=== PATIENT | male | born 1965 | race Two or more races ===

== ENCOUNTER 2020-02-06 01:58 | Inpatient (IN) | payer OTHER, MEDICARE, SELFPAY ==
[2020-02-06] VITALS (11 sets, daily range): BP systolic 146–245; BP diastolic 72–133; PULSE 58–122; RESP 16–40; TEMP 36.1–36.8; O2SAT 73–100; BMI 33.3
--- NOTE | 2020-02-06 02:19 | XR_ITS ---
EXAMINATION: XR CHEST CLINICAL INFORMATION: Shortness of breath, possible new CHF COMPARISON: None TECHNIQUE: Frontal view of the chest was obtained. FINDINGS: Lung volumes are symmetric. There are diffusely increased interstitial markings, more prominent at the lung bases. There is also heterogeneous airspace opacification at the right lung base. No pneumothorax is seen. No significant pleural effusion. The cardiomediastinal contour is unremarkable. No acute osseous findings are seen. IMPRESSION: Diffusely increased interstitial markings suggesting interstitial edema in the proper clinical setting. Superimposed heterogeneous right basilar airspace opacity may represent alveolar edema or possibly developing infectious consolidation in the proper clinical setting.
--- NOTE | 2020-02-06 02:20 | ECG_ITS ---
Test Reason : SOB Blood Pressure : / mmHG Vent. Rate : 101 BPM Atrial Rate : 101 BPM P-R Int : 180 ms QRS Dur : 098 ms QT Int : 374 ms P-R-T Axes : 071 -12 121 degrees QTc Int : 484 ms Sinus tachycardia Possible Left atrial enlargement Left ventricular hypertrophy with repolarization abnormality Anterolateral infarct (cited on or before 05-SEP-2019) Abnormal ECG When compared with ECG of 05-SEP-2019 12:23, No significant change was found Referred By: Erica Augustine Electronically Signed By:JOHN ESCALANTE MD
[2020-02-06] MEDS: Furosemide 100 MG/10 ML VIAL 60 MG IVPUSH (02:35)
[2020-02-06] MEDS: Nitroglycerin 2 % Oint 1 GM Packet 1 INCH TRANSDERMA (02:36)
[2020-02-06 02:40] LABS: Basophils Absolute Auto 0.2 X10*3/uL (0.0-0.2); Basophils Percent Auto 0.8 % (0-2); Eosinophils Absolute Auto 0.6 X10*3/uL (0.0-0.4); Eosinophils Percent Auto 3.3 % (0-4); Hematocrit 38.7 % (42-52); Hemoglobin 12.2 g/dl (14.0-18.0); Imm Gran Abs Auto 0.07 X10*3/uL (0.00-0.03); Imm Gran Pct Auto 0.4 % (0.0-0.4); Lymphocytes Absolute Auto 7.4 X10*3/uL (1.2-4.9); Lymphocytes Percent Auto 38.6 % (20-40); MANUAL DIFF FLAG SCAN; Mean Corpuscular HGB Conc 31.5 g/dl (31.0-36.0); Mean Corpuscular Hemoglobin 26.9 pg (27.0-33.0); Mean Corpuscular Volume 85.2 fL (80-98); Mean Platelet Volume 11.9 fL (9.4-12.4); Monocytes Absolute Auto 1.3 X10*3/uL (0.1-1.2); Monocytes Percent Auto 6.7 % (2-11); Neutrophils Absolute Auto 9.6 X10*3/uL (2.0-8.3); Neutrophils Percent Auto 50.2 % (45-73); Platelet Count 464 X10*3/uL (160-400); Red Blood Count 4.54 X10*6/uL (4.60-5.80); Red Cell Distribution Width 14.5 % (11.0-16.0); SCAN SMEAR FLAG 1; White Blood Count 19.1 X10*3/uL (4.8-10.8)
[2020-02-06 03:00] LABS: SLIDE REVIEW VERIFIED
[2020-02-06 03:09] LABS: Anion Gap 17 (12-20); Blood Urea Nitrogen 39 mg/dL (9-16); Calcium 8.8 mg/dL (8.4-10.2); Carbon Dioxide 17 mmol/L (22-29); Chloride 107 mmol/L (96-108); Creatinine Clr Calc Pharmacy 54.5; Estimated Glomerular Filt Rate 36; Glucose Random 409 mg/dL (60-115); Potassium 4.4 mmol/l (3.3-5.1); Sodium 137 mmol/L (135-145)
[2020-02-06 03:19] LABS: B Type Natriuretic Peptide 245 pg/mL (<100); Troponin-I High Sensitivity 129.7 ng/L (<3.5-35.0)
--- NOTE | 2020-02-06 04:01 | CT_ITS ---
EXAMINATION: CT CHEST WITHOUT CONTRAST CLINICAL INFORMATION: Worsening shortness of breath COMPARISON: Chest x-ray from earlier today TECHNIQUE: Multidetector volumetric CT imaging of the chest was done. Axial MIP volume rendering provided. Sagittal and coronal reformatted images were obtained. This CT examination was performed using dose optimization techniques as appropriate, variously including the following: *Automated exposure control *Adjustment of mA and/or kV according to patient size (this includes techniques or standardized protocols for targeted exams where dose is matched to indication/reason for exam; i.e. extremities or head) *Use of iterative reconstruction technique DLP: 361 mGy-cm FINDINGS: LUNGS: There is interlobular septal thickening in the mid to lower lungs along with regions of bilateral lower lobe groundglass opacity, right greater than left. Overall constellation of findings favors pulmonary edema. Scattered calcified granulomas are noted. MEDIASTINUM: The visualized thyroid gland is unremarkable. Multiple scattered subcentimeter lymph nodes noted throughout the mediastinum. Cardiac size is within normal limits; no pericardial effusion. Scattered atherosclerotic calcifications are present. PLEURA: Trace right pleural effusion. No pneumothorax. AXILLA: No lymphadenopathy. UPPER ABDOMEN: Discontinuous calcification noted along the gallbladder wall. OSSEOUS STRUCTURES: Scattered degenerative endplate changes noted in the spine. IMPRESSION: 1. Interlobular septal thickening and groundglass opacities with basilar predominance, favored to reflect interstitial and developing alveolar edema. 2. Trace right pleural effusion. 3. Calcifications along the gallbladder wall, favoring porcelain gallbladder.
[2020-02-06] MEDS: Insulin Regular, Human 100 UNIT/ML 3 ML VIAL 10 UNIT IVPUSH (04:33)
[2020-02-06] MEDS: Piperacillin Sodium/Tazobactam 3.375 GM in 0.9 % Sodium Chloride 50 ML IV (05:44)
[2020-02-06] MEDS: 0.9 % Sodium Chloride 1,000 ML 999 ML IVCONT (05:45)
--- NOTE | 2020-02-06 05:55 | ED.SOB ---
HPI - SOB/Dyspnea General Chief Complaint: Dyspnea Stated Complaint: SOB Time Seen by Provider: 02/06/20 02:09 Source: patient and family Mode of arrival: ambulatory Limitations: other ( shortness of breath) History of Present Illness HPI Narrative: patient comes to emergency room complaining of severe shortness of breath. Patient states he was sleeping comfortably when suddenly he had sudden onset of shortness of breath. Patient had no chest pain. On arrival to the emergency room, his oxygen saturation was noted to be 70 %. Patient was unable to give further history due to the shortness of breath. MD elicited complaint: shortness of breath Pertinent past history: asthma Onset (ago): minute(s) Timing: constant Severity: severe Exacerbating factors: lying flat and movement Relieving factors: nothing Known history of: asthma Associated symptoms: orthopnea Treatment prior to arrival: none Related Data Home oxygen amount: none Home Medications Medication Instructions Recorded Confirmed blood sugar diagnostic [FreeStyle 02/06/20 02/06/20 Lite Strips] dulaglutide [Trulicity] 1 syringe SUBCUT QWEEK 02/06/20 02/06/20 flu vacc [id number] 6mos up(PF) ml IM 02/06/20 [Fluzone Quad 1140-0213 (PF)] gemfibrozil 1 tab PO BID 02/06/20 02/06/20 insulin glargine [Lantus Solostar 32 unit SUBCUT BEDTIME 02/06/20 02/06/20 U-100 Insulin] insulin lispro [Humalog KwikPen 14 unit SUBCUT TID 02/06/20 02/06/20 Insulin] metoprolol tartrate 1 tab PO DAILY 02/06/20 02/06/20 nicotine 1 patch TOPICAL DAILY 02/06/20 02/06/20 pen needle, diabetic [BD 02/06/20 02/06/20 Ultra-Fine Mini Pen Needle] pravastatin 1 tab PO DAILY 02/06/20 02/06/20 Allergies Allergy/AdvReac Type Severity Reaction Status Date / Time No Known Allergies Allergy Verified 02/06/20 02:03 [No Known Allergies*] Review of Systems Review of Systems: Constitutional: No Weight loss, No Fever, No Chills, No Night Sweats, No Fatigue, No Malaise ENT/Mouth: No Hearing loss, No Ear Pain, No Nasal Congestion, No Sinus Pain, No Hoarseness, No sore throat, No Rhinorrhea, No Swallowing Difficulty Eyes: No Eye Pain, No Swelling, No Redness, No Foreign Body, No Discharge, No Vision Changes Cardiovascular: No Chest Pain, No SOB, No Dyspnea on Exertion, No Orthopnea, No Edema, No Palpitations Respiratory: No Cough, No Sputum, No Wheezing, No Smoke Exposure, Complaining of severe dyspnea Gastrointestinal: No Nausea, No Vomiting, No Diarrhea, No Constipation, No abdominal Pain, No Hematochezia, No Melena Genitourinary: no irregular bleeding, No Dysuria, No Urinary Frequency, No Hematuria, No Urinary Incontinence, No Urgency, No Flank Pain, No Urinary Flow Changes, No Hesitancy Musculoskeletal: No joint pain, No Myalgias, No Joint Swelling Skin: No Skin Lesions, No rash Neuro: No Weakness, No Numbness, No Paresthesias, No Loss of Consciousness, No Dizziness, No Headache Psych: No Anxiety/Panic, No Depression, No SI/HI/AH/VH, No Social Issues, Heme/Lymph: No Bruising, No Bleeding,No Lymphadenopathy Endocrine: No Polyuria, No Polydipsia, No Temperature Intolerance PMFSH Past Medical History Attestation statement: The following information was validated with the patient. Medical History Diabetes Hypertension Social History Social History Alcohol intake: never Smoking Status: Never smoker Use of substances other than those prescribed or required for medical reasons: No Advance Directives: No Physical Exam Vital Signs: Vital Signs: Vital Signs Temp Pulse Resp BP Pulse Ox 02/06/20 05:53 97.9 F 92 18 161/74 H 97 02/06/20 04:37 90 16 172/72 H 100 02/06/20 03:17 97.8 F 100 22 H 176/86 H 98 02/06/20 02:08 97.5 F 122 H 40 H 245/133 H 73 L Body Mass Index 33.3 Appearance: Alert. severe distress due to shortness of breath Eyes: Pupils equal, round and reactive to light. ENT: Pharynx normal. Neck: Normal inspection. Neck supple. No lymph nodes noted. No crepitus CVS: Normal heart rate and rhythm. Pulses normal. Normal S1 and S2 Respiratory: severe respiratory distress. bilateral crackles, No Wheezing. Abdomen: Soft and nontender. No rigidity. No distention. good BS x4 Skin: Skin warm and dry. Normal skin color. Normal skin turgor. Extremities: bilateral +1 pitting extremity edema. No Lacerations. No Rash Neuro: Oriented X 3. No motor deficit. No sensory deficit. Moving all extermities. No slurred speech. Course Reevaluation(s) Reevaluation #1: patient was initially placed on 15 L, oxygen saturation was 91%. Patient was switched to BiPAP. Reevaluation #2: Patient tolerated well BiPAP, now he is on 2 L nasal cannula, patient's oxygen saturation 98%, patient breathing comfortably, speaking in full sentences. MDM - SOB/Dyspnea MDM Narrative Medical decision making narrative: Patient has an elevated white blood cell count, at the moment, it is unclear if patient has shortness of breath was secondary due to a viral process versus cardiac. So far, it is more likely that the patient's shortness of breath is due to new onset congestive heart failure rather than infectious. However, patient will be treated empirically with antibiotics, but he will not be given 30 mL per kg of IV fluid,. most likely, patient has hypertension, to 20 on arrival, triggered /pulmonary edema. patient responded well to BiPAP, IV Lasix and nitropaste. I discussed the above-mentioned with our hospitalist. Differential Diagnosis Differential diagnosis: Likely congestive heart failure, asthma with exacerbation and pleural effusion Medical Records Attestation: I reviewed the patient's medical records. Lab Data Attestation: I reviewed the patient's lab results. Result diagrams: 02/06/20 02:32 02/06/20 02:32 Labs: Lab Results 02/06/20 02/06/20 02/06/20 Range/Units 02:32 02:32 02:32 WBC 19.1 H (4.8-10.8) X10*3/uL RBC 4.54 L (4.60-5.80) X10*6/uL Hgb 12.2 L (14.0-18.0) g/dl Hct 38.7 L (42-52) % MCV 85.2 (80-98) fL MCH 26.9 L (27.0-33.0) pg MCHC 31.5 (31.0-36.0) g/dl RDW 14.5 (11.0-16.0) % Plt Count 464 H (160-400) X10*3/uL MPV 11.9 (9.4-12.4) fL Immature Gran % (Auto) 0.4 (0.0-0.4) % Neut % (Auto) 50.2 (45-73) % Lymph % (Auto) 38.6 (20-40) % [place] % (Auto) 6.7 (2-11) % Eos % (Auto) 3.3 (0-4) % Baso % (Auto) 0.8 (0-2) % Lymph # (Auto) 7.4 H (1.2-4.9) X10*3/uL [place] # (Auto) 1.3 H (0.1-1.2) X10*3/uL Eos # (Auto) 0.6 H (0.0-0.4) X10*3/uL Baso # (Auto) 0.2 (0.0-0.2) X10*3/uL Abs Immat Gran (auto) 0.07 H (0.00-0.03) X10*3/uL Absolute Neuts (auto) 9.6 H (2.0-8.3) X10*3/uL Absolute Nucleated RBC 0.000 (0.0-0.012) X10*3/uL Nucleated RBC % (auto) 0.0 (0.0-0.2) /100WBC Smear Tech's Comments VERIFIED Sodium 137 (135-145) mmol/L Potassium 4.4 (3.3-5.1) mmol/l Chloride 107 (96-108) mmol/L Carbon Dioxide 17 L (22-29) mmol/L Anion Gap 17 (12-20) BUN 39 H (9-16) mg/dL Creatinine 1.94 H (0.5-1.4) mg/dL Estim Creat Clear Calc 54.5 Estimated GFR 36 Random Glucose 409 H* (60-115) mg/dL Calcium 8.8 (8.4-10.2) mg/dL Troponin I High Sens 129.7 H (<3.5-35.0) ng/L B-Natriuretic Peptide 245 H (<100) pg/mL 02/06/20 Range/Units 02:32 WBC (4.8-10.8) X10*3/uL RBC (4.60-5.80) X10*6/uL Hgb (14.0-18.0) g/dl Hct (42-52) % MCV (80-98) fL MCH (27.0-33.0) pg MCHC (31.0-36.0) g/dl RDW (11.0-16.0) % Plt Count (160-400) X10*3/uL MPV (9.4-12.4) fL Immature Gran % (Auto) (0.0-0.4) % Neut % (Auto) (45-73) % Lymph % (Auto) (20-40) % [place] % (Auto) (2-11) % Eos % (Auto) (0-4) % Baso % (Auto) (0-2) % Lymph # (Auto) (1.2-4.9) X10*3/uL [place] # (Auto) (0.1-1.2) X10*3/uL Eos # (Auto) (0.0-0.4) X10*3/uL Baso # (Auto) (0.0-0.2) X10*3/uL Abs Immat Gran (auto) (0.00-0.03) X10*3/uL Absolute Neuts (auto) (2.0-8.3) X10*3/uL Absolute Nucleated RBC (0.0-0.012) X10*3/uL Nucleated RBC % (auto) (0.0-0.2) /100WBC Smear Tech's Comments Sodium (135-145) mmol/L Potassium (3.3-5.1) mmol/l Chloride (96-108) mmol/L Carbon Dioxide (22-29) mmol/L Anion Gap (12-20) BUN (9-16) mg/dL Creatinine (0.5-1.4) mg/dL Estim Creat Clear Calc Estimated GFR Random Glucose (60-115) mg/dL Calcium (8.4-10.2) mg/dL Troponin I High Sens (<3.5-35.0) ng/L B-Natriuretic Peptide Cancelled (<100) pg/mL Imaging Data chest x ray and chest ct: Radiologist's impression: CXR: infectious vs edema CT: 1. Interlobular septal thickening and groundglass opacities with basilar predominance, favored to reflect interstitial and developing alveolar edema. 2. Trace right pleural effusion. 3. Calcifications along the gallbladder wall, favoring porcelain gallbladder. ECG Data Attestation: I personally reviewed and interpreted this ECG as follows: ( sinus rhythm, tachycardia, heart rate 101, QTC 484, nonspecific T-wave inversions in lead V6) ECG interpretation date: 02/06/20 ECG interpretation time: 06:05 Discharge Plan Discharge Clinical Impression: Congestive heart failure, Dyspnea, Acute hyperglycemia Patient Disposition: Admitted As Inpatient Prescriptions: No Action (DME) FreeStyle Lite Strips Strip MISCELLANEOUS TID RF: 0 gemfibrozil 600 mg tablet 1 tab PO BID RF: 0 metoprolol tartrate 50 mg tablet 1 tab PO DAILY RF: 0 nicotine 21 mg/24 hr patch 24 hour 1 patch topical DAILY RF: 0 pravastatin 20 mg tablet 1 tab PO DAILY RF: 0 insulin lispro [Humalog KwikPen Insulin] 100 unit/mL insulin pen 14 unit subcut TID RF: 0 (DME) pen needle, diabetic [BD Ultra-Fine Mini Pen Needle] 31 gauge x 3/16 needle subcut BEDTIME RF: 0 Lantus Solostar U-100 Insulin 100 unit/mL (3 mL) insulin pen 32 unit subcut BEDTIME RF: 0 Trulicity 0.75 mg/0.5 mL pen injector 1 syringe subcut QWEEK RF: 0 Fluzone Quad (PF) 60 mcg (15 mcg x 4)/0.5 mL syringe IM RF: 0
--- NOTE | 2020-02-06 06:06 | ECG_ITS ---
Test Reason : REPEAT Blood Pressure : / mmHG Vent. Rate : 087 BPM Atrial Rate : 087 BPM P-R Int : 190 ms QRS Dur : 104 ms QT Int : 380 ms P-R-T Axes : 034 -14 110 degrees QTc Int : 457 ms Normal sinus rhythm Minimal voltage criteria for LVH, may be normal variant Anterolateral infarct (cited on or before 05-SEP-2019) Abnormal ECG When compared with ECG of 06-FEB-2020 03:05, No significant change was found Referred By: Lei Sadler Electronically Signed By:JOHN ESCALANTE MD
[2020-02-06 06:13] LABS: Lactic Acid 1.8 mmol/L (0.5-2.0)
[2020-02-06] MEDS: Heparin Sodium,Porcine 5,000 UNIT/ML VIAL 5000 UNIT IVPUSH (06:41)
[2020-02-06] MEDS: Heparin Sodium,Porcine/1/2NS 25,000 UNIT/250 ML IV.SOLN 15.2 UNIT IVCONT (06:42)
--- NOTE | 2020-02-06 06:47 | P.HPIM_ITS ---
History of Present Illness Date of Service: 02/06/20 Chief Complaint: sudden onset shortness breath this is a 54-year-old male with past medical history of diabetes, hypertension, hyperlipidemia, neuropathy, who presents to the hospital complaining of sudden onset shortness of breath. Patient reports that he was sitting on the couch watching TV when all of sudden he started having shortness of breath, started coughing, panicking, and had a slightly pleuritic chest pain with coughing. He reports that prior to this he was doing well although he did report shortness of breath on exertion but he felt that was going on for while. He has been renovating his house lately and has been feeling a little more tired than usual. He denies having orthopnea or PND. He has not noticed any Leg swelling . He has not had any recent travel or sick contacts and he has not had any fever or chills. No sputum production. He has no headache, change in vision, abdominal pain nausea or vomiting. No constipation or diarrhea. No urinary symptoms. On arrival to the ED patient's temp is 97.5?, tachycardic with a rate of 122, tachypneic in the 40s, blood pressure of 245/133, and pulse ox of 73 on room air. Patient was placed on BiPAP, 60 mg of Lasix was given with significant improvement of his symptoms labs are significant for WBC count of 19.1, hemoglobin of 12.2, BUN of 30 and a creatinine of 1.94, random glucose of wound 9, initial troponin of 120s but repeat troponin increased to 982, BNP of 245 EKG shows sinus tachycardia, with no other significant changes from previous EKG. No changes suggestive of ACS. CT chest demonstrated interlobular septal thickening and ground-glass opaciti es with basilar predominance, favored to reflect interstitial in developing alveolar edema, trace right pleural effusion, and porcelain gallbladder past medical history: Diabetes, hypertension, hyperlipidemia, neuropathy Past surgical history: Denies Family history: Father had dementia, and mother of pancreatic cancer Social history: Comes from home, uses a cane sometimes due to neuropathy, denies any tobacco alcohol or illicit drugs Review of Systems Review of Systems: Yes all other systems are reviewed and are negative [facility] Medical History Diabetes Hypertension Social History Alcohol intake: never Smoking Status: Never smoker Use of substances other than those prescribed or required for medical reasons: No Advance Directives: No Meds Allergies Allergy/AdvReac Type Severity Reaction Status Date / Time No Known Allergies Allergy Verified 02/06/20 02:03 [No Known Allergies*] Home Medications Medication Instructions Recorded Confirmed Type blood sugar diagnostic [FreeStyle 02/06/20 02/06/20 History Lite Strips] dulaglutide [Trulicity] 1 syringe SUBCUT QWEEK 02/06/20 02/06/20 History flu vacc [id number] 6mos up(PF) ml IM 02/06/20 History [Fluzone Quad 8798-2506 (PF)] gemfibrozil 1 tab PO BID 02/06/20 02/06/20 History insulin glargine [Lantus Solostar 32 unit SUBCUT BEDTIME 02/06/20 02/06/20 History U-100 Insulin] insulin lispro [Humalog KwikPen 14 unit SUBCUT TID 02/06/20 02/06/20 History Insulin] metoprolol tartrate 1 tab PO DAILY 02/06/20 02/06/20 History nicotine 1 patch TOPICAL DAILY 02/06/20 02/06/20 History pen needle, diabetic [BD 02/06/20 02/06/20 History Ultra-Fine Mini Pen Needle] pravastatin 1 tab PO DAILY 02/06/20 02/06/20 History Physical Exam Vital Signs and Narrative: Vital Signs: Last Vital Signs Temp 97.9 F 02/06/20 05:53 Pulse 92 02/06/20 05:53 Resp 18 02/06/20 05:53 BP 161/74 H 02/06/20 05:53 Pulse Ox 97 02/06/20 05:53 Body Mass Index 33.3 Const: General: cooperative and no acute distress Orientation/consciousness: patient oriented x3 Eyes: General: appearance normal, both eyes and all related structures Pupils: Equal, round and reactive pupils present Resp: Effort & Inspection: normal respiratory effort and able to speak in complete sentences Auscultation: clear to auscultation bilaterally Cardio: Other: 1+ pedal edema Rate: regular rate Rhythm: regular rhythm GI: Palpation (GI): Soft to palpation Auscultation: normal bowel sounds Skin: General skin exam: no rashes or lesions noted Neuro: General: patient oriented x3 Cranial nerves: Yes Equal, round and reactive pupils present Cognition (Neuro): normal cognition Extrem: General: Yes normal to inspection and Yes no pedal edema Results Labs Labs: Laboratory Tests 02/06/20 02/06/20 02/06/20 02:32 02:32 02:32 WBC 19.1 H RBC 4.54 L Hgb 12.2 L Hct 38.7 L MCV 85.2 MCH 26.9 L MCHC 31.5 RDW 14.5 Plt Count 464 H MPV 11.9 Immature Gran % (Auto) 0.4 Neut % (Auto) 50.2 Lymph % (Auto) 38.6 [place] % (Auto) 6.7 Eos % (Auto) 3.3 Baso % (Auto) 0.8 Lymph # (Auto) 7.4 H [place] # (Auto) 1.3 H Eos # (Auto) 0.6 H Baso # (Auto) 0.2 Abs Immat Gran (auto) 0.07 H Absolute Neuts (auto) 9.6 H Absolute Nucleated RBC 0.000 Nucleated RBC % (auto) 0.0 Smear Tech's Comments VERIFIED Sodium 137 Potassium 4.4 Chloride 107 Carbon Dioxide 17 L Anion Gap 17 BUN 39 H Creatinine 1.94 H Estim Creat Clear Calc 54.5 Estimated GFR 36 Random Glucose 409 H* Lactic Acid Calcium 8.8 Troponin I High Sens 129.7 H B-Natriuretic Peptide 245 H 02/06/20 02/06/20 02/06/20 02:32 05:30 05:43 WBC RBC Hgb Hct MCV MCH MCHC RDW Plt Count MPV Immature Gran % (Auto) Neut % (Auto) Lymph % (Auto) [place] % (Auto) Eos % (Auto) Baso % (Auto) Lymph # (Auto) [place] # (Auto) Eos # (Auto) Baso # (Auto) Abs Immat Gran (auto) Absolute Neuts (auto) Absolute Nucleated RBC Nucleated RBC % (auto) Smear Tech's Comments Sodium Potassium Chloride Carbon Dioxide Anion Gap BUN Creatinine Estim Creat Clear Calc Estimated GFR Random Glucose Lactic Acid 1.8 Calcium Troponin I High Sens 982.0 H D B-Natriuretic Peptide Cancelled ECG Attestation: I personally reviewed and interpreted this ECG as follows: ( I personally reviewed the EKG and agree with the interpretation) Interpretation: Sinus tachycardia Possible Left atrial enlargement Left ventricular hypertrophy with repolarization abnormality Anterolateral infarct (cited on or before 05-SEP-2019) Abnormal ECG When compared with ECG of 05-SEP-2019 12:23, No significant change was found Imaging CT scan - chest: Radiologist's impression: IMPRESSION: 1. Interlobular septal thickening and groundglass opacities with basilar predominance, favored to reflect interstitial and developing alveolar edema. 2. Trace right pleural effusion. 3. Calcifications along the gallbladder wall, favoring porcelain gallbladder. Assessment and Plan (1) NSTEMI (non-ST elevated myocardial infarction): Status: Acute (2) Elevated troponin: Status: Acute (3) Congestive heart failure: Qualifiers: Heart failure chronicity: acute Heart failure type: unspecified Qualified Code(s): I50.9 - Heart failure, unspecified Status: Acute (4) Dyspnea: Qualifiers: Dyspnea type: acute respiratory distress Qualified Code(s): R06.03 - Acute respiratory distress Status: Acute (5) Acute hyperglycemia: Status: Acute (6) Hypoxic: Status: Acute this is a gentleman with past medical history as above who presents to the hospital with sudden onset shortness of breath found to have CHF and NSTEMI # acute hypoxic respiratory failure - secondary to CHF exacerbation, less likely to be due to [place] or any other pneumonia - CT abdomen showing pulmonary congestion Plan: - Received 60 IV of Lasix in the ED with good response - will start him on 40 IV b.i.d. of Lasix - strict I&O, daily weight, low-sodium diet - echocardiogram - cardiology consult # NSTEMI - most likely type 2 in the hypertensive in emergency as well as CHF - elevated troponin in the 900s - no EKG changes - has noncardiac chest pain plan: - spoke to her cardiology will start him on heparin GGT - aspirin - echo # acute onset CHF - dyspnea, elevated BNP, lower extremity edema, as well as fatigue all suggest CHF - patient also has evidence on imaging plan: - Lasix as above - echocardiogram - cardiology to follow # hypertensive urgency - % with systolic blood pressure in the low 220s, with diastolic in the 100 and 10s - patient was placed on BiPAP and given nitroglycerin transdermal patch which improved his blood pressure and now blood pressure is 160s over 80s - # diabetes mellitus - low-dose sliding scale insulin, continue glargine, continue home lispro with meals - diabetic diet # hypertension - stable now - continue metoprolol DVT prophylaxis: heparin GGT date of service 02/06/2020
[2020-02-06 06:50] LABS: SARS COV2 PCR INHOUSE NEGATIVE (Negative)
[2020-02-06] MEDS: Aspirin 81 MG TAB.CHEW 324 MG PO (07:17)
--- NOTE | 2020-02-06 08:11 | CA_ITS ---
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 The visually estimated ejection fraction is between 45-50%. - There is severely increased left ventricular wall thickness. - The apical inferior and basal inferior segments are hypokinetic. The apex, apical septum, and mid anteroseptal segments are akinetic. Findings Procedure Information Contrast agent, definity, is being given per protocol without apparent complications. Left Ventricle Normal left ventricular cavity size. There is severely increased left ventricular wall thickness. The left ventricular systolic function is mildly decreased. The visually estimated ejection fraction is between 45-50%. There is evidence of regional wall motion abnormalities. E/E prime ratio is between 8 and 15 consistent with indeterminate filling pressures. Evidence suggests grade I (mild) diastolic dysfunction. Wall Motion Rest Echo Findings The apical inferior and basal inferior segments are hypokinetic. The apex, apical septum, and mid anteroseptal segments are akinetic. Right Ventricle Normal right ventricular cavity size and systolic function. Aortic Valve The aortic valve was not well visualized. There is no aortic valve stenosis. There is no aortic valve regurgitation. Mitral Valve The mitral valve appears normal. There is mild mitral valve regurgitation. There is no mitral valve stenosis. Pulmonic Valve The pulmonic valve was not well visualized. There is trace pulmonic valve regurgitation. Tricuspid Valve Normal tricuspid valve structure. There is trace tricuspid valve regurgitation. The pulmonary artery systolic pressure is normal. Great Vessels The aortic annulus, sinuses of valsalva, and asc aorta are normal in size. Venous The inferior vena cava is normal in size and collapses greater than 50% with inspiration. Pericardium/Pleural There is no evidence of pericardial effusion. Prior Study Comparison No prior study available for comparison. Measurements 2D Linear Measurements IVSd: 1.52 0.6-0.9/0.6-1.0 cm LVIDd: 5.04 3.9-5.3/4.2-5.9 cm LVIDd Index: 2.26 2.4-3.2/2.2-3.1 cm/m2 LVIDs: 3.52 2.0-3.6 cm LVPWd: 1.58 0.7-1.1 cm Ao Root: 2.60 2.1-3.5 cm LA Diam: 4.70 2.7-3.8/3.0-4.0 cm LAIDs Index: 2.11 1.5-2.3 cm/m2 LV Mass: 427.78 67-162/88-224 g LV Mass Index: 191.83 43-95/49-115 g/m2 LVOT Diam: 2.20 3.0+(-)1.3 cm 2D Systolic Function EF 4C: 46.80 >55% EF 2C: 42.80 >55% EF BiP: 46.80 >55% Mitral Valve MV Pk E: 0.68 MV PK A: 0.94 MV Decel Time: 130.00 E/A: 0.70 E'Lateral: 6.19 E'Medial: 4.84 E/E' Med: 14.10 E/E' Lat: 11.10 PHT: 38.00 MVA PHT: 5.79 Decel Summers: 5.25 Aortic Valve AoV Pk Aquiles: 1.61 AoV Mn Aquiles: 1.12 AoV VTI: 0.33 AoV Pk Grad: 10.00 Aov Mn Grad: 6.00 TRINY Cont.VTI: 2.57 LVOT LVOT Pk Aquiles: 1.03 LVOT Mn Aquiles: 0.70 LVOT VTI: 0.22 LVOT Pk Grad: 4.00 LVOT Mn Grad: 2.00 LVOT Diam: 2.20 LVOT Area: 3.80 Diastolic Function MV Pk E: 0.68 MV Pk A: 0.94 E/A: 0.70 E'Medial: 4.84 E/E' Med: 14.10 E' Laterial: 6.19 E/E' Lat: 11.10 Tricuspid Valve TR Pk Aquiles: 1.78 TR Pk Grad: 13.00 RA Press: 3.00 RVSP: 16.00 Great Vessels Aorta Ao Root-2D: 2.60 2.0-3.7 cm Pulmonary Valve PV Pk Aquiles: 1.45 Peak PV Grad: 8.00 Updated in Other Vendor System with Status of Final Robert De Leon MD electronically signed on 02/06/2020 5:28:14 PM with status of Final
--- NOTE | 2020-02-06 08:32 | PM.CNCAR ---
History of Present Illness History of Present Illness Date of Consult: February 06, 2020 Chief complaint: SOB/CHF, NSTEMI Narrative: This is a cardiology consultation regarding CHF/NSTEMI. Patient denies any prior cardiac history at all. He has a history of hypertension, diabetes and dyslipidemia. He is presenting with acute onset of shortness of breath. He was sitting in a couch and watching TV when all of a sudden having shortness of breath and started coughing and panicking and pleuritic-type chest pains with coughing. Then he was seen and then the blood pressure was very high 245/133 mm Hg. Then patient was put on BiPAP and IV Lasix was given and then blood pressure improved. Today he states that he feels back to his normal self. Prior to this, no history of any known cardiomyopathy or coronary disease myocardial infarction or in fact any other cardiac issues. He states that he was otherwise Feeling normal prior to this admission. Review of Systems Review of Systems: Cardiac-positive for shortness of breath. negative for angina. Negative for palpitations or syncopal episodes. Remainder of the 10 system review negative. [facility] Past Medical History Medical History Diabetes Hypertension Family History Pertinent family history: No significant family history relevant to this admission. Father had dementia. Mother had of pancreatic cancer. Social History Social History Household Members: Spouse Housing: House Do you presently have visiting nurse or other home services: No Alcohol intake: never Smoking Status: Current every day smoker Tobacco Type: Cigarette Years Smoked: 30 Smoked in Last 30 Days: Yes Patient Interested in Nicotine Replacement: No Patient Given Instructions on How to Stop Smoking: No Second Hand Smoke Exposure: No Use of substances other than those prescribed or required for medical reasons: No Have you been hit, kicked, punched, or otherwise hurt by someone within the past year? If so, by whom?: No Do you feel safe in your current relationship?: Yes Is there a partner from a previous relationship who is making you feel unsafe now?: No Are you made to feel afraid or neglected: No Spiritual Healthcare Practices: none Advance Directives: No Do you have thoughts of harming others: None Do you have a plan to hurt others: No Plan Recently lost weight without trying: Unsure service: No Meds Allergies Allergy/AdvReac Type Severity Reaction Status Date / Time No Known Allergies Allergy Verified 02/06/20 02:03 [No Known Allergies*] Home Medications Medication Instructions Recorded Confirmed Type blood sugar diagnostic [FreeStyle 02/06/20 02/06/20 History Lite Strips] dulaglutide [Trulicity] 0.75 mg SUBCUT QWEEK 02/06/20 02/06/20 History gemfibrozil 600 mg PO BID 02/06/20 02/06/20 History insulin glargine [Lantus Solostar 32 unit SUBCUT BEDTIME 02/06/20 02/06/20 History U-100 Insulin] insulin lispro [Humalog KwikPen 14 unit SUBCUT TIDAC 02/06/20 02/06/20 History Insulin] lisinopril 5 mg PO DAILY 02/06/20 02/06/20 History metformin 500 mg PO BID 02/06/20 02/06/20 History metoprolol tartrate 50 mg PO DAILY 02/06/20 02/06/20 History nicotine 1 patch TOPICAL DAILY 02/06/20 02/06/20 History pen needle, diabetic [BD 02/06/20 02/06/20 History Ultra-Fine Mini Pen Needle] pravastatin 20 mg PO DAILY 02/06/20 02/06/20 History Physical Exam Vital Signs: Vital Signs: Vital Signs Temp Pulse Resp BP Pulse Ox 02/06/20 08:17 97.9 F 85 18 150/90 H 97 02/06/20 07:25 86 18 98 02/06/20 05:53 97.9 F 92 18 161/74 H 97 02/06/20 04:37 90 16 172/72 H 100 02/06/20 03:17 97.8 F 100 22 H 176/86 H 98 02/06/20 02:08 97.5 F 122 H 40 H 245/133 H 73 L Body Mass Index 33.3 Comfortable, no distress No pallor, icterus or cyanosis HEENT -unremarkable JVD- normal Cardiac- normal heart sounds, no murmurs, gallops or rubs, normal PMI Respiratory-normal breath sounds bilaterally, no crackles, no wheeze Abdomen- soft, nontender Neuro- alert and oriented Lower extremities- no significant edema, warm well perfused Results Labs and Meds Result diagrams: 02/06/20 08:47 02/06/20 02:32 Lab results: Laboratory Results - last 24 hr 02/06/20 02/06/20 02/06/20 02:32 02:32 02:32 WBC 19.1 H RBC 4.54 L Hgb 12.2 L Hct 38.7 L MCV 85.2 MCH 26.9 L MCHC 31.5 RDW 14.5 Plt Count 464 H MPV 11.9 Immature Gran % (Auto) 0.4 Neut % (Auto) 50.2 Lymph % (Auto) 38.6 [place] % (Auto) 6.7 Eos % (Auto) 3.3 Baso % (Auto) 0.8 Lymph # (Auto) 7.4 H [place] # (Auto) 1.3 H Eos # (Auto) 0.6 H Baso # (Auto) 0.2 Abs Immat Gran (auto) 0.07 H Absolute Neuts (auto) 9.6 H Absolute Nucleated RBC 0.000 Nucleated RBC % (auto) 0.0 Smear Tech's Comments VERIFIED Sodium 137 Potassium 4.4 Chloride 107 Carbon Dioxide 17 L Anion Gap 17 BUN 39 H Creatinine 1.94 H Estim Creat Clear Calc 54.5 Estimated GFR 36 Random Glucose 409 H* Lactic Acid Calcium 8.8 Troponin I High Sens 129.7 H B-Natriuretic Peptide 245 H Coronavirus (PCR) 02/06/20 02/06/20 02/06/20 02:32 05:30 05:43 WBC RBC Hgb Hct MCV MCH MCHC RDW Plt Count MPV Immature Gran % (Auto) Neut % (Auto) Lymph % (Auto) [place] % (Auto) Eos % (Auto) Baso % (Auto) Lymph # (Auto) [place] # (Auto) Eos # (Auto) Baso # (Auto) Abs Immat Gran (auto) Absolute Neuts (auto) Absolute Nucleated RBC Nucleated RBC % (auto) Smear Tech's Comments Sodium Potassium Chloride Carbon Dioxide Anion Gap BUN Creatinine Estim Creat Clear Calc Estimated GFR Random Glucose Lactic Acid 1.8 Calcium Troponin I High Sens 982.0 H D B-Natriuretic Peptide Cancelled Coronavirus (PCR) 02/06/20 05:43 WBC RBC Hgb Hct MCV MCH MCHC RDW Plt Count MPV Immature Gran % (Auto) Neut % (Auto) Lymph % (Auto) [place] % (Auto) Eos % (Auto) Baso % (Auto) Lymph # (Auto) [place] # (Auto) Eos # (Auto) Baso # (Auto) Abs Immat Gran (auto) Absolute Neuts (auto) Absolute Nucleated RBC Nucleated RBC % (auto) Smear Tech's Comments Sodium Potassium Chloride Carbon Dioxide Anion Gap BUN Creatinine Estim Creat Clear Calc Estimated GFR Random Glucose Lactic Acid Calcium Troponin I High Sens B-Natriuretic Peptide Coronavirus (PCR) NEGATIVE EKG Interpretation EKG Comments: EKG shows sinus rhythm with left ventricular hypertrophy; 87/Min; no clear evidence of any ischemia or infarction; Unchanged from prior. Assessment and Plan (1) Hypertensive emergency: Status: Acute (2) Acute diastolic (congestive) heart failure: Status: Acute (3) NSTEMI (non-ST elevated myocardial infarction): Status: Acute Overall, picture was suggestive hypertensive emergency and acute diastolic congestive heart failure/ pulmonary edema. Blood pressure seems improved from admission. We will get an echocardiogram for LV function assessment and wall motion. Otherwise can do IV heparin or Lovenox for 48 hours. Blood pressure management in conjunction with hospitalist Service and Nephrology. We will follow up with you. Eventually, stress test can be considered as an outpatient. Otherwise, his cardiac status seems stable at this time and he is clearly asymptomatic.
[2020-02-06 09:19] LABS: Glucose, Whole Blood 145 mg/dL (60-115)
[2020-02-06 09:33] LABS: MANUAL DIFF FLAG NO
[2020-02-06] MEDS: Insulin Lispro 100 UNIT/ML 3 ML VIAL 7 UNIT SUBCUT (09:38)
[2020-02-06] MEDS: Pravastatin Sodium 20 MG TABLET PO (09:38)
[2020-02-06] MEDS: Furosemide 40 MG/4 ML VIAL IVPUSH ×2 (09:38→18:01)
[2020-02-06] MEDS: Insulin Glargine,Hum.rec.anlog 100 UNIT/ML 10 ML VIAL 16 UNIT SUBCUT (09:39)
[2020-02-06 09:45] LABS: Basophils Absolute Auto 0.1 X10*3/uL (0.0-0.2); Basophils Percent Auto 0.7 % (0-2); Eosinophils Absolute Auto 0.1 X10*3/uL (0.0-0.4); Eosinophils Percent Auto 1.1 % (0-4); Hematocrit 33.4 % (42-52); Hemoglobin 10.8 g/dl (14.0-18.0); Imm Gran Abs Auto 0.06 X10*3/uL (0.00-0.03); Imm Gran Pct Auto 0.5 % (0.0-0.4); Lymphocytes Absolute Auto 2.5 X10*3/uL (1.2-4.9); Lymphocytes Percent Auto 21.9 % (20-40); Mean Corpuscular HGB Conc 32.3 g/dl (31.0-36.0); Mean Corpuscular Hemoglobin 27.4 pg (27.0-33.0); Mean Corpuscular Volume 84.8 fL (80-98); Monocytes Absolute Auto 0.7 X10*3/uL (0.1-1.2); Monocytes Percent Auto 6.3 % (2-11); Neutrophils Percent Auto 69.5 % (45-73); Platelet Count 341 X10*3/uL (160-400); Red Blood Count 3.94 X10*6/uL (4.60-5.80); Red Cell Distribution Width 14.2 % (11.0-16.0); White Blood Count 11.5 X10*3/uL (4.8-10.8)
[2020-02-06 09:51] LABS: PTT Heparin Drip 89.9 SEC (53-77.9)
[2020-02-06 09:55] LABS: Prothrombin Time 11.3 SEC (10.8-13.0)
[2020-02-06 10:19] LABS: Estimated Average Glucose 206 mg/dL; Hemoglobin A1c % 8.8 %
[2020-02-06 10:20] LABS: Glucose, Whole Blood 164 mg/dL (60-115)
--- NOTE | 2020-02-06 10:23 | MHC.CM.PN ---
dc plan home no servceis pt has own transportion home
[2020-02-06 11:28] LABS: Glucose, Whole Blood 150 mg/dL (60-115)
--- NOTE | 2020-02-06 11:33 | CONS_ITS ---
DATE OF SERVICE: REASON FOR CONSULTATION: I was called to see this patient to assist in the management of renal failure and hypertension. HISTORY OF PRESENT ILLNESS: To summarize, Hector is a 54-year-old man with history of longstanding hypertension and diabetes mellitus. He has chronic kidney disease with a baseline creatinine of around 1.6 mg/dL. He has an episode of acute kidney injury in the past as well. He comes back to the hospital because of sudden-onset shortness of breath. At the time of admission, systolic blood pressure was more than 230 mmHg. He was given IV diuretics since the chest x-ray showed evidence of congestion. The blood pressure has been lower and he is currently appearing comfortable, however, the serum creatinine has bumped up to 1.94 and hence this consultation. PAST MEDICAL HISTORY: Ongoing medical problems include history of longstanding hypertension, diabetes mellitus, chronic kidney disease stage 3, obesity, hyperlipidemia. FAMILY HISTORY: Significant for pancreatic cancer, mom from it. Father had dementia. SOCIAL HISTORY: No history of any smoking or alcohol abuse at present. No history of drug abuse. REVIEW OF SYSTEMS: Positive for shortness of breath. No nausea or vomiting. No urinary symptoms. No polyuria or polydipsia. No diarrhea or constipation. No edema. All other systems were reviewed and negative. PHYSICAL EXAMINATION: GENERAL: Hector is a 54-year-old man, who is comfortable, lying flat, not in any distress. NECK: Supple. No JVD. HEENT: Mucosa is moist. LUNGS: Air entry equal. Few basilar crackles. HEART: S1 and S2 heard. No gallop or rub. ABDOMEN: Obese, soft, nontender. EXTREMITIES: No significant edema. No rash. No clubbing. MEDICATIONS: All the current medications were reviewed. Home medications include metoprolol for blood pressure and no other antihypertensives. However, at present, he is on aspirin, pravastatin, furosemide 40 mg IV b.i.d., insulin. LABORATORY DATA: Sodium 137, potassium 4.4, CO2 of 17, BUN 13, creatinine 1.94, blood sugar 409. Hemoglobin 10.8, WBC 11.5, platelets 341. Urinalysis showed 3+ protein 3+ blood. IMPRESSION: A 54-year-old man with longstanding hypertension, diabetes mellitus, and chronic kidney disease stage 3, who comes in with accelerated hypertension and evidence of pulmonary edema. Hector sustained acute kidney injury due to autoregulation in the setting of uncontrolled hypertension. We will optimize his blood pressure, avoid rapid loading of blood pressure, and avoid . In view of the accelerated hypertension, I would check the renal arteries for any renal artery stenosis. We will avoid nephrotoxic agents. We will continue to follow him closely with the team. Roney Stout MD BPA/MODL / [phone]
--- NOTE | 2020-02-06 12:23 | PC.NURSE ---
pt poc at lunch 150, 7 units of Humalog sscheduled to be given, [employer] sent to Dr Gant, hold insulin.
[2020-02-06 12:26] LABS: Glucose, Whole Blood 159 mg/dL (60-115)
[2020-02-06 13:20] LABS: Glucose, Whole Blood 177 mg/dL (60-115)
[2020-02-06 13:35] LABS: PTT Heparin Drip 96.3 SEC (53-77.9)
[2020-02-06 14:24] LABS: Glucose, Whole Blood 143 mg/dL (60-115)
[2020-02-06 15:47] LABS: PTT Heparin Drip 58.9 SEC (53-77.9)
[2020-02-06 16:15] LABS: Glucose, Whole Blood 144 mg/dL (60-115)
--- NOTE | 2020-02-06 17:49 | PM.EVENT ---
Event Note Event Note: Patient already seen by hospital team this morning: patient denies any chest pain he also says that his shortness of breath seems improving denies any abdominal pain or fever or chills or chills physical exam: Cvs: rrr, [id number] , no murmur res: Grossly fair air entry, slightly diminished at bases. abd: no rebound or guarding ,nt, bs present. ext pulses present , no cyanosis neuro: axo3 , nonfocal. assessment and plan coordinated in H&P: probably hypertensive emergency initially NSTEMI pritchett: Continue aspirin and atorvastatin, IV heparin drip, metoprolol Cardio evaluation noted. CHF pritchett: Continue IV Lasix LUIS MANUEL: Monitor renal function closely, nephrology evaluation
[2020-02-06 21:25] LABS: Glucose, Whole Blood 153 mg/dL (60-115)
[2020-02-06 22:39] LABS: PTT Heparin Drip 64.3 SEC (53-77.9)
[2020-02-06] MEDS: 0.9 % Sodium Chloride Flush 3 ML SYRINGE IVFLUSH (23:32)
[2020-02-07] VITALS (7 sets, daily range): BP systolic 143–170; BP diastolic 70–101; PULSE 81–101; RESP 16–20; TEMP 36–36.8; O2SAT 93–98; BMI 33.3
[2020-02-07] MEDS: Heparin Sodium,Porcine/1/2NS 25,000 UNIT/250 ML IV.SOLN 11.95 UNIT IVCONT ×2 (03:36→23:59)
[2020-02-07 06:23] LABS: MANUAL DIFF FLAG NO
[2020-02-07 06:49] LABS: Basophils Absolute Auto 0.1 X10*3/uL (0.0-0.2); Basophils Percent Auto 0.9 % (0-2); Eosinophils Absolute Auto 0.4 X10*3/uL (0.0-0.4); Eosinophils Percent Auto 4.1 % (0-4); Hematocrit 33.2 % (42-52); Hemoglobin 10.8 g/dl (14.0-18.0); Imm Gran Abs Auto 0.02 X10*3/uL (0.00-0.03); Imm Gran Pct Auto 0.2 % (0.0-0.4); Lymphocytes Absolute Auto 2.9 X10*3/uL (1.2-4.9); Lymphocytes Percent Auto 33.4 % (20-40); Mean Corpuscular HGB Conc 32.5 g/dl (31.0-36.0); Mean Corpuscular Hemoglobin 27.3 pg (27.0-33.0); Mean Corpuscular Volume 83.8 fL (80-98); Monocytes Absolute Auto 0.5 X10*3/uL (0.1-1.2); Monocytes Percent Auto 6.3 % (2-11); Neutrophils Absolute Auto 4.7 X10*3/uL (2.0-8.3); Neutrophils Percent Auto 55.1 % (45-73); Platelet Count 324 X10*3/uL (160-400); Red Blood Count 3.96 X10*6/uL (4.60-5.80); White Blood Count 8.6 X10*3/uL (4.8-10.8)
[2020-02-07 07:06] LABS: Anion Gap 13 (12-20); Blood Urea Nitrogen 44 mg/dL (9-16); Calcium 8.7 mg/dL (8.4-10.2); Carbon Dioxide 24 mmol/L (22-29); Chloride 106 mmol/L (96-108); Estimated Glomerular Filt Rate 37; Glucose Random 135 mg/dL (60-115); Potassium 4.1 mmol/l (3.3-5.1); Sodium 139 mmol/L (135-145)
[2020-02-07 07:39] LABS: Glucose, Whole Blood 149 mg/dL (60-115)
[2020-02-07] MEDS: Insulin Lispro 100 UNIT/ML 3 ML VIAL 7 UNIT SUBCUT ×2 (08:53→12:21)
[2020-02-07] MEDS: Furosemide 40 MG/4 ML VIAL IVPUSH (08:55)
[2020-02-07] MEDS: Pravastatin Sodium 20 MG TABLET PO (08:55)
[2020-02-07] MEDS: 0.9 % Sodium Chloride Flush 3 ML SYRINGE IVFLUSH ×2 (08:55→23:59)
[2020-02-07] MEDS: Aspirin 81 MG TAB.CHEW PO (08:56)
--- NOTE | 2020-02-07 10:23 | PM.PNNEP ---
Subjective Subjective Principal diagnosis: HTN and LUIS MANUEL Interval history: BP is better controlled but sub optimal No new complaints Physical Exam Vital Signs: Vital Signs: Vital Signs Temp Pulse Resp BP Pulse Ox 02/07/20 07:36 97.2 F 98 20 170/90 H 96 02/07/20 03:44 98.2 F 86 18 163/70 H 93 02/06/20 23:39 98.2 F 87 20 168/84 H 97 02/06/20 19:02 97 F 88 18 170/79 H 98 02/06/20 15:25 97.3 F 89 20 146/91 H 99 02/06/20 11:55 97.7 F 58 18 160/92 H 98 Body Mass Index 33.3 Const: General: cooperative Orientation/consciousness: oriented to person Eyes: General: appearance normal, both eyes and all related structures Neck: Neck: Yes supple Resp: Effort & Inspection: normal respiratory effort Cardio: Palpation: no palpable S4 Heart sounds: no rubs GI: Palpation (GI): Soft to palpation Auscultation: normal bowel sounds Skin: General skin exam: no rashes or lesions noted Neuro: General: oriented to person Motor exam (neuro): No Asterixis during motor activity present Assessment & Plan Assessment and plan (1) CKD (chronic kidney disease) stage 3, GFR 30-59 ml/min: Problem details: Renal function close to baseline No s/s of uremia Status: Acute Assessment and Plan: Optimize BP Goal SBP 130-150 for the next 24 hrs Avoid rapid lowering of BP or hypotension No indication for dialysis Keep O > I
--- NOTE | 2020-02-07 10:32 | PM.PNCARD ---
Subjective Subjective Principal diagnosis: HTN and LUIS MANUEL Interval history: BP is better controlled but sub optimal No angina. No shortness of breath. Review of Systems Review of Systems Cardiac- negative for angina or shortness of breath or palpitations or dizzy spells or syncopal episodes. Remainder of the 10 system review is negative. Physical Exam Vital Signs: Vital Signs Temp Pulse Resp BP Pulse Ox 02/07/20 07:36 97.2 F 98 20 170/90 H 96 02/07/20 03:44 98.2 F 86 18 163/70 H 93 02/06/20 23:39 98.2 F 87 20 168/84 H 97 02/06/20 19:02 97 F 88 18 170/79 H 98 02/06/20 15:25 97.3 F 89 20 146/91 H 99 02/06/20 11:55 97.7 F 58 18 160/92 H 98 Body Mass Index 33.3 Comfortable, no distress No pallor, icterus or cyanosis HEENT -unremarkable JVD- normal Cardiac- normal heart sounds, no murmurs, gallops or rubs, normal PMI Respiratory-normal breath sounds bilaterally, no crackles, no wheeze Abdomen- soft, nontender Neuro- alert and oriented Lower extremities- no significant edema, warm well perfused Progress Note: A&P Assessment and plan (1) Hypertensive emergency: Status: Acute (2) Acute diastolic (congestive) heart failure: Status: Acute (3) NSTEMI (non-ST elevated myocardial infarction): Status: Acute Assessment and Plan: Echocardiogram results- Conclusions: - The left ventricular systolic function is mildly decreased. The visually estimated ejection fraction is between 45-50%. - There is severely increased left ventricular wall thickness. - The apical inferior and basal inferior segments are hypokinetic. The apex, apical septum, and mid anteroseptal segments are akinetic. Overall, picture was suggestive hypertensive emergency and acute diastolic congestive heart failure/ pulmonary edema. Based on echocardiogram, he could have underlying coronary disease as well. He needs a diagnostic cardiac catheterization as next step. However his creatinine is elevated as well as BUN. We can stop the Lasix today and recheck the BUN / creatinine tomorrow. Then potentially transferred to [facility] for cardiac catheterization. Continue with IV heparin. Aspirin and high-dose statins. Add Norvasc for HTN. Fall Risk Details Current Medications: Current Medications Generic Name Dose Route Start Last Admin Trade Name Adriánq PRN Reason Stop Dose Admin Acetaminophen 650 mg 02/06/20 08:11 Acetaminophen 325 Mg Tablet PO Q6H PRN Pain, Mild (Pain Scale 1-3) Aspirin 81 mg 02/07/20 09:00 02/07/20 08:56 Aspirin 81 Mg Tab.Chew PO 81 mg DAILY KE Administration Heparin Sodium (Porcine) 5,000 unit 02/06/20 06:19 02/06/20 06:41 Heparin Sodium,Porcine 5,000 Unit/Ml Vial IVPUSH 5,000 unit BOLUS PRN Administration Based on PTT results Heparin Sodium/Sodium Chloride 25,000 unit in 250 mls @ 0 mls/hr 02/06/20 06:30 02/07/20 03:36 IVCONT 11 units/kg/hr .Q0M [facility] 11.95 mls/hr Administration Protocol Per Protocol Insulin Glargine 16 unit 02/06/20 09:00 02/06/20 22:26 Insulin Glargine,Hum.Rec.Anlog 100 Unit/Ml 10 Ml Vial SUBCUT Not Given BEDTIME [facility] Insulin Human Lispro 0 unit 02/06/20 08:11 02/07/20 08:56 Insulin Lispro 100 Unit/Ml 3 Ml Vial SUBCUT Not Given QIDACHS [facility] Protocol Insulin Human Lispro 7 unit 02/06/20 11:30 02/07/20 08:53 Insulin Lispro 100 Unit/Ml 3 Ml Vial SUBCUT 7 unit TIDAC [facility] Administration Protocol Ondansetron HCl 4 mg 02/06/20 08:11 Ondansetron Hcl 4 Mg/2 Ml Vial IVPUSH Q8H PRN Nausea and Vomiting Pravastatin Sodium 20 mg 02/06/20 09:00 02/07/20 08:55 Pravastatin Sodium 20 Mg Tablet PO 20 mg DAILY [facility] Administration Sodium Chloride 3 ml 02/06/20 08:11 02/07/20 08:55 0.9 % Sodium Chloride Flush 3 Ml Syringe IVFLUSH 3 ml QSHIFT [facility] Administration Time Spent With Patient Time: Total time spent is greater than 50% in coordination of care (as documented) at patient's floor/unit and/or counseling patient: Time with patient: 15 - 24 minutes
[2020-02-07 11:36] LABS: Glucose, Whole Blood 176 mg/dL (60-115)
[2020-02-07] MEDS: amLODIPine Besylate 10 MG TABLET PO (11:36)
[2020-02-07] MEDS: Metoprolol Tartrate 50 MG TABLET PO ×2 (11:36→22:06)
[2020-02-07] MEDS: Insulin Lispro 100 UNIT/ML 3 ML VIAL SUBCUT ×3 (12:20→22:07)
--- NOTE | 2020-02-07 12:50 | HO.PM.IMPN ---
Subjective Subjective Date of Service: 02/07/20 Interval History: htn uncontrolled, NSTEMI, CHF, LUIS MANUEL. Review of Systems Patient says shortness of breath improving, no chest pain or abdominal discomfort. Physical Exam Vital Signs: Vital Signs: Vital Signs Temp Pulse Resp BP Pulse Ox 02/07/20 11:34 97.1 F 101 H 20 143/101 H 97 02/07/20 07:36 97.2 F 98 20 170/90 H 96 02/07/20 03:44 98.2 F 86 18 163/70 H 93 02/06/20 23:39 98.2 F 87 20 168/84 H 97 02/06/20 19:02 97 F 88 18 170/79 H 98 02/06/20 15:25 97.3 F 89 20 146/91 H 99 Body Mass Index 33.3 Physical exam: Cvs: [id number], [id number] , no murmur res: Fair air entry, no rales abd: no rebound or guarding ,nt, bs present. ext pulses present , no cyanosis neuro: axo3 , nonfocal. Objective Data Current Medications Generic Name Dose Route Start Last Admin Trade Name Freq PRN Reason Stop Dose Admin Acetaminophen 650 mg 02/06/20 08:11 Acetaminophen 325 Mg Tablet PO Q6H PRN Pain, Mild (Pain Scale 1-3) Amlodipine Besylate 10 mg 02/07/20 10:40 02/07/20 11:36 Amlodipine Besylate 10 Mg Tablet PO 10 mg DAILY [facility] Administration Protocol Aspirin 81 mg 02/07/20 09:00 02/07/20 08:56 Aspirin 81 Mg Tab.Chew PO 81 mg DAILY [facility] Administration Atorvastatin Calcium 80 mg 02/07/20 17:00 Atorvastatin Calcium 80 Mg Tablet PO DAILY [facility] Heparin Sodium (Porcine) 5,000 unit 02/06/20 06:19 02/06/20 06:41 Heparin Sodium,Porcine 5,000 Unit/Ml Vial IVPUSH 5,000 unit BOLUS PRN Administration Based on PTT results Heparin Sodium/Sodium Chloride 25,000 unit in 250 mls @ 0 mls/hr 02/06/20 06:30 02/07/20 03:36 IVCONT 11 units/kg/hr .Q0M KE 11.95 mls/hr Administration Protocol Per Protocol Insulin Glargine 16 unit 02/06/20 09:00 02/06/20 22:26 Insulin Glargine,Hum.Rec.Anlog 100 Unit/Ml 10 Ml Vial SUBCUT Not Given BEDTIME [facility] Insulin Human Lispro 0 unit 02/06/20 08:11 02/07/20 12:20 Insulin Lispro 100 Unit/Ml 3 Ml Vial SUBCUT 2 unit QIDACHS [facility] Administration Protocol Insulin Human Lispro 7 unit 02/06/20 11:30 02/07/20 12:21 Insulin Lispro 100 Unit/Ml 3 Ml Vial SUBCUT 7 unit TIDAC [facility] Administration Protocol Metoprolol Tartrate 50 mg 02/07/20 10:40 02/07/20 11:36 Metoprolol Tartrate 50 Mg Tablet PO 50 mg BID [facility] Administration Protocol Ondansetron HCl 4 mg 02/06/20 08:11 Ondansetron Hcl 4 Mg/2 Ml Vial IVPUSH Q8H PRN Nausea and Vomiting Sodium Chloride 3 ml 02/06/20 08:11 02/07/20 08:55 0.9 % Sodium Chloride Flush 3 Ml Syringe IVFLUSH 3 ml QSHIFT [facility] Administration Labs CBC & Chem 7: 02/07/20 05:53 02/08/20 10:48 Microbiology Microbiology Results: Microbiology 02/06/20 05:30 Blood - Venous Blood Culture - Preliminary No growth after 24 hours. 02/06/20 05:30 Blood - Venous Blood Culture - Preliminary No growth after 24 hours. Assessment and Plan (1) NSTEMI (non-ST elevated myocardial infarction): Status: Acute (2) Hypertension: Status: Acute Assessment and Plan: this is a gentleman with past medical history as above who presents to the hospital with sudden onset shortness of breath found to have CHF and NSTEMI 1. acute hypoxic respiratory failure- secondary to CHF exacerbation CT abdomen showing pulmonary congestion started on IV Lasix initially, seems symptoms improving, as IV Lasix stopped in anticipation of probable catheterization in # NSTEMI - most likely type 2 in the hypertensive in emergency as well as CHF - elevated troponin in the 900s - no EKG changes - has noncardiac chest pain plan: - spoke to her cardiology will start him on heparin GGT - aspirin - echo # acute onset CHF - dyspnea, elevated BNP, lower extremity edema, as well as fatigue all suggest CHF - patient also has evidence on imaging plan: - Lasix as above - echocardiogram - cardiology to follow # hypertensive urgency - % with systolic blood pressure in the low 220s, with diastolic in the 100 and 10s - patient was placed on BiPAP and given nitroglycerin transdermal patch which improved his blood pressure and now blood pressure is 160s over 80s - # diabetes mellitus - low-dose sliding scale insulin, continue glargine, continue home lispro with meals - diabetic diet # hypertension - stable now - continue metoprolol DVT prophylaxis: heparin GGT date of service 02/06/2020
--- NOTE | 2020-02-07 12:56 | MHC.CM.PN ---
per rounds dc plan [facility] home no services no dc date at this time
[2020-02-07 14:06] LABS: Glucose, Whole Blood 46 mg/dL (60-115)
[2020-02-07 14:28] LABS: Glucose, Whole Blood 55 mg/dL (60-115)
--- NOTE | 2020-02-07 14:43 | PC.NURSE ---
blood sugar 46 at 2 pm, pt shaky, orange juice and crackers given. Dr travis notified, blood sugar 55 after 15 min . Pt reported being dizzy and diaphoretic. DR Tinoco aware. Dextrose d50 1 vial given . per MD do not give the 2 vials at this tyime . blood sugar 22 after the D%) . pt alert and oriented.
[2020-02-07 14:44] LABS: Glucose, Whole Blood 224 mg/dL (60-115)
--- NOTE | 2020-02-07 14:49 | PC.NURSE ---
per dr Gant check blood sugar q1 hr x hrs
[2020-02-07 15:17] LABS: Glucose, Whole Blood 227 mg/dL (60-115)
[2020-02-07 16:07] LABS: Glucose, Whole Blood 296 mg/dL (60-115)
[2020-02-07 17:04] LABS: Glucose, Whole Blood 346 mg/dL (60-115)
[2020-02-07] MEDS: Atorvastatin Calcium 80 MG TABLET PO (17:15)
[2020-02-07 18:01] LABS: Glucose, Whole Blood 387 mg/dL (60-115)
--- NOTE | 2020-02-07 18:47 | PC.NURSE ---
poc 387 at 18:00, results reported to dr travis,Next poc at 19:00
--- NOTE | 2020-02-07 18:53 | PC.NURSE ---
per Dr Gant instructions for tonight: hold lantus tonight unless blood sugar is 300
[2020-02-07 20:06] LABS: Glucose, Whole Blood 285 mg/dL (60-115)
[2020-02-07 21:31] LABS: Glucose, Whole Blood 302 mg/dL (60-115)
[2020-02-07] MEDS: Insulin Glargine,Hum.rec.anlog 100 UNIT/ML 10 ML VIAL 16 UNIT SUBCUT (22:08)
[2020-02-08] VITALS (8 sets, daily range): BP systolic 128–164; BP diastolic 61–90; PULSE 74–104; RESP 18–20; TEMP 36.2–37; O2SAT 96–100; BMI 31.4; BMI 33.3
[2020-02-08 06:47] LABS: PTT Heparin Drip 53.8 SEC (53-77.9)
[2020-02-08 07:19] LABS: Glucose, Whole Blood 245 mg/dL (60-115)
[2020-02-08] MEDS: Aspirin 81 MG TAB.CHEW PO (08:12)
[2020-02-08] MEDS: Atorvastatin Calcium 80 MG TABLET PO (08:12)
[2020-02-08] MEDS: Insulin Lispro 100 UNIT/ML 3 ML VIAL SUBCUT ×2 (08:12→12:31)
[2020-02-08] MEDS: Metoprolol Tartrate 50 MG TABLET PO (08:13)
[2020-02-08] MEDS: amLODIPine Besylate 10 MG TABLET PO (08:14)
--- NOTE | 2020-02-08 10:41 | PM.PNNEP ---
Subjective Subjective Principal diagnosis: HTN and LUIS MANUEL Interval history: Events noted Cardiology note appreciated BP better controlled Physical Exam Vital Signs: Vital Signs: Vital Signs Temp Pulse Resp BP Pulse Ox 02/08/20 08:14 104 H 164/70 H 02/08/20 08:13 104 H 164/70 H 02/08/20 07:13 97.3 F 80 20 164/70 H 100 02/08/20 03:57 98.6 F 84 18 139/61 100 02/07/20 23:44 98.2 F 88 20 168/75 H 98 02/07/20 22:06 88 165/74 H 02/07/20 20:00 96.8 F 88 18 165/74 H 98 02/07/20 15:59 98 F 81 16 145/70 H 98 02/07/20 11:34 97.1 F 101 H 20 143/101 H 97 Body Mass Index 33.3 Const: General: cooperative Orientation/consciousness: oriented to person Eyes: General: appearance normal, both eyes and all related structures Neck: Neck: Yes supple Resp: Effort & Inspection: normal respiratory effort Cardio: Palpation: no palpable S4 Heart sounds: no rubs GI: Palpation (GI): Soft to palpation Auscultation: normal bowel sounds Skin: General skin exam: no rashes or lesions noted Neuro: General: oriented to person Motor exam (neuro): No Asterixis during motor activity present Assessment & Plan Assessment and plan (1) CKD (chronic kidney disease) stage 3, GFR 30-59 ml/min: Problem details: Renal function close to baseline No s/s of uremia Status: Acute Assessment and Plan: Possible coronary angiogram Risk of LUIS MANUEL 26% and Risk of needing dialysis 1%
--- NOTE | 2020-02-08 11:04 | P.PNCA_ITS ---
Subjective Subjective Principal diagnosis: HTN and LUIS MANUEL, NSTEMI, CHF Interval history: Doing well. no CP Upset that his labs has not been done. Review of Systems Review of Systems Yes all other systems are reviewed and are negative Cardiovascular: Reports chest pain Comments: No CP, SOB. Physical Exam Vital Signs: Vital Signs Temp Pulse Resp BP Pulse Ox 02/08/20 08:14 104 H 164/70 H 02/08/20 08:13 104 H 164/70 H 02/08/20 07:13 97.3 F 80 20 164/70 H 100 02/08/20 03:57 98.6 F 84 18 139/61 100 02/07/20 23:44 98.2 F 88 20 168/75 H 98 02/07/20 22:06 88 165/74 H 02/07/20 20:00 96.8 F 88 18 165/74 H 98 02/07/20 15:59 98 F 81 16 145/70 H 98 02/07/20 11:34 97.1 F 101 H 20 143/101 H 97 Body Mass Index 33.3 Const Other: GENERAL APPEARANCE: in no acute distress, well developed, well nourished. HEENT: unremarkable. HEAD: normocephalic, atraumatic. NECK/THYROID: no carotid bruit, no jugular venous distention. SKIN: no suspicious lesions, warm and dry. HEART: no murmurs, regular rate and rhythm, S1, S2 normal. LUNGS: clear to auscultation bilaterally. ABDOMEN: normal, bowel sounds present, soft, nontender, nondistended. EXTREMITIES: no clubbing, cyanosis, or edema. PERIPHERAL PULSES: equal. NEUROLOGIC: nonfocal, alert and oriented. PSYCH: mood/affect full range. Progress Note: A&P Assessment and plan (1) Hypertensive emergency: Status: Acute (2) NSTEMI (non-ST elevated myocardial infarction): Status: Acute (3) Congestive heart failure: Status: Acute Assessment and Plan: 54-year-old gentleman who presented with hypertension and NSTEMI. Clinically was in heart failure and was diuresed. He developed acute kidney injury and has been off diuretics right now. His echocardiogram is showing Ejection fraction 45-50%. Severely increased left ventricular wall thickness. Apically inferior and basal inferior segments are hypokinetic. The apex, apical septum and mid anteroseptal segments are akinetic. His diuretics have been held. I will repeat for blood workup today. If creatinine is improving will transfer to [facility] for potential cardiac catheterization tomorrow. He is on heparin drip right now. Add Imdur 30 mg once a day as blood pressure is still elevated. Due to kidney injury we cannot at LUBA-inhibitor. If blood pressure still elevated I will add hydralazine 25 mg 2 times a day. Depending on his creatinine will plan cardiac catheterization. Patient was very upset and was about to leave against medical advice. I had a detailed discussion with him that it appears he has coronary disease and he should let us did finish the workup. Thank you for allowing me to participate in the care of your patient. Please feel free to contact me if you have any questions. Fall Risk Details Current Medications: Current Medications Generic Name Dose Route Start Last Admin Trade Name Freq PRN Reason Stop Dose Admin Acetaminophen 650 mg 02/06/20 08:11 Acetaminophen 325 Mg Tablet PO Q6H PRN Pain, Mild (Pain Scale 1-3) Amlodipine Besylate 10 mg 02/07/20 10:40 02/08/20 08:14 Amlodipine Besylate 10 Mg Tablet PO 10 mg DAILY [facility] Administration Protocol Aspirin 81 mg 02/07/20 09:00 02/08/20 08:12 Aspirin 81 Mg Tab.Chew PO 81 mg DAILY [facility] Administration Atorvastatin Calcium 80 mg 02/07/20 17:00 02/08/20 08:12 Atorvastatin Calcium 80 Mg Tablet PO 80 mg DAILY [facility] Administration Dextrose 50 gm 02/07/20 14:30 02/07/20 14:34 Dextrose 50 % 25 Gm/50 Ml Vial IVPUSH 25 gm Q20M PRN Administration hypoglycemia Heparin Sodium (Porcine) 5,000 unit 02/06/20 06:19 02/06/20 06:41 Heparin Sodium,Porcine 5,000 Unit/Ml Vial IVPUSH 5,000 unit BOLUS PRN Administration Based on PTT results Heparin Sodium/Sodium Chloride 25,000 unit in 250 mls @ 0 mls/hr 02/06/20 06:30 02/08/20 07:20 IVCONT 11 units/kg/hr .Q0M KE 11.95 mls/hr Titration Protocol Per Protocol Insulin Glargine 16 unit 02/06/20 09:00 02/07/20 22:08 Insulin Glargine,Hum.Rec.Anlog 100 Unit/Ml 10 Ml Vial SUBCUT 16 unit BEDTIME [facility] Administration Insulin Human Lispro 0 unit 02/06/20 08:11 02/08/20 08:12 Insulin Lispro 100 Unit/Ml 3 Ml Vial SUBCUT 4 unit QIDACHS [facility] Administration Protocol Isosorbide Mononitrate 30 mg 02/08/20 09:00 Isosorbide Mononitrate 30 Mg Tab.Er.24h PO DAILY [facility] Protocol Metoprolol Tartrate 50 mg 02/07/20 10:40 02/08/20 08:13 Metoprolol Tartrate 50 Mg Tablet PO 50 mg BID [facility] Administration Protocol Ondansetron HCl 4 mg 02/06/20 08:11 Ondansetron Hcl 4 Mg/2 Ml Vial IVPUSH Q8H PRN Nausea and Vomiting Sodium Chloride 3 ml 02/06/20 08:11 02/08/20 08:14 0.9 % Sodium Chloride Flush 3 Ml Syringe IVFLUSH Not Given QSHIFT [facility] Time Spent With Patient Time: Time spent- 15-20 mins. Time with patient: 15 - 24 minutes
[2020-02-08 11:32] LABS: Glucose, Whole Blood 263 mg/dL (60-115)
[2020-02-08 12:27] LABS: Anion Gap 16 (12-20); Blood Urea Nitrogen 57 mg/dL (9-16); Calcium 8.7 mg/dL (8.4-10.2); Carbon Dioxide 22 mmol/L (22-29); Chloride 103 mmol/L (96-108); Creatinine Clr Calc Pharmacy 52.9; Estimated Glomerular Filt Rate 35; Glucose Random 285 mg/dL (60-115); Potassium 4.8 mmol/l (3.3-5.1); Sodium 136 mmol/L (135-145)
[2020-02-08] MEDS: Isosorbide Mononitrate 30 MG TAB.ER.24H PO (12:31)
--- NOTE | 2020-02-08 13:45 | HO.PM.IMPN ---
Subjective Subjective Date of Service: 02/08/20 Interval History: admitted for sob and htn patient offers no acute complaints wishes to be discharged home threatening to leave AMA. Review of Systems [employer] no [place] no dizziness CVS no cp ,no palpitations SKIn no rash Physical Exam Vital Signs: Vital Signs: Vital Signs Temp Pulse Resp BP Pulse Ox 02/08/20 12:31 98 152/78 H 02/08/20 11:28 97.2 F 99 20 162/90 H 97 02/08/20 08:14 104 H 164/70 H 02/08/20 08:13 104 H 164/70 H 02/08/20 07:13 97.3 F 80 20 164/70 H 100 02/08/20 03:57 98.6 F 84 18 139/61 100 02/07/20 23:44 98.2 F 88 20 168/75 H 98 02/07/20 22:06 88 165/74 H 02/07/20 20:00 96.8 F 88 18 165/74 H 98 02/07/20 15:59 98 F 81 16 145/70 H 98 Body Mass Index 33.3 CVS : regular, rate, rythm , no murmur Neck no jvd resp: clear,no distress, no rales abd: no rebound or guarding ,nontender, bs present. ext pulses present , no cyanosis,no edema neuro: axo3 , nonfocal. Objective Data Current Medications Generic Name Dose Route Start Last Admin Trade Name Freq PRN Reason Stop Dose Admin Acetaminophen 650 mg 02/06/20 08:11 Acetaminophen 325 Mg Tablet PO Q6H PRN Pain, Mild (Pain Scale 1-3) Amlodipine Besylate 10 mg 02/07/20 10:40 02/08/20 08:14 Amlodipine Besylate 10 Mg Tablet PO 10 mg DAILY [facility] Administration Protocol Aspirin 81 mg 02/07/20 09:00 02/08/20 08:12 Aspirin 81 Mg Tab.Chew PO 81 mg DAILY [facility] Administration Atorvastatin Calcium 80 mg 02/07/20 17:00 02/08/20 08:12 Atorvastatin Calcium 80 Mg Tablet PO 80 mg DAILY [facility] Administration Dextrose 50 gm 02/07/20 14:30 02/07/20 14:34 Dextrose 50 % 25 Gm/50 Ml Vial IVPUSH 25 gm Q20M PRN Administration hypoglycemia Heparin Sodium (Porcine) 5,000 unit 02/06/20 06:19 02/06/20 06:41 Heparin Sodium,Porcine 5,000 Unit/Ml Vial IVPUSH 5,000 unit BOLUS PRN Administration Based on PTT results Hydralazine HCl 25 mg 02/08/20 15:00 Hydralazine Hcl 25 Mg Tablet PO TID [facility] Protocol Heparin Sodium/Sodium Chloride 25,000 unit in 250 mls @ 0 mls/hr 02/06/20 06:30 02/08/20 07:20 IVCONT 11 units/kg/hr .Q0M [facility] 11.95 mls/hr Titration Protocol Per Protocol Insulin Glargine 16 unit 02/06/20 09:00 02/07/20 22:08 Insulin Glargine,Hum.Rec.Anlog 100 Unit/Ml 10 Ml Vial SUBCUT 16 unit BEDTIME [facility] Administration Insulin Human Lispro 0 unit 02/06/20 08:11 02/08/20 12:31 Insulin Lispro 100 Unit/Ml 3 Ml Vial SUBCUT 6 unit QIDACHS [facility] Administration Protocol Isosorbide Mononitrate 30 mg 02/08/20 09:00 02/08/20 12:31 Isosorbide Mononitrate 30 Mg Tab.Er.24h PO 30 mg DAILY [facility] Administration Protocol Metoprolol Tartrate 50 mg 02/07/20 10:40 02/08/20 08:13 Metoprolol Tartrate 50 Mg Tablet PO 50 mg BID [facility] Administration Protocol Ondansetron HCl 4 mg 02/06/20 08:11 Ondansetron Hcl 4 Mg/2 Ml Vial IVPUSH Q8H PRN Nausea and Vomiting Sodium Chloride 3 ml 02/06/20 08:11 02/08/20 08:14 0.9 % Sodium Chloride Flush 3 Ml Syringe IVFLUSH Not Given QSHIFT [facility] Labs CBC & Chem 7: 02/07/20 05:53 02/08/20 10:48 Microbiology Microbiology Results: Microbiology 02/06/20 05:30 Blood - Venous Blood Culture - Preliminary No growth after 48 hours. 02/06/20 05:30 Blood - Venous Blood Culture - Preliminary No growth after 48 hours. Assessment and Plan (1) Acute diastolic (congestive) heart failure: Status: Acute (2) Hypertensive emergency: Status: Acute (3) Diabetes: Status: Acute (4) Elevated troponin: Status: Acute (5) CKD (chronic kidney disease) stage 3, GFR 30-59 ml/min: Problem details: Renal function close to baseline No s/s of uremia Status: Acute (6) NSTEMI (non-ST elevated myocardial infarction): Status: Acute (7) [id number] kidney injury: Status: Acute Assessment and Plan: this is a gentleman with past medical history as above who presents to the hospital with sudden onset shortness of breath found to have CHF and NSTEMI 1. acute hypoxic respiratory failure- secondary to acute systolic CHF exacerbation resolved CT abdomen showed pulmonary congestion initially treated with iv lasix, sxs improved creat bumped therefore lasix held likley did not sig. volume overload # NSTEMI - most likely type 2 due to hypertensive emergency need to r/o ischemia due to significant Apically inferior and basal inferior segments hypokinesis,. The apex, apical septum and mid anteroseptal segments are akinetic.hypokinesis - no EKG changes,plan is for cardiac cath once renal function improves. # acute on ckd stage 3 creat bumped further from 1.35 normal to 1.89 and today 2 will give 500ml ivf and follow labs at am. # hypertensive urgency - bp remains elevated cont metoprolol and norvasc and will add imdur and hydralazine as per cardio,and follow bp # diabetes mellitus - low-dose sliding scale insulin, continue glargine, continue home lispro with meals and diabetic diet DVT prophylaxis: heparin GGT
[2020-02-08] MEDS: 0.9 % Sodium Chloride 500 ML 75 ML IV (14:19)
[2020-02-08] MEDS: hydrALAZINE HCl 25 MG TABLET PO (14:20)
--- NOTE | 2020-02-08 14:36 | P.DS_ITS ---
DS: Providers Provider Date of admission: 02/06/20 06:25 Primary care physician: Unknown Physician Consults: 02/06/20 08:11 Consult to Physician Routine Consulting Provider: Robert De Leon Reason for consultation: CHF, NSTEMI Has provider been notified: Yes 02/06/20 08:51 Consult to Nephrology Routine Consulting Provider: Roney Stout Reason for consultation: chf , kelly on ckd Has provider been notified: No DS: Diagnosis Discharge Diagnosis (1) Acute diastolic (congestive) heart failure: Status: Acute (2) Hypertensive emergency: Status: Acute (3) Diabetes: Status: Acute (4) Elevated troponin: Status: Acute (5) CKD (chronic kidney disease) stage 3, GFR 30-59 ml/min: Status: Acute Problem details: Renal function close to baseline No s/s of uremia (6) NSTEMI (non-ST elevated myocardial infarction): Status: Acute (7) [id number] kidney injury: Status: Acute DS: Summary Hospital Course Hospital Course: 54-year-old gentleman with past medical history of diabetes mellitus, hypertension, hyperlipidemia presented to [facility] with sudden onset of shortness of breath while sitting and watching TV patient also complained of chest discomfort worse with coughing and deep breathing patient denied any orthopnea PND denied any leg swelling he denied any sick contacts recent travel denies any fever chills or sputum production in the emergency room patient was afebrile heart rate was 120 to the respiratory rate to 40 blood pressure 240 08/24/2032 pulse ox 73% on room air patient was placed on BiPAP treated with IV Lasix with significant improvement in his symptoms [place] [address] a creatinine of 1.94 and a high sensitivity troponin of 120 a repeat troponin increased to 982 with a BNP of [address]-elevation NM patient was treated with IV heparin, beta-blockers, statins and aspirin and echocardiogram showed inferior and basal inferior segment hypokinesis as well as apical septum and mild anterior septal segment akinetic therefore patient is being transferred to [facility] for cardiac catheterization if his kidney function stabilizes. Acute on chronic kidney disease patient was treated with IV Lasix and noted to have bump in his creatinine therefore Lasix was discontinued Likely patient did not have significant volume overload and most of the symptoms were related to high blood pressure in ischemia, since patient creatinine remains elevated on 500 mL of IV fluid has been ordered will repeat BMP at a.m. patient has baseline chronic kidney disease stage 3 as per Nephrology patient renal function is close to baseline he has no sinus symptoms of uremia he is at risk for acute kidney injury 26% and risk for needing dialysis 1% for coronary angiogram. Hypertensive emergency. Patient was noted to have significantly elevated blood pressure he has been maintained on metoprolol 50 mg b.i.d., Norvasc Imdur and hydralazine has been added today patient will need close blood pressure monitoring and further medication adjustment as needed. Diabetes mellitus patient has been maintained on insulin sliding scale, Lantus and diabetic diet Blood sugars in 200 range. patient uses Trulicity, Lantus, metformin and insulin sliding scale at home Acute hypoxic respiratory failure secondary to acute systolic heart failure resolved. Time Spent with Patient Time attestation: Total time spent providing and/or coordinating discharge s ervices: Physical Exam Vital Signs: Vital Signs: Vital Signs Temp Pulse Resp BP Pulse Ox 02/08/20 14:20 86 128/68 02/08/20 12:31 98 152/78 H 02/08/20 11:28 97.2 F 99 20 162/90 H 97 02/08/20 08:14 104 H 164/70 H 02/08/20 08:13 104 H 164/70 H 02/08/20 07:13 97.3 F 80 20 164/70 H 100 02/08/20 03:57 98.6 F 84 18 139/61 100 02/07/20 23:44 98.2 F 88 20 168/75 H 98 02/07/20 22:06 88 165/74 H 02/07/20 20:00 96.8 F 88 18 165/74 H 98 02/07/20 15:59 98 F 81 16 145/70 H 98 Body Mass Index 33.3 HEENT: unremarkable. NECK/THYROID: no carotid bruit, no jugular venous distention. SKIN: no suspicious lesions, warm and dry. HEART: no murmurs, regular rate and rhythm, S1, S2 normal. LUNGS: clear to auscultation bilaterally. ABDOMEN: normal, bowel sounds present, soft, nontender, nondistended. EXTREMITIES: no clubbing, cyanosis, or edema. PERIPHERAL PULSES: equal. NEUROLOGIC: nonfocal, alert and oriented. PSYCH: mood/affect full range. DS: Data Data Completed and Pending Labs on day of discharge: Labs from last 24 hours 02/08/20 02/08/20 02/08/20 11:22 10:48 07:12 Smear Path Review PTT (Heparin Protocol) Sodium 136 Potassium 4.8 Chloride 103 Carbon Dioxide 22 Anion Gap 16 BUN 57 H Creatinine 2.00 H Estim Creat Clear Calc 52.9 Estimated GFR 35 POC Glucose 263 H 245 H Random Glucose 285 H D Calcium 8.7 02/08/20 02/07/20 02/07/20 05:46 21:23 20:01 Smear Path Review PTT (Heparin Protocol) 53.8 Sodium Potassium Chloride Carbon Dioxide Anion Gap BUN Creatinine Estim Creat Clear Calc Estimated GFR POC Glucose 302 H 285 H Random Glucose Calcium 02/07/20 02/07/20 02/07/20 17:58 16:58 16:02 Smear Path Review PTT (Heparin Protocol) Sodium Potassium Chloride Carbon Dioxide Anion Gap BUN Creatinine Estim Creat Clear Calc Estimated GFR POC Glucose 387 H* 346 H 296 H Random Glucose Calcium 02/07/20 02/07/20 02/06/20 15:12 14:41 02:32 Smear Path Review SEE NOTE PTT (Heparin Protocol) Sodium Potassium Chloride Carbon Dioxide Anion Gap BUN Creatinine Estim Creat Clear Calc Estimated GFR POC Glucose 227 H 224 H Random Glucose Calcium Preliminary micro results at discharge 02/06/20 05:30 Blood Culture - Preliminary Blood - Venous No growth after 48 hours. 02/06/20 05:30 Blood Culture - Preliminary Blood - Venous No growth after 48 hours. Discharge Plan Discharge Patient Disposition: [facility] Referrals: [facility] [place] [Other] Physician,Unknown [Primary Care Provider] - Discharge Medications: New heparin (porcine) 5,000 unit/mL Solution 5,000 unit IVPUSH BOLUS PRN (Reason: Based on PTT results) Qty: 1 RF: 0 acetaminophen 325 mg Tablet 650 mg PO Q6H PRN (Reason: Pain, Mild (Pain Scale 1-3)) Qty: 30 RF: 0 ondansetron HCl (PF) 4 mg/2 mL Solution 4 mg IVPUSH Q8H PRN (Reason: Nausea And Vomiting) Qty: 1 RF: 0 aspirin 81 mg Tablet,Chewable 81 mg PO DAILY Qty: 30 RF: 0 amlodipine 10 mg Tablet 10 mg PO DAILY Qty: 30 RF: 0 atorvastatin 80 mg Tablet 80 mg PO DAILY Qty: 30 RF: 0 heparin(porcine) in 0.45% NaCl 25,000 unit/250 mL Parenteral Solution 25,000 unit continuous IV infusion .Q0M Qty: 1 RF: 0 insulin lispro [Humalog U-100 Insulin] 100 unit/mL Solution See Protocol unit subcut QIDACHS Qty: 1 RF: 0 Lantus U-100 Insulin 100 unit/mL Solution 20 unit subcut BEDTIME Qty: 10 RF: 0 metoprolol tartrate 50 mg Tablet 50 mg PO BID Qty: 30 RF: 0 isosorbide mononitrate 30 mg Tablet Extended Release 24 Hr 30 mg PO DAILY Qty: 30 RF: 0 hydralazine 25 mg Tablet 25 mg PO TID Qty: 30 RF: 0 Discontinued gemfibrozil 600 mg tablet 600 mg PO BID RF: 0 metoprolol tartrate 50 mg tablet 50 mg PO DAILY RF: 0 nicotine 21 mg/24 hr patch 24 hour 1 patch topical DAILY RF: 0 pravastatin 20 mg tablet 20 mg PO DAILY RF: 0 insulin lispro [Humalog KwikPen Insulin] 100 unit/mL insulin pen 14 unit subcut TIDAC RF: 0 Lantus Solostar U-100 Insulin 100 unit/mL (3 mL) insulin pen 32 unit subcut BEDTIME RF: 0 Trulicity 0.75 mg/0.5 mL pen injector 0.75 mg subcut QWEEK RF: 0 lisinopril 5 mg Tablet 5 mg PO DAILY RF: 0 metformin 500 mg Tablet Extended Release 24 Hr 500 mg PO BID RF: 0 No Action (DME) FreeStyle Lite Strips Strip MISCELLANEOUS TID RF: 0 (DME) pen needle, diabetic [BD Ultra-Fine Mini Pen Needle] 31 gauge x 3/16 needle subcut BEDTIME RF: 0 Discharge Orders: Discharge Order (Routine); Ordered 02/08/20 Ordered By: Alondra Craven Activity on Discharge: No heavy lifting Visit Report Forms: Patient Portal Discharge page Care Plan Goals: As per discharge plan Health Concerns: as per discharge plan Plan of Treatment: follow BMP at a.m. if creatinine improves patient will undergo cardiac catheterization to be followed by cardiology.
== END 2020-02-08 16:54 | disposition short-term general hospital (02) | DRG 190 ==
LOC: HO.ED 06:18 → HO.IMC 06:44
PROVIDERS: Internal Medicine; Admitting Provider Internal Medicine; Emergency Provider Emergency Medicine; Visit Provider Hospitalist
DX: I21.4 Non-ST elevation (NSTEMI) myocardial infarction (principal); J96.01 Acute respiratory failure with hypoxia; I50.31 Acute diastolic (congestive) heart failure; N17.9 Acute kidney failure, unspecified; N18.30 Chronic kidney disease, stage 3 unspecified; I13.0 Hypertensive heart and chronic kidney disease with heart failure and stage 1 through stage 4 chronic kidney disease, or unspecified chronic kidney disease; E11.22 Type 2 diabetes mellitus with diabetic chronic kidney disease; I16.0 Hypertensive urgency; F17.210 Nicotine dependence, cigarettes, uncomplicated; Z71.6 Tobacco abuse counseling; Z20.828 Contact with and (suspected) exposure to other viral communicable diseases; Z79.4 Long term (current) use of insulin; Z79.82 Long term (current) use of aspirin; Z79.899 Other long term (current) drug therapy
CPT/HCPCS: 36415; 71045; 71250; 80048; 82947; 83036; 83605; 83880; 84484; 85025; 85060; 85610; 85730; 87040; 87635; 93005; 93306; 94660; 96361; 96365; 96375; 99225; 99232; 99285; J1940; Q9957

== ENCOUNTER → 2020-03-07 13:58 | Outpatient (BNVA) | payer OTHER, MEDICARE, SELFPAY | PROVIDERS: PCP Internal Medicine; Visit Provider Internal Medicine | DX: Z76.89 Persons encountering health services in other specified circumstances (principal) ==

== ENCOUNTER → 2020-03-25 13:10 | Outpatient (REF) | payer OTHER, MEDICARE, SELFPAY ==
--- NOTE | 2020-03-25 13:15 | CA_ITS ---
Transthoracic Echocardiogram Patient (Last, First, Middle): Hector Collazo, Gender: Male Date of : 1965 Age: 55 Procedure Date: 03/25/2020 Procedure Type: Transthoracic Echocardiogram Location: OP Height: 180.34 cm Weight: 104.33 kg BSA: 2.24 m2 Heart Rate: bpm BP: 130 / 78 mmHg Recycle Worker: LANG Referring MD: Robert De Leon MD Symptoms: Z95.1 - Presence of aortocoronary bypass graft Conclusions: - 1. Mildly reduced LV systolic function with mild LVH with multiple regional wall motion abnormality suggestive ischemic cardiomyopathy with pseudonormal filling pattern 2. Normal cardiac valvular Doppler 3. Trivial pericardial effusion near the right ventricle Findings Left Ventricle Normal left ventricular cavity size. There is mildly increased left ventricular wall thickness. The left ventricular systolic function is mildly decreased. The visually estimated ejection fraction is between 45-50%. Spectral Doppler is indicative of a pseudonormal filling pattern. E/E prime ratio is between 8 and 15 consistent with indeterminate filling pressures. Wall Motion Rest Echo Findings The basal inferoseptal and basal anteroseptal segments are hypokinetic. The apex, apical anterior, apical inferior, mid anterior, apical septum, mid inferoseptal, and mid anteroseptal segments are akinetic. All other scored wall segments showed normal motion. Right Ventricle Normal right ventricular cavity size and systolic function. Atria The left atrium is likely dilated. Interatrial shunt cannot be excluded. The right atrium is normal in size. Aortic Valve The aortic valve was not well visualized. There is no aortic valve stenosis. There is no aortic valve regurgitation. Mitral Valve Likely normal mitral valve structure and function. There is no mitral valve regurgitation. There is no mitral valve stenosis. Pulmonic Valve The pulmonic valve was not well visualized. Tricuspid Valve Likely normal tricuspid valve structure and function. Tricuspid regurgitation envelope is inadequate for calculation of right ventricular systolic pressure. Normal right atrial pressure. Great Vessels All visible segments of the aorta are normal in size. The pulmonary artery was not well visualized. Venous The inferior vena cava is normal in size and collapses greater than 50% with inspiration. Pericardium/Pleural There is a trivial loculated pericardial effusion overlying the right ventricle. Prior Study Comparison No significant change compared to prior study dated: 02/06/2020. Measurements 2D Linear Measurements IVSd: 1.35 0.6-0.9/0.6-1.0 cm LVIDd: 4.54 3.9-5.3/4.2-5.9 cm LVIDd Index: 2.03 2.4-3.2/2.2-3.1 cm/m2 LVIDs: 3.28 2.0-3.6 cm LVPWd: 1.22 0.7-1.1 cm LA Diam: 3.80 2.7-3.8/3.0-4.0 cm LAIDs Index: 1.70 1.5-2.3 cm/m2 LV Mass: 276.48 67-162/88-224 g LV Mass Index: 123.43 43-95/49-115 g/m2 LVOT Diam: 2.00 3.0+(-)1.3 cm 2D Systolic Function EF 4C: 44.80 >55% EF 2C: 61.30 >55% Mitral Valve MV Pk E: 0.95 MV PK A: 0.97 MV Decel Time: 137.00 E/A: 1.00 E'Lateral: 11.10 E'Medial: 6.96 E/E' Med: 13.60 E/E' Lat: 8.50 PHT: 40.00 MVA PHT: 5.50 Decel Spink: 6.89 Aortic Valve AoV Pk Aquiles: 1.22 AoV Pk Grad: 6.00 LVOT LVOT Pk Aquiles: 0.78 LVOT Mn Aquiles: 0.52 LVOT VTI: 0.18 LVOT Pk Grad: 2.00 LVOT Mn Grad: 1.00 LVOT Diam: 2.00 LVOT Area: 3.14 Diastolic Function MV Pk E: 0.95 MV Pk A: 0.97 E/A: 1.00 E'Medial: 6.96 E/E' Med: 13.60 E' Laterial: 11.10 E/E' Lat: 8.50 Tricuspid Valve RA Press: 3.00 Great Vessels Aorta Ao Asc: 2.70 2.1-3.4 cm Updated in Other Vendor System with Status of Final David Bourgeois MD electronically signed on 03/26/2020 5:41:13 PM with status of Final
== END ==
LOC: HO.CARD 13:10
PROVIDERS: Visit Provider Internal Medicine
DX: Z95.1 Presence of aortocoronary bypass graft (principal)
CPT/HCPCS: 93306

== ENCOUNTER 2020-04-22 09:38 | Outpatient (REF) | payer OTHER, SELFPAY ==
[2020-04-22 12:11] LABS: Basophils Absolute Auto 0.1 X10*3/uL (0.0-0.2); Basophils Percent Auto 1.1 % (0-2); Eosinophils Absolute Auto 0.7 X10*3/uL (0.0-0.4); Eosinophils Percent Auto 7.1 % (0-4); Hematocrit 37.7 % (42-52); Hemoglobin 11.1 g/dl (14.0-18.0); Imm Gran Abs Auto 0.02 X10*3/uL (0.00-0.03); Imm Gran Pct Auto 0.2 % (0.0-0.4); Lymphocytes Absolute Auto 2.4 X10*3/uL (1.2-4.9); Lymphocytes Percent Auto 25.7 % (20-40); MANUAL DIFF FLAG NO; Mean Corpuscular HGB Conc 29.4 g/dl (31.0-36.0); Mean Corpuscular Hemoglobin 22.4 pg (27.0-33.0); Mean Corpuscular Volume 76.2 fL (80-98); Mean Platelet Volume 10.6 fL (9.4-12.4); Monocytes Absolute Auto 0.6 X10*3/uL (0.1-1.2); Monocytes Percent Auto 6.9 % (2-11); Neutrophils Absolute Auto 5.5 X10*3/uL (2.0-8.3); Platelet Count 466 X10*3/uL (160-400); Red Blood Count 4.95 X10*6/uL (4.60-5.80); Red Cell Distribution Width 14.9 % (11.0-16.0); White Blood Count 9.3 X10*3/uL (4.8-10.8)
[2020-04-22 12:33] LABS: Anion Gap 15 (12-20); Blood Urea Nitrogen 21 mg/dL (9-16); Carbon Dioxide 26 mmol/L (22-29); Chloride 103 mmol/L (96-108); Cholesterol 124 mg/dL; Estimated Glomerular Filt Rate 39; Glucose Random 200 mg/dL (60-115); HDL Cholesterol 36 mg/dL; LDL Cholesterol Calculated 62 mg/dl; Potassium 4.9 mmol/l (3.3-5.1); Sodium 139 mmol/L (135-145); Triglycerides 133 mg/dL
== END 2020-04-22 09:39 | disposition home or self-care (01) ==
LOC: HO.LAB 09:38
PROVIDERS: PCP Internal Medicine; Visit Provider Nurse Practitioner Family
DX: I25.10 Atherosclerotic heart disease of native coronary artery without angina pectoris (principal)
CPT/HCPCS: 36415; 80048; 80061; 85025; 99212

== ENCOUNTER → 2020-05-20 12:44 | Outpatient (BNVA) | payer OTHER, SELFPAY | PROVIDERS: PCP Physician Assistant; Visit Provider Nurse Practitioner Family | DX: E11.22 Type 2 diabetes mellitus with diabetic chronic kidney disease (principal); I13.0 Hypertensive heart and chronic kidney disease with heart failure and stage 1 through stage 4 chronic kidney disease, or unspecified chronic kidney disease; N18.9 Chronic kidney disease, unspecified; I50.31 Acute diastolic (congestive) heart failure; N17.9 Acute kidney failure, unspecified; E78.5 Hyperlipidemia, unspecified; I25.10 Atherosclerotic heart disease of native coronary artery without angina pectoris; Z95.1 Presence of aortocoronary bypass graft | CPT/HCPCS: 93005 ==

== ENCOUNTER 2020-05-23 07:38 | Outpatient (REF) | payer OTHER, SELFPAY ==
[2020-05-23 08:50] LABS: Alanine Aminotransferase 39 U/L (0-40); Albumin Level 3.7 g/dL (3.5-5.0); Alkaline Phosphatase 232 U/L (39-117); Anion Gap 15 (12-20); Aspartate Amino Transferase 31 U/L (5-37); Bilirubin Total 0.4 mg/dL (0.0-1.0); Blood Urea Nitrogen 34 mg/dL (9-16); Carbon Dioxide 25 mmol/L (22-29); Chloride 104 mmol/L (96-108); Estimated Glomerular Filt Rate 32; Glucose Random 281 mg/dL (60-115); Potassium 4.7 mmol/l (3.3-5.1); Sodium 139 mmol/L (135-145); Total Protein 7.5 g/dL (6.5-8.0)
[2020-05-23 08:51] LABS: B Type Natriuretic Peptide 162 pg/mL (<100)
== END 2020-05-23 07:39 | disposition home or self-care (01) ==
LOC: HO.LAB 07:38
PROVIDERS: Visit Provider Nurse Practitioner Family
DX: I50.31 Acute diastolic (congestive) heart failure (principal)
CPT/HCPCS: 36415; 80053; 83880

== ENCOUNTER → 2020-06-06 07:30 | Outpatient (BNVA) | payer OTHER, SELFPAY | PROVIDERS: Visit Provider Internal Medicine ==

== ENCOUNTER → 2020-07-03 11:09 | Outpatient (BNVA) | payer OTHER, SELFPAY | PROVIDERS: PCP Internal Medicine; Visit Provider Internal Medicine ==

== ENCOUNTER 2020-08-02 09:29 | Outpatient (REF) | payer OTHER, SELFPAY ==
[2020-08-02 09:58] LABS: COVID-19 Test Positive (Negative)
== END 2020-08-02 09:30 | disposition home or self-care (01) ==
LOC: HO.LAB 09:29
PROVIDERS: Visit Provider Internal Medicine
DX: Z20.822 Contact with and (suspected) exposure to COVID-19 (principal)
CPT/HCPCS: 36415; 87635; C9803

== ENCOUNTER → 2020-08-14 08:43 | Outpatient (REF) | payer OTHER, SELFPAY | LOC: HO.CARD 08:43 | PROVIDERS: PCP Internal Medicine; Visit Provider Internal Medicine | DX: Z13.89 Encounter for screening for other disorder (principal) ==

== ENCOUNTER 2020-08-25 21:36 | Emergency (ER) | payer OTHER, MEDICARE, SELFPAY ==
--- NOTE | 2020-08-25 | ECG_ITS ---
Test Reason : htn Blood Pressure : / mmHG Vent. Rate : 085 BPM Atrial Rate : 085 BPM P-R Int : 194 ms QRS Dur : 112 ms QT Int : 380 ms P-R-T Axes : 066 -12 141 degrees QTc Int : 452 ms Sinus rhythm with occasional Premature ventricular complexes Possible Left atrial enlargement Left ventricular hypertrophy T wave abnormality, consider lateral ischemia Abnormal ECG When compared with ECG of 06-FEB-2020 06:06, Premature ventricular complexes are now Present Referred By: Generic ED Physician Electronically Signed By:FLOR MITCHELL
[2020-08-25 21:45] VITALS: BP 200/91; PULSE 94; RESP 16; TEMP 36.7; O2SAT 100
[2020-08-25 22:02] LABS: Basophils Percent Auto 0.5 % (0-2); Eosinophils Absolute Auto 0.3 X10*3/uL (0.0-0.4); Eosinophils Percent Auto 3.4 % (0-4); Hematocrit 34.1 % (42-52); Hemoglobin 10.6 g/dl (14.0-18.0); Imm Gran Abs Auto 0.02 X10*3/uL (0.00-0.03); Imm Gran Pct Auto 0.2 % (0.0-0.4); Lymphocytes Absolute Auto 2.1 X10*3/uL (1.2-4.9); Lymphocytes Percent Auto 24.4 % (20-40); MANUAL DIFF FLAG NO; Mean Corpuscular HGB Conc 31.1 g/dl (31.0-36.0); Mean Corpuscular Hemoglobin 23.7 pg (27.0-33.0); Mean Corpuscular Volume 76.3 fL (80-98); Mean Platelet Volume 10.5 fL (9.4-12.4); Monocytes Absolute Auto 0.5 X10*3/uL (0.1-1.2); Monocytes Percent Auto 5.8 % (2-11); Neutrophils Absolute Auto 5.6 X10*3/uL (2.0-8.3); Neutrophils Percent Auto 65.7 % (45-73); Platelet Count 285 X10*3/uL (160-400); Red Blood Count 4.47 X10*6/uL (4.60-5.80); Red Cell Distribution Width 18.1 % (11.0-16.0); White Blood Count 8.6 X10*3/uL (4.8-10.8)
[2020-08-25 22:18] LABS: Alanine Aminotransferase 28 U/L (0-40); Albumin Level 3.9 g/dL (3.5-5.0); Alkaline Phosphatase 171 U/L (39-117); Anion Gap 14 (12-20); Aspartate Amino Transferase 20 U/L (5-37); Bilirubin Total 0.4 mg/dL (0.0-1.0); Blood Urea Nitrogen 34 mg/dL (9-16); Carbon Dioxide 24 mmol/L (22-29); Chloride 105 mmol/L (96-108); Estimated Glomerular Filt Rate 34; Glucose Random 177 mg/dL (60-115); Potassium 3.9 mmol/L (3.3-5.1); Sodium 139 mmol/L (135-145); Total Protein 7.3 g/dL (6.5-8.0)
--- NOTE | 2020-08-25 22:44 | ED.GENADULT ---
HPI - General Adult General Chief complaint: General Medical Stated complaint: high bp Time Seen by Provider: 08/25/20 22:44 Source: patient Mode of arrival: ambulatory Limitations: no limitations History of Present Illness HPI narrative: 55 yo male with CAD< HTN, CHF, CKD here with insomnia x 1 week, elevated BP for 1 days, BPs 200s at home states he is worried he's going to have another heart attack and his neighbor from COVID this past week and he's freaking out. complaint: elevated BPs, insomnia Onset (ago): week(s) (3) Severity: moderate Pain Consistency: intermittent Relieving factors: none Exacerbating factors: other (personal stress) Associated symptoms: other (has not slept in a week, very anxious worried) Treatments prior to arrival: none Related Data Home Medications Medication Instructions Recorded Confirmed metformin 500 mg tablet 500 mg PO BID 04/22/20 07/03/20 Previous Rx's Medication Instructions Recorded acetaminophen 650 mg PO Q6H PRN #30 tab 02/08/20 amlodipine 10 mg tablet 10 mg PO DAILY #90 tab 03/07/20 aspirin 81 mg chewable tablet 81 mg PO DAILY 90 Days #90 tab 04/22/20 clopidogrel 75 mg tablet 75 mg PO DAILY 90 Days #90 tab 05/20/20 blood pressure monitor #1 ea 06/06/20 carvedilol 12.5 mg tablet 12.5 mg PO BID #60 tab 06/06/20 furosemide 40 mg tablet 80 mg PO DAILY #180 tab 06/06/20 pen needle, diabetic 31 gauge x See Rx Instructions SUBCUT 06/07/2007/09 DIRECTED #100 ea atorvastatin 80 mg tablet 80 mg PO DAILY 90 Days #90 tab 07/09/20 nicotine 21 mg/24 hr daily 1 patch TOPICAL DAILY #84 patch 07/09/20 transdermal patch pravastatin 20 mg tablet 20 mg PO DAILY #90 tab 07/09/20 blood sugar diagnostic 1 strip MISCELLANEOUS TID #100 07/19/20 strip insulin glargine 100 unit/mL (3 32 unit SUBCUT ONCE #30 ml 07/19/20 mL) subcutaneous pen insulin lispro 100 unit/mL 15 unit SUBCUT TID #15 cap 07/19/20 subcutaneous cartridge lorazepam [Ativan] 1 mg PO BEDTIME PRN #10 tab 08/26/20 Allergies Allergy/AdvReac Type Severity Reaction Status Date / Time No Known Allergies Allergy Verified 08/25/20 21:49 [No Known Allergies*] Review of Systems Review of Systems: Constitutional : No Weight loss, No Fever, No Chills, No Fatigue, No Malaise ENT/Mouth : No sore throat, No Rhinorrhea Eyes: No Eye Pain, No Swelling, No Redness Cardiovascular : No Chest Pain, No SOB, No Dyspnea on Exertion, No Orthopnea, No Edema, No Palpitations Respiratory : No Cough, No Sputum, No Wheezing Gastrointestinal : No Nausea, No Vomiting, No Diarrhea, No Constipation, No abdominal Pain, No Hematochezia, No Melena Genitourinary : No Dysuria, No Urinary Frequency, No Hematuria, Musculoskeletal : No joint pain, No Myalgias, No Joint Swelling Skin : No Skin Lesions, No rash Neuro : No Weakness, No Numbness, No Dizziness, No Headache Psych : pos Anxiety/Panic, No Depression Heme/Lymph: No Bruising, No Bleeding,No Lymphadenopathy Endocrine : No Polyuria, No Polydipsia All other systems reviewed and are negative [facility] Past Medical History Attestation statement: The following information was validated with the patient. Medical History Atherosclerotic cardiovascular disease Carotid stenosis CKD (chronic kidney disease) stage 3, GFR 30-59 ml/min Diabetes Essential hypertension HLD (hyperlipidemia) Hypertension Surgical History History of cardiac catheterization (~02/09/20) S/P triple vessel bypass Status post coronary artery bypass graft (~01/2020) Family History Family History Father No problems noted. Mother Cancer Sister Agoraphobia Hypothyroid Social History Social History Household Members: Spouse Housing: House Alcohol intake: never Smoking Status: Former smoker Tobacco Type: Cigarette Cigarettes Per Day: 10 Years Smoked: 30 Second Hand Smoke Exposure: No Advance Directives: No service: No Physical Exam Vital Signs: Vital Signs: Last Vital Signs Temp 97.9 F 08/25/20 23:54 Pulse 85 08/26/20 01:01 Resp 18 08/26/20 01:01 BP 166/74 H 08/26/20 01:01 Pulse Ox 98 08/26/20 01:01 Body Mass Index 0.0 Appearance: Alert. Oriented X3. No acute distress. Anxious Eyes: Pupils equal, round and reactive to light. ENT: Pharynx normal. Neck: Normal inspection. Neck supple. CVS: Normal heart rate and rhythm. Pulses normal. Respiratory: No respiratory distress. Breath sounds normal. Abdomen: Soft and nontender. Skin: Skin warm and dry. Normal skin color. Normal skin turgor. Extremities: No lower extremity edema. No calf ttp Neuro: Oriented X 3. No motor deficit. No sensory deficit. Course Course Course Narrative: trop likely related to HTN hx of elevation in past has no CP/SOB feels much better, wants to go home, labs at baseline, BP down Medical Decision Making MDM Narrative Medical decision making narrative: 55 yo male with HTN, s/p CABG, CHF, HPL - comes in with insomnia, anxiety, elevated BPs compliant with medications, patient very anxious worried he will have another heart attack all events precipitated by neighbor dying from COVID, patient very anxious and not sleeping. Suspect anxiety cause of symptoms will need labs and start on PO valium in ED Lab Data Result diagrams: 08/25/20 21:57 08/25/20 21:57 Labs: Lab Results 08/25/20 08/25/20 08/25/20 Range/Units 21:57 21:57 21:57 WBC 8.6 (4.8-10.8) X10*3/uL RBC 4.47 L (4.60-5.80) X10*6/uL Hgb 10.6 L (14.0-18.0) g/dl Hct 34.1 L (42-52) % MCV 76.3 L (80-98) fL MCH 23.7 L (27.0-33.0) pg MCHC 31.1 (31.0-36.0) g/dl RDW 18.1 H (11.0-16.0) % Plt Count 285 D (160-400) X10*3/uL MPV 10.5 (9.4-12.4) fL Immature Gran % (Auto) 0.2 (0.0-0.4) % Neut % (Auto) 65.7 (45-73) % Lymph % (Auto) 24.4 (20-40) % Creek % (Auto) 5.8 (2-11) % Eos % (Auto) 3.4 (0-4) % Baso % (Auto) 0.5 (0-2) % Lymph # (Auto) 2.1 (1.2-4.9) X10*3/uL Creek # (Auto) 0.5 (0.1-1.2) X10*3/uL Eos # (Auto) 0.3 (0.0-0.4) X10*3/uL Baso # (Auto) 0.0 (0.0-0.2) X10*3/uL Abs Immat Gran (auto) 0.02 (0.00-0.03) X10*3/uL Absolute Neuts (auto) 5.6 (2.0-8.3) X10*3/uL Absolute Nucleated RBC 0.000 (0.0-0.012) X10*3/uL Nucleated RBC % (auto) 0.0 (0.0-0.2) /100WBC Hold Purple Top SEE NOTE Sodium 139 (135-145) mmol/L Potassium 3.9 (3.3-5.1) mmol/L Chloride 105 (96-108) mmol/L Carbon Dioxide 24 (22-29) mmol/L Anion Gap 14 (12-20) BUN 34 H (9-16) mg/dL Creatinine 2.04 H (0.5-1.4) mg/dL Estim Creat Clear Calc TNP Estimated GFR 34 Random Glucose 177 H D (60-115) mg/dL Calcium 9.0 (8.4-10.2) mg/dL Total Bilirubin 0.4 (0.0-1.0) mg/dL AST 20 (5-37) U/L ALT 28 (0-40) U/L Alkaline Phosphatase 171 H D (39-117) U/L Troponin I High Sens (<3.5-35.0) ng/L Total Protein 7.3 (6.5-8.0) g/dL Albumin 3.9 (3.5-5.0) g/dL 08/25/20 08/26/20 Range/Units 21:57 00:02 WBC (4.8-10.8) X10*3/uL RBC (4.60-5.80) X10*6/uL Hgb (14.0-18.0) g/dl Hct (42-52) % MCV (80-98) fL MCH (27.0-33.0) pg MCHC (31.0-36.0) g/dl RDW (11.0-16.0) % Plt Count (160-400) X10*3/uL MPV (9.4-12.4) fL Immature Gran % (Auto) (0.0-0.4) % Neut % (Auto) (45-73) % Lymph % (Auto) (20-40) % Creek % (Auto) (2-11) % Eos % (Auto) (0-4) % Baso % (Auto) (0-2) % Lymph # (Auto) (1.2-4.9) X10*3/uL Creek # (Auto) (0.1-1.2) X10*3/uL Eos # (Auto) (0.0-0.4) X10*3/uL Baso # (Auto) (0.0-0.2) X10*3/uL Abs Immat Gran (auto) (0.00-0.03) X10*3/uL Absolute Neuts (auto) (2.0-8.3) X10*3/uL Absolute Nucleated RBC (0.0-0.012) X10*3/uL Nucleated RBC % (auto) (0.0-0.2) /100WBC Hold Purple Top Sodium (135-145) mmol/L Potassium (3.3-5.1) mmol/L Chloride (96-108) mmol/L Carbon Dioxide (22-29) mmol/L Anion Gap (12-20) BUN (9-16) mg/dL Creatinine (0.5-1.4) mg/dL Estim Creat Clear Calc Estimated GFR Random Glucose (60-115) mg/dL Calcium (8.4-10.2) mg/dL Total Bilirubin (0.0-1.0) mg/dL AST (5-37) U/L ALT (0-40) U/L Alkaline Phosphatase (39-117) U/L Troponin I High Sens 80.9 H D 87.5 H (<3.5-35.0) ng/L Total Protein (6.5-8.0) g/dL Albumin (3.5-5.0) g/dL ECG Data Attestation: I personally reviewed and interpreted this ECG as follows: Interpretation: Rate: 85 Rhythm: NSR with PVC [place]: left, LVH Normal P waves. Normal LATRICIA. Normal QRS complex. ST T wave : inverted I and aVL, V5-V6 no EVELIN, consistent with LVH and strain qTC: normal prior studies: no acute ischemia The study has been interpreted contemporaneously by me. . Discharge Plan Discharge Clinical Impression: Hypertension Qualifiers: Hypertension type: unspecified Qualified Code(s): I10 - Essential (primary) hypertension Insomnia Qualifiers: Insomnia type: unspecified Qualified Code(s): G47.00 - Insomnia, unspecified Patient Disposition: Home, Self-Care Instructions: Chronic Hypertension (ED), Insomnia (ED) Additional Instructions: return to ED for any worsening symptoms or concerns Prescriptions: New lorazepam [Ativan] 1 mg tablet 1 mg PO BEDTIME PRN (Reason: sleep) Qty: 10 RF: 0 No Action pen needle, diabetic [BD Ultra-Fine Mini Pen Needle] 31 gauge x 3/16 needle See Rx Instructions subcut DIRECTED Qty: 100 RF: 1 pravastatin 20 mg tablet 20 mg PO DAILY Qty: 90 RF: 2 nicotine 21 mg/24 hr patch 24 hour 1 patch topical DAILY Qty: 84 RF: 0 atorvastatin 80 mg tablet 80 mg PO DAILY 90 Days Qty: 90 RF: 4 insulin lispro [Humalog U-100 Insulin] 100 unit/mL cartridge 15 unit subcut TID Qty: 15 RF: 1 insulin glargine [Lantus Solostar U-100 Insulin] 100 unit/mL (3 mL) insulin pen 32 unit subcut ONCE Qty: 30 RF: 1 blood sugar diagnostic [FreeStyle Lite Strips] Strip 1 strip miscellaneous TID Qty: 100 RF: 3 acetaminophen 325 mg Tablet 650 mg PO Q6H PRN (Reason: Pain, Mild (Pain Scale 1-3)) Qty: 30 RF: 0 amlodipine 10 mg tablet 10 mg PO DAILY Qty: 90 RF: 4 metformin 500 mg tablet 500 mg PO BID RF: 0 aspirin 81 mg tablet,chewable 81 mg PO DAILY 90 Days Qty: 90 RF: 3 clopidogrel 75 mg tablet 75 mg PO DAILY 90 Days Qty: 90 RF: 1 carvedilol [Coreg] 12.5 mg tablet 12.5 mg PO BID Qty: 60 RF: 5 furosemide [Lasix] 40 mg tablet 80 mg PO DAILY Qty: 180 RF: 4 (DME) blood pressure monitor Kit See Rx Instructions .ROUTE .MEDSUPPLY Qty: 1 RF: 0 Referrals: [place] [Primary Care Provider] - 2 days (if not better)
[2020-08-25] MEDS: diazePAM 5 MG TABLET PO (22:58)
[2020-08-25 23:28] LABS: Troponin-I High Sensitivity 80.9 ng/L (<3.5-35.0)
[2020-08-25 23:42] VITALS: BP 174/73; PULSE 79; RESP 18; O2SAT 98
[2020-08-25 23:54] VITALS: BP 176/84; PULSE 78; RESP 18; TEMP 36.6; O2SAT 98
[2020-08-26 00:36] LABS: Troponin-I High Sensitivity 87.5 ng/L (<3.5-35.0)
[2020-08-26 01:01] VITALS: BP 166/74; PULSE 85; RESP 18; O2SAT 98
== END 2020-08-26 01:20 | disposition home or self-care (01) ==
PROVIDERS: Emergency Provider Emergency Medicine
DX: G47.00 Insomnia, unspecified (principal); E11.22 Type 2 diabetes mellitus with diabetic chronic kidney disease; I13.0 Hypertensive heart and chronic kidney disease with heart failure and stage 1 through stage 4 chronic kidney disease, or unspecified chronic kidney disease; N18.30 Chronic kidney disease, stage 3 unspecified; I50.9 Heart failure, unspecified; Z79.84 Long term (current) use of oral hypoglycemic drugs
CPT/HCPCS: 36415; 80053; 84484; 85025; 93005; 99283; 99284

== ENCOUNTER → 2020-09-05 07:58 | Outpatient (BNVA) | payer OTHER, SELFPAY | PROVIDERS: Visit Provider Internal Medicine ==

== ENCOUNTER → 2020-09-18 07:16 | Outpatient (REF) | payer OTHER, SELFPAY ==
--- NOTE | 2020-09-18 07:20 | CA_ITS ---
Transthoracic Echocardiogram Patient (Last, First, Middle): Hector Collazo, Gender: Male Date of : 1965 Age: 55 Procedure Date: 09/18/2020 Procedure Type: Transthoracic Echocardiogram Location: OP Height: 180.34 cm Weight: 107.96 kg BSA: 2.27 m2 Heart Rate: bpm BP: 142 / 78 mmHg Technical Training Coordinator: LANG Referring MD: Robert De Leon MD Symptoms: I50.33 - Acute on chronic diastolic (congestive) heart failure Study Quality: Fair ECG Rhythm: Sinus Conclusions: - The left ventricular systolic function is normal. The visually estimated ejection fraction is between 60-65%. - The apex and apical inferior segments are hypokinetic. The apical septum is akinetic. - No obvious valvular pathology seen on this study. Findings Left Ventricle Normal left ventricular cavity size. There is moderately increased left ventricular wall thickness. The left ventricular systolic function is normal. The visually estimated ejection fraction is between 60-65%. There is evidence of regional wall motion abnormalities. E/E prime ratio is >15, consistent with elevated filling pressures. Evidence suggests grade I (mild) diastolic dysfunction. Wall Motion Rest Echo Findings The apex and apical inferior segments are hypokinetic. The apical septum is akinetic. Right Ventricle Normal right ventricular cavity size and systolic function. Atria The left atrium is mildly dilated. The right atrium is normal in size. Aortic Valve The aortic valve was not well visualized. There is no aortic valve stenosis. The peak aortic velocity is 1.70 m/s with a calculated peak gradient of 12 mmHg. There is no aortic valve regurgitation. Mitral Valve The mitral valve appears normal. There is trace mitral valve regurgitation. There is no mitral valve stenosis. Pulmonic Valve The pulmonic valve was not well visualized. Tricuspid Valve There is trace tricuspid valve regurgitation. The pulmonary artery systolic pressure is normal. Great Vessels The aortic annulus, sinuses of valsalva, and asc aorta are normal in size. Venous The inferior vena cava is normal in size and collapses greater than 50% with inspiration. Pericardium/Pleural There is a trivial pericardial effusion. Prior Study Comparison Changes noted compared to prior study dated: 03/25/2020. Improved LVEF, wall motion. Recommendations, Care & Conclusions No obvious valvular pathology seen on this study. Measurements 2D Linear Measurements IVSd: 1.34 0.6-0.9/0.6-1.0 cm LVIDd: 4.67 3.9-5.3/4.2-5.9 cm LVIDd Index: 2.06 2.4-3.2/2.2-3.1 cm/m2 LVIDs: 3.10 2.0-3.6 cm LVPWd: 1.35 0.7-1.1 cm LA Diam: 3.80 2.7-3.8/3.0-4.0 cm LAIDs Index: 1.67 1.5-2.3 cm/m2 LV Mass: 308.71 67-162/88-224 g LV Mass Index: 136.00 43-95/49-115 g/m2 LVOT Diam: 2.00 3.0+(-)1.3 cm 2D Systolic Function EF 4C: 49.70 >55% Mitral Valve MV Pk E: 1.42 MV PK A: 1.62 MV Decel Time: 61.00 E/A: 0.90 E'Lateral: 11.20 E'Medial: 6.85 E/E' Med: 20.70 E/E' Lat: 12.70 PHT: 18.00 MVA PHT: 12.22 Decel Dukes: 23.39 Aortic Valve AoV Pk Aquiles: 1.70 AoV Pk Grad: 12.00 LVOT LVOT Pk Aquiles: 0.98 LVOT Mn Aquiles: 0.68 LVOT VTI: 0.21 LVOT Pk Grad: 4.00 LVOT Mn Grad: 2.00 LVOT Diam: 2.00 LVOT Area: 3.14 Diastolic Function MV Pk E: 1.42 MV Pk A: 1.62 E/A: 0.90 E'Medial: 6.85 E/E' Med: 20.70 E' Laterial: 11.20 E/E' Lat: 12.70 Tricuspid Valve RA Press: 3.00 Great Vessels Aorta Ao Asc: 2.30 2.1-3.4 cm Updated in Other Vendor System with Status of Final Robert De Leon MD electronically signed on 09/20/2020 12:24:21 PM with status of Final
== END ==
LOC: HO.CARD 07:16
PROVIDERS: Visit Provider Internal Medicine
DX: I50.33 Acute on chronic diastolic (congestive) heart failure (principal)
CPT/HCPCS: 93306

== ENCOUNTER → 2020-11-25 10:07 | Outpatient (BNVA) | payer OTHER, SELFPAY | PROVIDERS: PCP Physician Assistant; Referring Provider Physician Assistant; Visit Provider Internal Medicine ==

== ENCOUNTER 2020-12-05 07:05 | Outpatient (REF) | payer OTHER, SELFPAY ==
[2020-12-05 07:51] LABS: Estimated Average Glucose 214 mg/dL; Hemoglobin A1c % 9.1 %
[2020-12-05 08:03] LABS: Alanine Aminotransferase 23 U/L (0-40); Albumin Level 3.9 g/dL (3.5-5.0); Alkaline Phosphatase 146 U/L (39-117); Anion Gap 15 (12-20); Aspartate Amino Transferase 16 U/L (5-37); Bilirubin Total 0.4 mg/dL (0.0-1.0); Blood Urea Nitrogen 52 mg/dL (9-16); Calcium 9.1 mg/dL (8.4-10.2); Carbon Dioxide 24 mmol/L (22-29); Chloride 104 mmol/L (96-108); Cholesterol 112 mg/dL; Estimated Glomerular Filt Rate 24; Glucose Fasting 179 mg/dL (60-99); HDL Cholesterol 32 mg/dL; LDL Cholesterol Calculated 47 mg/dl; Potassium 4.2 mmol/L (3.3-5.1); Sodium 139 mmol/L (135-145); Total Protein 7.1 g/dL (6.5-8.0); Triglycerides 168 mg/dL
[2020-12-05 08:05] LABS: B Type Natriuretic Peptide 96 pg/mL (<100)
[2020-12-05 08:23] LABS: TSH reflex Free T4 2.81 uIU/mL (0.32-4.0)
[2020-12-05 09:05] LABS: Glucose Urine UA NEG (NEG); Leukocyte Esterase Urine NEG (NEG); Nitrite Urine NEG (NEG); UACC Culture Trigger NO; Urine Blood TRACE (NEG); Urine Ketones NEG (NEG); Urine Protein 2+ MG/DL (NEG-TRACE)
[2020-12-05 09:08] LABS: Appearance Urine CLEAR; Color Urine STRAW
[2020-12-05 09:18] LABS: Squamous Epithelial Cell Urine TRACE /LPF; WBC Urine 0-2 /HPF (0-4)
[2020-12-05 09:30] LABS: Creatinine Urine 59.53 mg/dL
[2020-12-05 09:46] LABS: Microalbum/Creatinine Ratio Ur 1066.6 ug/mg cr
== END 2020-12-05 07:06 | disposition home or self-care (01) ==
LOC: HO.LAB 07:05
PROVIDERS: Internal Medicine; PCP Physician Assistant; Visit Provider Internal Medicine
DX: I50.31 Acute diastolic (congestive) heart failure (principal); E78.00 Pure hypercholesterolemia, unspecified; E11.9 Type 2 diabetes mellitus without complications
CPT/HCPCS: 36415; 80048; 80053; 80061; 81001; 81003; 82043; 83036; 83880; 84443

== ENCOUNTER 2020-12-27 07:08 | Outpatient (REF) | payer OTHER, SELFPAY ==
[2020-12-27 08:08] LABS: Anion Gap 14 (12-20); Blood Urea Nitrogen 52 mg/dL (9-16); Calcium 9.5 mg/dL (8.4-10.2); Carbon Dioxide 23 mmol/L (22-29); Chloride 105 mmol/L (96-108); Estimated Glomerular Filt Rate 27; Glucose Random 289 mg/dL (60-115); Potassium 5.1 mmol/L (3.3-5.1); Sodium 137 mmol/L (135-145)
== END 2020-12-27 07:09 | disposition home or self-care (01) ==
LOC: HO.LAB 07:08
PROVIDERS: PCP Physician Assistant; Visit Provider Physician Assistant
DX: N17.9 Acute kidney failure, unspecified (principal); N18.9 Chronic kidney disease, unspecified
CPT/HCPCS: 36415; 80048

== ENCOUNTER 2021-03-10 07:09 | Outpatient (REF) | payer OTHER, SELFPAY ==
[2021-03-10 08:05] LABS: Hematocrit 30.9 % (42.0-52.0); Hemoglobin 9.9 g/dl (14.0-18.0); Mean Corpuscular Hemoglobin 26.8 pg (27.0-33.0); Mean Corpuscular Volume 83.7 fL (80.0-98.0); Mean Platelet Volume 11.1 fL (9.4-12.4); Platelet Count 286 X10*3/uL (160-400); Red Blood Count 3.69 X10*6/uL (4.60-5.80); Red Cell Distribution Width 13.2 % (11.0-16.0); White Blood Count 9.3 X10*3/uL (4.8-10.8)
[2021-03-10 08:27] LABS: Alanine Aminotransferase 25 U/L (0-40); Albumin Level 3.7 g/dL (3.5-5.0); Alkaline Phosphatase 145 U/L (39-117); Anion Gap 12 (12-20); Aspartate Amino Transferase 17 U/L (5-37); Bilirubin Total 0.4 mg/dL (0.0-1.0); Blood Urea Nitrogen 42 mg/dL (9-16); Calcium 8.5 mg/dL (8.4-10.2); Carbon Dioxide 23 mmol/L (22-29); Chloride 107 mmol/L (96-108); Estimated Glomerular Filt Rate 28; Glucose Fasting 231 mg/dL (60-99); Potassium 4.4 mmol/L (3.3-5.1); Sodium 138 mmol/L (135-145); Total Protein 6.7 g/dL (6.5-8.0)
[2021-03-10 08:45] LABS: Appearance Urine CLEAR; Color Urine YELLOW; Glucose Urine UA 100 MG/DL (NEG); Leukocyte Esterase Urine NEG (NEG); Nitrite Urine NEG (NEG); Specific Gravity - Urine 1.025 (1.005-1.025); UACC Culture Trigger NO; Urine Blood 2+ (NEG); Urine Ketones NEG (NEG); Urine Protein 3+ MG/DL (NEG-TRACE)
[2021-03-10 08:47] LABS: TSH reflex Free T4 1.85 uIU/mL (0.32-4.0)
[2021-03-10 08:55] LABS: WBC Urine 0-2 /HPF (0-4)
[2021-03-10 08:56] LABS: Granular Casts Urine 0-2 /LPF; Squamous Epithelial Cell Urine TRACE /LPF
== END 2021-03-10 07:10 | disposition home or self-care (01) ==
LOC: HO.LAB 07:09
PROVIDERS: Internal Medicine; PCP Physician Assistant; Visit Provider Physician Assistant
DX: I10 Essential (primary) hypertension (principal)
CPT/HCPCS: 36415; 80053; 81001; 84443; 85027

== ENCOUNTER → 2021-03-12 08:08 | Outpatient (BNVA) | payer OTHER, SELFPAY | PROVIDERS: PCP Physician Assistant; Referring Provider Physician Assistant; Visit Provider Internal Medicine ==

== ENCOUNTER 2021-07-29 07:57 | Outpatient (REF) | payer OTHER, SELFPAY ==
[2021-07-29 08:46] LABS: Hematocrit 30.3 % (42.0-52.0); Hemoglobin 9.6 g/dl (14.0-18.0); Mean Corpuscular HGB Conc 31.7 g/dl (31.0-36.0); Mean Corpuscular Hemoglobin 26.8 pg (27.0-33.0); Mean Corpuscular Volume 84.6 fL (80.0-98.0); Mean Platelet Volume 11.6 fL (9.4-12.4); Platelet Count 259 X10*3/uL (160-400); Red Blood Count 3.58 X10*6/uL (4.60-5.80); Red Cell Distribution Width 13.7 % (11.0-16.0); White Blood Count 9.1 X10*3/uL (4.8-10.8)
[2021-07-29 09:04] LABS: Estimated Average Glucose 226 mg/dL; Hemoglobin A1c % 9.5 %
[2021-07-29 09:31] LABS: Prostate Specific Antigen Scr 0.47 ng/mL (<0.05-4.0); TSH reflex Free T4 1.84 uIU/mL (0.32-4.0)
[2021-07-29 09:59] LABS: Alanine Aminotransferase 25 U/L (0-40); Albumin Level 3.6 g/dL (3.5-5.0); Alkaline Phosphatase 183 U/L (39-117); Anion Gap 12 (12-20); Aspartate Amino Transferase 14 U/L (5-37); Bilirubin Total 0.3 mg/dL (0.0-1.0); Blood Urea Nitrogen 52 mg/dL (9-16); Calcium 8.6 mg/dL (8.4-10.2); Carbon Dioxide 25 mmol/L (22-29); Chloride 104 mmol/L (96-108); Cholesterol 120 mg/dL; Estimated Glomerular Filt Rate 24; Glucose Fasting 351 mg/dL (60-99); HDL Cholesterol 29 mg/dL; LDL Cholesterol Calculated 65 mg/dl; Potassium 4.3 mmol/L (3.3-5.1); Sodium 137 mmol/L (135-145); Total Protein 6.5 g/dL (6.5-8.0); Triglycerides 134 mg/dL
[2021-07-29 12:37] LABS: Creatinine Urine 100.57 mg/dL
== END 2021-07-29 07:58 | disposition home or self-care (01) ==
LOC: HO.LAB 07:57
PROVIDERS: PCP Physician Assistant; Visit Provider Physician Assistant
DX: Z12.5 Encounter for screening for malignant neoplasm of prostate (principal); N18.30 Chronic kidney disease, stage 3 unspecified; E78.00 Pure hypercholesterolemia, unspecified; E66.01 Morbid (severe) obesity due to excess calories; Z68.37 Body mass index [BMI] 37.0-37.9, adult; E11.29 Type 2 diabetes mellitus with other diabetic kidney complication; R80.9 Proteinuria, unspecified; Z79.4 Long term (current) use of insulin
CPT/HCPCS: 36415; 80053; 80061; 82043; 83036; 84153; 84443; 85027

== ENCOUNTER 2021-09-13 08:25 | Outpatient (REF) | payer OTHER, SELFPAY ==
[2021-09-13 09:12] LABS: Hematocrit 33.6 % (42.0-52.0); Hemoglobin 10.6 g/dl (14.0-18.0); Mean Corpuscular HGB Conc 31.5 g/dl (31.0-36.0); Mean Corpuscular Hemoglobin 26.4 pg (27.0-33.0); Mean Corpuscular Volume 83.6 fL (80.0-98.0); Mean Platelet Volume 11.3 fL (9.4-12.4); Platelet Count 249 X10*3/uL (160-400); Red Blood Count 4.02 X10*6/uL (4.60-5.80); Red Cell Distribution Width 13.8 % (11.0-16.0); White Blood Count 8.2 X10*3/uL (4.8-10.8)
[2021-09-13 09:31] LABS: Alanine Aminotransferase 23 U/L (0-40); Albumin Level 3.8 g/dL (3.5-5.0); Alkaline Phosphatase 154 U/L (39-117); Anion Gap 13 (12-20); Aspartate Amino Transferase 14 U/L (5-37); Bilirubin Total 0.4 mg/dL (0.0-1.0); Blood Urea Nitrogen 48 mg/dL (9-16); Calcium 9.1 mg/dL (8.4-10.2); Carbon Dioxide 25 mmol/L (22-29); Chloride 103 mmol/L (96-108); Cholesterol 124 mg/dL; Estimated Glomerular Filt Rate 24; Glucose Fasting 265 mg/dL (60-99); HDL Cholesterol 27 mg/dL; LDL Cholesterol Calculated 54 mg/dl; Potassium 4.2 mmol/L (3.3-5.1); Sodium 137 mmol/L (135-145); Triglycerides 216 mg/dL
== END 2021-09-13 08:26 | disposition home or self-care (01) ==
LOC: HO.LAB 08:25
PROVIDERS: PCP Physician Assistant; Visit Provider Physician Assistant
DX: I10 Essential (primary) hypertension (principal)
CPT/HCPCS: 36415; 80053; 80061; 84443; 85027

== ENCOUNTER → 2021-09-23 07:56 | Outpatient (BNVA) | payer OTHER, SELFPAY | PROVIDERS: PCP Physician Assistant; Referring Provider Physician Assistant; Visit Provider Internal Medicine | DX: I13.0 Hypertensive heart and chronic kidney disease with heart failure and stage 1 through stage 4 chronic kidney disease, or unspecified chronic kidney disease (principal); N18.32 Chronic kidney disease, stage 3b; I50.32 Chronic diastolic (congestive) heart failure; I25.10 Atherosclerotic heart disease of native coronary artery without angina pectoris; Z95.1 Presence of aortocoronary bypass graft | CPT/HCPCS: 93005 ==

== ENCOUNTER 2021-12-24 06:52 | Outpatient (REF) | payer OTHER, SELFPAY ==
[2021-12-24 07:15] LABS: Hematocrit 31.1 % (42.0-52.0); Hemoglobin 10.2 g/dl (14.0-18.0); Mean Corpuscular HGB Conc 32.8 g/dl (31.0-36.0); Mean Corpuscular Hemoglobin 27.4 pg (27.0-33.0); Mean Corpuscular Volume 83.6 fL (80.0-98.0); Mean Platelet Volume 11.6 fL (9.4-12.4); Platelet Count 249 X10*3/uL (160-400); Red Blood Count 3.72 X10*6/uL (4.60-5.80); Red Cell Distribution Width 14.2 % (11.0-16.0); White Blood Count 9.1 X10*3/uL (4.8-10.8)
[2021-12-24 07:37] LABS: Estimated Average Glucose 217 mg/dL; Hemoglobin A1c % 9.2 %
[2021-12-24 07:42] LABS: Alanine Aminotransferase 22 U/L (0-40); Albumin Level 3.8 g/dL (3.5-5.0); Alkaline Phosphatase 155 U/L (39-117); Anion Gap 17 (12-20); Aspartate Amino Transferase 15 U/L (5-37); Bilirubin Total 0.3 mg/dL (0.0-1.0); Blood Urea Nitrogen 54 mg/dL (9-16); Calcium 8.4 mg/dL (8.4-10.2); Carbon Dioxide 18 mmol/L (22-29); Chloride 106 mmol/L (96-108); Estimated Glomerular Filt Rate 24; Glucose Fasting 267 mg/dL (60-99); Iron 67 mcg/dL (45-160); Percent Iron Saturation 19 % (15-50); Potassium 4.3 mmol/L (3.3-5.1); Sodium 137 mmol/L (135-145); Total Iron Binding Capacity 355 mcg/dL (228-428); Total Protein 6.8 g/dL (6.5-8.0); Unsaturated Iron Binding 288 ug/dL
[2021-12-24 08:57] LABS: Folate 9.6 ng/mL (> or = 4.0); Vitamin B12 483 pg/mL (200-900)
[2021-12-24 09:41] LABS: Appearance Urine Clear; Color Urine Yellow; Glucose Urine UA Negative (Negative); Leukocyte Esterase Urine Negative (Negative); Nitrite Urine Negative (Negative); Specific Gravity - Urine 1.015 (1.005-1.025); Urine Blood Negative (Negative); Urine Ketones Negative (Negative); Urine Protein 100 (2+) mg/dL (Neg-Trace)
[2021-12-24 09:46] LABS: Bacteria Urine None Seen (None Seen); RBC Urine 0-2 /HPF (0-2); Squamous Epithelial Cell Urine 0-2 /HPF (0-2); WBC Urine 0-5 /HPF (0-5)
== END 2021-12-24 06:53 | disposition home or self-care (01) ==
LOC: HO.LAB 06:52
PROVIDERS: Internal Medicine; PCP Physician Assistant; Visit Provider Physician Assistant
DX: E11.29 Type 2 diabetes mellitus with other diabetic kidney complication (principal); R80.9 Proteinuria, unspecified; D50.9 Iron deficiency anemia, unspecified; E53.8 Deficiency of other specified B group vitamins; Z79.4 Long term (current) use of insulin
CPT/HCPCS: 36415; 80053; 81001; 82607; 82746; 83036; 83540; 85027

== ENCOUNTER → 2022-09-16 14:06 | Outpatient (BNVA) | payer OTHER, SELFPAY | PROVIDERS: PCP Physician Assistant; Referring Provider Physician Assistant; Visit Provider Internal Medicine | DX: I50.32 Chronic diastolic (congestive) heart failure (principal) | CPT/HCPCS: 93005 ==

== ENCOUNTER 2022-10-21 07:03 | Outpatient (REF) | payer OTHER, SELFPAY ==
[2022-10-21 07:25] LABS: Hematocrit 34.2 % (42.0-52.0); Hemoglobin 11.1 g/dl (14.0-18.0); Mean Corpuscular HGB Conc 32.5 g/dl (31.0-36.0); Mean Corpuscular Hemoglobin 27.6 pg (27.0-33.0); Mean Corpuscular Volume 85.1 fL (80.0-98.0); Mean Platelet Volume 12.5 fL (9.4-12.4); Platelet Count 144 X10*3/uL (160-400); Red Blood Count 4.02 X10*6/uL (4.60-5.80); Red Cell Distribution Width 13.8 % (11.0-16.0); White Blood Count 9.2 X10*3/uL (4.8-10.8)
[2022-10-21 08:05] LABS: Alanine Aminotransferase 21 U/L (0-40); Albumin Level 3.7 g/dL (3.5-5.0); Alkaline Phosphatase 140 U/L (39-117); Anion Gap 15 (12-20); Aspartate Amino Transferase 15 U/L (5-37); Bilirubin Total 0.6 mg/dL (0.0-1.0); Blood Urea Nitrogen 38 mg/dL (9-16); Calcium 9.4 mg/dL (8.4-10.2); Carbon Dioxide 23 mmol/L (22-29); Chloride 106 mmol/L (96-108); Cholesterol 108 mg/dL; Estimated Glomerular Filt Rate 31; Glucose Fasting 191 mg/dL (60-99); HDL Cholesterol 29 mg/dL; LDL Cholesterol Calculated 48 mg/dl; Potassium 3.8 mmol/L (3.3-5.1); Sodium 140 mmol/L (135-145); Total Protein 7.1 g/dL (6.5-8.0); Triglycerides 158 mg/dL
[2022-10-21 08:20] LABS: Prostate Specific Antigen Scr 0.89 ng/mL (<0.05-4.0)
[2022-10-21 08:24] LABS: TSH reflex Free T4 1.74 uIU/mL (0.32-4.0)
== END 2022-10-21 07:04 | disposition home or self-care (01) ==
LOC: HO.LAB 07:03
PROVIDERS: PCP Physician Assistant; Visit Provider Physician Assistant
DX: Z12.5 Encounter for screening for malignant neoplasm of prostate (principal); E11.29 Type 2 diabetes mellitus with other diabetic kidney complication; R80.9 Proteinuria, unspecified; E78.00 Pure hypercholesterolemia, unspecified; Z79.4 Long term (current) use of insulin
CPT/HCPCS: 36415; 80053; 80061; 84153; 84443; 85027

== ENCOUNTER 2022-10-29 14:07 | Outpatient (REF) | payer OTHER, SELFPAY ==
--- NOTE | ~2022-10-29 | US_ITS ---
EXAMINATION: US RETROPERITONEAL LIMITED (RENAL ONLY) CLINICAL INFORMATION: CKD. COMPARISON: CT chest without contrast 02/06/2020. TECHNIQUE: Real-time imaging of the kidneys. FINDINGS: RIGHT KIDNEY: 10.2 x 4.9 x 5.3 cm (SAG x AP x TRV). The kidney is normal in size, contour, and echogenicity. Renal cortical thickness is normal. No calculi or focal parenchymal lesions. No hydronephrosis. LEFT KIDNEY: 10.8 x 6.0 x 4.8 cm (SAG x AP x TRV). The kidney is normal in size, contour, and echogenicity. Renal cortical thickness is normal. No renal calculi or hydronephrosis. 1.0 x 0.9 x 1.1 cm exophytic simple lower pole cyst is seen. No imaging follow-up of this finding is recommended. US/US renal BI IMPRESSION: 1. Normal appearance of the right kidney. 2. No significant abnormality of the left kidney.
== END 2022-10-29 14:08 | disposition home or self-care (01) ==
LOC: HO.US 14:07
PROVIDERS: PCP Physician Assistant; Visit Provider Internal Medicine Hypertension Specialist
DX: N18.32 Chronic kidney disease, stage 3b (principal)
CPT/HCPCS: 76775

== ENCOUNTER 2022-12-15 07:01 | Outpatient (REF) | payer OTHER, SELFPAY ==
[2022-12-15 07:49] LABS: Anion Gap 13 (12-20); Blood Urea Nitrogen 36 mg/dL (9-16); Calcium 9.1 mg/dL (8.4-10.2); Carbon Dioxide 22 mmol/L (22-29); Chloride 109 mmol/L (96-108); Estimated Glomerular Filt Rate 30; Glucose Random 278 mg/dL (60-115); Potassium 4.6 mmol/L (3.3-5.1); Sodium 139 mmol/L (135-145)
[2022-12-15 10:44] LABS: Protein/Creatinine Ratio, Ur 0.58 (<0.2); Total Protein Urine Random 74 mg/dL (<12)
[2022-12-16 10:38] LABS: Prot Elec - Albumin 3.7 g/dL (3.8-4.8); Prot Elec - Alpha1 0.3 g/dL (0.2-0.3); Prot Elec - Alpha2 0.9 g/dL (0.5-0.9); Prot Elec - Beta 1 0.5 g/dL (0.4-0.6); Prot Elec - Beta 2 0.5 g/dL (0.2-0.5); Prot Elec - Gamma 1.1 g/dL (0.8-1.7)
== END 2022-12-15 07:02 | disposition home or self-care (01) ==
LOC: HO.LAB 07:01
PROVIDERS: PCP Physician Assistant; Visit Provider Internal Medicine Hypertension Specialist
DX: N18.32 Chronic kidney disease, stage 3b (principal)
CPT/HCPCS: 36415; 80048; 84156; 84165

== ENCOUNTER 2023-01-14 14:44 | Outpatient (AMB) | payer OTHER, SELFPAY ==
[2023-01-14 14:54] VITALS: BP 124/60; PULSE 88; RESP 13; O2SAT 97; BMI 39.5
--- NOTE | 2023-01-14 14:54 | A.OFFPC_ITS ---
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 Accompanied by: Self / Same As Patient Allergies No Known Allergies [No Known Allergies*] Allergy (Verified 01/14/23 15:06) Medication List - Last Reconciled 01/14/23 by Ronnie Reynolds PA-C acetaminophen 650 mg (2 x 325 mg) PO Q6H PRN amlodipine 10 mg PO DAILY aspirin 81 mg PO DAILY 90 days atorvastatin 80 mg PO DAILY blood sugar diagnostic (FreeStyle Lite Strips) 1 strip miscellaneous TID blood-glucose meter (FreeStyle Lite Meter kit) As directed carvedilol (Coreg) 25 mg PO BID compr.stocking,knee,long,x-lrg As directed doxazosin 4 mg PO DAILY 90 days dulaglutide (Trulicity) 4.5 mg (0.5 mL) subcut QWEEK 4 weeks flash glucose scanning reader (Wable SystemsStyle Charisse 2 [place]) As directed flash glucose sensor (FreeStyle Charisse 2 Sensor kit) As directed furosemide (Lasix) 80 mg (2 x 40 mg) PO DAILY hydroxyzine HCl 50 mg (2 x 25 mg) PO BEDTIME 30 days insulin glargine 45 units (0.45 mL) subcut QPM 30 days insulin lispro (Humalog KwikPen (U-100) Insulin) 16 units (0.16 mL) subcut TID 30 days lorazepam (Ativan) 1 mg PO BEDTIME PRN 30 days miscellaneous medical supply (Blood Pressure Cuff) As directed pen needle, diabetic (BD Ultra-Fine Mini Pen Needle) 1 ea subcut QID sennosides (senna) 17.2 mg (2 x 8.6 mg) PO BEDTIME sertraline 50 mg PO DAILY 90 days Tobacco use date assessed: 08/25/22 Dental Screening Dental Screen Date: 01/14/23 Did you have a dental visit in the last 12 months?: No Did you have a dental problem in the last 6 months where you did not have access to dental care?: No Was dental information given to patient?: Yes HPI 3 month f/u ( DMI /HTN ) HPI Details Patient is a 57 year male here today for a follow-up visit.? Patient has a past medical history significant for CKD stage 4, to do diabetes, obesity, congestive heart failure coronary artery disease, hyperlipidemia. Concern-->? reports still having trouble sleeping.? Does use lorazepam on a p.r.n. basis at night for sleep with decent affect.? Has had trazodone in the past though is concerned about using it.? Offered him melatonin, hydroxyzine or Benadryl though patient is considering. . 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 .? He continues on Humalog? and Basaglar.? He re his sugars are still 180- 200, most recent A1c 9.2 He does report dietary indiscretion. Needs diabetic eye exam PLAN: Will try to set him up with the freestyle to better evaluated is blood sugars throughout the day. .. Major depressive disorder : Does report having more depression anxiety as of late. Does report his brother was diagnosed with stage III esophageal cancer which is causing him more depression. He is willing to try depression medication and speak with mental therapist .. Hypertension:? Reports blood pressures at home have been 130-145 systolic.? He denies any chest discomfort for, palpitations or dizziness.? Does report shortness of breath on exertion ever since his hospital admission for open her surgery. .. Coronary artery disease:? Is status post open heart surgery with coronary artery bypass, is followed by Cardiology.? Had never done cardiac rehab after his open- heart surgery due to COVID.. He does report having some shortness of breath and chest discomfort on exertion and like to start cardiac rehab. .. Obesity: Has unfortunately gained weight since last office visit. Again reporting dietary indiscretion. .. CKD-4-? most recent creatinine at 2.7.? 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 Will continue to avoid nephrotoxins [facility] Medical History Obesity (BMI 30-39.9) Pure hypercholesterolemia Sinusitis Anxiety Diabetes mellitus Chronic heart failure with preserved ejection fraction (HFpEF) HLD (hyperlipidemia) Carotid stenosis Essential hypertension Atherosclerotic cardiovascular disease CKD (chronic kidney disease) stage 3, GFR 30-59 ml/min Hypertension Surgical History S/P triple vessel bypass Status post coronary artery bypass graft (~01/2020) History of cardiac catheterization (~02/09/20) Family History Father No problems noted. Mother Cancer Sister Agoraphobia Hypothyroid Mental health disorder Social History Household Members: Spouse Housing: House Do you presently have visiting nurse or other home services: No Alcohol intake: never Patient Tobacco Use Status: Former Tobacco user Quit Date: 1+ yr ago Cigarettes Per Day: 10 Years Smoked: 30 e-Cigarette/Vaping Use: Never Used Second Hand Smoke Exposure: No service: No Current occupational status: retired Cognitive needs: Yes (needs a cane ) Hearing needs: No Vision needs: Yes (has not seen an eye doctor for about ten years) Questionnaire Thrive Questionnaire Date Thrive assessed: 08/25/22 PÉREZ-7 AMB Questionnaire PÉREZ-7 Date PÉREZ - 7 assessed: 08/25/22 Source: Developed by Drs. Kevin Sanders, Nathalie Rowe, Tyrone Rivera and colleagues, with an educational hillary from [employer]. Review of Systems Const Denies headache(s) Eyes Denies loss of vision ENT Denies vertigo, Denies dizziness, Denies headache(s) and Denies sore throat Card Denies chest pain, Denies leg edema and Denies lightheadedness Resp Denies cough, Denies hemoptysis and Denies wheezing GI Denies abdominal pain, Denies melena, Denies constipation, Denies diarrhea and Denies vomiting Denies dysuria, Denies urinary frequency and Denies urinary urgency Musc Denies arthralgias, Denies joint swelling, Denies numbness and Denies tingling Neuro Denies Abnormal speech present, Denies behavioral changes, Denies vertigo, Denies dizziness, Denies headache(s), Denies loss of vision, Denies memory loss, Denies numbness and Denies tingling Psych Denies anxiety, Denies behavioral changes, Denies depression, Denies memory loss and Denies panic attacks Benito/Lymph Denies easy bleeding and Denies easy bruising Aller/Immun Denies wheezing Physical exam (Primary Care) Vital Signs: Last Vital Signs Pulse 88 01/14/23 14:54 Resp 13 01/14/23 14:54 BP 124/60 01/14/23 14:54 Pulse Ox 97 01/14/23 14:54 Oxygen Delivery Method Room Air 01/14/23 14:54 BMI result Body Mass Index 39.5 BMI Assessment/Plan discussion: High Tobacco/Smoking Status: Tobacco use Status Tobacco use date assessed 08/25/22 01/14/23 15:02 Patient Tobacco Use Status Former Tobacco user 01/14/23 15:02 Tobacco use type 09/16/22 14:25 e-Cigarette/Vaping Use Never Used 01/14/23 15:02 Thrive Assessment: Date of Thrive Assessment Date Thrive assessed 08/25/22 01/14/23 15:02 Const Other: OBESE General: healthy appearing, no acute distress, alert and awake Nutritional Appearance: well nourished Orientation/consciousness: oriented to person, oriented to place and oriented to time HENMT Ears: TM's normal bilaterally General nose exam: Normal nasal mucous membranes and turbinates present Eyes Conjunctivae: conjunctivae normal Sclerae: sclerae normal Pupils: Equal, round and reactive pupils present Neck Neck: Yes no lymphadenopathy and Yes no JVD Thyroid: Thyroid normal Carotids: no bruits Resp Effort & Inspection: normal respiratory effort and not tachypneic Auscultation: no crackles, no rales, no rhonchi and no wheezes Cardio Rate: regular rate Rhythm: regular rhythm Heart sounds: no murmurs and normal S1 and S2 GI Palpation (GI): Soft to palpation, nontender, no hepatomegaly and no splenomegal y Auscultation: normal bowel sounds Skin General skin exam: no rashes or lesions noted and dry skin Neuro General: oriented to person, oriented to place and oriented to time Cranial nerves: Yes Equal, round and reactive pupils present Speech: No Abnormal speech present Gait exam (Neuro): Normal gait present Motor exam (neuro): no tremor noted Extrem Right upper extremity: full ROM Left upper extremity: full ROM Right lower extremity: full ROM; no edema Left lower extremity: full ROM; no edema Psych Mental Status: mental status grossly normal Speech and movement: Normal speech and movement present Affect: normal affect Attitude: cooperative Thought process: Normal thought process present Results AMB Hemoglobin A1c AMB Hemoglobin A1c 9.2 % Last Edit by Josefina Thornton MA on 01/14/23 15:23 Assessment and Plan Assessment & Plan (1) Diabetes mellitus: Code(s): E11.9 - Type 2 diabetes mellitus without complications Qualifiers: Diabetes mellitus type: type 2 Diabetes mellitus intermission coordinator insulin use: with intermission coordinator use Diabetes mellitus complication status: with kidney complications Diabetes mellitus complication detail: with microalbuminuria Qualified Code(s): E11.29 - Type 2 diabetes mellitus with other diabetic kidney complication; R80.9 - Proteinuria, unspecified; Z79.4 - [facility] (current) use of insulin Plan: Patient's type 2 diabetes suboptimally controlled with A1c today and 9.2. Will increase his Humalog to 18 units TID. Will try to set patient up with [facility] continues glucose monitor to better monitor his blood sugars in hopes to better control his diabetes. He does report some dietary indiscretion. He is interested in speaking with a relay engineer about better eating habits and diabetic diet. 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 Most recent creatinine 2.1 (3) Essential hypertension: Code(s): I10 - Essential (primary) hypertension Plan: Patient's blood pressure acceptable today in office. Will continue current dose of antihypertensive medication with goal blood pressure be below 140/90 (4) HLD (hyperlipidemia): Code(s): E78.5 - Hyperlipidemia, unspecified Qualifiers: Hyperlipidemia type: mixed hyperlipidemia Qualified Code(s): E78.2 - Mixed hyperlipidemia Plan: Patient continues on high potency statin. Most recent fasting lipid panel showing appropriate total cholesterol and LDL. Goal LDL to be optimally below 70. (5) Diabetic neuropathy associated with diabetes mellitus due to underlying condition: Code(s): E08.40 - Diabetes mellitus due to underlying condition with diabetic neuropathy, unspecified Qualifiers: Diabetes mellitus complication detail: diabetic polyneuropathy Qualified Code(s): E08.42 - Diabetes mellitus due to underlying condition with diabetic polyneuropathy Plan: Patient reports he continues to have bilateral feet numbness and tingling. Does check his feet for any skin breakdown. Likely related to his uncontrolled blood sugars. Will try to control blood sugars and consider EMG testing and future. (6) Obese: Code(s): E66.9 - Obesity, unspecified Qualifiers: Obesity type: due to excess calories Obesity classification: adult class 2 (BMI 35 - 39.9) Serious obesity comorbidity presence: with serious comorbidity Body mass index: BMI 37.0-37.9 Qualified Code(s): E66.01 - Morbid (severe) obesity due to excess calories; Z68.37 - Body mass index [BMI] 37.0- 37.9, adult Plan: He does understand his BMI is above 30 will continue working on being more physically active and adapting to better eating habits to reduce his weight. He does report having dietary indiscretion as of late due to his mental health. (7) MDD (major depressive disorder), recurrent episode, moderate: Code(s): F33.1 - Major depressive disorder, recurrent, moderate (8) Anxiety: Code(s): F41.9 - Anxiety disorder, unspecified (9) CAD (coronary artery disease): Code(s): I25.10 - Atherosclerotic heart disease of [place] coronary artery without angina pectoris Qualifiers: Coronary Disease-Associated Artery/Lesion type: bypass graft [place] vs. transplanted heart: [place] heart Associated angina: with stable angina Qualified Code(s): I25.708 - Atherosclerosis of coronary artery bypass graft(s), unspecified, with other forms of angina pectoris Plan: Again patient continues to follow cardiology. Has upcoming appointment, does report having some shortness of breath and chest discomfort on exertion. Fatigue easily. He reports he has never done cardiac rehab after his open-heart surgery due to COVID. He would like to start cardiac rehab as he still continues to have some fatigue and shortness of breath on exertion Continues on high potency statin with goal LDL to be below 70. Orders: Orders Comprehensive [place]. Panel Fast Today E11.29 - Type 2 diabetes mellitus with other diabetic kidney complication, R80.9 - Proteinuria, unspecified, Z79.4 - [facility] (current) use of insulin Cardiac Rehab Today I25.708 - Atherosclerosis of coronary artery bypass graft(s), unspecified, with other forms of angina pectoris Lipid Panel Today I25.708 - Atherosclerosis of coronary artery bypass graft(s), unspecified, with other forms of angina pectoris Prostate Specific Antigen Scr Today I25.708 - Atherosclerosis of coronary artery bypass graft(s), unspecified, with other forms of angina pectoris, Z12.5 - Encounter for screening for malignant neoplasm of prostate Medications: Refilled flash glucose sensor (FreeStyle Charisse 2 Sensor kit) As directed 1 ea 6RF E11.29 - Type 2 diabetes mellitus with other diabetic kidney complication, R80.9 - Proteinuria, unspecified, Z79.4 - ocean transportation intermediary (current) use of insulin flash glucose scanning reader (FreeStyle Charisse 2 [place]) As directed 1 ea 1RF E11.29 - Type 2 diabetes mellitus with other diabetic kidney complication, R80.9 - Proteinuria, unspecified, Z79.4 - [facility] (current) use of insulin Coding Level of Care Code Est Pt Level 4 (75597) Diagnoses Type 2 diabetes mellitus with microalbuminuria, with long-term current use of insulin E11.29; R80.9; Z79.4 Diabetes mellitus type: type 2 Diabetes mellitus group home insulin use: with group home use Diabetes mellitus complication status: with kidney complications Diabetes mellitus complication detail: with microalbuminuria CKD (chronic kidney disease) stage 4, GFR 15-29 ml/min N18.4 Essential hypertension I10 Mixed hyperlipidemia E78.2 Hyperlipidemia type: mixed hyperlipidemia Diabetic polyneuropathy associated with diabetes mellitus due to underlying condition E08.42 Diabetes mellitus complication detail: diabetic polyneuropathy Class 2 severe obesity due to excess calories with serious comorbidity and body mass index (BMI) of 37.0 to 37.9 in adult E66.01; Z68.37 Obesity type: due to excess calories Obesity classification: adult class 2 (BMI 35 - 39.9) Serious obesity comorbidity presence: with serious comorbidity Body mass index: BMI 37.0-37.9 MDD (major depressive disorder), recurrent episode, moderate F33.1 Anxiety F41.9 Coronary artery disease of bypass graft of [place] heart with stable angina pectoris I25.708 Coronary Disease-Associated Artery/Lesion type: bypass graft [place] vs. transplanted heart: [place] heart Associated angina: with stable angina
== END 2023-01-14 15:36 | disposition home or self-care (01) ==
PROVIDERS: PCP Physician Assistant; Visit Provider Physician Assistant
DX: E11.29 Type 2 diabetes mellitus with other diabetic kidney complication (principal); Z79.4 Long term (current) use of insulin; N18.4 Chronic kidney disease, stage 4 (severe); F33.1 Major depressive disorder, recurrent, moderate; E66.01 Morbid (severe) obesity due to excess calories; R80.9 Proteinuria, unspecified; I12.9 Hypertensive chronic kidney disease with stage 1 through stage 4 chronic kidney disease, or unspecified chronic kidney disease; F41.9 Anxiety disorder, unspecified; I25.708 Atherosclerosis of coronary artery bypass graft(s), unspecified, with other forms of angina pectoris; Z68.37 Body mass index [BMI] 37.0-37.9, adult; E78.2 Mixed hyperlipidemia
CPT/HCPCS: 99214

== ENCOUNTER 2023-04-15 09:38 | Outpatient (AMB) | payer OTHER, SELFPAY ==
[2023-04-15 10:02] VITALS: BP 118/60; PULSE 90; RESP 17; BMI 39.9
--- NOTE | 2023-04-15 10:02 | MHC.PC.OV ---
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: No Accompanied by: Self / Same As Patient Allergies No Known Allergies [No Known Allergies*] Allergy (Verified 04/15/23 10:31) Medication List - Last Reconciled 04/15/23 by Ronnie Reynolds PA-C acetaminophen 650 mg (2 x 325 mg) PO Q6H PRN amlodipine 10 mg PO DAILY aspirin 81 mg PO DAILY 90 days atorvastatin 80 mg PO DAILY blood sugar diagnostic (FreeStyle Lite Strips) 1 strip miscellaneous TID blood-glucose meter (FreeStyle Lite Meter kit) As directed carvedilol (Coreg) 25 mg PO BID compr.stocking,knee,long,x-lrg As directed doxazosin 4 mg PO DAILY 90 days doxycycline monohydrate 100 mg PO BID 5 days dulaglutide (Trulicity) 4.5 mg (0.5 mL) subcut QWEEK 4 weeks flash glucose scanning reader (ZinioStyle Charisse 2 Swink) As directed flash glucose sensor (FreeStyle Charisse 2 Sensor kit) As directed furosemide (Lasix) 80 mg (2 x 40 mg) PO DAILY hydroxyzine HCl 50 mg (2 x 25 mg) PO BEDTIME 30 days insulin glargine 45 units (0.45 mL) subcut QPM 30 days insulin lispro (Humalog KwikPen (U-100) Insulin) 16 units (0.16 mL) subcut TID 30 days lorazepam (Ativan) 1 mg PO BEDTIME PRN 30 days miscellaneous medical supply (Blood Pressure Cuff) As directed pen needle, diabetic (BD Ultra-Fine Mini Pen Needle) 1 ea subcut QID sennosides (senna) 17.2 mg (2 x 8.6 mg) PO BEDTIME sertraline 50 mg PO DAILY 90 days Tobacco use date assessed: 08/25/22 Dental Screening Dental Screen Date: 04/15/23 Did you have a dental visit in the last 12 months?: No Did you have a dental problem in the last 6 months where you did not have access to dental care?: No Was dental information given to patient?: Patient has dentist HPI f/u DMII HPI Details Patient is a 57 year male here today for a follow-up visit.? Patient has a past medical history significant for CKD stage 4, to do diabetes, obesity, congestive heart failure coronary artery disease, hyperlipidemia. Concern-->?patient reports feeling bit dizzy today especially when going from sitting to standing. Blood pressure on lower side likely dehydrated due to polyuria-> uncontrolled blood sugars. He does admit his diet has been fairly poor, does eat a lot of rice. PLAN: Increase his Lantus to 50 units, also increases heme along to 22 units before each meal. . 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 .? He continues on Humalog? and Basaglar.? Sugars have been elevated as late. Today's A1c at 11. Considered starting for farxiga or Jardiance has a contraindication with his CKD stage 4. .. CHRONIC MEDICAL CONDITIONS---> Major depressive disorder : Does report having more depression anxiety as of late. Does report his brother was diagnosed with stage III esophageal cancer which is causing him more depression. He is willing to try depression medication and speak with mental therapist .. Hypertension:? Reports blood pressures at home have been 130-145 systolic.? He denies any chest discomfort for, palpitations or dizziness.? Does report shortness of breath on exertion ever since his hospital admission for open her surgery. .. Coronary artery disease:? Is status post open heart surgery with coronary artery bypass, is followed by Cardiology.? Had never done cardiac rehab after his open-heart surgery due to COVID.. He does report having some shortness of breath and chest discomfort on exertion and like to start cardiac rehab. .. Obesity: Has unfortunately gained weight since last office visit. Again reporting dietary indiscretion. .. CKD-4-? most recent creatinine at 2.7.? Has not been able to get into his building services engineer due to COVID pandemic. Will continue to avoid nephrotoxins [facility] Medical History Obesity (BMI 30-39.9) Pure hypercholesterolemia Sinusitis Anxiety Diabetes mellitus Chronic heart failure with preserved ejection fraction (HFpEF) HLD (hyperlipidemia) Carotid stenosis Essential hypertension Atherosclerotic cardiovascular disease CKD (chronic kidney disease) stage 3, GFR 30-59 ml/min Hypertension Surgical History S/P triple vessel bypass Status post coronary artery bypass graft (~01/2020) History of cardiac catheterization (~02/09/20) Family History Father No problems noted. Mother Cancer Sister Agoraphobia Hypothyroid Mental health disorder Social History Household Members: Spouse Housing: House Do you presently have visiting nurse or other home services: No Alcohol intake: never Patient Tobacco Use Status: Former Tobacco user Quit Date: 1+ yr ago Cigarettes Per Day: 10 Years Smoked: 30 e-Cigarette/Vaping Use: Never Used Second Hand Smoke Exposure: No service: No Current occupational status: retired Cognitive needs: Yes (needs a cane ) Hearing needs: No Vision needs: Yes (has not seen an eye doctor for about ten years) Questionnaire Thrive Questionnaire Date Thrive assessed: 08/25/22 PÉREZ-7 AMB Questionnaire PÉREZ-7 Date PÉREZ - 7 assessed: 08/25/22 Source: Developed by Drs. Kevin Sanders, Nathalie Rowe, Tyrone Rivera and colleagues, with an educational hillary from [employer] Review of Systems Const Denies headache(s) Eyes Denies loss of vision ENT Denies vertigo, Denies dizziness, Denies headache(s) and Denies sore throat Card Denies chest pain, Denies leg edema and Denies lightheadedness Resp Denies cough, Denies hemoptysis and Denies wheezing GI Denies abdominal pain, Denies melena, Denies constipation, Denies diarrhea and Denies vomiting Denies dysuria, Denies urinary frequency and Denies urinary urgency Musc Denies arthralgias, Denies joint swelling, Denies numbness and Denies tingling Neuro Denies Abnormal speech present, Denies behavioral changes, Denies vertigo, Denies dizziness, Denies headache(s), Denies loss of vision, Denies memory loss, Denies numbness and Denies tingling Psych Denies anxiety, Denies behavioral changes, Denies depression, Denies memory loss and Denies panic attacks Benito/Lymph Denies easy bleeding and Denies easy bruising Aller/Immun Denies wheezing Physical exam (Primary Care) Vital Signs: Last Vital Signs Pulse 90 04/15/23 10:02 Resp 17 04/15/23 10:02 BP 118/60 04/15/23 10:02 BMI result Body Mass Index 39.9 Tobacco/Smoking Status: Tobacco use Status Tobacco use date assessed 08/25/22 04/15/23 10:05 Patient Tobacco Use Status Former Tobacco user 04/15/23 10:05 Tobacco use type 09/16/22 14:25 e-Cigarette/Vaping Use Never Used 04/15/23 10:05 Thrive Assessment: Date of Thrive Assessment Date Thrive assessed 08/25/22 04/15/23 10:05 Const General: healthy appearing, no acute distress, alert and awake Nutritional Appearance: well nourished Orientation/consciousness: oriented to person, oriented to place and oriented to time HENMT Ears: TM's normal bilaterally General nose exam: Normal nasal mucous membranes and turbinates present Eyes Conjunctivae: conjunctivae normal Sclerae: sclerae normal Pupils: Equal, round and reactive pupils present Neck Neck: Yes no lymphadenopathy and Yes no JVD Thyroid: Thyroid normal Carotids: no bruits Resp Effort & Inspection: normal respiratory effort and not tachypneic Auscultation: no crackles, no rales, no rhonchi and no wheezes Cardio Rate: regular rate Rhythm: regular rhythm Heart sounds: no murmurs and normal S1 and S2 GI Palpation (GI): Soft to palpation, nontender, no hepatomegaly and no splenomegaly Auscultation: normal bowel sounds Skin General skin exam: no rashes or lesions noted and dry skin Neuro General: oriented to person, oriented to place and oriented to time Cranial nerves: Yes Equal, round and reactive pupils present Speech: No Abnormal speech present Gait exam (Neuro): Normal gait present Motor exam (neuro): no tremor noted Extrem Right upper extremity: full ROM Left upper extremity: full ROM Right lower extremity: full ROM; no edema Left lower extremity: full ROM; no edema Psych Mental Status: mental status grossly normal Speech and movement: Normal speech and movement present Affect: normal affect Attitude: cooperative Thought process: Normal thought process present Office Procedures Flu Questionnaire Does the patient have a severe egg allergy?: No Does the patient have severe life threatening allergies?: No Does the patient have a fever or illness today?: No Has the patient ever had Guillain-Tyonek Syndrome?: No Has the patient ever had any past reaction to a flu shot?: No Results AMB Hemoglobin A1c AMB Hemoglobin A1c 11 % Last Edit by RICKIE Ma on 04/15/23 10:19 Immunizations flu vacc [id number] 6mos up(PF) 60 mcg(15 mcgx4)/0.5 mL IM syringe Performing Provider: Ronnie Reynolds PA-C Performing Location: [facility] Administered by: RICKIE Ma on 04/15/23 10:18 Dose Route Admin Location Dispensed Lot Number Expiration Date NDC Oral And Maxillofacial Surgery Resident 0.5 mL IM Right Deltoid 0.5 mL [id number] 10/24/23 [id number] [employer] VIS Given Date VIS Provided VIS Publication Date 04/15/23 Single Vaccine 20 Eligibility Eligibility Date Funding Source Not VFC Eligible 04/15/23 Private Results Reviewed Results Reviewed: Laboratory Last Values Hgb A1c (Clinic) 11 % (4.0-6.0) H 04/15/23 10:19 Assessment and Plan Assessment & Plan (1) Diabetes mellitus: Code(s): E11.9 - Type 2 diabetes mellitus without complications Qualifiers: Diabetes mellitus complication detail: with microalbuminuria Diabetes mellitus complication status: with kidney complications Diabetes mellitus correction insulin use: with electronic publishing specialist use Diabetes mellitus type: type 2 Qualified Code(s): E11.29 - Type 2 diabetes mellitus with other diabetic kidney complication; R80.9 - Proteinuria, unspecified; Z79.4 - USP (current) use of insulin Plan: Patient's type 2 diabetes suboptimally controlled with A1c today at 11 from 9.2. Will increase his Humalog to 22 units TID and his Lantus to 50 units for better glycemic control. CONSIDERATIONS MADE TO START FARXIGA THOUGH DUE TO PATIENT'S CKD STAGE 4 WILL AVOID USE. Advised to implement a strict diabetic diet and patient agrees and understands. Goal A1c to be below 7.0 (2) CAD (coronary artery disease): Code(s): I25.10 - Atherosclerotic heart disease of jackson coronary artery without angina pectoris Qualifiers: Associated angina: with stable angina Coronary Disease-Associated Artery/Lesion type: bypass graft Telida vs. transplanted heart: jackson heart Qualified Code(s): I25.708 - Atherosclerosis of coronary artery bypass graft(s), unspecified, with other forms of angina pectoris Plan: Again patient continues to follow cardiology. Has upcoming appointment, does report having some shortness of breath and chest discomfort on exertion. Fatigue easily. He reports he has never done cardiac rehab after his open-heart surgery due to COVID. He would like to start cardiac rehab as he still continues to have some fatigue and shortness of breath on exertion Continues on high potency statin with goal LDL to be below 70. (3) CKD (chronic kidney disease) stage 4, GFR 15-29 ml/min: Code(s): N18.4 - Chronic kidney disease, stage 4 (severe) Plan: Patient continues to follow building services engineer, has been trying to avoid nephrotoxins. Most recent creatinine 2.1 (4) Essential hypertension: Code(s): I10 - Essential (primary) hypertension Plan: Patient's blood pressure acceptable today in office. Will continue current dose of antihypertensive medication with goal blood pressure be below 140/90 (5) HLD (hyperlipidemia): Code(s): E78.5 - Hyperlipidemia, unspecified Qualifiers: Hyperlipidemia type: mixed hyperlipidemia Qualified Code(s): E78.2 - Mixed hyperlipidemia Plan: Patient continues on high potency statin. Most recent fasting lipid panel showing appropriate total cholesterol and LDL. Goal LDL to be optimally below 70. (6) Obese: Code(s): E66.9 - Obesity, unspecified Qualifiers: Body mass index: BMI 37.0-37.9 Obesity classification: adult class 2 (BMI 35 - 39.9) Obesity type: due to excess calories Serious obesity comorbidity presence: with serious comorbidity Qualified Code(s): E66.01 - Morbid (severe) obesity due to excess calories; Z68.37 - Body mass index [BMI] 37.0-37.9, adult Plan: He does understand his BMI is above 30 will continue working on being more physically active and adapting to better eating habits to reduce his weight. He does report having dietary indiscretion as of late due to his mental health. (7) MDD (major depressive disorder), recurrent episode, moderate: Code(s): F33.1 - Major depressive disorder, recurrent, moderate (8) Anxiety: Code(s): F41.9 - Anxiety disorder, unspecified Plan: Continues to suffer with some baseline anxiety. Does use lorazepam on a p.r.n. basis for panic and sometimes sleep. Orders: Orders AMB Hemoglobin A1c Today E11.9 - Type 2 diabetes mellitus without complications Influenza [id number] Immunization Today E11.9 - Type 2 diabetes mellitus without complications Coding Level of Care Code Est Pt Level 4 (76708) Diagnoses Type 2 diabetes mellitus with microalbuminuria, with long-term current use of insulin E11.29; R80.9; Z79.4 Diabetes mellitus complication detail: with microalbuminuria Diabetes mellitus complication status: with kidney complications Diabetes mellitus electronic publishing specialist insulin use: with electronic publishing specialist use Diabetes mellitus type: type 2 Coronary artery disease of bypass graft of jackson heart with stable angina pectoris I25.708 Associated angina: with stable angina Coronary Disease-Associated Artery/Lesion type: bypass graft Telida vs. transplanted heart: jackson heart CKD (chronic kidney disease) stage 4, GFR 15-29 ml/min N18.4 Essential hypertension I10 Mixed hyperlipidemia E78.2 Hyperlipidemia type: mixed hyperlipidemia Class 2 severe obesity due to excess calories with serious comorbidity and body mass index (BMI) of 37.0 to 37.9 in adult E66.01; Z68.37 Body mass index: BMI 37.0-37.9 Obesity classification: adult class 2 (BMI 35 - 39.9) Obesity type: due to excess calories Serious obesity comorbidity presence: with serious comorbidity MDD (major depressive disorder), recurrent episode, moderate F33.1 Anxiety F41.9
== END 2023-04-15 10:44 | disposition home or self-care (01) ==
PROVIDERS: PCP Physician Assistant; Visit Provider Physician Assistant
DX: I12.9 Hypertensive chronic kidney disease with stage 1 through stage 4 chronic kidney disease, or unspecified chronic kidney disease (principal); E11.29 Type 2 diabetes mellitus with other diabetic kidney complication; N18.4 Chronic kidney disease, stage 4 (severe); Z23 Encounter for immunization; Z79.4 Long term (current) use of insulin; I25.708 Atherosclerosis of coronary artery bypass graft(s), unspecified, with other forms of angina pectoris; E66.01 Morbid (severe) obesity due to excess calories; F33.1 Major depressive disorder, recurrent, moderate; R80.9 Proteinuria, unspecified; E78.2 Mixed hyperlipidemia; Z68.37 Body mass index [BMI] 37.0-37.9, adult; F41.9 Anxiety disorder, unspecified
CPT/HCPCS: 83036; 90471; 90686; 99214

== ENCOUNTER 2023-04-23 07:04 | Outpatient (REF) | payer OTHER, SELFPAY ==
[2023-04-23 08:45] LABS: Alanine Aminotransferase 30 U/L (0-40); Albumin Level 3.7 g/dL (3.5-5.0); Alkaline Phosphatase 143 U/L (39-117); Anion Gap 14 (12-20); Aspartate Amino Transferase 20 U/L (5-37); Bilirubin Total 0.4 mg/dL (0.0-1.0); Blood Urea Nitrogen 44 mg/dL (9-16); Calcium 8.9 mg/dL (8.4-10.2); Carbon Dioxide 23 mmol/L (22-29); Chloride 106 mmol/L (96-108); Cholesterol 113 mg/dL (<200); Estimated Glomerular Filt Rate 30; Glucose Fasting 231 mg/dL (60-99); HDL Cholesterol 33 mg/dL (>40); LDL Cholesterol Calculated 44 mg/dL (<100); Potassium 4.5 mmol/L (3.3-5.1); Sodium 138 mmol/L (135-145); Total Protein 7.1 g/dL (6.5-8.0); Triglycerides 182 mg/dL (<150)
[2023-04-23 09:02] LABS: Prostate Specific Antigen Scr 0.62 ng/mL (<0.05-4.0)
[2023-04-23 09:08] LABS: Appearance Urine Clear; Color Urine Yellow; Glucose Urine UA Negative (Negative); Leukocyte Esterase Urine Negative (Negative); Nitrite Urine Negative (Negative); Specific Gravity - Urine 1.015 (1.005-1.025); UMIC TRIGGER UA YES; Urine Blood Negative (Negative); Urine Ketones Negative (Negative); Urine Protein 100 (2+) mg/dL (Neg-Trace)
[2023-04-23 09:23] LABS: Bacteria Urine None Seen (None Seen); RBC Urine 0-2 /HPF (0-2); Squamous Epithelial Cell Urine 0-2 /HPF (0-2); WBC Urine 0-5 /HPF (0-5)
[2023-04-23 10:55] LABS: Creatinine Urine 231.22 mg/dL; Microalbum/Creatinine Ratio Ur 136.2 ug/mg cr (<30); Total Protein Urine Random 53 mg/dL (<12)
[2023-04-23 12:23] LABS: Anion Gap 14 (12-20); Blood Urea Nitrogen 43 mg/dL (9-16); Calcium 9.2 mg/dL (8.4-10.2); Carbon Dioxide 22 mmol/L (22-29); Chloride 106 mmol/L (96-108); Estimated Glomerular Filt Rate 30; Potassium 4.5 mmol/L (3.3-5.1); Sodium 137 mmol/L (135-145)
== END 2023-04-23 07:05 | disposition home or self-care (01) ==
LOC: HO.LAB 07:04
PROVIDERS: Absent Provider Internal Medicine Nephrology; PCP Physician Assistant; Visit Provider Physician Assistant
DX: Z12.5 Encounter for screening for malignant neoplasm of prostate (principal); I25.708 Atherosclerosis of coronary artery bypass graft(s), unspecified, with other forms of angina pectoris; R80.9 Proteinuria, unspecified; E11.22 Type 2 diabetes mellitus with diabetic chronic kidney disease; N18.32 Chronic kidney disease, stage 3b; N25.0 Renal osteodystrophy; Z79.4 Long term (current) use of insulin
CPT/HCPCS: 36415; 80051; 80053; 80061; 81001; 81003; 82043; 82310; 82565; 82570; 84153; 84156; 84520

== ENCOUNTER 2023-04-27 13:45 | Outpatient (AMB) | payer OTHER, SELFPAY ==
--- NOTE | 2023-04-27 13:46 | HO.NEPHOV ---
HPI CKD/ Confirmed HPI Details Pt taking losartan but t is not sure what dose. HPI Comments History of Present Illness Details 58-year-old man with a history of longstanding diabetes mellitus hypertension with CKD 0 for follow-up. Baseline creatinine is around 2.2-2.4 mg/dL. Denies any specific complaints today [facility]LY [facility], [facility] Medical History Obesity (BMI 30-39.9) Pure hypercholesterolemia Sinusitis Anxiety Diabetes mellitus Chronic heart failure with preserved ejection fraction (HFpEF) HLD (hyperlipidemia) Carotid stenosis Essential hypertension Atherosclerotic cardiovascular disease CKD (chronic kidney disease) stage 3, GFR 30-59 ml/min Hypertension Surgical History S/P triple vessel bypass Status post coronary artery bypass graft (~01/2020) History of cardiac catheterization (~02/09/20) Family History Father No problems noted. Mother Cancer Sister Agoraphobia Hypothyroid Mental health disorder Social History Household Members: Spouse Housing: House Do you presently have visiting nurse or other home services: No Alcohol intake: never Patient Tobacco Use Status: Former Tobacco user Quit Date: 1+ yr ago Cigarettes Per Day: 10 Years Smoked: 30 e-Cigarette/Vaping Use: Never Used Second Hand Smoke Exposure: No service: No Current occupational status: retired Cognitive needs: Yes (needs a cane ) Hearing needs: No Vision needs: Yes (has not seen an eye doctor for about ten years) Vital Signs 04/27/23 13:47 Height 5 ft 11 in Weight 289 lb 2 oz BMI 40.3 BP 118/64 Blood Pressure Location Lt brachial Position Sitting Pulse 84 Pulse Source Pulse Oximeter Pulse Oximetry (%) 97 Oxygen Delivery Method Room Air Physical Exam Vital Signs: Last Vital Signs Pulse 84 04/27/23 13:47 BP 118/64 04/27/23 13:47 Pulse Ox 97 04/27/23 13:47 Oxygen Delivery Method Room Air 04/27/23 13:47 BMI result Body Mass Index 40.3 Const General: comfortable Nutritional Appearance: well nourished Orientation/consciousness: patient oriented x3 HEENT Head: No normal to inspection Mouth: moist mucous membranes Neck Neck: Yes supple and Yes no JVD Resp Auscultation: clear to auscultation bilaterally, no rales and rub present Cardio Jugular venous distension: no JVD Palpation: no palpable S3 and no palpable S4 Heart sounds: no rubs GI Palpation (GI): Soft to palpation and nontender Percussion: No Fluid wave present General: Yes no CVA tenderness Back/Spine/Pelvis Back: no CVA tenderness Skin General skin exam: no rashes or lesions noted Neuro General: patient oriented x3 Extrem General: Yes no pedal edema and No clubbing Assessment & Plan Assessment & Plan (1) CKD (chronic kidney disease) stage 3, GFR 30-59 ml/min: Code(s): N18.30 - Chronic kidney disease, stage 3 unspecified Qualifiers: Chronic kidney disease stage 3 subtype: stage 3b (GFR 30-44) Qualified Code(s): N18.32 - Chronic kidney disease, stage 3b Plan: Chronic disease most likely due to underlying hypertensive diabetic kidney disease. Goal is to slow the progression of disease. Continue with current regimen and maintain blood pressure less than 130/80. Discussed weight loss. Maintain A1c less than 7%. He will benefit from he SGLT 2 inhibitor. Mild anemia due to CKD but no indication for Epogen yet. We will continue to screen him for secondary hyperparathyroidism. All questions were answered. Orders: Orders Creatinine 5 Months N18.30 - Chronic kidney disease, stage 3 unspecified Calcium 5 Months N18.30 - Chronic kidney disease, stage 3 unspecified Electrolytes 5 Months N18.30 - Chronic kidney disease, stage 3 unspecified Blood Urea Nitrogen 5 Months N18.30 - Chronic kidney disease, stage 3 unspecified Complete Blood Count no Diff 5 Months N18.30 - Chronic kidney disease, stage 3 unspecified Coding Level of Care Code Est Pt Level 3 (08495) Diagnoses Stage 3b chronic kidney disease N18.32 Chronic kidney disease stage 3 subtype: stage 3b (GFR 30-44) Results Reviewed Nephrology Results: Hgb 11.1 g/dl (14.0-18.0) L 10/21/22 WBC 9.2 X10*3/uL (4.8-10.8) 10/21/22 Plt Count 144 X10*3/uL (160-400) L 10/21/22 Sodium 137 mmol/L (135-145) 04/23/23 Potassium 4.5 mmol/L (3.3-5.1) 04/23/23 Chloride 106 mmol/L (96-108) 04/23/23 Carbon Dioxide 22 mmol/L (22-29) 04/23/23 BUN 43 mg/dL (9-16) H 04/23/23 Creatinine 2.25 mg/dL (0.5-1.4) H 04/23/23 Calcium 9.2 mg/dL (8.4-10.2) 04/23/23 Urine Protein 100 (2+) mg/dL (Neg-Trace) H 04/23/23 Urine Creatinine 231.22 mg/dL 04/23/23 Protein/Creatinin Ratio 0.58 (<0.2) H 12/15/22 Renal US 10/29/22
[2023-04-27 13:47] VITALS: BP 118/64; PULSE 84; O2SAT 97; BMI 40.3
== END 2023-04-27 14:05 | disposition home or self-care (01) ==
PROVIDERS: PCP Physician Assistant; Visit Provider Internal Medicine Hypertension Specialist
DX: N18.32 Chronic kidney disease, stage 3b (principal)
CPT/HCPCS: 99213

== ENCOUNTER → 2023-04-27 13:45 | Outpatient (BNVA) | payer OTHER, SELFPAY | PROVIDERS: PCP Physician Assistant; Visit Provider Internal Medicine Hypertension Specialist ==

== ENCOUNTER 2023-07-20 09:35 | Outpatient (AMB) | payer OTHER, SELFPAY ==
--- NOTE | 2023-07-20 09:38 | A.OFFPC_ITS ---
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 Accompanied by: Self / Same As Patient Allergies No Known Allergies [No Known Allergies*] Allergy (Verified 07/20/23 10:00) Medication List - Last Reconciled 07/20/23 by Ronnie Reynolds PA-C acetaminophen 650 mg (2 x 325 mg) PO Q6H PRN amlodipine 10 mg PO DAILY aspirin 81 mg PO DAILY 90 days atorvastatin 80 mg PO DAILY blood sugar diagnostic (FreeStyle Lite Strips) 1 strip miscellaneous TID blood-glucose meter (FreeStyle Lite Meter kit) As directed carvedilol (Coreg) 25 mg PO BID compr.stocking,knee,long,x-lrg As directed doxazosin 4 mg PO DAILY 90 days dulaglutide (Trulicity) 4.5 mg (0.5 mL) subcut QWEEK 4 weeks flash glucose scanning reader (PlusFourSixStyle Charisse 2 [place]) As directed flash glucose sensor (FreeStyle Charisse 2 Sensor kit) As directed furosemide (Lasix) 80 mg (2 x 40 mg) PO DAILY hydroxyzine HCl 50 mg (2 x 25 mg) PO BEDTIME 30 days insulin glargine 45 units (0.45 mL) subcut QPM 30 days insulin lispro (Humalog KwikPen (U-100) Insulin) 16 units (0.16 mL) subcut TID 30 days lorazepam (Ativan) 1 mg PO BEDTIME PRN 30 days losartan 25 mg PO BID miscellaneous medical supply (Blood Pressure Cuff) As directed pen needle, diabetic (BD Ultra-Fine Mini Pen Needle) 1 ea subcut QID sennosides (senna) 17.2 mg (2 x 8.6 mg) PO BEDTIME sertraline 50 mg PO DAILY 90 days Tobacco use date assessed: 07/20/23 Dental Screening Dental Screen Date: 07/20/23 Did you have a dental visit in the last 12 months?: No Did you have a dental problem in the last 6 months where you did not have access to dental care?: No Was dental information given to patient?: Patient declined HPI f/u DMII HPI Details Patient is a 58 year male here today for a follow-up visit.? Patient has a past medical history significant for CKD stage 4, to do diabetes, obesity, congestive heart failure coronary artery disease, hyperlipidemia. Concern-->?continues to have some shortness of breath on exertion. This has been a chronic complaint. Also does report having bilateral thigh pain to which he attributes to his cholesterol medication. We did discuss possibly starting Co Q10 . 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 .? He continues on Humalog? and Basaglar.? He reports he has recently started to be more physically active and working out.. Today's A1c at 8.9 from 11. Considered starting for farxiga or Jardiance has a contraindication with his CKD stage 4. .. CHRONIC MEDICAL CONDITIONS---> Major depressive disorder : He reports his depression has been stable.. Does report his brother was diagnosed with stage III esophageal cancer which is causing him more depression. He is willing to try depression medication and speak with mental therapist .. Hypertension:? Reports blood pressures at home have been 130-145 systolic.? Today in office blood pressure is stable. He denies any chest discomfort for, palpitations or dizziness.? Does report shortness of breath on exertion ever since his hospital admission for open her surgery. .. Coronary artery disease:? Is status post open heart surgery with coronary artery bypass, is followed by Cardiology.? Had never done cardiac rehab after his open- heart surgery due to COVID.. He does report having some shortness of breath and chest discomfort on exertion. .. Obesity: Has unfortunately gained weight since last office visit. Again reporting dietary indiscretion. .. CKD-4-? most recent creatinine at 2.7.? 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 Will continue to avoid nephrotoxins [facility] Medical History (Updated 07/20/23 @ 11:06 by Ronnie Reynolds PA-C) NSTEMI (non-ST elevated myocardial infarction) Obesity (BMI 30-39.9) Pure hypercholesterolemia Sinusitis Anxiety Diabetes mellitus Chronic heart failure with preserved ejection fraction (HFpEF) HLD (hyperlipidemia) Carotid stenosis Essential hypertension Atherosclerotic cardiovascular disease CKD (chronic kidney disease) stage 3, GFR 30-59 ml/min Hypertension Surgical History S/P triple vessel bypass Status post coronary artery bypass graft (~01/2020) History of cardiac catheterization (~02/09/20) Family History Father No problems noted. Mother Cancer Sister Agoraphobia Hypothyroid Mental health disorder Social History Household Members: Spouse Housing: House Do you presently have visiting nurse or other home services: No Alcohol intake: never Patient Tobacco Use Status: Former Tobacco user Quit Date: 1+ yr ago Cigarettes Per Day: 10 Years Smoked: 30 e-Cigarette/Vaping Use: Never Used Second Hand Smoke Exposure: No service: No Current occupational status: retired Cognitive needs: Yes (needs a cane ) Hearing needs: No Vision needs: Yes (has not seen an eye doctor for about ten years) Questionnaire PHQ-9 Over the last 2 weeks, how often have you been bothered by any of the following problems? 1. Little interest or pleasure in doing things: not at all 2. Feeling down, depressed, or hopeless: not at all 3. Trouble falling or staying asleep, or sleeping too much: not at all 4. Feeling tired or having little energy: not at all 5. Poor appetite or overeating: not at all 6. Feeling bad about yourself - or that you are a failure or have let yourself or your family down: not at all 7. Trouble concentrating on things, such as reading the newspaper or watching television: not at all 8. Moving or speaking so slowly that other people could have noticed. Or the opposite - being so fidgety or restless that you have been moving around a lot more than usual: not at all 9. Thoughts that you would be better off or of hurting yourself in some way: not at all Total score: 0 Depression Screening Interpretation: Negative Depression Screening Done: Yes 71921 - PHQ-9 Billing: Yes Source: Developed by Drs. Kevin Sanders, Nathalie Rowe, Tyrone Rivera and colleagues, with an educational hillary from [employer]. Thrive Questionnaire Date Thrive assessed: 07/20/23 I am a: Patient What is your living situation today?: I have a steady place to live Within the past 12 months, did the food you bought not last and you didn't have the money to get more?: Never true Within the past 12 months, did you worry whether your food would run out before you got money to buy more?: Never true Do you have trouble paying for medicines?: No Do you have trouble getting transportation to medical appointments?: No Do you have trouble paying your heating and electricity bill?: No Do you have trouble taking care of your child, family member or friend?: No Do you have trouble with day-to-day activities such as bathing, preparing meals, shopping, managing finances, etc.?: No Are you currently unemployed and looking for a job?: No Are you interested in more education?: No Please select the resources that you would like help with: None Currently or been in a relationship where the following occur: no concerns reported THRIVE Score: 0 AUDIT C Alcohol Use Questionnaire (AUDIT-C) 1. How often do you have a drink containing alcohol?: Never 3. How often do you have six or more drinks on one occasion?: Never Total Score: 0 PÉREZ-7 AMB Questionnaire PÉREZ-7 Date PÉREZ - 7 assessed: 07/20/23 Feeling nervous, anxious, or on edge: 0 = Not at all Not being able to stop or control worryin = Not at all Worrying too much about different things: 0 = Not at all Trouble relaxin = Not at all Being so restless that it is hard to sit still: 0 = Not at all Becoming easily annoyed or irritable: 0 = Not at all Feeling afraid as if something awful might happen: 0 = Not at all Total PÉREZ-7 score (0-4 normal; 5-9 mild; 10-14 moderate; 15-21 severe): 0 Source: Developed by Drs. Kevin Sanders, Nathalie Rowe, Tyrone Rivera and colleagues, with an educational hillary from [employer]. PÉREZ-7 Assessment Billing PÉREZ-7 Assessment Tool: PÉREZ-7 Assessment 81627 Review of Systems Const Denies headache(s) Eyes Denies loss of vision ENT Denies vertigo, Denies dizziness, Denies headache(s) and Denies sore throat Card Denies chest pain, Denies leg edema and Denies lightheadedness Resp Denies cough, Denies hemoptysis and Denies wheezing GI Denies abdominal pain, Denies melena, Denies constipation, Denies diarrhea and Denies vomiting Denies dysuria, Denies urinary frequency and Denies urinary urgency Musc Denies arthralgias, Denies joint swelling, Denies numbness and Denies tingling Neuro Denies Abnormal speech present, Denies behavioral changes, Denies vertigo, Denies dizziness, Denies headache(s), Denies loss of vision, Denies memory loss, Denies numbness and Denies tingling Psych Denies anxiety, Denies behavioral changes, Denies depression, Denies memory loss and Denies panic attacks Benito/Lymph Denies easy bleeding and Denies easy bruising Aller/Immun Denies wheezing Physical exam (Primary Care) Vital Signs: Last Vital Signs Pulse 94 07/20/23 09:51 BP 118/60 07/20/23 10:07 Pulse Ox 98 07/20/23 09:51 Oxygen Delivery Method Room Air 07/20/23 09:51 BMI result Body Mass Index 40.5 Tobacco/Smoking Status: Tobacco use Status Tobacco use date assessed 07/20/23 07/20/23 10:01 Patient Tobacco Use Status Former Tobacco user 07/20/23 09:38 Tobacco use type 09/16/22 14:25 e-Cigarette/Vaping Use Never Used 07/20/23 09:38 PHQ-9: PHQ-9 Score PHQ-9: Total score 0 07/20/23 10:03 Depression Screening Interpretation: Negative Thrive Assessment: Date of Thrive Assessment Date Thrive assessed 07/20/23 07/20/23 09:55 Currently or been in a relationship where the following occur: no concerns reported Const General: healthy appearing, no acute distress, alert and awake Nutritional Appearance: well nourished Orientation/consciousness: oriented to person, oriented to place and oriented to time HENMT Ears: TM's normal bilaterally General nose exam: Normal nasal mucous membranes and turbinates present Eyes Conjunctivae: conjunctivae normal Sclerae: sclerae normal Pupils: Equal, round and reactive pupils present Neck Neck: Yes no lymphadenopathy and Yes no JVD Thyroid: Thyroid normal Carotids: no bruits Resp Effort & Inspection: normal respiratory effort and not tachypneic Auscultation: no crackles, no rales, no rhonchi and no wheezes Cardio Rate: regular rate Rhythm: regular rhythm Heart sounds: no murmurs and normal S1 and S2 GI Palpation (GI): Soft to palpation, nontender, no hepatomegaly and no splenomegaly Auscultation: normal bowel sounds Skin General skin exam: no rashes or lesions noted and dry skin Neuro General: oriented to person, oriented to place and oriented to time Cranial nerves: Yes Equal, round and reactive pupils present Speech: No Abnormal speech present Gait exam (Neuro): Normal gait present Motor exam (neuro): no tremor noted Extrem Right upper extremity: full ROM Left upper extremity: full ROM Right lower extremity: full ROM; no edema Left lower extremity: full ROM; no edema Psych Mental Status: mental status grossly normal Speech and movement: Normal speech and movement present Affect: normal affect Attitude: cooperative Thought process: Normal thought process present Results AMB Hemoglobin A1c AMB Hemoglobin A1c 8.9 % Last Edit by RICKIE Ma on 07/20/23 10:04 Results Reviewed Results Reviewed: Laboratory Last Values Hgb A1c (Clinic) 8.9 % (4.0-6.0) H 07/20/23 10:03 Assessment and Plan Assessment & Plan (1) Diabetes mellitus: Code(s): E11.9 - Type 2 diabetes mellitus without complications Qualifiers: Diabetes mellitus complication detail: with microalbuminuria Diabetes mellitus complication status: with kidney complications Diabetes mellitus halfway insulin use: with halfway use Diabetes mellitus type: type 2 Qualified Code(s): E11.29 - Type 2 diabetes mellitus with other diabetic kidney complication; R80.9 - Proteinuria, unspecified; 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 We Have increased his Humalog to 22 units TID and his Lantus to 50 units for better glycemic control. Advised to implement a strict diabetic diet and patient agrees and understands. Goal A1c to be below 7.0 (2) CAD (coronary artery disease): Code(s): I25.10 - Atherosclerotic heart disease of eek coronary artery without angina pectoris Qualifiers: Associated angina: with stable angina Coronary Disease-Associated Artery/Lesion type: bypass graft [place] vs. transplanted heart: eek heart Qualified Code(s): I25.708 - Atherosclerosis of coronary artery bypass graft(s), unspecified, with other forms of angina pectoris Plan: Again patient continues to follow cardiology. Has upcoming appointment, does report having some shortness of breath and chest discomfort on exertion. Fatigue easily. He reports he has never done cardiac rehab after his open-heart surgery due to COVID. He would like to start cardiac rehab as he still c ontinues to have some fatigue and shortness of breath on exertion Continues on high potency statin with goal LDL to be below 70. 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 Most recent creatinine 2.1 (4) Essential hypertension: Code(s): I10 - Essential (primary) hypertension Plan: Patient's blood pressure acceptable today in office. Will continue current dose of antihypertensive medication with goal blood pressure be below 140/90 (5) HLD (hyperlipidemia): Code(s): E78.5 - Hyperlipidemia, unspecified Qualifiers: Hyperlipidemia type: mixed hyperlipidemia Qualified Code(s): E78.2 - Mixed hyperlipidemia Plan: Patient continues on high potency statin. Most recent fasting lipid panel showing appropriate total cholesterol and LDL. Goal LDL to be optimally below 70. (6) Obese: Code(s): E66.9 - Obesity, unspecified Qualifiers: Body mass index: BMI 37.0-37.9 Obesity classification: adult class 2 (BMI 35 - 39.9) Obesity type: due to excess calories Serious obesity comorbidity presence: with serious comorbidity Qualified Code(s): E66.01 - Morbid (severe) obesity due to excess calories; Z68.37 - Body mass index [BMI] 37.0-37.9, adult Plan: He does understand his BMI is above 30 will continue working on being more physically active and adapting to better eating habits to reduce his weight. He does report having dietary indiscretion as of late due to his mental health. (7) MDD (major depressive disorder), recurrent episode, moderate: Code(s): F33.1 - Major depressive disorder, recurrent, moderate Plan: Patient's PHQ-9 score 0. Does have a history of major depressive disorder. Continues on SSRI therapy. Otherwise denies any SI or HI. (8) Anxiety: Code(s): F41.9 - Anxiety disorder, unspecified Plan: Patient's PÉREZ-7 score 0. Does have a chronic history of anxiety.. Continues to suffer with some baseline anxiety. Does use lorazepam on a p.r.n. basis for panic and sometimes sleep. (9) SOB (shortness of breath) on exertion: Code(s): R06.02 - Shortness of breath Plan: Does report some exertional shortness of breath. Was a former smoker in do have concerns for element of COPD. Will supply patient with an albuterol inhaler to do before exertional activities. (10) Diabetic neuropathy associated with diabetes mellitus due to underlying condition: Code(s): E08.40 - Diabetes mellitus due to underlying condition with diabetic neuropathy, unspecified Qualifiers: Diabetes mellitus complication detail: diabetic polyneuropathy Qualified Code(s): E08.42 - Diabetes mellitus due to underlying condition with diabetic polyneuropathy Plan: Continues to manage his neuropathy with Tylenol and trying to gain control over his A1c.. (11) Chronic heart failure with preserved ejection fraction (HFpEF): Code(s): I50.32 - Chronic diastolic (congestive) heart failure Plan: Patient appears to be well managed/euvolemic on physical exam today. Continues on losartan 25 b.i.d. and furosemide 80 mg daily. Orders: Orders Prostate Specific Antigen Scr Today E11.29 - Type 2 diabetes mellitus with other diabetic kidney complication, R80.9 - Proteinuria, unspecified, Z12.5 - Encounter for screening for malignant neoplasm of prostate, Z79.4 - nursing home (current) use of insulin Microalbumin, Random (w Creat) Today I10 - Essential (primary) hypertension AMB Hemoglobin A1c Today E11.9 - Type 2 diabetes mellitus without complications Lipid Panel Today I25.708 - Atherosclerosis of coronary artery bypass graft(s), unspecified, with other forms of angina pectoris Comprehensive [place]. 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 transplanted heart: eek heart CKD (chronic kidney disease) stage 4, GFR 15-29 ml/min N18.4 Essential hypertension I10 Mixed hyperlipidemia E78.2 Hyperlipidemia type: mixed hyperlipidemia Class 2 severe obesity due to excess calories with serious comorbidity and body mass index (BMI) of 37.0 to 37.9 in adult E66.01; Z68.37 Body mass index: BMI 37.0-37.9 Obesity classification: adult class 2 (BMI 35 - 39.9) Obesity type: due to excess calories Serious obesity comorbidity presence: with serious comorbidity MDD (major depressive disorder), recurrent episode, moderate F33.1 Anxiety F41.9 SOB (shortness of breath) on exertion R06.02 Diabetic polyneuropathy associated with diabetes mellitus due to underlying condition E08.42 Diabetes mellitus complication detail: diabetic polyneuropathy Chronic heart failure with preserved ejection fraction (HFpEF) I50.32 Additional Codes PÉREZ-7 Assessment Billing - PÉREZ-7 Assessment Tool: PÉREZ-7 Assessment [id number] ([id number])
[2023-07-20 09:51] VITALS: BP 110/58; PULSE 94; O2SAT 98; BMI 40.5
[2023-07-20 10:07] VITALS: BP 118/60
== END 2023-07-20 10:15 | disposition home or self-care (01) ==
PROVIDERS: PCP Physician Assistant; Visit Provider Physician Assistant
DX: E11.9 Type 2 diabetes mellitus without complications (principal)
CPT/HCPCS: 83036; 99214

== ENCOUNTER 2023-09-21 14:14 | Outpatient (AMB) | payer OTHER, SELFPAY ==
[2023-09-21 14:18] VITALS: BP 130/62; PULSE 73; BMI 40.5
--- NOTE | 2023-09-21 14:18 | A.OFFVIS_ITS ---
Vital Signs 09/21/23 14:18 Height 5 ft 11 in Weight 290 lb 9.108 oz BMI 40.5 BP 130/62 Blood Pressure Location Lt brachial Position Sitting Pulse 73 Pulse Source Monitor Intake Visit Reasons: 1 yr fu Glove Maker Required: No Allergies No Known Allergies [No Known Allergies*] Allergy (Verified 09/21/23 14:21) Medication List - Last Reconciled 09/21/23 by OMARI Amezcua acetaminophen 650 mg (2 x 325 mg) PO Q6H PRN albuterol sulfate 90 mcg/actuation 1 inh inhalation QID PRN 30 days amlodipine 10 mg PO DAILY aspirin 81 mg PO DAILY 90 days atorvastatin 80 mg PO DAILY blood sugar diagnostic (FreeStyle Lite Strips) 1 strip miscellaneous TID blood-glucose meter (FreeStyle Lite Meter kit) As directed carvedilol (Coreg) 25 mg PO BID compr.stocking,knee,long,x-lrg As directed doxazosin 4 mg PO DAILY 90 days dulaglutide (Trulicity) 4.5 mg (0.5 mL) subcut QWEEK 4 weeks flash glucose scanning reader (independenceITStyle Charisse 2 [place]) As directed flash glucose sensor (FreeStyle Charisse 2 Sensor kit) As directed furosemide 80 mg (2 x 40 mg) PO DAILY hydroxyzine HCl 50 mg (2 x 25 mg) PO BEDTIME 30 days insulin glargine 45 units (0.45 mL) subcut QPM 30 days insulin lispro (Humalog KwikPen (U-100) Insulin) 16 units (0.16 mL) subcut TID 30 days lorazepam (Ativan) 1 mg PO BEDTIME PRN 30 days losartan 25 mg PO BID miscellaneous medical supply (Blood Pressure Cuff) As directed pen needle, diabetic (BD Ultra-Fine Mini Pen Needle) 1 ea subcut QID sennosides (senna) 17.2 mg (2 x 8.6 mg) PO BEDTIME sertraline 50 mg PO DAILY 90 days HPI HPI 1 yr fu: Details: Hector is a 58 yo male with MH of HLD, DM, CKD, CAD, CABG 01/2020, HFpEF who presents for follow up. His last prior visit was 09/16/22. Today he states he has been doing well since his visit last year. He denies having any chest discomfort at rest or with activity. No sob, PND, orthopnea or edema. No presyncope, syncope, falls. He will notice some lightheadedness if he gets up quickly. Exercises routinely with stationary bike. Taking meds as directed. [facility] Medical History NSTEMI (non-ST elevated myocardial infarction) Obesity (BMI 30-39.9) Pure hypercholesterolemia Sinusitis Anxiety Diabetes mellitus Chronic heart failure with preserved ejection fraction (HFpEF) HLD (hyperlipidemia) Carotid stenosis Essential hypertension Atherosclerotic cardiovascular disease CKD (chronic kidney disease) stage 3, GFR 30-59 ml/min Hypertension Surgical History S/P triple vessel bypass Status post coronary artery bypass graft (~01/2020) History of cardiac catheterization (~02/09/20) Family History Father No problems noted. Mother Cancer Sister Agoraphobia Hypothyroid Mental health disorder Social History Household Members: Spouse Housing: House Do you presently have visiting nurse or other home services: No Alcohol intake: never Patient Tobacco Use Status: Former Tobacco user Cigarettes Per Day: 10 Years Smoked: 30 e-Cigarette/Vaping Use: Never Used Second Hand Smoke Exposure: No service: No Current occupational status: retired Cognitive needs: Yes (needs a cane ) Hearing needs: No Vision needs: Yes (has not seen an eye doctor for about ten years) Review of Systems Const All systems reviewed & are unremarkable except as noted in HPI and below ENT Denies dizziness Card Denies chest pain, Denies chest pain at rest, Denies chest pain with activity, Denies rapid heart rate, Denies pedal edema, Denies edema, Denies leg edema, Denies lightheadedness, Denies palpitations, Reports dyspnea, Reports dyspnea on exertion and Denies orthopnea Resp Denies cough, Reports dyspnea and Reports dyspnea on exertion GI Denies hematochezia and Denies change in stool character Musc Denies abnormal gait, Denies limited range of motion, Denies muscle cramps, Kelby es muscle weakness, Denies numbness, Denies radiating pain into limb, Denies stiffness and Denies tingling Neuro Denies abnormal gait, Denies dizziness, Denies numbness and Denies tingling Endo Denies palpitations Physical Exam Vital Signs: Last Vital Signs Pulse 73 09/21/23 14:18 BP 130/62 09/21/23 14:18 BMI result Body Mass Index 40.5 Const General: cooperative, healthy appearing, comfortable and no acute distress Orientation/consciousness: patient oriented x3 Neck Neck: Yes normal visual inspection and Yes no JVD Resp Effort & Inspection: normal respiratory effort Auscultation: clear to auscultation bilaterally, no crackles, no rales, no rhonchi and no wheezes Cardio Jugular venous distension: no JVD Rate: regular rate Rhythm: regular rhythm Heart sounds: S1 normal heart sound present, S2 normal heart sound present, no gallops, no murmurs and no rubs Peripheral pulses: Peripheral pulses 2+ throughout Neuro General: patient oriented x3 Extrem General: Yes normal to inspection, No no pedal edema and No calf tenderness Psych Appearance: grossly normal Mental Status: mental status grossly normal Speech and movement: Normal speech and movement present Office Procedures EKG Details: Today, read by me, sinus rhythm with PAC, 1 PVC, ST and T-wave abnormality, lateral leads, unchanged from prior, rate 72, QTC 457 milliseconds [id number], Complete Assessment & Plan Assessment & Plan (1) CAD (coronary artery disease): Code(s): I25.10 - Atherosclerotic heart disease of [place] coronary artery without angina pectoris Category: Medical Qualifiers: Associated angina: with stable angina Coronary Disease-Associated Artery/Lesion type: bypass graft [place] vs. transplanted heart: [place] heart Qualified Code(s): I25.708 - Atherosclerosis of coronary artery bypass graft(s), unspecified, with other forms of angina pectoris Plan: Hx of CAD with CABG 01/2020. Last echo 09/18/20 showed EF 60-65%, apical WMA. EKG today shows SR, with a PAC and PVC, rate 72. He denies having any anginal symptoms. He uses stationary bike routinely and tolerates well. s/s angina reviewed. Continue aspirin indefinitely. Continue high dose atorvastatin with ideal LDL goal < 70. Labs done 07/20/23 showed LDL 44. Continue carvedilol, amlodpine and losartan. BP 130/82 today. Reviewed importance of good BP and Blood sugar control. Hgb A1c goal < 7. Recent labs showed HgbA1c 8.9. Follows with PCP. Will update echo prior to his next visit. Cardiology follow up in 1 yr, sooner if needed (2) Status post coronary artery bypass graft: Onset Date: ~01/2020 Code(s): Z95.1 - Presence of aortocoronary bypass graft Category: Surgical Plan: as above (3) Chronic heart failure with preserved ejection fraction (HFpEF): Code(s): I50.32 - Chronic diastolic (congestive) heart failure Category: Medical Plan: Stable on Lasix 80mg daily. No clinical signs of HF on exam. Labs 04/23/23 showed Cr 2.25. Follows with nephrology. s/s HF reviewed. (4) Essential hypertension: Code(s): I10 - Essential (primary) hypertension Category: Medical Plan: as above Orders: Orders CA echo transthoracic complete 11 Months I25.708 - Atherosclerosis of coronary artery bypass graft(s), unspecified, with other forms of angina pectoris, R06.02 - Shortness of breath Patient Instructions: Time spent on chart review, documentation, interview, assessment Coding Level of Care Code Est Pt Level 4 (18036) Diagnoses Coronary artery disease of bypass graft of [place] heart with stable angina pectoris I25.708 Associated angina: with stable angina Coronary Disease-Associated Artery/Lesion type: bypass graft [place] vs. transplanted heart: [place] heart Status post coronary artery bypass graft Z95.1 Chronic heart failure with preserved ejection fraction (HFpEF) I50.32 Essential hypertension I10 CPT Codes EKG - CPT: 98788-[id number], Complete ([id number]) Time Spent (min) 28
== END 2023-09-21 14:53 | disposition home or self-care (01) ==
PROVIDERS: PCP Physician Assistant; Visit Provider Nurse Practitioner Family
DX: R94.31 Abnormal electrocardiogram [ECG] [EKG] (principal)
CPT/HCPCS: 93010; 99214

== ENCOUNTER 2023-09-21 14:14 | Outpatient (REF) | payer OTHER, SELFPAY ==
[2023-09-21 15:38] LABS: Hematocrit 32.7 % (42.0-52.0); Hemoglobin 10.6 g/dl (14.0-18.0); Mean Corpuscular HGB Conc 32.4 g/dl (31.0-36.0); Mean Corpuscular Hemoglobin 27.7 pg (27.0-33.0); Mean Corpuscular Volume 85.4 fL (80.0-98.0); Mean Platelet Volume 12.9 fL (9.4-12.4); Platelet Count 154 X10*3/uL (160-400); Red Blood Count 3.83 X10*6/uL (4.60-5.80); Red Cell Distribution Width 13.7 % (11.0-16.0); White Blood Count 7.9 X10*3/uL (4.8-10.8)
[2023-09-21 16:11] LABS: Creatinine Urine 64.32 mg/dL
[2023-09-21 16:15] LABS: Alanine Aminotransferase 18 U/L (0-40); Albumin Level 3.9 g/dL (3.5-5.0); Alkaline Phosphatase 141 U/L (39-117); Anion Gap 15 (12-20); Aspartate Amino Transferase 15 U/L (5-37); Bilirubin Total 0.5 mg/dL (0.0-1.0); Blood Urea Nitrogen 51 mg/dL (9-16); Calcium 9.1 mg/dL (8.4-10.2); Carbon Dioxide 21 mmol/L (22-29); Chloride 108 mmol/L (96-108); Cholesterol 106 mg/dL (<200); Estimated Glomerular Filt Rate 27; Glucose Fasting 203 mg/dL (60-99); HDL Cholesterol 33 mg/dL (>40); LDL Cholesterol Calculated 43 mg/dL (<100); Potassium 4.6 mmol/L (3.3-5.1); Sodium 139 mmol/L (135-145); Total Protein 7.3 g/dL (6.5-8.0); Triglycerides 150 mg/dL (<150)
[2023-09-21 16:32] LABS: Prostate Specific Antigen Scr 0.69 ng/mL (<0.05-4.0)
== END 2023-09-21 14:15 | disposition home or self-care (01) ==
LOC: HO.LAB 14:14
PROVIDERS: Internal Medicine Hypertension Specialist; Absent Provider Physician Assistant; PCP Physician Assistant; Visit Provider Nurse Practitioner Family
DX: Z12.5 Encounter for screening for malignant neoplasm of prostate (principal); I25.708 Atherosclerosis of coronary artery bypass graft(s), unspecified, with other forms of angina pectoris; N18.30 Chronic kidney disease, stage 3 unspecified; E11.29 Type 2 diabetes mellitus with other diabetic kidney complication; R80.9 Proteinuria, unspecified; Z79.4 Long term (current) use of insulin; Z95.1 Presence of aortocoronary bypass graft; I11.0 Hypertensive heart disease with heart failure; I50.32 Chronic diastolic (congestive) heart failure
CPT/HCPCS: 36415; 80053; 80061; 82043; 82570; 84153; 85027; 93005

== ENCOUNTER 2023-10-26 09:07 | Outpatient (AMB) | payer OTHER, SELFPAY ==
[2023-10-26 09:27] VITALS: BP 130/84; PULSE 74; O2SAT 98; BMI 40.0
--- NOTE | 2023-10-26 09:27 | A.OFFPC_ITS ---
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 Patient has a past medical history significant for CKD stage 4, to do diabetes, obesity, congestive heart failure coronary artery disease, hyperlipidemia. Concern-->?still has shortness of breath on exertion. Was given an albuterol inhaler to use which has been somewhat helpful. Will try to send for pulmonary function testing to evaluate for obstructive pulmonary disease due to his former history of smoking. . 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 .? He continues on Humalog? and Basaglar.? He reports he has recently started to be more physically active and working out.. Today's A1c 9.6 from 8.9. He has been out of Trulicity due to pharmacy availability. He is recently started alternative GLP 1. Considered starting for farxiga or Jardiance has a contraindication with his CKD stage 4. PLAN: Will increase his monjauro dose for better glycemic control .. CHRONIC MEDICAL CONDITIONS---> Major depressive disorder : He reports his depression has been stable.. Does report his brother was diagnosed with stage III esophageal cancer which is causing him more depression. He is willing to try depression medication and speak with mental therapist .. Hypertension:? Reports blood pressures at home have been 130-145 systolic.? Today in office blood pressure is stable. He denies any chest discomfort for, palpitations or dizziness.? Does report shortness of breath on exertion ever since his hospital admission for open her surgery. .. Coronary artery disease:? Continues to follow [facility], gets echocardiogram annually. He is status post open heart surgery with coronary artery bypass, is followed by Cardiology.? Had never done cardiac rehab after his open-heart surgery due to COVID.. He does report having some shortness of breath and chest discomfort on exertion. .. Obesity: Has lost few lb since last office visit. BMI today 40. .. CKD-4-? most recent creatinine at 2.45.? 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 Will continue to avoid nephrotoxins Laboratory Tests 09/13/21 12/24/21 10/21/22 08:51 07:03 07:10 RBC 3.72 L 4.02 L Hgb 10.2 L 11.1 L BUN 54 H Creatinine 2.74 H 2.73 H 2.22 H Fasting Glucose Hgb A1c (Clinic) LDL Cholesterol, C alc 54 PSA Screen 0.89 Urine Microalbumin 12/15/22 01/14/23 04/15/23 07:14 15:11 10:19 RBC Hgb BUN Creatinine 2.28 H Fasting Glucose Hgb A1c (Clinic) 9.2 H 11 H LDL Cholesterol, C alc PSA Screen Urine Microalbumin 04/23/23 04/23/23 04/23/23 07:15 07:21 07:21 RBC Hgb BUN Creatinine 2.25 H 2.28 H Fasting Glucose Hgb A1c (Clinic) LDL Cholesterol, C alc 44 PSA Screen Urine Microalbumin 315.0 07/20/23 09/21/23 09/21/23 10:03 15:24 15:25 RBC 3.83 L Hgb 10.6 L BUN Creatinine 2.45 H Fasting Glucose 203 H Hgb A1c (Clinic) 8.9 H LDL Cholesterol, C alc 43 PSA Screen 0.69 Urine Microalbumin 74.0 [facility] Medical History NSTEMI (non-ST elevated myocardial infarction) Obesity (BMI 30-39.9) Pure hypercholesterolemia Sinusitis Anxiety Diabetes mellitus Chronic heart failure with preserved ejection fraction (HFpEF) HLD (hyperlipidemia) Carotid stenosis Essential hypertension Atherosclerotic cardiovascular disease CKD (chronic kidney disease) stage 3, GFR 30-59 ml/min Hypertension Surgical History S/P triple vessel bypass Status post coronary artery bypass graft (~01/2020) History of cardiac catheterization (~02/09/20) Family History Father No problems noted. Mother Cancer Sister Agoraphobia Hypothyroid Mental health disorder Social History Household Members: Spouse Housing: House Do you presently have visiting nurse or other home services: No Alcohol intake: never Patient Tobacco Use Status: Former Tobacco user Cigarettes Per Day: 10 Years Smoked: 30 e-Cigarette/Vaping Use: Never Used Second Hand Smoke Exposure: No service: No Current occupational status: retired Cognitive needs: Yes (needs a cane ) Hearing needs: No Vision needs: Yes (has not seen an eye doctor for about ten years) Questionnaire Thrive Questionnaire Date Thrive assessed: 07/20/23 PÉREZ-7 AMB Questionnaire PÉREZ-7 Date PÉREZ - 7 assessed: 07/20/23 Source: Developed by Drs. Kevin Sanders, Nathalie Rowe, Tyrone Rivera and colleagues, with an educational hillary from [employer]. Review of Systems Const Denies headache(s) Eyes Denies loss of vision ENT Denies vertigo, Denies dizziness, Denies headache(s) and Denies sore throat Card Denies chest pain, Denies leg edema and Denies lightheadedness Resp Denies cough, Denies hemoptysis and Denies wheezing GI Denies abdominal pain, Denies melena, Denies constipation, Denies diarrhea and Denies vomiting Denies dysuria, Denies urinary frequency and Denies urinary urgency Musc Denies arthralgias, Denies joint swelling, Denies numbness and Denies tingling Neuro Denies Abnormal speech present, Denies behavioral changes, Denies vertigo, Denies dizziness, Denies headache(s), Denies loss of vision, Denies memory loss, Denies numbness and Denies tingling Psych Denies anxiety, Denies behavioral changes, Denies depression, Denies memory loss and Denies panic attacks Benito/Lymph Denies easy bleeding and Denies easy bruising Aller/Immun Denies wheezing Physical exam (Primary Care) Vital Signs: Last Vital Signs Pulse 74 10/26/23 09:27 BP 130/84 10/26/23 09:27 Pulse Ox 98 10/26/23 09:27 Oxygen Delivery Method Room Air 10/26/23 09:27 BMI result Body Mass Index 40.0 Tobacco/Smoking Status: Tobacco use Status Tobacco use date assessed 07/20/23 10/26/23 09:35 Patient Tobacco Use Status Former Tobacco user 10/26/23 09:35 Tobacco use type 09/16/22 14:25 e-Cigarette/Vaping Use Never Used 10/26/23 09:35 Thrive Assessment: Date of Thrive Assessment Date Thrive assessed 07/20/23 10/26/23 09:35 Const General: healthy appearing, no acute distress, alert and awake Nutritional Appearance: well nourished Orientation/consciousness: oriented to person, oriented to place and oriented to time HENMT Ears: TM's normal bilaterally General nose exam: Normal nasal mucous membranes and turbinates present Eyes Conjunctivae: conjunctivae normal Sclerae: sclerae normal Pupils: Equal, round and reactive pupils present Neck Neck: Yes no lymphadenopathy and Yes no JVD Thyroid: Thyroid normal Carotids: no bruits Resp Effort & Inspection: normal respiratory effort and not tachypneic Auscultation: no crackles, no rales, no rhonchi and no wheezes Cardio Rate: regular rate Rhythm: regular rhythm Heart sounds: no murmurs and normal S1 and S2 GI Palpation (GI): Soft to palpation, nontender, no hepatomegaly and no splenomegaly Auscultation: normal bowel sounds Skin General skin exam: no rashes or lesions noted and dry skin Neuro General: oriented to person, oriented to place and oriented to time Cranial nerves: Yes Equal, round and reactive pupils present Speech: No Abnormal speech present Gait exam (Neuro): Normal gait present Motor exam (neuro): no tremor noted Extrem Right upper extremity: full ROM Left upper extremity: full ROM Right lower extremity: full ROM; no edema Left lower extremity: full ROM; no edema Psych Mental Status: mental status grossly normal Speech and movement: Normal speech and movement present Affect: normal affect Attitude: cooperative Thought process: Normal thought process present Results AMB Hemoglobin A1c AMB Hemoglobin A1c 9.6 % Last Edit by RICKIE Ma on 10/26/23 09:38 Assessment and Plan Assessment & Plan (1) Diabetes mellitus: Code(s): E11.9 - Type 2 diabetes mellitus without complications Qualifiers: Diabetes mellitus type: type 2 Diabetes mellitus longterm insulin use: with longterm use Diabetes mellitus complication status: with kidney complications Diabetes mellitus complication detail: with microalbuminuria Qualified Code(s): E11.29 - Type 2 diabetes mellitus with other diabetic kidney complication; R80.9 - Proteinuria, unspecified; Z79.4 - exterminator (current) use of insulin Plan: Patient's type 2 diabetes suboptimally controlled A1c today at 9.6 from 8.9. [facility] at [facility]. Has started mounjauro 7.5, will increase his mounjauro 10 mg weekly. We Have increased his Humalog to 22 units TID and his Lantus to 50 units for better glycemic control. Advised to implement a strict diabetic diet and patient agrees and understands. Goal A1c to be below 7.0 (2) CAD (coronary artery disease): Code(s): I25.10 - Atherosclerotic heart disease of [place] coronary artery without angina pectoris Qualifiers: Coronary Disease-Associated Artery/Lesion type: bypass graft [place] vs. transplanted heart: [place] heart Associated angina: with stable angina Qualified Code(s): I25.708 - Atherosclerosis of coronary artery bypass graft(s), unspecified, with other forms of angina pectoris Plan: Again patient continues to follow cardiology. Will be set up for annual echocardiogram.. Has upcoming appointment, does report having some shortness of breath on exertion. Fatigue easily. Will try for pulmonary function testing to evaluate for a pulmonary etiology. Continues on high potency statin with goal LDL to be below 70. 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 Most recent creatinine 2.45 (4) Essential hypertension: Code(s): I10 - Essential (primary) hypertension Plan: Patient's blood pressure acceptable today in office. Will continue current dose of antihypertensive medication with goal blood pressure be below 140/90 (5) HLD (hyperlipidemia): Code(s): E78.5 - Hyperlipidemia, unspecified Qualifiers: Hyperlipidemia type: mixed hyperlipidemia Qualified Code(s): E78.2 - Mixed hyperlipidemia Plan: Patient continues on high potency statin. Most recent fasting lipid panel showing appropriate total cholesterol and LDL. Goal LDL to be optimally below 70. (6) Obese: Code(s): E66.9 - Obesity, unspecified Qualifiers: Obesity type: due to excess calories Obesity classification: adult class 2 (BMI 35 - 39.9) Serious obesity comorbidity presence: with serious comorbidity Body mass index: BMI 37.0-37.9 Qualified Code(s): E66.01 - Morbid (severe) obesity due to excess calories; Z68.37 - Body mass index [BMI] 37.0- 37.9, adult Plan: He does understand his BMI is above 30 will continue working on being more physically active and adapting to better eating habits to reduce his weight. He does report having dietary indiscretion as of late due to his mental health. (7) SOB (shortness of breath) on exertion: Code(s): R06.02 - Shortness of breath Plan: Does report some exertional shortness of breath. Was a former smoker in do have concerns for element of COPD. We have given him an albuterol inhaler to use before exertional activities though feels it is only somewhat helpful. Will try to send for pulmonary function test to evaluate for an obstructive pulmonary process here. (8) Diabetic neuropathy associated with diabetes mellitus due to underlying condition: Code(s): E08.40 - Diabetes mellitus due to underlying condition with diabetic neuropathy, unspecified Qualifiers: Diabetes mellitus complication detail: diabetic polyneuropathy Qualified Code(s): E08.42 - Diabetes mellitus due to underlying condition with diabetic polyneuropathy Plan: Continues to manage his neuropathy with Tylenol and trying to gain control over his A1c.. (9) Chronic heart failure with preserved ejection fraction (HFpEF): Code(s): I50.32 - Chronic diastolic (congestive) heart failure Plan: Patient appears to be well managed/euvolemic on physical exam today. Continues on losartan 25 b.i.d. and furosemide 80 mg daily. Orders: Orders AMB Hemoglobin A1c Today E11.29 - Type 2 diabetes mellitus with other diabetic kidney complication, R80.9 - Proteinuria, unspecified, Z79.4 - assisted (current) use of insulin PFT pulmonary function test Today R06.02 - Shortness of breath Medications: New blood-glucose sensor (Dexcom G7 Sensor device) As directed 1 ea 6RF E11.29 - Type 2 diabetes mellitus with other diabetic kidney complication, R80.9 - Proteinuria, unspecified, Z79.4 - exterminator (current) use of insulin blood-glucose meter,continuous (Dexcom G7 Vice President Of Sales) As directed 1 ea 3RF E11.29 - Type 2 diabetes mellitus with other diabetic kidney complication, R80.9 - Proteinuria, unspecified, Z79.4 - exterminator (current) use of insulin Discontinued flash glucose scanning reader (FreeStyle Charisse 2 [place]) Discontinued Reason: Doctor's Order As directed 1 ea 1RF E11.29 - Type 2 diabetes mellitus with other diabetic kidney complication, R80.9 - Proteinuria, unspecified, Z79.4 - exterminator (current) use of insulin flash glucose sensor (FreeStyle Charisse 2 Sensor kit) Discontinued Reason: Doctor's Order As directed 1 ea 6RF E11.29 - Type 2 diabetes mellitus with other diabetic kidney complication, R80.9 - Proteinuria, unspecified, Z79.4 - exterminator (current) use of insulin Patient Instructions: Goal: A1c to be below 7.0, LDL to remain optimally below 70. Barriers: Adherence to physical activity and healthy eating habits Coding Level of Care Code Est Pt Level 4 (67828) Complex EM visit Add On G2211 Diagnoses Type 2 diabetes mellitus with microalbuminuria, with long-term current use of insulin E11.29; R80.9; Z79.4 Diabetes mellitus type: type 2 Diabetes mellitus medical terminologist insulin use: with longterm use Diabetes mellitus complication status: with kidney complications Diabetes mellitus complication detail: with microalbuminuria Coronary artery disease of bypass graft of [place] heart with stable angina pectoris I25.708 Coronary Disease-Associated Artery/Lesion type: bypass graft [place] vs. transplanted heart: [place] heart Associated angina: with stable angina CKD (chronic kidney disease) stage 4, GFR 15-29 ml/min N18.4 Essential hypertension I10 Mixed hyperlipidemia E78.2 Hyperlipidemia type: mixed hyperlipidemia Class 2 severe obesity due to excess calories with serious comorbidity and body mass index (BMI) of 37.0 to 37.9 in adult E66.01; Z68.37 Obesity type: due to excess calories Obesity classification: adult class 2 (BMI 35 - 39.9) Serious obesity comorbidity presence: with serious comorbidity Body mass index: BMI 37.0-37.9 SOB (shortness of breath) on exertion R06.02 Diabetic polyneuropathy associated with diabetes mellitus due to underlying condition E08.42 Diabetes mellitus complication detail: diabetic polyneuropathy Chronic heart failure with preserved ejection fraction (HFpEF) I50.32
== END 2023-10-26 09:52 | disposition home or self-care (01) ==
PROVIDERS: PCP Physician Assistant; Visit Provider Physician Assistant
DX: E11.29 Type 2 diabetes mellitus with other diabetic kidney complication (principal); Z79.4 Long term (current) use of insulin; I25.708 Atherosclerosis of coronary artery bypass graft(s), unspecified, with other forms of angina pectoris; N18.4 Chronic kidney disease, stage 4 (severe); E66.01 Morbid (severe) obesity due to excess calories; E08.42 Diabetes mellitus due to underlying condition with diabetic polyneuropathy; I50.32 Chronic diastolic (congestive) heart failure; I12.9 Hypertensive chronic kidney disease with stage 1 through stage 4 chronic kidney disease, or unspecified chronic kidney disease; R80.9 Proteinuria, unspecified; E78.2 Mixed hyperlipidemia; Z68.37 Body mass index [BMI] 37.0-37.9, adult; R06.02 Shortness of breath
CPT/HCPCS: 83036; 99214

== ENCOUNTER 2024-01-26 08:57 | Outpatient (AMB) | payer OTHER, SELFPAY ==
--- NOTE | 2024-01-26 09:24 | A.OFFPC_ITS ---
Vital Signs 01/26/24 09:29 01/26/24 09:51 Height 5 ft 11 in Weight 282 lb 6 oz BMI 39.4 BP 100/50 L 120/64 Blood Pressure Location Lt brachial Position Sitting Pulse 82 Pulse Source Pulse Oximeter Pulse Oximetry (%) 97 Oxygen Delivery Method Room Air Intake Visit Reasons: Annual Exam Intake Note: Patient is here today for a physical. 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 Accompanied by: Self / Same As Patient Allergies No Known Allergies [No Known Allergies*] Allergy (Verified 01/26/24 09:39) Medication List - Last Reconciled 01/26/24 by Ronnie Reynolds PA-C acetaminophen 650 mg (2 x 325 mg) PO Q6H PRN albuterol sulfate 90 mcg/actuation 1 inh inhalation QID PRN 30 days amlodipine 10 mg PO DAILY aspirin 81 mg PO DAILY 90 days atorvastatin 80 mg PO DAILY blood sugar diagnostic (FreeStyle Lite Strips) 1 strip miscellaneous TID blood-glucose meter (FreeStyle Lite Meter kit) As directed blood-glucose meter,continuous ([email or web address] 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) As directed blood-glucose sensor (Dexcom G7 Sensor device) As directed carvedilol (Coreg) 25 mg PO BID compr.stocking,knee,long,x-lrg As directed doxazosin 4 mg PO DAILY 90 days furosemide 80 mg (2 x 40 mg) PO DAILY hydroxyzine HCl 50 mg (2 x 25 mg) PO BEDTIME 30 days insulin glargine 45 units (0.45 mL) subcut QPM 30 days insulin lispro (Humalog KwikPen (U-100) Insulin) 16 units (0.16 mL) subcut TID 30 days lorazepam (Ativan) 1 mg PO BEDTIME PRN 30 days losartan 25 mg PO BID miscellaneous medical supply (Blood Pressure Cuff) As directed pen needle, diabetic (BD Ultra-Fine Mini Pen Needle) 1 ea subcut QID sennosides (senna) 17.2 mg (2 x 8.6 mg) PO BEDTIME sertraline 50 mg PO DAILY 90 days tirzepatide (Mounjaro) 7.5 mg (0.5 mL) subcut QWEEK 4 weeks Tobacco use date assessed: 01/26/24 Dental Screening Dental Screen Date: 01/26/24 Did you have a dental visit in the last 12 months?: No Did you have a dental problem in the last 6 months where you did not have access to dental care?: No Was dental information given to patient?: Patient declined HPI Annual Exam HPI Details Patient is a 58 year male here today for routine annual physical.? Patient has a past medical history significant for CKD stage 4, to do diabetes, obesity, congestive heart failure coronary artery disease, hyperlipidemia. Concern-->?patient reports recently noting the feeling of being dizzy. He does have lower blood pressure reading today in office. Will try to reduce his furosemide to 40 mg daily . 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 .? He continues on Humalog? and Basaglar.? He reports he has recently started to be more physically active and working out.. Today's A1c 10 from 9.6. Considered starting for farxiga or Jardiance has a contraindication with his CKD stage 4. PLAN: Will increase his monjauro dose to 10 mg weekly for better glycemic control .. CHRONIC MEDICAL CONDITIONS---> .. Hypertension:? Reports blood pressures at home have been 130-145 systolic.? Today in office blood pressure is stable. He denies any chest discomfort for, palpitations or dizziness.? Does report shortness of breath on exertion ever since his hospital admission for open her surgery. .. Coronary artery disease:? Continues to follow [facility], gets echocardiogram annually. He is status post open heart surgery with coronary artery bypass, is followed by Cardiology.? Had never done cardiac rehab after his open-heart surgery due to COVID.. He does report having some shortness of breath and chest discomfort on exertion. .. Obesity: Has lost few lb since last office visit. He reports being more physically active and working out a few days a week.. BMI today 49 .. CKD-4-? most recent creatinine at 2.45.? 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 Will continue to avoid nephrotoxins Colorectal cancer screening: Needs repeat colonoscopy Vaccines: Up-to-date with COVID vaccine, pneumonia vaccine, needs new tetanus vaccine, UTD flu vaccine [facility] Medical History NSTEMI (non-ST elevated myocardial infarction) Obesity (BMI 30-39.9) Pure hypercholesterolemia Sinusitis Anxiety Diabetes mellitus Chronic heart failure with preserved ejection fraction (HFpEF) HLD (hyperlipidemia) Carotid stenosis Essential hypertension Atherosclerotic cardiovascular disease CKD (chronic kidney disease) stage 3, GFR 30-59 ml/min Hypertension Surgical History S/P triple vessel bypass Status post coronary artery bypass graft (~01/2020) History of cardiac catheterization (~02/09/20) Family History Father No problems noted. Mother Cancer Sister Agoraphobia Hypothyroid Mental health disorder Social History (Updated 01/26/24 @ 09:47 by Ronnie Reynolds PA-C) Household Members: Spouse Housing: House Do you presently have visiting nurse or other home services: No Alcohol intake: never Patient Tobacco Use Status: Former Tobacco user Cigarettes Per Day: 10 Years Smoked: 30 e-Cigarette/Vaping Use: Never Used Second Hand Smoke Exposure: No service: No Current occupational status: retired Cognitive needs: Yes (needs a cane ) Hearing needs: No Vision needs: Yes (has not seen an eye doctor for about ten years) Questionnaire PHQ-9 Over the last 2 weeks, how often have you been bothered by any of the following problems? 1. Little interest or pleasure in doing things: not at all 2. Feeling down, depressed, or hopeless: not at all 3. Trouble falling or staying asleep, or sleeping too much: several days 4. Feeling tired or having little energy: several days 5. Poor appetite or overeating: not at all 6. Feeling bad about yourself - or that you are a failure or have let yourself or your family down: not at all 7. Trouble concentrating on things, such as reading the newspaper or watching television: not at all 8. Moving or speaking so slowly that other people could have noticed. Or the opposite - being so fidgety or restless that you have been moving around a lot more than usual: not at all 9. Thoughts that you would be better off or of hurting yourself in some way: not at all Total score: 2 Depression Screening Interpretation: Negative Depression Screening Done: Yes 44656 - PHQ-9 Billing: Yes Source: Developed by Drs. Kevin Sanders, Nathalie Rowe, Tyrone Rivera and colleagues, with an educational hillary from [employer]. Thrive Questionnaire Date Thrive assessed: 01/26/24 I am a: Patient What is your living situation today?: I have a steady place to live Within the past 12 months, did the food you bought not last and you didn't have the money to get more?: I choose not to answer this question Within the past 12 months, did you worry whether your food would run out before you got money to buy more?: I choose not to answer this question Do you have trouble paying for medicines?: I choose not to answer this question Do you have trouble getting transportation to medical appointments?: No Do you have trouble paying your heating and electricity bill?: No Do you have trouble taking care of your child, family member or friend?: No Do you have trouble with day-to-day activities such as bathing, preparing meals, shopping, managing finances, etc.?: No Are you currently unemployed and looking for a job?: Yes Are you interested in more education?: I choose not to answer this question Please select the resources that you would like help with: Education Currently or been in a relationship where the following occur: I choose not to answer THRIVE Score: 0 AUDIT C Alcohol Use Questionnaire (AUDIT-C) 1. How often do you have a drink containing alcohol?: Never 3. How often do you have six or more drinks on one occasion?: Never Total Score: 0 PÉREZ-7 AMB Questionnaire PÉREZ-7 Date PÉREZ - 7 assessed: 01/26/24 Feeling nervous, anxious, or on edge: 0 = Not at all Not being able to stop or control worryin = Not at all Worrying too much about different things: 0 = Not at all Trouble relaxin = Not at all Being so restless that it is hard to sit still: 0 = Not at all Becoming easily annoyed or irritable: 0 = Not at all Feeling afraid as if something awful might happen: 0 = Not at all Total PÉREZ-7 score (0-4 normal; 5-9 mild; 10-14 moderate; 15-21 severe): 0 Source: Developed by Nathalie Blandon Kurt Kroenke and colleagues, with an educational hillary from [employer]. PÉREZ-7 Assessment Billing PÉREZ-7 Assessment Tool: PÉREZ-7 Assessment 27003 Review of Systems Const Denies body aches, Denies chills, Denies excessive sweating, Denies fatigue, Denies fever(s) and Denies headache(s) Eyes Denies blurry vision ENT Denies dysphagia, Denies vertigo, Denies dizziness, Denies headache(s), Denies hearing loss and Denies tinnitus Card Denies chest pain, Denies chest pain with activity, Denies syncope, Denies irregular heart rhythm and Denies dyspnea Resp Denies chest congestion, Denies cough, Denies hemoptysis, Denies dyspnea and Denies wheezing GI Denies abdominal pain, Denies melena, Denies hematochezia, Denies coffee ground emesis, Denies dysphagia, Denies diarrhea, Denies nausea and Denies vomiting Denies difficulty urinating, Denies dysuria, Denies urinary frequency, Denies urinary hesitancy and Denies urinary urgency Musc Denies arthralgias, Denies limited range of motion, Denies muscle cramps and Denies muscle weakness Skin/Breast Denies rash and Denies skin ulcer Neuro Denies Abnormal speech present, Denies confusion, Denies vertigo, Denies dizziness, Denies syncope, Denies headache(s), Denies memory loss and Denies seizure-like activity Psych Denies anxiety, Denies confusion, Denies depression, Denies memory loss, Denies panic attacks and Denies paranoia Endo Denies excessive sweating, Denies fatigue, Denies flushing, Denies polydipsia and Denies polyuria Aller/Immun Denies wheezing Physical exam (Primary Care) Vital Signs: Last Vital Signs Pulse 82 01/26/24 09:29 BP 120/64 01/26/24 09:51 Pulse Ox 97 01/26/24 09:29 Oxygen Delivery Method Room Air 01/26/24 09:29 BMI result Body Mass Index 39.4 Tobacco/Smoking Status: Tobacco use Status Tobacco use date assessed 01/26/24 01/26/24 09:31 Patient Tobacco Use Status Former Tobacco user 01/26/24 09:47 Tobacco use type 09/16/22 14:25 e-Cigarette/Vaping Use Never Used 01/26/24 09:47 PHQ-9: PHQ-9 Score PHQ-9: Total score 2 01/26/24 09:54 Depression Screening Interpretation: Negative Thrive Assessment: Date of Thrive Assessment Date Thrive assessed 01/26/24 01/26/24 09:31 Currently or been in a relationship where the following occur: I choose not to answer Const General: cooperative, comfortable, no acute distress, alert and awake; No confusion Orientation/consciousness: oriented to person, oriented to place, patient oriented x3 and No confusion HENMT Head: Yes normocephalic Ears: external ears normal and TM's normal bilaterally Face and sinus: No sinus tenderness Mouth: Normal oral and palatal mucosa present and tongue normal Teeth and gingiva: dentition normal and gingiva normal Throat: Yes posterior oropharynx normal, Yes tonsils normal and Yes uvula midline Eyes Conjunctivae: conjunctivae normal Sclerae: sclerae normal Pupils: Equal, round and reactive pupils present EOM: EOMs intact bilaterally Direct Ophthalmoscopy: No no photophobia Neck Neck: Yes no lymphadenopathy, No tender and Yes no JVD Thyroid: Thyroid normal Carotids: no bruits Chest Chest palpation & inspection: no tenderness Resp Effort & Inspection: normal respiratory effort, no audible wheezes, not labored and no stridor Auscultation: no crackles, no rales, no rhonchi and no wheezes Cardio Jugular venous distension: no JVD Rate: regular rate, not bradycardic and not tachycardic Rhythm: regular rhythm Bruits: no carotid bruits Peripheral pulses: Peripheral pulses 2+ throughout GI Inspection: Yes normal to inspection, No abdominal wall ecchymosis and No visible herniation Palpation (GI): Soft to palpation, nontender, no guarding, not rigid and No hepatosplenomegaly present Auscultation: normoactive bowel sounds General: Yes no CVA tenderness Back/Spine/Pelvis Back: no CVA tenderness and No back tenderness Cervical Spine: cervical ROM normal Thoracic/Lumbar Spine: thoracic and lumbar spine normal to inspection, straight leg raise negative bilaterally, No thoraco-lumbar ROM limited and No lumbar spinal tenderness Skin Lesions: no lesions Rashes: no rashes Wounds: no wounds Neuro General: oriented to person, oriented to place, patient oriented x3, CN's II-XI intact bilaterally and No confusion Cranial nerves: Yes Equal, round and reactive pupils present and Yes Normal accommodation reflex present Cognition (Neuro): normal cognition Speech: No Abnormal speech present Gait exam (Neuro): Normal gait present Motor exam (neuro): 5/5 motor strength present throughout Extrem Right upper extremity: full ROM; no cyanosis Left upper extremity: full ROM; no cyanosis Right lower extremity: no edema Left lower extremity: no edema Psych Appearance: grossly normal Mental Status: mental status grossly normal Affect: normal affect Attitude: cooperative Thought process: Normal thought process present Office Procedures Flu Questionnaire Does the patient have a severe egg allergy?: No Does the patient have severe life threatening allergies?: No Does the patient have a fever or illness today?: No Has the patient ever had Guillain-[place] Syndrome?: No Has the patient ever had any past reaction to a flu shot?: No Results AMB Hemoglobin A1c AMB Hemoglobin A1c 10.0 % Last Edit by RICKIE Ma on 01/26/24 09:54 Immunizations Fluarix Triv 4929-9427 (PF) 45 mcg (15 mcg x 3)/0.5 mL IM syringe Performing Provider: Ronnie Reynolds PA-C [facility] Administered by: RICKIE Ma on 01/26/24 09:39 Dose Route Admin Location Dispensed Lot Number Expiration Date [facility] 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 0.5 mL IM Left Deltoid 0.5 mL [id number] 10/23/24 [id number] [employer] VIS Given Date VIS Provided VIS Publication Date 01/26/24 Single Vaccine 20 Eligibility Eligibility Date Funding Source Not [facility] Eligible 01/26/24 Private Results Reviewed Results Reviewed: Laboratory Last Values Hgb A1c (Clinic) 10.0 % (4.0-6.0) H 01/26/24 09:32 Coding Level of Care Code Est Pt Prev Care 40-64y(81993) Diagnoses Annual physical exam Z00.00 Coronary artery disease of bypass graft of [place] heart with stable angina pectoris I25.708 Associated angina: with stable angina Coronary Disease-Associated Artery/Lesion type: bypass graft [place] vs. 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 mellitus merchandise buyer insulin use: with chcf use Diabetes mellitus type: type 2 Chronic heart failure with preserved ejection fraction (HFpEF) I50.32 Mixed hyperlipidemia E78.2 Hyperlipidemia type: mixed hyperlipidemia Essential hypertension I10 Colon cancer screening Z12.11 Additional Codes PÉREZ-7 Assessment Billing - PÉREZ-7 Assessment Tool: PÉREZ-7 Assessment 39389 ([id number]) Assessment & Plan Assessment & Plan (1) Annual physical exam: Code(s): Z00.00 - Encounter for general adult medical examination without abnormal findings Category: Medical Plan: As per HPI (2) CAD (coronary artery disease): Code(s): I25.10 - Atherosclerotic heart disease of [place] coronary artery without angina pectoris Category: Medical Qualifiers: Associated angina: with stable angina Coronary Disease-Associated Artery/Lesion type: bypass graft [place] vs. transplanted heart: [place] heart Qualified Code(s): I25.708 - Atherosclerosis of coronary artery bypass graft(s), unspecified, with other forms of angina pectoris Plan: Patient continues to follow [facility]. Most recent lipid panel showing excellent control of his total cholesterol and LDL. Has no overt signs of heart failure. Of note blood pressure on the low side today. He will try to lower his furosemide dose to 40 mg in the a.m. (3) CKD (chronic kidney disease) stage 4, GFR 15-29 ml/min: Code(s): N18.4 - Chronic kidney disease, stage 4 (severe) Category: Medical Plan: Does follow Nephrology. Kidney function is impaired. Has been trying to stay away from nephrotoxins stay well hydrated. Continues with losartan 25 b.i.d.. 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 Will increase his monitor to 10 mg weekly for better glycemic control. He will try to work extensively on lifestyle and dietary modification to help reduce his sugars as well. Does have a can continues glucose monitor which has been helpful for him as well. A1c goal to be below 7.0 (5) Chronic heart failure with preserved ejection fraction (HFpEF): Code(s): I50.32 - Chronic diastolic (congestive) heart failure Category: Medical Plan: As above, patient could followed by [facility]. He has no overt signs of decompensated heart failure. He has been noticing feeling a bit dizzy and blood pressure on the low side. Will try to reduce his furosemide dose to 40 mg in the morning and if recurrent lower extremity swelling will return back to 80 mg a furosemide. (6) HLD (hyperlipidemia): Code(s): E78.5 - Hyperlipidemia, unspecified Category: Medical Qualifiers: Hyperlipidemia type: mixed hyperlipidemia Qualified Code(s): E78.2 - Mixed hyperlipidemia Plan: Patient's lipid panel has been well controlled with current dose of statin therapy. Goal LDL is to remain optimally below 70. (7) Essential hypertension: Code(s): I10 - Essential (primary) hypertension Category: Medical Plan: As above patient's blood pressure on the low side today . He continues with amlodipine, carvedilol, furosemide, doxazosin.. He will try to reduce his furosemide to 40 mg Will continue to monitor his blood pressure with goal blood pressure to remain below 140/90 and above 100/60. (8) Colon cancer screening: Code(s): Z12.11 - Encounter for screening for malignant neoplasm of colon Category: Medical Plan: Needs up-to-date colonoscopy Orders: Orders Complete Blood Count no Diff Today E11.29 - Type 2 diabetes mellitus with other diabetic kidney complication, R80.9 - Proteinuria, unspecified, Z79.4 - halfway (current) use of insulin Lipid Panel Today E78.2 - Mixed hyperlipidemia AMB Hemoglobin A1c Today E11.29 - Type 2 diabetes mellitus with other diabetic kidney complication, R80.9 - Proteinuria, unspecified, Z79.4 - halfway (current) use of insulin Influenza [id number] Immunization Today Z23 - Encounter for immunization Comprehensive [place]. 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 insulin Referrals Gastroenterology Referral Z12.11 - Encounter for screening for malignant neoplasm of colon Medications: New tirzepatide (Mounjaro) 10 mg (0.5 mL) subcut QWEEK 4 weeks 2 mL 3RF E11.29 - Type 2 diabetes mellitus with other diabetic kidney complication, R80.9 - Proteinuria, unspecified, Z79.4 - halfway (current) use of insulin Refilled blood-glucose sensor ([employer] G7 Sensor device) As directed 1 ea 6RF E11.29 - Type 2 diabetes mellitus with other diabetic kidney complication, R80.9 - Proteinuria, unspecified, Z79.4 - halfway (current) use of insulin Discontinued tirzepatide (Mounjaro) Discontinued Reason: Doctor's Order 7.5 mg (0.5 mL) subcut QWEEK 4 weeks 2 mL 1RF E11.29 - Type 2 diabetes mellitus with other diabetic kidney complication, R80.9 - Proteinuria, unspecified, Z79.4 - halfway (current) use of insulin
[2024-01-26 09:29] VITALS: BP 100/50; PULSE 82; O2SAT 97; BMI 39.4
[2024-01-26 09:51] VITALS: BP 120/64
== END 2024-01-26 10:04 | disposition home or self-care (01) ==
PROVIDERS: PCP Physician Assistant; Visit Provider Physician Assistant
DX: Z00.00 Encounter for general adult medical examination without abnormal findings (principal); I13.0 Hypertensive heart and chronic kidney disease with heart failure and stage 1 through stage 4 chronic kidney disease, or unspecified chronic kidney disease; N18.4 Chronic kidney disease, stage 4 (severe); E11.29 Type 2 diabetes mellitus with other diabetic kidney complication; I25.708 Atherosclerosis of coronary artery bypass graft(s), unspecified, with other forms of angina pectoris; Z79.4 Long term (current) use of insulin; I50.32 Chronic diastolic (congestive) heart failure; R80.9 Proteinuria, unspecified; E78.2 Mixed hyperlipidemia; Z12.11 Encounter for screening for malignant neoplasm of colon; Z23 Encounter for immunization

== ENCOUNTER → 2024-01-26 08:57 | Outpatient (BNVA) | payer OTHER, SELFPAY | PROVIDERS: PCP Physician Assistant; Visit Provider Physician Assistant | DX: Z00.00 Encounter for general adult medical examination without abnormal findings (principal); I25.708 Atherosclerosis of coronary artery bypass graft(s), unspecified, with other forms of angina pectoris; I13.0 Hypertensive heart and chronic kidney disease with heart failure and stage 1 through stage 4 chronic kidney disease, or unspecified chronic kidney disease; E11.22 Type 2 diabetes mellitus with diabetic chronic kidney disease; N18.4 Chronic kidney disease, stage 4 (severe); I50.32 Chronic diastolic (congestive) heart failure; E11.29 Type 2 diabetes mellitus with other diabetic kidney complication; R80.9 Proteinuria, unspecified; E78.2 Mixed hyperlipidemia; Z79.4 Long term (current) use of insulin; Z79.899 Other long term (current) drug therapy; Z23 Encounter for immunization | CPT/HCPCS: 83036; 90471; 90656; 96127 ==

== ENCOUNTER 2024-04-27 06:53 | Outpatient (REF) | payer OTHER, SELFPAY ==
[2024-04-27 07:39] LABS: Hematocrit 33.3 % (42.0-52.0); Hemoglobin 10.7 g/dl (14.0-18.0); Mean Corpuscular HGB Conc 32.1 g/dl (31.0-36.0); Mean Corpuscular Hemoglobin 27.6 pg (27.0-33.0); Mean Platelet Volume 11.9 fL (9.4-12.4); Platelet Count 204 X10*3/uL (160-400); Red Blood Count 3.87 X10*6/uL (4.60-5.80); Red Cell Distribution Width 13.2 % (11.0-16.0); White Blood Count 7.2 X10*3/uL (4.8-10.8)
[2024-04-27 08:32] LABS: Alanine Aminotransferase 26 U/L (0-40); Albumin Level 3.7 g/dL (3.5-5.0); Alkaline Phosphatase 148 U/L (39-117); Anion Gap 13 (12-20); Aspartate Amino Transferase 20 U/L (5-37); Bilirubin Total 0.5 mg/dL (0.0-1.0); Blood Urea Nitrogen 38 mg/dL (9-16); Calcium 8.7 mg/dL (8.4-10.2); Carbon Dioxide 21 mmol/L (22-29); Chloride 107 mmol/L (96-108); Cholesterol 103 mg/dL (<200); Estimated Glomerular Filt Rate 28; Glucose Fasting 309 mg/dL (60-99); HDL Cholesterol 27 mg/dL (>40); LDL Cholesterol Calculated 49 mg/dL (<100); Potassium 4.3 mmol/L (3.3-5.1); Sodium 137 mmol/L (135-145); Total Protein 6.8 g/dL (6.5-8.0); Triglycerides 138 mg/dL (<150)
== END 2024-04-27 06:54 | disposition home or self-care (01) ==
LOC: HO.LAB 06:53
PROVIDERS: Internal Medicine Hypertension Specialist; PCP Physician Assistant; Visit Provider Physician Assistant
DX: E11.29 Type 2 diabetes mellitus with other diabetic kidney complication (principal); E78.2 Mixed hyperlipidemia; R80.9 Proteinuria, unspecified; Z79.4 Long term (current) use of insulin
CPT/HCPCS: 36415; 80053; 80061; 85027

== ENCOUNTER 2024-05-03 07:16 | Outpatient (AMB) | payer OTHER, SELFPAY ==
[2024-05-03 07:59] VITALS: BP 124/68; PULSE 88; O2SAT 97; BMI 40.4
--- NOTE | 2024-05-03 07:59 | A.OFFPC_ITS ---
Vital Signs 05/03/24 07:59 Height 5 ft 11 in Weight 290 lb BMI 40.4 BP 124/68 Blood Pressure Location Lt brachial Position Sitting Pulse 88 Pulse Source Pulse Oximeter Pulse Oximetry (%) 97 Oxygen Delivery Method Room Air Intake Visit Reasons: 3 month f/u Allergies No Known Allergies [No Known Allergies*] Allergy (Verified 05/03/24 08:19) Medication List - Last Reconciled 05/03/24 by Ronnie Reynolds PA-C acetaminophen 650 mg (2 x 325 mg) PO Q6H PRN albuterol sulfate 90 mcg/actuation 1 inh inhalation QID PRN 30 days amlodipine 10 mg PO DAILY aspirin 81 mg PO DAILY 90 days atorvastatin 80 mg PO DAILY blood sugar diagnostic (FreeStyle Lite Strips) 1 strip miscellaneous TID blood-glucose meter (FreeStyle Lite Meter kit) As directed blood-glucose meter,continuous (Dexcom G7 Basket Hand Weaver) As directed blood-glucose sensor (Dexcom G7 Sensor device) As directed carvedilol (Coreg) 25 mg PO BID compr.stocking,knee,long,x-lrg As directed doxazosin 4 mg PO DAILY 90 days furosemide 80 mg (2 x 40 mg) PO DAILY hydroxyzine HCl 50 mg (2 x 25 mg) PO BEDTIME 30 days insulin glargine 45 units (0.45 mL) subcut QPM 30 days insulin lispro (Humalog KwikPen (U-100) Insulin) 16 units (0.16 mL) subcut TID 30 days lorazepam (Ativan) 1 mg PO BEDTIME PRN 30 days losartan 25 mg PO BID miscellaneous medical supply (Blood Pressure Cuff) As directed pen needle, diabetic (BD Ultra-Fine Mini Pen Needle) 1 ea subcut QID sennosides (senna) 17.2 mg (2 x 8.6 mg) PO BEDTIME sertraline 50 mg PO DAILY 90 days tirzepatide (Mounjaro) 10 mg (0.5 mL) subcut QWEEK 4 weeks Tobacco use date assessed: 05/03/24 Dental Screening Dental Screen Date: 05/03/24 Did you have a dental visit in the last 12 months?: No Did you have a dental problem in the last 6 months where you did not have access to dental care?: No Was dental information given to patient?: No HPI 3 month f/u HPI Details Patient is a 59 year male here today for a follow-up visit.? Patient has a past medical history significant for CKD stage 4, type 2 diabetes, obesity, congestive heart failure coronary artery disease, hyperlipidemia. Concern-->?does report some slight swelling in bilateral lower extremities lately.\ Also reports having sinus problems and would like to try a lavage system device to help him with the sinuses. . 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 .? He continues on Humalog? and Basaglar.? He reports he has recently started to be more physically active and working out.. Today's A1c 7.8 from 10.0. Most recent fasting blood sugar of 309 Considered starting for farxiga or Jardiance has a contraindication with his CKD stage 4. PLAN: Will increase his monjauro dose to 12.5 mg weekly for better glycemic control .. CHRONIC MEDICAL CONDITIONS---> .. Hypertension:? Reports blood pressures at home have been 130-145 systolic.? Today in office blood pressure is stable. He denies any chest discomfort for, palpitations or dizziness.? Does report shortness of breath on exertion ever since his hospital admission for open her surgery. .. Coronary artery disease:? Continues to follow [facility], gets echocardiogram annually. He is status post open heart surgery with coronary artery bypass, is followed by Cardiology. He does report having some shortness of breath and chest discomfort on exertion. .. Class 3 obesity: Unfortunately gained some weight since last office visit. He attributes this to dietary indiscretion over the holidays. He reports being more physically active and working out a few days a week.. .. CKD-4-? most recent GFR at 24. 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 Creatinine has been stable Will continue to avoid nephrotoxins [facility] Medical History NSTEMI (non-ST elevated myocardial infarction) Obesity (BMI 30-39.9) Pure hypercholesterolemia Sinusitis Anxiety Diabetes mellitus Chronic heart failure with preserved ejection fraction (HFpEF) HLD (hyperlipidemia) Carotid stenosis Essential hypertension Atherosclerotic cardiovascular disease CKD (chronic kidney disease) stage 3, GFR 30-59 ml/min Hypertension Surgical History S/P triple vessel bypass Status post coronary artery bypass graft (~01/2020) History of cardiac catheterization (~02/09/20) Family History Father No problems noted. Mother Cancer Sister Agoraphobia Hypothyroid Mental health disorder Social History Household Members: Spouse Housing: House Do you presently have visiting nurse or other home services: No Alcohol intake: never Patient Tobacco Use Status: Former Tobacco user Tobacco use type: Cigarette Cigarettes Per Day: 10 Years Smoked: 30 e-Cigarette/Vaping Use: Never Used Second Hand Smoke Exposure: No service: No Current occupational status: retired Cognitive needs: Yes (needs a cane ) Hearing needs: No Vision needs: Yes (has not seen an eye doctor for about ten years) Questionnaire PHQ-9 Over the last 2 weeks, how often have you been bothered by any of the following problems? 1. Little interest or pleasure in doing things: not at all 2. Feeling down, depressed, or hopeless: not at all 3. Trouble falling or staying asleep, or sleeping too much: several days 4. Feeling tired or having little energy: several days 5. Poor appetite or overeating: not at all 6. Feeling bad about yourself - or that you are a failure or have let yourself or your family down: not at all 7. Trouble concentrating on things, such as reading the newspaper or watching television: not at all 8. Moving or speaking so slowly that other people could have noticed. Or the opposite - being so fidgety or restless that you have been moving around a lot m ore than usual: not at all 9. Thoughts that you would be better off or of hurting yourself in some way: not at all Total score: 2 Depression Screening Interpretation: Negative Depression Screening Done: Yes 16076 - PHQ-9 Billing: Yes Source: Developed by Drs. Kevin Sanders, Nathalie Rowe, Tyrone Rivera and colleagues, with an educational hillary from [employer]. Thrive Questionnaire Date Thrive assessed: 05/03/24 I am a: Patient What is your living situation today?: I have a steady place to live Within the past 12 months, did the food you bought not last and you didn't have the money to get more?: I choose not to answer this question Within the past 12 months, did you worry whether your food would run out before you got money to buy more?: I choose not to answer this question Do you have trouble paying for medicines?: I choose not to answer this question Do you have trouble getting transportation to medical appointments?: No Do you have trouble paying your heating and electricity bill?: No Do you have trouble taking care of your child, family member or friend?: No Do you have trouble with day-to-day activities such as bathing, preparing meals, shopping, managing finances, etc.?: No Are you currently unemployed and looking for a job?: Yes Are you interested in more education?: I choose not to answer this question Please select the resources that you would like help with: Education Currently or been in a relationship where the following occur: I choose not to answer THRIVE Score: 0 AUDIT C Alcohol Use Questionnaire (AUDIT-C) 1. How often do you have a drink containing alcohol?: Never 3. How often do you have six or more drinks on one occasion?: Never Total Score: 0 PÉREZ-7 AMB Questionnaire PÉREZ-7 Date PÉREZ - 7 assessed: 05/03/24 Feeling nervous, anxious, or on edge: 0 = Not at all Not being able to stop or control worryin = Not at all Worrying too much about different things: 0 = Not at all Trouble relaxin = Not at all Being so restless that it is hard to sit still: 0 = Not at all Becoming easily annoyed or irritable: 0 = Not at all Feeling afraid as if something awful might happen: 0 = Not at all Total PÉREZ-7 score (0-4 normal; 5-9 mild; 10-14 moderate; 15-21 severe): 0 Source: Developed by Drs. Kevin Sanders, Nathalie Rowe, Tyrone Rivera and colleagues, with an educational hillary from [employer] PÉREZ-7 Assessment Billing PÉREZ-7 Assessment Tool: PÉREZ-7 Assessment 53587 Review of Systems Const Denies headache(s) Eyes Denies loss of vision ENT Denies vertigo, Denies dizziness, Denies headache(s) and Denies sore throat Card Denies chest pain, Denies leg edema and Denies lightheadedness Resp Denies cough, Denies hemoptysis and Denies wheezing GI Denies abdominal pain, Denies melena, Denies constipation, Denies diarrhea and Denies vomiting Denies dysuria, Denies urinary frequency and Denies urinary urgency Musc Denies arthralgias, Denies joint swelling, Denies numbness and Denies tingling Neuro Denies Abnormal speech present, Denies behavioral changes, Denies vertigo, Denies dizziness, Denies headache(s), Denies loss of vision, Denies memory loss, Denies numbness and Denies tingling Psych Denies anxiety, Denies behavioral changes, Denies depression, Denies memory loss and Denies panic attacks Benito/Lymph Denies easy bleeding and Denies easy bruising Aller/Immun Denies wheezing Physical exam (Primary Care) Vital Signs: Last Vital Signs Pulse 88 05/03/24 07:59 BP 124/68 05/03/24 07:59 Pulse Ox 97 05/03/24 07:59 Oxygen Delivery Method Room Air 05/03/24 07:59 BMI result Body Mass Index 40.4 Tobacco/Smoking Status: Tobacco use Status Tobacco use date assessed 05/03/24 05/03/24 08:01 Patient Tobacco Use Status Former Tobacco user 05/03/24 08:01 Tobacco use type Cigarette 05/03/24 08:01 e-Cigarette/Vaping Use Never Used 05/03/24 08:01 PHQ-9: PHQ-9 Score PHQ-9: Total score 2 05/03/24 08:18 Depression Screening Interpretation: Negative Thrive Assessment: Date of Thrive Assessment Date Thrive assessed 05/03/24 05/03/24 08:01 Currently or been in a relationship where the following occur: I choose not to answer Const General: healthy appearing, no acute distress, alert and awake Nutritional Appearance: well nourished Orientation/consciousness: oriented to person, oriented to place and oriented to time HENMT Ears: TM's normal bilaterally General nose exam: Normal nasal mucous membranes and turbinates present Eyes Conjunctivae: conjunctivae normal Sclerae: sclerae normal Pupils: Equal, round and reactive pupils present Neck Neck: Yes no lymphadenopathy and Yes no JVD Thyroid: Thyroid normal Carotids: no bruits Resp Effort & Inspection: normal respiratory effort and not tachypneic Auscultation: no crackles, no rales, no rhonchi and no wheezes Cardio Rate: regular rate Rhythm: regular rhythm Heart sounds: no murmurs and normal S1 and S2 GI Palpation (GI): Soft to palpation, nontender, no hepatomegaly and no splenomegaly Auscultation: normal bowel sounds Skin General skin exam: no rashes or lesions noted and dry skin Neuro General: oriented to person, oriented to place and oriented to time Cranial nerves: Yes Equal, round and reactive pupils present Speech: No Abnormal speech present Gait exam (Neuro): Normal gait present Motor exam (neuro): no tremor noted Extrem Right upper extremity: full ROM Left upper extremity: full ROM Right lower extremity: full ROM and edema Left lower extremity: full ROM and edema Psych Mental Status: mental status grossly normal Speech and movement: Normal speech and movement present Affect: normal affect Attitude: cooperative Thought process: Normal thought process present Results AMB Hemoglobin A1c AMB Hemoglobin A1c 7.8 % Last Edit by Zeina Whitt CMA on 05/03/24 08 :18 Results Reviewed Results Reviewed: Laboratory Last Values Hgb A1c (Clinic) 7.8 % (4.0-6.0) H 05/03/24 08:01 Coding Level of Care Code Est Pt Level 4 (03417) Diagnoses Coronary artery disease of bypass graft of [place] heart with stable angina pectoris I25.708 Associated angina: with stable angina Coronary Disease-Associated Artery/Lesion type: bypass graft [place] vs. transplanted heart: [place] heart CKD (chronic kidney disease) stage 4, GFR 15-29 ml/min N18.4 Type 2 diabetes mellitus with microalbuminuria, with long-term current use of insulin E11.29; R80.9; Z79.4 Diabetes mellitus complication detail: with microalbuminuria Diabetes mellitus complication status: with kidney complications Diabetes mellitus ocean transportation intermediary insulin use: with detention use Diabetes mellitus type: type 2 Chronic heart failure with preserved ejection fraction (HFpEF) I50.32 Mixed hyperlipidemia E78.2 Hyperlipidemia type: mixed hyperlipidemia Essential hypertension I10 Acute non-recurrent sinusitis, unspecified location J01.90 Chronicity: acute Recurrence: non-recurrent Sinusitis location: unspecified location Bilateral carotid bruits R09.89 Laterality: bilateral Additional Codes PÉREZ-7 Assessment Billing - PÉREZ-7 Assessment Tool: PÉREZ-7 Assessment 65308 ([id number]) PHQ-9 - 54919 - PHQ-9 Billing: Yes ([id number]) Assessment & Plan Assessment & Plan (1) CAD (coronary artery disease): Code(s): I25.10 - Atherosclerotic heart disease of [place] coronary artery without angina pectoris Category: Medical Qualifiers: Associated angina: with stable angina Coronary Disease-Associated Artery/Lesion type: bypass graft [place] vs. transplanted heart: [place] heart Qualified Code(s): I25.708 - Atherosclerosis of coronary artery bypass graft(s), unspecified, with other forms of angina pectoris Plan: Patient continues to follow [facility]. Most recent lipid panel showing excellent control of his total cholesterol and LDL. Has no overt signs of heart failure. Note does report noting a bit more swelling in his lower extremities. Advised on increasing his Lasix dose by 40 mg over the next week to help with lower extremity edema. Advised on low-sodium diet. (2) CKD (chronic kidney disease) stage 4, GFR 15-29 ml/min: Code(s): N18.4 - Chronic kidney disease, stage 4 (severe) Category: Medical Plan: Does follow Nephrology. Kidney function is impaired. Has been trying to stay away from nephrotoxins hand stay well hydrated. Continues with losartan 25 b.i.d.. (3) Diabetes mellitus: Code(s): E11.9 - Type 2 diabetes mellitus without complications Category: Medical Qualifiers: Diabetes mellitus complication detail: with microalbuminuria Diabetes mellitus complication status: with kidney complications Diabetes mellitus ocean transportation intermediary insulin use: with detention use Diabetes mellitus type: type 2 Qualified Code(s): E11.29 - Type 2 diabetes mellitus with other diabetic kidney complication; R80.9 - Proteinuria, unspecified; Z79.4 - remote computer terminal operator (current) use of insulin Plan: Patient's type 2 diabetes not well controlled, today's A1c at 7.8 from 10.0. At last visit we did increase his GLP 1 which may helped his glycemic control. Will continue to increase his GLP 1 for better glycemic control with goal A1c to be below 7.0 (4) Chronic heart failure with preserved ejection fraction (HFpEF): Code(s): I50.32 - Chronic diastolic (congestive) heart failure Category: Medical Plan: As above, patient could followed by [facility]. He does report lately having a bit more swelling in his lower extremities thus advised on increasing his furosemide dose to 80 mg in the a.m. and 40 mg in the early afternoon for the next week. Otherwise no out of the ordinary shortness breath or orthopnea noted. (5) HLD (hyperlipidemia): Code(s): E78.5 - Hyperlipidemia, unspecified Category: Medical Qualifiers: Hyperlipidemia type: mixed hyperlipidemia Qualified Code(s): E78.2 - Mixed hyperlipidemia Plan: Patient's lipid panel has been well controlled with current dose of statin therapy. Goal LDL is to remain optimally below 70. (6) Essential hypertension: Code(s): I10 - Essential (primary) hypertension Category: Medical Plan: As above patient's blood pressure on the low side today . He continues with amlodipine, carvedilol, furosemide, doxazosin.. Will continue to monitor his blood pressure with goal blood pressure to remain below 140/90 (7) Sinusitis: Code(s): J32.9 - Chronic sinusitis, unspecified Category: Medical Qualifiers: Chronicity: acute Recurrence: non-recurrent Sinusitis location: unspecified location Qualified Code(s): J01.90 - Acute sinusitis, unspecified Plan: Patient asking for a new lavage nasal cleansing machine due to his sinuses. Will give him paper script to bring to a medical supply store. (8) Carotid artery bruit: Code(s): R09.89 - Other specified symptoms and signs involving the circulatory and respiratory systems Category: Medical Qualifiers: Laterality: bilateral Qualified Code(s): R09.89 - Other specified symptoms and signs involving the circulatory and respiratory systems Plan: Noted bilateral carotid artery bruits on physical exam ladder on right side. Will send for carotid ultrasound evaluate for any critical stenosis. Orders: Orders Microalbumin, Random (w Creat) Today I10 - Essential (primary) hypertension Prostate Specific Antigen Scr Today I10 - Essential (primary) hypertension, Z12 .5 - Encounter for screening for malignant neoplasm of prostate Lipid Panel Today I25.10 - Atherosclerotic heart disease of [place] coronary artery without angina pectoris NT-proBNP Today I50.32 - Chronic diastolic (congestive) heart failure AMB Hemoglobin A1c Today Z13.9 - Encounter for screening, unspecified Comprehensive [place]. Panel Fast Today E11.29 - Type 2 diabetes mellitus with other diabetic kidney complication, R80.9 - Proteinuria, unspecified, Z79.4 - remote computer terminal operator (current) use of insulin Complete Blood Count no Diff Today E11.29 - Type 2 diabetes mellitus with other diabetic kidney complication, R80.9 - Proteinuria, unspecified, Z79.4 - remote computer terminal operator (current) use of insulin carotid duplex BI Today R09.89 - Other specified symptoms and signs involving the circulatory and respiratory systems Medications: New tirzepatide 12.5 mg (0.5 mL) subcut QWEEK 2 mL 3RF 4 weeks E11.29 - Type 2 diabetes mellitus with other diabetic kidney complication, R80.9 - Proteinuria, unspecified, Z79.4 - detention (current) use of insulin [NAVAGE device] As directed 1 ea 0RF J01.90 - Acute sinusitis, unspecified
== END 2024-05-03 08:31 | disposition home or self-care (01) ==
PROVIDERS: PCP Physician Assistant; Visit Provider Physician Assistant
DX: I12.9 Hypertensive chronic kidney disease with stage 1 through stage 4 chronic kidney disease, or unspecified chronic kidney disease (principal); N18.4 Chronic kidney disease, stage 4 (severe); E11.29 Type 2 diabetes mellitus with other diabetic kidney complication; I25.708 Atherosclerosis of coronary artery bypass graft(s), unspecified, with other forms of angina pectoris; Z79.4 Long term (current) use of insulin; I50.32 Chronic diastolic (congestive) heart failure; R80.9 Proteinuria, unspecified; E78.2 Mixed hyperlipidemia; J01.90 Acute sinusitis, unspecified; R09.89 Other specified symptoms and signs involving the circulatory and respiratory systems

== ENCOUNTER → 2024-05-03 07:16 | Outpatient (BNVA) | payer OTHER, SELFPAY | PROVIDERS: PCP Physician Assistant; Visit Provider Physician Assistant | DX: I25.708 Atherosclerosis of coronary artery bypass graft(s), unspecified, with other forms of angina pectoris (principal); I13.0 Hypertensive heart and chronic kidney disease with heart failure and stage 1 through stage 4 chronic kidney disease, or unspecified chronic kidney disease; I50.32 Chronic diastolic (congestive) heart failure; E11.22 Type 2 diabetes mellitus with diabetic chronic kidney disease; N18.4 Chronic kidney disease, stage 4 (severe); E11.29 Type 2 diabetes mellitus with other diabetic kidney complication; R80.9 Proteinuria, unspecified; E78.2 Mixed hyperlipidemia; J01.90 Acute sinusitis, unspecified; R09.89 Other specified symptoms and signs involving the circulatory and respiratory systems; Z79.4 Long term (current) use of insulin; Z79.899 Other long term (current) drug therapy | CPT/HCPCS: 83036; 96127 ==

== ENCOUNTER 2024-05-09 07:04 | Outpatient (REF) | payer OTHER, SELFPAY ==
--- NOTE | 2024-05-09 08:01 | PFT_ITS ---
Flows: FEV1: 55 % of predicted at 2.07 L FVC: 64 % of predicted at 3.17 L FEV1/FVC: 65 % Bronchodilator response: Present in small to medium airways only Volumes: Total lung capacity: 71 % of predicted at 5.27 L Residual volume: 92 % of predicted at 2.08 L Slow vital capacity: 60 % of predicted at 3.19 L Expiratory reserve volume: 36 % of predicted at 0.51 L Diffusion capacity: Moderately decreased, adjusts to being mildly decreased after correction for alveolar ventilation. Impression: Combined moderate obstructive and restrictive ventilatory defects with bronchodilator response present in small to medium airways only. Decreased expiratory reserve volume suggests extrathoracic restriction likely secondary to abdominal obesity. Decreased diffusion capacity suggests emphysema. MTDD
== END 2024-05-09 07:05 | disposition home or self-care (01) ==
LOC: HO.RESP 07:04
PROVIDERS: PCP Physician Assistant; Visit Provider Physician Assistant
DX: R06.02 Shortness of breath (principal)
CPT/HCPCS: 94010; 94640; 94727; 94729

== ENCOUNTER → 2024-05-09 08:01 | Outpatient (BNV) | payer OTHER, SELFPAY | PROVIDERS: PCP Physician Assistant; Visit Provider Internal Medicine Pulmonary Disease | DX: R06.02 Shortness of breath (principal) | CPT/HCPCS: 94060; 94727; 94729 ==

== ENCOUNTER 2024-05-12 10:22 | Outpatient (AMB) | payer OTHER, SELFPAY ==
--- NOTE | 2024-05-12 10:25 | HO.NEPHOV_ITS ---
Vital Signs 05/12/24 10:27 05/12/24 10:33 Height 5 ft 11 in Weight 288 lb BMI 40.2 BP 154/70 H 120/60 Blood Pressure Location Lt brachial Lt brachial Position Sitting Sitting Pulse 85 Pulse Source Pulse Oximeter Pulse Oximetry (%) 99 Oxygen Delivery Method Room Air Intake Visit Reasons: Pt missed 04/17/24 appt/ Conf B2B Account Executive Required: No Accompanied by: Self / Same As Patient Allergies No Known Allergies [No Known Allergies*] Allergy (Verified 05/12/24 10:26) Medication List - Last Reconciled 05/12/24 by Roney Stout MD acetaminophen 650 mg (2 x 325 mg) PO Q6H PRN albuterol sulfate 90 mcg/actuation 1 inh inhalation QID PRN 30 days amlodipine 10 mg PO DAILY aspirin 81 mg PO DAILY 90 days atorvastatin 80 mg PO DAILY blood sugar diagnostic (FreeStyle Lite Strips) 1 strip miscellaneous TID blood-glucose meter (FreeStyle Lite Meter kit) As directed blood-glucose meter,continuous ([employer] G7 Supervisor [employer]) As directed blood-glucose sensor (Dexcom G7 Sensor device) As directed carvedilol (Coreg) 25 mg PO BID compr.stocking,knee,long,x-lrg As directed doxazosin 4 mg PO DAILY 90 days furosemide 80 mg (2 x 40 mg) PO DAILY hydroxyzine HCl 50 mg (2 x 25 mg) PO BEDTIME 30 days insulin glargine 45 units (0.45 mL) subcut QPM 30 days insulin lispro (Humalog KwikPen (U-100) Insulin) 16 units (0.16 mL) subcut TID 30 days lorazepam (Ativan) 1 mg PO BEDTIME PRN 30 days losartan 25 mg PO BID miscellaneous medical supply (Blood Pressure Cuff) As directed [NAVAGE device As directed] pen needle, diabetic (BD Ultra-Fine Mini Pen Needle) 1 ea subcut QID sennosides (senna) 17.2 mg (2 x 8.6 mg) PO BEDTIME sertraline 50 mg PO DAILY 90 days tirzepatide 12.5 mg (0.5 mL) subcut QWEEK 4 weeks tirzepatide (Mounjaro) 10 mg (0.5 mL) subcut QWEEK 4 weeks HPI Comments Details: 58-year-old man with a history of longstanding diabetes mellitus hypertension with CKD 0 for follow-up. Baseline creatinine is around 2.2-2.4 mg/dL. Denies any specific complaints today Exercising on a bike Lost 2 lbs A1C down frmo 10 to 7.8 PFSH Medical History NSTEMI (non-ST elevated myocardial infarction) Obesity (BMI 30-39.9) Pure hypercholesterolemia Sinusitis Anxiety Diabetes mellitus Chronic heart failure with preserved ejection fraction (HFpEF) HLD (hyperlipidemia) Carotid stenosis Essential hypertension Atherosclerotic cardiovascular disease CKD (chronic kidney disease) stage 3, GFR 30-59 ml/min Hypertension Surgical History S/P triple vessel bypass Status post coronary artery bypass graft (~01/2020) History of cardiac catheterization (~02/09/20) Family History Father No problems noted. Mother Cancer Sister Agoraphobia Hypothyroid Mental health disorder Social History Household Members: Spouse Housing: House Do you presently have visiting nurse or other home services: No Alcohol intake: never Patient Tobacco Use Status: Former Tobacco user Tobacco use type: Cigarette Cigarettes Per Day: 10 Years Smoked: 30 e-Cigarette/Vaping Use: Never Used Second Hand Smoke Exposure: No service: No Current occupational status: retired Cognitive needs: Yes (needs a cane ) Hearing needs: No Vision needs: Yes (has not seen an eye doctor for about ten years) Physical Exam Vital Signs: Last Vital Signs Pulse 85 05/12/24 10:27 BP 154/70 H 05/12/24 10:27 Pulse Ox 99 05/12/24 10:27 Oxygen Delivery Method Room Air 05/12/24 10:27 BMI result Body Mass Index 40.2 Comfortable Neck supple no JVD. Lungs entry equal no rales. Heart S1-S2 heard no gallop or rub. Abdomen soft nontender. Neuro alert awake oriented. No asterixis. Extremities no edema. Results Reviewed Results Reviewed: 2022 RIGHT KIDNEY: 10.2 x 4.9 x 5.3 cm (SAG x AP x TRV). The kidney is normal in size, contour, and echogenicity. Renal cortical thickness is normal. No calculi or focal parenchymal lesions. No hydronephrosis. LEFT KIDNEY: 10.8 x 6.0 x 4.8 cm (SAG x AP x TRV). The kidney is normal in size, contour, and echogenicity. Renal cortical thickness is normal. No renal calculi or hydronephrosis. 1.0 x 0.9 x 1.1 cm exophytic simple lower pole cyst is seen. No imaging follow-up of this finding is recommended. US/US renal BI IMPRESSION: 1. Normal appearance of the right kidney. 2. No significant abnormality of the left kidney. Nephrology Results: Hgb 10.7 g/dl (14.0-18.0) L 04/27/24 WBC 7.2 X10*3/uL (4.8-10.8) 04/27/24 Plt Count 204 X10*3/uL (160-400) 04/27/24 Sodium 137 mmol/L (135-145) 04/27/24 Potassium 4.3 mmol/L (3.3-5.1) 04/27/24 Chloride 107 mmol/L (96-108) 04/27/24 Carbon Dioxide 21 mmol/L (22-29) L 04/27/24 BUN 38 mg/dL (9-16) H 04/27/24 Creatinine 2.38 mg/dL (0.5-1.4) H 04/27/24 Calcium 8.7 mg/dL (8.4-10.2) 04/27/24 Assessment & Plan Assessment & Plan (1) CKD (chronic kidney disease) stage 4, GFR 15-29 ml/min: Code(s): N18.4 - Chronic kidney disease, stage 4 (severe) Category: Medical Plan Chronic disease most likely due to underlying hypertensive diabetic kidney disease. Goal is to slow the progression of disease. Continue with current regimen and maintain blood pressure less than 130/80. Discussed weight loss. Maintain A1c less than 7%. Continue with Losartan He will benefit from he SGLT 2 inhibitor. Mild anemia due to CKD but no indication for Epogen yet. We will continue to screen him for secondary hyperparathyroidism. Orders: Orders Total Protein Urine Random 4 Months N18.4 - Chronic kidney disease, stage 4 (severe) Creatinine Urine 4 Months N18.4 - Chronic kidney disease, stage 4 (severe) Basic Metabolic Panel 4 Months N18.4 - Chronic kidney disease, stage 4 (severe) Coding Level of Care Code Est Pt Level 4 (79150) Diagnoses CKD (chronic kidney disease) stage 4, GFR 15-29 ml/min N18.4
[2024-05-12 10:27] VITALS: BP 154/70; PULSE 85; O2SAT 99; BMI 40.2
[2024-05-12 10:33] VITALS: BP 120/60
== END 2024-05-12 10:36 | disposition home or self-care (01) ==
PROVIDERS: PCP Physician Assistant; Visit Provider Internal Medicine Hypertension Specialist
DX: N18.4 Chronic kidney disease, stage 4 (severe) (principal)
CPT/HCPCS: 99214

== ENCOUNTER → 2024-05-12 10:22 | Outpatient (BNVA) | payer OTHER, SELFPAY | PROVIDERS: PCP Physician Assistant; Visit Provider Internal Medicine Hypertension Specialist ==

== ENCOUNTER → 2024-05-24 10:02 | Outpatient (BNV) | payer OTHER, SELFPAY | PROVIDERS: PCP Physician Assistant; Visit Provider Radiology Diagnostic Radiology | DX: R09.89 Other specified symptoms and signs involving the circulatory and respiratory systems (principal) | CPT/HCPCS: 93880 ==

== ENCOUNTER 2024-05-25 09:38 | Outpatient (AMB) | payer OTHER, SELFPAY ==
--- NOTE | 2024-05-25 09:40 | A.OFFVIS_ITS ---
Intake Visit Reasons: [employer]/PCP ref for carotid stenosis 80-99% Intake Note: New patient presents for carotid stenosis. No complaints. Accompanied by: Self / Same As Patient Allergies No Known Allergies [No Known Allergies*] Allergy (Verified 05/25/24 09:41) HPI HPI [employer]/PCP ref for carotid stenosis 80-99%: Details: Very pleasant 59-year-old gentleman presents for evaluation regarding carotid disease. This was worked up by primary care team due to a carotid bruit. Upon discussion with him he is asymptomatic from this. He denies any lateralizing signs or symptoms speech disturbances or visual losses. Reports he quit smoking about 5 years ago at that time he was smoking about a pack a day. Incidentally around that time was the time he had his open heart surgery. And he has been a diabetic for greater than 20 years. Now presents to us for vascular evaluation. Of note he does have CKD 4 and is being followed by nephrology for this. [facility] Medical History NSTEMI (non-ST elevated myocardial infarction) Obesity (BMI 30-39.9) Pure hypercholesterolemia Sinusitis Anxiety Diabetes mellitus Chronic heart failure with preserved ejection fraction (HFpEF) HLD (hyperlipidemia) Carotid stenosis Essential hypertension Atherosclerotic cardiovascular disease CKD (chronic kidney disease) stage 3, GFR 30-59 ml/min Hypertension Surgical History S/P triple vessel bypass Status post coronary artery bypass graft (~01/2020) History of cardiac catheterization (~02/09/20) Family History Father No problems noted. Mother Cancer Sister Agoraphobia Hypothyroid Mental health disorder Social History Household Members: Spouse Housing: House Do you presently have visiting nurse or other home services: No Alcohol intake: never Patient Tobacco Use Status: Former Tobacco user Tobacco use type: Cigarette Cigarettes Per Day: 10 Years Smoked: 30 e-Cigarette/Vaping Use: Never Used Second Hand Smoke Exposure: No service: No Current occupational status: retired Cognitive needs: Yes (needs a cane ) Hearing needs: No Vision needs: Yes (has not seen an eye doctor for about ten years) Review of Systems Const All systems reviewed & are unremarkable except as noted in HPI and below Reports no additional complaints ENT Reports Normal hearing present Card Denies chest pain, Denies chest pain at rest, Denies chest pain with activity and Denies pedal edema Resp Denies cough GI Denies abdominal pain Musc Denies abnormal gait, Denies muscle cramps and Denies radiating pain into limb Skin/Breast Denies skin ulcer and Denies wounds Neuro Reports Normal hearing present and Denies abnormal gait Psych Reports no additional complaints Physical Exam Const General: cooperative, healthy appearing and comfortable Orientation/consciousness: oriented to person, oriented to place and oriented to time HEENT Head: Yes normal to inspection Neck Neck: Yes normal visual inspection Carotids: no bruits Chest Chest palpation & inspection: normal inspection of the chest Resp Effort & Inspection: normal respiratory effort and able to speak in complete sentences Auscultation: clear to auscultation bilaterally, no crackles, no rales, no rhonchi and no wheezes Cardio Rate: regular rate Rhythm: regular rhythm Heart sounds: S1 normal heart sound present and S2 normal heart sound present Bruits: no carotid bruits Peripheral pulses: Peripheral pulses 2+ throughout GI Inspection: Yes normal to inspection Skin Wounds: no wounds Hair: normal Neuro General: oriented to person, oriented to place and oriented to time Cranial nerves: Yes CN's II-XII intact bilaterally and Yes Normal hearing present Cognition (Neuro): normal cognition Motor exam (neuro): 5/5 motor strength present throughout Extrem Other: venous exam: No significant superficial varicosities or spider telangiectasias, minimal edema General: No clubbing, No cyanosis and No edema Psych Appearance: grossly normal Mental Status: mental status grossly normal Speech and movement: Normal speech and movement present Results Reviewed Results Reviewed: Carotid ultrasound dated 05/24/2024 demonstrates right-sided stenosis 80-99% with a peak systolic of 274. There is also concern of common carotid disease as the patient does have velocities of 303. Left side is 0-49% stenosis. Written report and images were reviewed. Assessment & Plan Assessment & Plan (1) Carotid stenosis, right: Code(s): I65.21 - Occlusion and stenosis of right carotid artery Category: Medical Plan: In short patient has asymptomatic carotid disease but does appear to be high- grade on the right.. We have reviewed signs and symptoms of a stroke. We also discussed risk factor modification inclusive a healthy diet low in cholesterol. In addition we did discuss the importance of diabetes control. The patient will require a CT angiogram of the neck to better elucidate the true degree of stenosis and location of stenosis. Thank you for allowing us to participate in this patient's care. If there are any questions or concerns please do not hesitate to contact us. Orders: Orders CT angio neck 1 Week I65.21 - Occlusion and stenosis of right carotid artery Blood Urea Nitrogen Today I65.21 - Occlusion and stenosis of right carotid artery Creatinine Today I65.21 - Occlusion and stenosis of right carotid artery Coding Level of Care Code New Pt Level 4 (57926) Complex EM visit Add On G2211 Diagnoses Carotid stenosis, right I65.21
--- OUTSIDE RECORDS SUMMARY | 2024-05-25 12:38 | XMS_ITS | Encounter Summary ---
Author Organization [facility] Address [address] [place] [address] Phone Care Team Providers Care Director Of Field Coordination Name Role Phone Ronnie Reynolds Primary Care Provider [phone] Encounter Details Date Type Department Care Team (Late st Contact Info) Description 12/20/2023 Office Communication [facility] [address] [place] [address] London Oenill MD [address] [facility] [address] [place] [address] Social History Tobacco Use Types Packs/Day Years Used Date Smoking Tobacco: Never Smokeless Tobacco: Never Alcohol Use Standard Drinks/Week Comments Never 0 (1 standard drink = 0.6 oz pur e alcohol) Sex and Gender Information Value Date Recorded Sex Assigned at Not on file Legal Sex Male 4:58 PM EST Gender Identity Not on file Sexual Orientation Not on file documented as of this encounter Miscellaneous Notes * Telephone Encounter - London Oneill MD - 12/20/2023 2:08 PM EDT Needs f/u with me in next 3-4 wks documented in this encounter Plan of Treatment Not on file documented as of this encounter Visit Diagnoses Not on filedocumented in this encounter Care Teams Director Of Field Coordination Relationship Specialty Start Date End Date Ronnie Reynolds PA [address], [address] [place] [address] PCP - General Physician Sprinkler Worker 10/15/21 documented as of this encounter
--- OUTSIDE RECORDS SUMMARY | 2024-05-25 12:38 | XMS_ITS | Clinical Summary ---
Author Organization [facility] Address [address] [place] [id number] Care Team Providers Care Small Order Cutter Name Role Phone Ronnie Reynolds Primary Care Provider [phone] Allergies No known active allergies Medications amiodarone (PACERONE) 200 MG tablet Take 1 tablet by mouth 2 (two) times a day Active atorvastatin (LIPITOR) 80 MG tablet Take 1 tablet by mouth 1 (one) time each day Active aspirin (ST ALFRED) 81 MG EC tablet Take 1 tablet by mouth 1 (one) time each day Active clopidogrel (PLAVIX) 75 MG tablet Take 1 tablet by mouth 1 (one) time each day Active fluticasone (FLONASE) 50 MCG/ACT nasal spray Administer 1 spray into each nostril 2 (two) times a day Active insulin glargine (Lantus SoloStar) 100 UNIT/ML injection Inject 32 Units under the skin 1 (one) time each day Active Insulin Lispro, 1 Unit Dial, 100 UNIT/ML solution pen-injector Active metoprolol tartrate (LOPRESSOR) 50 MG tablet Take 1 tablet by mouth 2 (two) times a day Active oxyCODONE (ROXICODONE) 5 MG immediate release tablet Take 1 tablet by mouth every 4 (four) hours Active amLODIPine (NORVASC) 10 MG tablet 1 Active Aspirin Low Dose 81 MG chewable tablet CHEW 1 TABLET BY MOUTH EVERY DAY 1 Active carvedilol (COREG) 12.5 MG tablet Take 12.5 mg by mouth 2 (two) times a day with meals 1 Active Trulicity 0.75 MG/0.5ML solution pen-injector INJECT 0.5 ML SUBCUT EVERY WEEK 1 Active furosemide (LASIX) 40 MG tablet 1 Active gemfibrozil (LOPID) 600 MG tablet Take 600 mg by mouth 1 Active LORazepam (ATIVAN) 1 MG tablet 1 Active pravastatin (PRAVACHOL) 20 MG tablet Take 20 mg by mouth 1 (one) time each day 1 Active losartan (COZAAR) 25 MG tablet TAKE 2 TABLETS BY MOUTH 1 TIME EACH DAY. 60 tablet 11 4 Active Active Problems Problem Noted Date Diagnosed Date Stage 3b chronic kidney disease 01/28/2023 Type 2 diabetes mellitus wit h diabetic chronic kidney disease 01/28/2023 Renal osteodystrophy 01/28/2023 Essential hypertension 09/10/2020 Chronic kidney disease stage 3 09/10/2020 Family History Medical History Relation Comments Dementia Father Cancer Mother Relation Status Comments Father Mother Social History Tobacco Use Types Packs/Day Years Used Date Smoking Tobacco: Never Smokeless Tobacco: Never Alcohol Use Standard Drinks/Week Comments Never 0 (1 standard drink = 0.6 oz pur e alcohol) Sex and Gender Information Value Date Recorded Sex Assigned at Not on file Legal Sex Male 4:58 PM EST Gender Identity Not on file Sexual Orientation Not on file Last Filed Vital Signs Vital Sign Reading Time Taken Comments Blood Pressure 138/65 01/28/2023 3:03 PM EDT Pulse 86 01/28/2023 3:03 PM EDT Temperature - - Respiratory Rate - - Oxygen Saturation 99% 01/28/2023 3:03 PM EDT Inhaled Oxygen Concentration - - Weight 126 kg (278 lb) 01/28/2023 3:03 PM EDT Height 180.3 cm (5' 11 ) 10/22/2022 1:30 PM EDT Body Mass Index 38.77 10/22/2022 1:30 PM EDT Plan of Treatment Health Maintenance Due Date Last Done Comments Pneumococcal Vaccine: Pediat rics (0 to 5 Years) and At-Risk Patients (6 to 64 Years) (1 of 2 - PCV) 1971 Hepatitis B Vaccine (1 of 3 - 19+ 3-dose series) 03/02 Colorectal Cancer Screening: Annual FOBT 2014 Colorectal Cancer Screening: Colonoscopy 2014 Colorectal Cancer Screening: Sigmoidoscopy 2014 Diabetes: Hemoglobin A1C 10/22/2022 Diabetes: Ophthalmology Exam 10/22/2022 Diabetes: Pedal Pulse Checked 10/22/2022 Diabetes: Sensory Foot Exam 10/22/2022 Diabetes: Visual Foot Exam 10/22/2022 Influenza Vaccine (#1) 2023 Insurance COMPREHENSIVE BENEFITS COMPREHENSIVE BENEFITS Care Teams Small Order Cutter Relationship Specialty Start Date End Date Ronnie Reynolds PA [address], [address] [place] [address] PCP - General Physician Mail Deliverer 10/15/21
--- OUTSIDE RECORDS SUMMARY | 2024-05-25 12:38 | XMS_ITS | Encounter Summary ---
Author Organization [facility] Address [address] [facility] [address] [place] [address] Phone Care Team Providers Care Pump Operator Name Role Phone Ronnie Reynolds Primary Care Provider [phone] Reason for Visit * Reason Comments Med Refill Encounter Details Date Type Department Care Team (Late st Contact Info) Description 12/20/2023 Refill [facility] [address] [place] [phone] London Oneill MD [address] [facility] [address] [place] [address] Social History Tobacco Use Types [...] on file documented as of this encounter Plan of Treatment Not on file documented as of this encounter Visit Diagnoses Not on filedocumented in this encounter Care Teams Pump Operator Relationship Specialty Start Date End Date Ronnie Reynolds PA [address] [facility], [address] [place] [address] PCP - General Physician Director Of Operations 10/15/21 documented as of this encounter
== END 2024-05-25 10:00 | disposition home or self-care (01) ==
LOC: HO.HVS 09:38
PROVIDERS: PCP Physician Assistant; Visit Provider Surgery Vascular Surgery
DX: I65.21 Occlusion and stenosis of right carotid artery (principal)
CPT/HCPCS: 99204

== ENCOUNTER → 2024-05-31 13:21 | Outpatient (BNV) | payer OTHER, SELFPAY | PROVIDERS: PCP Physician Assistant; Visit Provider Radiology Diagnostic Radiology | DX: I65.21 Occlusion and stenosis of right carotid artery (principal) | CPT/HCPCS: 70490 ==

== ENCOUNTER 2024-06-09 09:22 | Outpatient (AMB) | payer OTHER, SELFPAY ==
--- NOTE | 2024-06-09 09:33 | MHC.OFFVIS ---
Vital Signs 06/09/24 09:34 Height 5 ft 11 in Weight 294 lb 5.074 oz BMI 41.0 BP 142/62 H Blood Pressure Location Rt brachial Position Sitting Pulse 91 Pulse Source Doppler Pulse Oximetry (%) 98 Oxygen Delivery Method Room Air Intake Visit Reasons: COPD Allergies No Known Allergies [No Known Allergies*] Allergy (Verified 05/25/24 09:41) HPI HPI COPD: Details: 59-year-old gentleman former 30+ pack-year smoker, quit 2019 with underlying history of CAD status post CABG and obesity referred for follow-up on COPD. Patient had recent pulmonary function tests that demonstrated underlying moderate to severe obstructive ventilatory defect. He is currently only using albuterol MDI with suboptimal control of his dyspnea on exertion symptoms. Patient denies prior personal or family history of lung disease. [facility] Medical History NSTEMI (non-ST elevated myocardial infarction) Obesity (BMI 30-39.9) Pure hypercholesterolemia Sinusitis Anxiety Diabetes mellitus Chronic heart failure with preserved ejection fraction (HFpEF) HLD (hyperlipidemia) Carotid stenosis Essential hypertension Atherosclerotic cardiovascular disease CKD (chronic kidney disease) stage 3, GFR 30-59 ml/min Hypertension Surgical History S/P triple vessel bypass Status post coronary artery bypass graft (~01/2020) History of cardiac catheterization (~02/09/20) Family History Father No problems noted. Mother Cancer Sister Agoraphobia Hypothyroid Mental health disorder Social History (Updated 06/09/24 @ 09:42 by Mickie Taylor [facility]) Household Members: Spouse Housing: House Do you presently have visiting nurse or other home services: No Alcohol intake: never Patient Tobacco Use Status: Former Tobacco user Tobacco use type: Cigarette Years Smoked: started 17 years old, 1PPD. quit 2019 e-Cigarette/Vaping Use: Never Used Second Hand Smoke Exposure: No service: No Current occupational status: retired Cognitive needs: Yes (needs a cane ) Hearing needs: No Vision needs: Yes (has not seen an eye doctor for about ten years) Review of Systems Const Reports daytime sleepiness, Denies excessive sweating, Denies fatigue, Denies fever(s), Reports lethargy, Denies malaise, Denies night sweats, Denies snoring and Denies weight loss Eyes Denies blurry vision and Denies itchy eyes ENT Denies nasal congestion, Denies post nasal drip, Denies sinus pain, Denies sinus pressure and Denies other ( Thrush) Card Denies chest pain, Denies pedal edema, Denies dyspnea, Reports dyspnea on exertion, Denies orthopnea and Denies paroxysmal nocturnal dyspnea Resp Denies cough, Denies hemoptysis, Denies excessive phlegm production, Denies dyspnea, Reports dyspnea on exertion, Denies snoring and Denies wheezing GI Denies abdominal pain and Denies heartburn Musc Denies myalgias, Denies arthralgias and Denies joint swelling Skin/Breast Denies rash Neuro Denies memory loss and Denies seizure-like activity Psych Denies abnormal sleep pattern, Denies anxiety and Denies memory loss Endo Denies excessive sweating, Denies fatigue and Denies heat intolerance Benito/Lymph Denies easy bruising Aller/Immun Denies itchy eyes, Denies seasonal rhinorrhea and Denies wheezing Physical Exam Vital Signs: Last Vital Signs Pulse 91 06/09/24 09:34 BP 142/62 H 06/09/24 09:34 Pulse Ox 98 06/09/24 09:34 Oxygen Delivery Method Room Air 06/09/24 09:34 BMI result Body Mass Index 41.0 Const General: no acute distress and alert Nutritional Appearance: obese Orientation/consciousness: Other orientation findings ( oriented) HEENT Head: Yes atraumatic Eyes General: appearance normal, both eyes and all related structures Sclerae: sclerae normal EOM: EOMs intact bilaterally Neck Neck: Yes supple Lymphatic: no lymphadenopathy noted Resp Effort & Inspection: normal respiratory effort and no use of accessory muscles Auscultation: clear to auscultation bilaterally Cardio Rate: regular rate Rhythm: regular rhythm Heart sounds: no gallops, no murmurs and no rubs Skin General skin exam: other ( warm) Extrem General: No clubbing, No cyanosis and No edema Assessment & Plan Assessment & Plan (1) COPD (chronic obstructive pulmonary disease): Code(s): J44.9 - Chronic obstructive pulmonary disease, unspecified Category: Medical Plan: Pulmonary function test reviewed, underlying moderate to severe COPD suboptimally controlled on albuterol. Will add Anoro. (2) VANDANA (obstructive sleep apnea): Code(s): G47.33 - Obstructive sleep apnea (adult) (pediatric) Category: Medical Plan: Unrestful sleep, daytime sleepiness, obesity, and hypertension, [place] Sleepiness Scale score of 16, will obtain home sleep study. Orders: Orders RT home sleep study Today G47.33 - Obstructive sleep apnea (adult) (pediatric) Medications: New umeclidinium-vilanterol 62.5-25 mcg/actuation (Anoro Ellipta) 1 inh inhalation DAILY 1 ea 6RF Coding Level of Care Code New Pt Level 4 (28299) Diagnoses COPD (chronic obstructive pulmonary disease) J44.9 VANDANA (obstructive sleep apnea) G47.33
[2024-06-09 09:34] VITALS: BP 142/62; PULSE 91; O2SAT 98; BMI 41.0
--- OUTSIDE RECORDS SUMMARY | 2024-06-09 09:46 | XMS_ITS | Encounter Summary ---
Author Organization [facility] Address [address] [facility] [address] [place] [address] Phone Care Team Providers Care Body Masker Name Role Phone Ronnie Reynolds Primary Care Provider [phone] Reason for Visit * Reason Comments Med Refill Encounter Details Date Type Department Care Team (Late st Contact Info) Description 12/20/2023 Refill [facility] [address] [facility] [phone] London Oneill MD [address] [facility] [address] [place] [address] Social History Tobacco Use Types [...] on filedocumented in this encounter Care Teams Body Masker Relationship Specialty Start Date End Date Ronnie Reynolds PA [address] [facility], [address] [place] [address] PCP - General Physician Journeyman Tool And Die Maker 10/15/21 documented as of this encounter
--- OUTSIDE RECORDS SUMMARY | 2024-06-09 09:46 | XMS_ITS | Clinical Summary ---
Author Organization [facility] Facility Address [address] [place] [address] Care Team Providers Care Home Child Care Provider Name Role Phone Ronnie Reynolds Primary Care Provider [phone] Allergies No known active allergies Medications amiodarone [...] Insurance COMPREHENSIVE BENEFITS COMPREHENSIVE BENEFITS Care Teams Home Child Care Provider Relationship Specialty Start Date End Date Ronnie Reynolds PA [address], [address] [place] [address] PCP - General Physician Threshing Department Supervisor 10/15/21
--- OUTSIDE RECORDS SUMMARY | 2024-06-09 09:46 | XMS_ITS | Encounter Summary ---
Author Organization [facility] Address [address] [place] [address] Phone Care Team Providers Care Md Ophthalmologist Name Role Phone Ronnie Reynolds Primary Care Provider [phone] Encounter Details Date Type Department Care Team (Late st Contact Info) Description 12/20/2023 Office Communication [facility] [address] [place] [address] London Oneill MD [address] [facility] [address] [place] [address] Social History Tobacco Use Types [...] on filedocumented in this encounter Care Teams Md Ophthalmologist Relationship Specialty Start Date End Date Ronnie Reynolds PA [address], [address] [place] [address] PCP - General Physician Industrial Registered Nurse 10/15/21 documented as of this encounter
== END 2024-06-09 09:52 | disposition home or self-care (01) ==
PROVIDERS: PCP Physician Assistant; Referring Provider Physician Assistant; Visit Provider Internal Medicine Pulmonary Disease
DX: J44.9 Chronic obstructive pulmonary disease, unspecified (principal); G47.33 Obstructive sleep apnea (adult) (pediatric)
CPT/HCPCS: 99214

== ENCOUNTER → 2024-06-09 09:22 | Outpatient (BNVA) | payer OTHER, SELFPAY | PROVIDERS: PCP Physician Assistant; Referring Provider Physician Assistant; Visit Provider Internal Medicine Pulmonary Disease ==

== ENCOUNTER 2024-06-15 09:33 | Outpatient (AMB) | payer OTHER, SELFPAY ==
--- NOTE | 2024-06-15 09:36 | A.OFFVIS_ITS ---
Vital Signs 06/15/24 09:38 06/15/24 09:42 Height 5 ft 11 in Weight 294 lb BMI 41.0 BP 132/66 126/66 Blood Pressure Location Lt brachial Rt brachial Position Sitting Sitting Intake Visit Reasons: Follow up CTA neck 05/31/24 Intake Note: follow up CT Neck 05/31/24, pt states no complaints Audio Technician Required: No Accompanied by: Self / Same As Patient Allergies No Known Allergies [No Known Allergies*] Allergy (Verified 06/15/24 09:40) HPI HPI Follow up CTA neck 05/31/24: Details: Very pleasant 59-year-old gentleman presents for evaluation regarding carotid stenosis. He had been scheduled for CT angiogram but due to his renal function could only be a noncontrast CT. On prior ultrasound he had right-sided stenosis 80-99%. Now presents to follow-up. Of note he remains asymptomatic from this. COUNT INCLUDES [facility] Medical History NSTEMI (non-ST elevated myocardial infarction) Obesity (BMI 30-39.9) Pure hypercholesterolemia Sinusitis Anxiety Diabetes mellitus Chronic heart failure with preserved ejection fraction (HFpEF) HLD (hyperlipidemia) Carotid stenosis Essential hypertension Atherosclerotic cardiovascular disease CKD (chronic kidney disease) stage 3, GFR 30-59 ml/min Hypertension Surgical History S/P triple vessel bypass Status post coronary artery bypass graft (~01/2020) History of cardiac catheterization (~02/09/20) Family History Father No problems noted. Mother Cancer Sister Agoraphobia Hypothyroid Mental health disorder Social History Household Members: Spouse Housing: House Do you presently have visiting nurse or other home services: No Alcohol intake: never Patient Tobacco Use Status: Former Tobacco user Tobacco use type: Cigarette Years Smoked: started 17 years old, 1PPD. quit 2019 e-Cigarette/Vaping Use: Never Used Second Hand Smoke Exposure: No service: No Current occupational status: retired Cognitive needs: Yes (needs a cane ) Hearing needs: No Vision needs: Yes (has not seen an eye doctor for about ten years) Review of Systems Const All systems reviewed & are unremarkable except as noted in HPI and below Reports no additional complaints ENT Reports Normal hearing present Card Denies chest pain, Denies chest pain at rest, Denies chest pain with activity and Denies pedal edema Resp Denies cough GI Denies abdominal pain Musc Denies abnormal gait, Denies muscle cramps and Denies radiating pain into limb Skin/Breast Denies skin ulcer and Denies wounds Neuro Reports Normal hearing present and Denies abnormal gait Psych Reports no additional complaints Physical Exam Vital Signs: Last Vital Signs BP 126/66 06/15/24 09:42 BMI result Body Mass Index 41.0 Const General: cooperative, healthy appearing and comfortable Orientation/consciousness: oriented to person, oriented to place and oriented to time HEENT Head: Yes normal to inspection Neck Neck: Yes normal visual inspection Carotids: no bruits Chest Chest palpation & inspection: normal inspection of the chest Resp Effort & Inspection: normal respiratory effort and able to speak in complete sentences Auscultation: clear to auscultation bilaterally, no crackles, no rales, no rhonchi and no wheezes Cardio Rate: regular rate Rhythm: regular rhythm Heart sounds: S1 normal heart sound present and S2 normal heart sound present Bruits: no carotid bruits Peripheral pulses: Peripheral pulses 2+ throughout GI Inspection: Yes normal to inspection Skin Wounds: no wounds Hair: normal Neuro General: oriented to person, oriented to place and oriented to time Cranial nerves: Yes CN's II-XII intact bilaterally and Yes Normal hearing present Cognition (Neuro): normal cognition Motor exam (neuro): 5/5 motor strength present throughout Extrem Other: venous exam: No significant superficial varicosities or spider telangiectasias, minimal edema General: No clubbing, No cyanosis and No edema Psych Appearance: grossly normal Mental Status: mental status grossly normal Speech and movement: Normal speech and movement present Results Reviewed Results Reviewed: Ultrasound from 05/24/2024 demonstrates right-sided stenosis of 80-99%. CT scan demonstrates no anatomic abnormalities. Unfortunately noncontrast study. Assessment & Plan Assessment & Plan (1) Carotid stenosis, right: Code(s): I65.21 - Occlusion and stenosis of right carotid artery Category: Medical Plan: In short patient has high-grade right carotid stenosis. I have discussed the pathophysiology of carotid disease with the patient. I have also discussed risk factor modification. I have reviewed the patient's arterial testing which reveals high-grade right carotid stenosis. the patient would benefit from a carotid angiogram with possible angioplasty, stent, and/or atherectomy. This has been discussed in detail with the patient along with risks, benefits, and complications. This includes but is not limited to bleeding, infection, heart attack, need for emergent surgical repair, limb ischemia, blood vessel damage, bleeding, puncture, kidney injury, bruising, allergic reaction, stroke and skin reaction. The patient demonstrates a clear understanding. We will schedule for the next appropriate time. Thank you for allowing us to assist in this patient's care. Coding Level of Care Code Est Pt Level 4 (20616) Complex EM visit Add On G2211 Diagnoses Carotid stenosis, right I65.21
[2024-06-15 09:38] VITALS: BP 132/66; BMI 41.0
[2024-06-15 09:42] VITALS: BP 126/66
--- OUTSIDE RECORDS SUMMARY | 2024-06-15 10:21 | XMS_ITS | Encounter Summary ---
Author Organization [facility] Address [address] [facility] [address] [place] [address] Phone Care Team Providers Care Plant Protection Superintendent Name Role Phone Ronnie Reynolds Primary Care Provider [phone] Reason for Visit * Reason Comments Med Refill Encounter Details Date Type Department Care Team (Late st Contact Info) Description 12/20/2023 Refill [facility] [address] [place] [phone] London Oneill MD [address] [facility] [address] [place] [address] Social History Tobacco Use Types [...] on filedocumented in this encounter Care Teams Plant Protection Superintendent Relationship Specialty Start Date End Date Ronnie Reynolds PA [address] [facility], [address] [place] [address] PCP - General Physician Clinical Data Associate 10/15/21 documented as of this encounter
--- OUTSIDE RECORDS SUMMARY | 2024-06-15 10:21 | XMS_ITS | Clinical Summary ---
Author Organization [facility] Facility Address [address] [place] [address] Care Team Providers Care Bacteriology Professor Name Role Phone Ronnie Reynolds Primary Care Provider [phone] Allergies No known active allergies Medications amiodarone [...] Insurance COMPREHENSIVE BENEFITS COMPREHENSIVE BENEFITS Care Teams Bacteriology Professor Relationship Specialty Start Date End Date Ronnie Reynolds PA [address], [address] [place] [address] PCP - General Physician Toggler 10/15/21
--- OUTSIDE RECORDS SUMMARY | 2024-06-15 10:21 | XMS_ITS | Encounter Summary ---
Author Organization [facility] Address [address] [place] [address] Phone Care Team Providers Care Sanitarian Aide Name Role Phone Ronnie Reynolds Primary Care Provider [phone] Encounter Details Date Type Department Care Team (Late st Contact Info) Description 12/20/2023 Office Communication [facility] [address] [place] [address] London Oneill MD [address] [facility] [address] [place] [address] Social History Tobacco Use Types [...] on filedocumented in this encounter Care Teams Sanitarian Aide Relationship Specialty Start Date End Date Ronnie Reynolds PA [address] [facility], [address] [place] [address] PCP - General Physician Stna 10/15/21 documented as of this encounter
== END 2024-06-15 09:58 | disposition home or self-care (01) ==
PROVIDERS: PCP Physician Assistant; Visit Provider Surgery Vascular Surgery
DX: I65.21 Occlusion and stenosis of right carotid artery (principal)
CPT/HCPCS: 99214

== ENCOUNTER 2024-06-19 08:18 | Day surgery (SDC) | payer OTHER, SELFPAY ==
--- OUTSIDE RECORDS SUMMARY | 2024-06-15 11:55 | XMS_ITS | Encounter Summary ---
Author Organization [facility] Address [address] [place] [address] Phone Care Team Providers Care Nurse Wound Care Name Role Phone Ronnie Reynolds Primary Care Provider [phone] Encounter Details Date Type Department Care Team (Late st Contact Info) Description 12/20/2023 Office Communication [facility] [address] [place] [address] London Oneill MD [address] [facility] [address] [place] [address] Social History Tobacco Use Types [...] on filedocumented in this encounter Care Teams Nurse Wound Care Relationship Specialty Start Date End Date Ronnie Reynolds PA [address] [address], [address] [place] [address] PCP - General Physician Meter Setter 10/15/21 documented as of this encounter
--- OUTSIDE RECORDS SUMMARY | 2024-06-15 11:55 | XMS_ITS | Encounter Summary ---
Author Organization [facility] Address [address] [facility] [address] [place] [address] Phone Care Team Providers Care Teacher Private Name Role Phone Ronnie Reynolds Primary Care Provider [phone] Reason for Visit * Reason Comments Med Refill Encounter Details Date Type Department Care Team (Late st Contact Info) Description 12/20/2023 Refill [facility] [address] [facility] [place] [phone] London Oneill MD [address] [facility] [address] [place] [address] Social History Tobacco Use Types [...] on filedocumented in this encounter Care Teams Teacher Private Relationship Specialty Start Date End Date Ronnie Reynolds PA [address] [facility], [address] [place] [address] PCP - General Physician Private Investigator 10/15/21 documented as of this encounter
--- OUTSIDE RECORDS SUMMARY | 2024-06-15 11:55 | XMS_ITS | Clinical Summary ---
Author Organization [facility] Facility Address [address] [place] [address] Care Team Providers Care Nurse First Assist Name Role Phone Ronnie Reynolds Primary Care Provider [phone] Allergies No known active allergies Medications amiodarone [...] Insurance COMPREHENSIVE BENEFITS COMPREHENSIVE BENEFITS Care Teams Nurse First Assist Relationship Specialty Start Date End Date Ronnie Reynolds PA [address], [address] [place] [address] PCP - General Physician Balloon Dipper 10/15/21
[2024-06-19] VITALS (21 sets, daily range): BP systolic 166–201; BP diastolic 54–91; PULSE 79–91; RESP 11–20; TEMP -13.6–36.6; O2SAT 97–100; BMI 40.0
[2024-06-19 08:53] LABS: MANUAL DIFF FLAG NO
[2024-06-19 08:55] LABS: Basophils Absolute Auto 0.1 X10*3/uL (0.0-0.2); Basophils Percent Auto 0.8 % (0-2); Eosinophils Absolute Auto 0.2 X10*3/uL (0.0-0.4); Eosinophils Percent Auto 2.4 % (0-4); Hematocrit 33.9 % (42.0-52.0); Hemoglobin 10.7 g/dl (14.0-18.0); Imm Gran Abs Auto 0.05 X10*3/uL (0.00-0.03); Imm Gran Pct Auto 0.5 % (0.0-0.4); Lymphocytes Absolute Auto 2.1 X10*3/uL (1.2-4.9); Lymphocytes Percent Auto 21.7 % (20-40); Mean Corpuscular HGB Conc 31.6 g/dl (31.0-36.0); Mean Corpuscular Volume 85.6 fL (80.0-98.0); Mean Platelet Volume 11.6 fL (9.4-12.4); Monocytes Absolute Auto 0.7 X10*3/uL (0.1-1.2); Monocytes Percent Auto 7.4 % (2-11); Neutrophils Absolute Auto 6.4 x10*3/uL (2.0-8.3); Neutrophils Percent Auto 67.2 % (45-73); Platelet Count 249 X10*3/uL (160-400); Red Blood Count 3.96 X10*6/uL (4.60-5.80); Red Cell Distribution Width 13.1 % (11.0-16.0); White Blood Count 9.6 X10*3/uL (4.8-10.8)
--- NOTE | 2024-06-19 09:10 | PC.NURSE ---
Patient in preop. Monitor showing possible first degree AV block/BBB. This not noted on last EKG from 08/2023. Dr. Quinn aware. New EKG obtained, first degree AV block noted. Dr. Quinn aware. May proceed with surgery at this time.
[2024-06-19 09:11] LABS: Blood Urea Nitrogen 34 mg/dL (9-16); Creatinine Clr Calc Pharmacy 45.5; Estimated Glomerular Filt Rate 28
--- NOTE | 2024-06-19 09:19 | ECG_ITS ---
Test Reason : pre op Blood Pressure : */* mmHG Vent. Rate : 83 BPM Atrial Rate : 83 BPM P-R Int : 224 ms QRS Dur : 104 ms QT Int : 384 ms P-R-T Axes : 73 -27 130 degrees QTcB Int : 451 ms Sinus rhythm with 1st degree A-V block Left ventricular hypertrophy with repolarization abnormality ( R in aVL , [place] product ) Abnormal ECG When compared with ECG of 25-Aug-2020 22:08, Premature ventricular complexes are no longer Present [place] interval has increased Referred By: Maicol Quinn Electronically Signed By: FLOR MITCHELL
[2024-06-19 09:46] LABS: Glucose, Whole Blood 226 mg/dL (60-115)
[2024-06-19] MEDS: 0.9 % Sodium Chloride 1,000 ML 100 ML IVCONT (10:42)
[2024-06-19] MEDS: Midazolam HCl 2 MG/2 ML VIAL 0.5 MG IVPUSH (11:15)
[2024-06-19] MEDS: fentaNYL citrate/PF 100 MCG/2 ML VIAL 25 MCG IVPUSH (11:15)
[2024-06-19] MEDS: Heparin Sodium,Porcine 10,000 UNIT/10 ML VIAL 3000 UNIT IVPUSH (11:29)
--- NOTE | 2024-06-19 13:27 | P.OP_ITS ---
Operative Note Operative Note Date of Service: 06/19/24 Narrative: Angiogram report from [facility] Preoperative diagnosis: Carotid stenosis Postoperative diagnosis: Same Procedure: 1. Ultrasound-guided right common femoral access 2. Aortic arch angiogram 3. Selective right carotid angiogram Surgeon:Maicol Quinn M.D., FACS, RPVI Plant Operations Engineer:None Anesthesia: Local with moderate conscious sedation. Total intraservice moderate sedation time was 47 minutes. I monitored the patient's level of consciousness and physiologic status continuously throughout the procedure. Specimens:none Drains:none Estimated blood loss: Less than 10 ml Implant: None Indications: 59-year-old gentleman who was originally seen back in April and on May 24 had undergone an ultrasound which demonstrated high-grade carotid stenosis. We attempted to get a CT angiogram but due to his renal function we were unable to do so. He now presents for diagnostic angiogram. The patient has signed the informed consent after reviewing risks, complications, benefits, and alternatives previously discussed with the patient. The patient was given the opportunity to ask any additional questions or voice any concerns. All questions were answered to the patient's satisfaction. Procedure in detail: Patient was brought to the angiography suite prior to which a time-out was called for patient identification and site verification. Bilateral groins were prepped and draped in the standard surgical fashion. Under ultrasound guidance right common femoral was punctured with micro puncture needle and wire. Subsequently a precision 5 Georgian sheath was then placed. Bentson wire was advanced to the level of the aorta. Five Georgian flush catheter was parked at the level of the aorta and a generalized aortogram was then undertaken. 100 cm flush catheter was brought up through the aortic arch and aortic arch angiogram was then undertaken. We then administered 3000 units of systemic heparin. After 5 minutes of circulation time we used a Navicross catheter and we selectively advanced into the brachiocephalic trunk. We used a Glidewire advantage and went up into the common carotid. We followed this with a Navicross catheter in parked it into the right common carotid. Multiple orthogonal views were undertaken. No significant stenosis was noted. At this point catheter wire were removed. Through the sheath we imaged the right femoral puncture site. We then deployed a CELT 5 Georgian closure device. Patient tolerated the procedure well returned to recovery with stable vitals. Interpretation of films: 1. Ultrasound demonstrates appropriate femoral access site. Vessel was patent with minimal stenosis. Needle entry was visualized. Image of ultrasound was saved. 2. Aortogram demonstrates appropriate caliber aorta. Minimal disease. Appropriate take-off of the renals. 3. Aortic arch demonstrated no significant disease and appeared to be a type 1 arch. 4. Brachiocephalic trunk and subclavian on the right appeared to be within normal limits 5. Right carotid no significant disease appreciated. Very minimal stenosis at the carotid bifurcation. No significant caliber change. Conclusion: 1. Successful diagnostic carotid angiogram. No surgery required. 2. Anticoagulation status: No change This note is constructed using voice recognition software. While every effort has been made to ensure accuracy, tool engine lathe set up operator errors may have been included. Thank you for allowing me to participate in the care of your patient. Yours sincerely, Maicol Quinn MD, FACS, R.P.V.I.
[2024-06-19] MEDS: Acetaminophen 325 MG TABLET 975 MG PO (13:32)
== END 2024-06-19 14:34 | disposition home or self-care (01) ==
PROVIDERS: PCP Physician Assistant; Visit Provider Surgery Vascular Surgery
DX: I73.9 Peripheral vascular disease, unspecified (principal)
CPT/HCPCS: 36222; 36245; 36415; 76937; 82565; 82947; 84520; 85025; 93005; 99152; 99153; C1769; C1887; C1894; J1644; J2250; J2310; J3010; Q9967

== ENCOUNTER → 2024-06-19 08:18 | Outpatient (BNV) | payer OTHER, SELFPAY | PROVIDERS: PCP Physician Assistant; Visit Provider Surgery Vascular Surgery | DX: I65.21 Occlusion and stenosis of right carotid artery (principal) | CPT/HCPCS: 36222; 75625; 76937; 99152 ==

== ENCOUNTER → 2024-06-19 09:19 | Outpatient (BNV) | payer OTHER, SELFPAY | PROVIDERS: PCP Physician Assistant; Visit Provider Internal Medicine | DX: I44.0 Atrioventricular block, first degree (principal); I51.7 Cardiomegaly | CPT/HCPCS: 93010 ==

== ENCOUNTER 2024-07-04 09:19 | Outpatient (AMB) | payer OTHER, SELFPAY ==
--- NOTE | 2024-07-04 09:24 | MHC.OFFVIS ---
Intake Visit Reasons: 2w follow up s/p Carotid Angiogram 06/19/24 Intake Note: Patient presents for follow up carotid angiogram. No complaints. Accompanied by: Self / Same As Patient Allergies No Known Allergies [No Known Allergies*] Allergy (Verified 07/04/24 09:26) HPI HPI 2w follow up s/p Carotid Angiogram 06/19/24: Details: Hector is presenting today as a 2 week follow up status post carotid angiogram on 06/19/2024. He continues to be asymptomatic and has no new concerns today. He denies any bleeding or discharge from the right femoral area. [facility] Medical History NSTEMI (non-ST elevated myocardial infarction) Obesity (BMI 30-39.9) Pure hypercholesterolemia Sinusitis Anxiety Diabetes mellitus Chronic heart failure with preserved ejection fraction (HFpEF) HLD (hyperlipidemia) Carotid stenosis Essential hypertension Atherosclerotic cardiovascular disease CKD (chronic kidney disease) stage 3, GFR 30-59 ml/min Hypertension Surgical History S/P triple vessel bypass Status post coronary artery bypass graft (~01/2020) History of cardiac catheterization (~02/09/20) Family History Father No problems noted. Mother Cancer Sister Agoraphobia Hypothyroid Mental health disorder Social History Household Members: Spouse Housing: House Do you presently have visiting nurse or other home services: No Alcohol intake: never Patient Tobacco Use Status: Former Tobacco user Tobacco use type: Cigarette Years Smoked: started 17 years old, 1PPD. quit 2019 e-Cigarette/Vaping Use: Never Used Second Hand Smoke Exposure: No service: No Current occupational status: retired Cognitive needs: Yes (needs a cane ) Hearing needs: No Vision needs: Yes (has not seen an eye doctor for about ten years) Review of Systems Const Reports as per HPI and Denies weakness ENT Reports Normal hearing present and Denies dizziness Card Reports as per HPI, Denies chest pain, Denies chest pain at rest, Denies chest pain with activity, Denies dyspnea and Denies dyspnea on exertion Resp Reports as per HPI, Denies cough, Denies dyspnea and Denies dyspnea on exertion GI Reports as per HPI, Denies abdominal pain, Denies nausea and Denies vomiting Musc Denies numbness Skin/Breast Reports as per HPI, Denies erythema and Denies wounds Neuro Reports Normal hearing present, Denies dizziness, Denies numbness, Denies Sensory deficit (Neuro) and Denies weakness Psych Reports no additional complaints Endo Reports no additional complaints Physical Exam Const General: healthy appearing and no acute distress Orientation/consciousness: patient oriented x3 HEENT Head: Yes normal to inspection Ears: hearing grossly normal bilaterally Mouth: Normal oral and palatal mucosa present Resp Effort & Inspection: normal respiratory effort and able to speak in complete sentences Auscultation: clear to auscultation bilaterally Cardio Jugular venous distension: no JVD Rate: regular rate Rhythm: regular rhythm Heart sounds: S1 normal heart sound present and S2 normal heart sound present Bruits: no abdominal aortic bruits, no carotid bruits, no femoral bruits and no renal bruits Peripheral pulses: Peripheral pulses 2+ throughout GI Inspection: Yes normal to inspection Palpation (GI): No Abdominal aortic bruit present Skin General skin exam: no rashes or lesions noted Wounds: no wounds Hair: normal Neuro General: patient oriented x3 Cranial nerves: Yes Normal hearing present Cognition (Neuro): normal cognition Gait exam (Neuro): Normal gait present Motor exam (neuro): 5/5 motor strength present throughout Sensory Exam: No Sensory deficit (Neuro) Extrem General: Yes normal to inspection, Yes full ROM, Yes capillary refill normal and Yes normal gait Assessment & Plan Assessment & Plan (1) Carotid stenosis, right: Code(s): I65.21 - Occlusion and stenosis of right carotid artery Category: Medical Plan: Hector is presenting today as a 2 week follow up status post carotid angiogram, performed on 06/19/2024. He continues to remain asymptomatic. We discussed the results from the angiogram, which determine that he did not need any surgery. There was only minimal disease found; there was no significant disease appreciated in the right carotid artery. There is also very minimal stenosis at the carotid bifurcation. We will follow up with the patient in 6 months with the carotid surveillance ultrasound. We discussed the signs and symptoms of a stroke or/and TIA, and 2 get to the ER immediately if either if he experiences any symptoms. We will follow up with him in 6 months after the ultrasound. I discussed with the patient to continue with a healthy diet and physical activity. We discussed if he has any concerns to reach back out to us. Thank you for allowing us participate in the patient's care. If there are any questions or concerns, do not hesitate to reach out to us. Please note a longitudinal relationship has been created with the patient and we have been following and surveillance this chronic condition. Orders: Orders US carotid duplex BI 6 Months I65.21 - Occlusion and stenosis of right carotid artery Coding Level of Care Code Est Pt Level 4 (35308) Complex EM visit Add On G2211 Diagnoses Carotid stenosis, right I65.21 Comment
--- OUTSIDE RECORDS SUMMARY | 2024-07-04 10:25 | XMS_ITS | Clinical Summary ---
Author Organization [facility] Facility Address [address] [place] [address] Care Team Providers Care Airframe And Powerplant Mechanic Name Role Phone Ronnie Reynolds Primary Care Provider [phone] Allergies No known active allergies Medications amiodarone [...] Insurance COMPREHENSIVE BENEFITS COMPREHENSIVE BENEFITS Care Teams Airframe And Powerplant Mechanic Relationship Specialty Start Date End Date Ronnie Reynolds PA [address], [address] [place] [address] PCP - General Physician Structures Mechanic 10/15/21
--- OUTSIDE RECORDS SUMMARY | 2024-07-04 10:25 | XMS_ITS | Encounter Summary ---
Author Organization [facility] Address [address] [facility] 200 [place] [address] Phone Care Team Providers Care Middleware Administrator Name Role Phone Ronnie Reynolds Primary Care Provider [phone] Reason for Visit * Reason Comments Med Refill Encounter Details Date Type Department Care Team (Late st Contact Info) Description 12/20/2023 Refill [facility] [address] [facility] [place] [phone] London Oneill MD [address] [facility] [address] [place] [address] Social History Tobacco Use Types [...] on filedocumented in this encounter Care Teams Middleware Administrator Relationship Specialty Start Date End Date Ronnie Reynolds PA 2 [facility], [address] [place] [address] PCP - General Physician Rotor Assembler 10/15/21 documented as of this encounter
--- OUTSIDE RECORDS SUMMARY | 2024-07-04 10:25 | XMS_ITS | Encounter Summary ---
Author Organization [facility] Address [address] [place] [address] Phone Care Team Providers Care Account Specialist Name Role Phone Ronnie Reynolds Primary Care Provider [phone] Encounter Details Date Type Department Care Team (Late st Contact Info) Description 12/20/2023 Office Communication [facility] [address] [place] [address] London Oneill MD [address] [facility] [address] [place] [address] Social History Tobacco Use Types [...] on filedocumented in this encounter Care Teams Account Specialist Relationship Specialty Start Date End Date Ronnie Reynolds PA [address], [address] [place] [address] PCP - General Physician Animal Control Supervisor 10/15/21 documented as of this encounter
== END 2024-07-04 09:35 | disposition home or self-care (01) ==
LOC: HO.HVS 09:20
PROVIDERS: PCP Physician Assistant; Visit Provider Physician Assistant Surgical
DX: I65.21 Occlusion and stenosis of right carotid artery (principal)
CPT/HCPCS: 99214

== ENCOUNTER 2024-07-31 06:59 | Outpatient (REF) | payer OTHER, SELFPAY ==
--- OUTSIDE RECORDS SUMMARY | 2024-07-31 07:02 | XMS_ITS | Clinical Summary ---
Author Organization [facility] Facility Address [address] [place] [address] Care Team Providers Care Rn Camp Name Role Phone Ronnie Reynolds Primary Care Provider [phone] Allergies No known active allergies Medications amiodarone [...] Diabetes: Visual Foot Exam 10/22/2022 Influenza Vaccine (Season Ended) 2024 Insurance COMPREHENSIVE BENEFITS COMPREHENSIVE BENEFITS Care Teams Rn Camp Relationship Specialty Start Date End Date Ronnie Reynolds PA [address], [address] [place] [address] PCP - General Physician Assembler And Tester Electronics 10/15/21
--- OUTSIDE RECORDS SUMMARY | 2024-07-31 07:02 | XMS_ITS | Encounter Summary ---
Author Organization [facility] Address [address] [facility] [address] [place] [address] Phone Care Team Providers Care Supervisor Ditching Name Role Phone Ronnie Reynolds Primary Care Provider [phone] Reason for Visit * Reason Comments Med Refill Encounter Details Date Type Department Care Team (Late st Contact Info) Description 12/20/2023 Refill [facility] [address] [facility] [place] [id number] London Oneill MD [address] [facility] [address] [place] [address] Social History Tobacco Use Types [...] on filedocumented in this encounter Care Teams Supervisor Ditching Relationship Specialty Start Date End Date Ronnie Reynolds PA [address] [facility], [address] [place] [address] PCP - General Physician Small Products Assembler 10/15/21 documented as of this encounter
[2024-07-31 08:04] LABS: Hematocrit 35.6 % (42.0-52.0); Hemoglobin 11.3 g/dl (14.0-18.0); Mean Corpuscular HGB Conc 31.7 g/dl (31.0-36.0); Platelet Count 209 X10*3/uL (160-400); Red Blood Count 4.19 X10*6/uL (4.60-5.80); Red Cell Distribution Width 13.7 % (11.0-16.0); White Blood Count 8.5 X10*3/uL (4.8-10.8)
[2024-07-31 08:45] LABS: Alanine Aminotransferase 34 U/L (0-40); Albumin Level 3.9 g/dL (3.5-5.0); Alkaline Phosphatase 160 U/L (39-117); Anion Gap 12 (12-20); Aspartate Amino Transferase 27 U/L (5-37); Bilirubin Total 0.4 mg/dL (0.0-1.0); Blood Urea Nitrogen 67 mg/dL (9-16); Calcium 8.6 mg/dL (8.4-10.2); Carbon Dioxide 19 mmol/L (22-29); Chloride 109 mmol/L (96-108); Cholesterol 107 mg/dL (<200); Estimated Glomerular Filt Rate 27; Glucose Fasting 284 mg/dL (60-99); HDL Cholesterol 32 mg/dL (>40); LDL Cholesterol Calculated 35 mg/dL (<100); Sodium 135 mmol/L (135-145); Total Protein 7.2 g/dL (6.5-8.0); Triglycerides 203 mg/dL (<150)
[2024-07-31 08:51] LABS: Creatinine Urine 142.76 mg/dL; Microalbum/Creatinine Ratio Ur 149.9 ug/mg cr (<30)
[2024-07-31 09:02] LABS: Prostate Specific Antigen Scr 0.82 ng/mL (<0.05-4.0)
[2024-08-01 07:53] LABS: NT-proBNP 291 pg/mL (<125)
== END 2024-07-31 07:00 | disposition home or self-care (01) ==
LOC: HO.LAB 06:59
PROVIDERS: PCP Physician Assistant; Visit Provider Physician Assistant
DX: E11.29 Type 2 diabetes mellitus with other diabetic kidney complication (principal); I10 Essential (primary) hypertension; R80.9 Proteinuria, unspecified; Z79.4 Long term (current) use of insulin; Z12.5 Encounter for screening for malignant neoplasm of prostate; I25.10 Atherosclerotic heart disease of native coronary artery without angina pectoris; I50.32 Chronic diastolic (congestive) heart failure
CPT/HCPCS: 36415; 80053; 80061; 82043; 82570; 83880; 84153; 85027

== ENCOUNTER 2024-08-01 08:37 | Outpatient (AMB) | payer OTHER, SELFPAY ==
--- NOTE | 2024-08-01 08:45 | A.OFFPC_ITS ---
Vital Signs 08/01/24 08:46 Height 5 ft 11 in Weight 288 lb BMI 40.2 BP 110/60 Blood Pressure Location Lt brachial Position Sitting Pulse 86 Pulse Source Pulse Oximeter Temp 97.1 F Temp Source Temporal Artery Scan Pulse Oximetry (%) 98 Oxygen Delivery Method Room Air Intake Visit Reasons: f/u DMII Intake Note: Patient is here to follow up on DM. Director Of Research And Development Required: No Winder Tender: Not Required per policy Accompanied by: Self / Same As Patient Allergies No Known Allergies [No Known Allergies*] Allergy (Verified 08/01/24 09:08) Medication List - Last Reconciled 08/01/24 by Ronnie Reynolds PA-C acetaminophen 650 mg (2 x 325 mg) PO Q6H PRN albuterol sulfate 90 mcg/actuation 1 inh inhalation QID PRN 30 days amlodipine 10 mg PO DAILY aspirin 81 mg PO DAILY 90 days atorvastatin 80 mg PO DAILY blood sugar diagnostic (FreeStyle Lite Strips) 1 strip miscellaneous TID blood-glucose meter (FreeStyle Lite Meter kit) As directed blood-glucose sensor (Dexcom G7 Sensor device) As directed blood-glucose,vp integrity,cont (Dexcom G7 Leather Parts Matcher) As directed carvedilol (Coreg) 25 mg PO BID compr.stocking,knee,long,x-lrg As directed doxazosin 4 mg PO DAILY 90 days furosemide 80 mg (2 x 40 mg) PO DAILY insulin glargine 45 units (0.45 mL) subcut QPM 30 days insulin lispro (Humalog KwikPen (U-100) Insulin) 16 units (0.16 mL) subcut TID 30 days lorazepam (Ativan) 1 mg PO BEDTIME PRN 30 days losartan 25 mg PO BID miscellaneous medical supply (Blood Pressure Cuff) As directed [NAVAGE device As directed] pen needle, diabetic (BD Ultra-Fine Mini Pen Needle) 1 ea subcut QID sennosides (senna) 17.2 mg (2 x 8.6 mg) PO BEDTIME tirzepatide 12.5 mg (0.5 mL) subcut QWEEK 4 weeks umeclidinium-vilanterol 62.5-25 mcg/actuation (Anoro Ellipta) 1 inh inhalation DAILY Tobacco use date assessed: 08/01/24 Dental Screening Dental Screen Date: 05/03/24 HPI f/u DMII HPI Details Patient is a 59 year male here today for a follow-up visit.? Patient has a past medical history significant for CKD stage 4, type 2 diabetes, obesity, congestive heart failure coronary artery disease, hyperlipidemia. Concern-->? . 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 .? He continues on Humalog? and Basaglar.? He reports he has recently started to be more physically active and working out.. Today's A1c at 8.9 from 7.8. Considered starting for farxiga or Jardiance has a contraindication with his CKD stage 4. PLAN: Will increase his monjauro dose to 15 mg weekly for better glycemic control. Also increase his long-acting insulin to 48 units daily .. Hypertension:? Reports blood pressures at home have been 130-145 systolic.? Today in office blood pressure is stable. He denies any chest discomfort for, palpitations or dizziness.? Does report shortness of breath on exertion ever since his hospital admission for open her surgery. .. Coronary artery disease:? Continues to follow [facility], gets echocardiogram annually. Has upcoming echocardiogram He is status post open heart surgery with coronary artery bypass, is followed by Cardiology. He does report having some shortness of breath and chest discomfort on exertion. .. Class 3 obesity: Patient's weight fairly stable. He reports being more physically active and working out a few days a week.. .. CKD-4-? most recent GFR at 24. Has upcoming appointment with his pest controller assistant. Creatinine has been stable. Continues to have a moderate microalbuminuria likely secondary to his multiple comorbidities Will continue to avoid nephrotoxins [facility] Medical History (Updated 08/01/24 @ 09:27 by Ronnie Reynolds PA-C) NSTEMI (non-ST elevated myocardial infarction) Obesity (BMI 30-39.9) Pure hypercholesterolemia Sinusitis Anxiety Diabetes mellitus Chronic heart failure with preserved ejection fraction (HFpEF) HLD (hyperlipidemia) Carotid stenosis Essential hypertension Atherosclerotic cardiovascular disease Hypertension Surgical History S/P triple vessel bypass Status post coronary artery bypass graft (~01/2020) History of cardiac catheterization (~02/09/20) Family History Father No problems noted. Mother Cancer Sister Agoraphobia Hypothyroid Mental health disorder Social History Household Members: Spouse Housing: House Do you presently have visiting nurse or other home services: No Alcohol intake: never Patient Tobacco Use Status: Former Tobacco user Tobacco use type: Cigarette Years Smoked: started 17 years old, 1PPD. quit 2020 e-Cigarette/Vaping Use: Never Used Second Hand Smoke Exposure: Yes service: No Current occupational status: retired Cognitive needs: Yes (needs a cane ) Hearing needs: No Vision needs: Yes (has not seen an eye doctor for about ten years) Questionnaire Thrive Questionnaire Date Thrive assessed: 05/03/24 PÉREZ-7 AMB Questionnaire PÉREZ-7 Date PÉREZ - 7 assessed: 05/03/24 Source: Developed by Drs. Kevin Sanders, Nathalie Rowe, Tyrone Rivera and colleagues, with an educational hillary from [employer]. Review of Systems Const Denies headache(s) Eyes Denies loss of vision ENT Denies vertigo, Denies dizziness, Denies headache(s) and Denies sore throat Card Denies chest pain, Denies leg edema and Denies lightheadedness Resp Denies cough, Denies hemoptysis and Denies wheezing GI Denies abdominal pain, Denies melena, Denies constipation, Denies diarrhea and Denies vomiting Denies dysuria, Denies urinary frequency and Denies urinary urgency Musc Denies arthralgias, Denies joint swelling, Denies numbness and Denies tingling Neuro Denies Abnormal speech present, Denies behavioral changes, Denies vertigo, Denies dizziness, Denies headache(s), Denies loss of vision, Denies memory loss, Denies numbness and Denies tingling Psych Denies anxiety, Denies behavioral changes, Denies depression, Denies memory loss and Denies panic attacks Benito/Lymph Denies easy bleeding and Denies easy bruising Aller/Immun Denies wheezing Physical exam (Primary Care) Vital Signs: Last Vital Signs Temp 97.1 F 08/01/24 08:46 Pulse 86 08/01/24 08:46 BP 110/60 08/01/24 08:46 Pulse Ox 98 08/01/24 08:46 Oxygen Delivery Method Room Air 08/01/24 08:46 BMI result Body Mass Index 40.2 BMI Assessment/Plan discussion: High BMI High, discussed plan: lifestyle, weight reduction, dietary and physical activity Tobacco/Smoking Status: Tobacco use Status Tobacco use date assessed 08/01/24 08/01/24 08:53 Patient Tobacco Use Status Former Tobacco user 08/01/24 08:53 Tobacco use type Cigarette 08/01/24 08:53 e-Cigarette/Vaping Use Never Used 08/01/24 08:53 Thrive Assessment: Date of Thrive Assessment Date Thrive assessed 05/03/24 08/01/24 08:53 Const General: healthy appearing, no acute distress, alert and awake Nutritional Appearance: well nourished Orientation/consciousness: oriented to person, oriented to place and oriented to time HENMT Ears: TM's normal bilaterally General nose exam: Normal nasal mucous membranes and turbinates present Eyes Conjunctivae: conjunctivae normal Sclerae: sclerae normal Pupils: Equal, round and reactive pupils present Neck Neck: Yes no lymphadenopathy and Yes no JVD Thyroid: Thyroid normal Carotids: no bruits Resp Effort & Inspection: normal respiratory effort and not tachypneic Auscultation: no crackles, no rales, no rhonchi and no wheezes Cardio Rate: regular rate Rhythm: regular rhythm Heart sounds: no murmurs and normal S1 and S2 GI Palpation (GI): Soft to palpation, nontender, no hepatomegaly and no splenomegaly Auscultation: normal bowel sounds Skin General skin exam: no rashes or lesions noted and dry skin Neuro General: oriented to person, oriented to place and oriented to time Cranial nerves: Yes Equal, round and reactive pupils present Speech: No Abnormal speech present Gait exam (Neuro): Normal gait present Motor exam (neuro): no tremor noted Extrem Right upper extremity: full ROM Left upper extremity: full ROM Right lower extremity: full ROM; no edema Left lower extremity: full ROM; no edema Psych Mental Status: mental status grossly normal Speech and movement: Normal speech and movement present Affect: normal affect Attitude: cooperative Thought process: Normal thought process present Results AMB Hemoglobin A1c AMB Hemoglobin A1c 8.9 % Last Edit by CANDICE Stephenson on 08/01/24 08:57 Results Reviewed Results Reviewed: Laboratory Last Values Hgb A1c (Clinic) 8.9 % (4.0-6.0) H 08/01/24 08:44 Coding Level of Care Code Est Pt Level 4 (96100) Diagnoses Coronary artery disease of bypass graft of prairie band heart with stable angina pectoris I25.708 Coronary Disease-Associated Artery/Lesion type: bypass graft [place] vs. transplanted heart: prairie band heart Associated angina: with stable angina CKD (chronic kidney disease) stage 4, GFR 15-29 ml/min N18.4 Type 2 diabetes mellitus with microalbuminuria, with long-term current use of insulin E11.29; R80.9; Z79.4 Diabetes mellitus type: type 2 Diabetes mellitus longterm insulin use: with longterm use Diabetes mellitus complication status: with kidney complications Diabetes mellitus complication detail: with microalbuminuria Chronic heart failure with preserved ejection fraction (HFpEF) I50.32 Mixed hyperlipidemia E78.2 Hyperlipidemia type: mixed hyperlipidemia Essential hypertension I10 Bilateral carotid bruits R09.89 Laterality: bilateral Class 3 obesity E66.813 Assessment & Plan Assessment & Plan (1) CAD (coronary artery disease): Code(s): I25.10 - Atherosclerotic heart disease of prairie band coronary artery without angina pectoris Category: Medical Qualifiers: Coronary Disease-Associated Artery/Lesion type: bypass graft [place] vs. transplanted heart: prairie band heart Associated angina: with stable angina Qualified Code(s): I25.708 - Atherosclerosis of coronary artery bypass graft(s), unspecified, with other forms of angina pectoris Plan: Patient continues to follow [facility]. Most recent lipid panel showing excellent control of his total cholesterol and LDL. Has no overt signs of heart failure. (2) CKD (chronic kidney disease) stage 4, GFR 15-29 ml/min: Code(s): N18.4 - Chronic kidney disease, stage 4 (severe) Category: Medical Plan: Does follow Nephrology. Kidney function is stable, continues to have moderate microalbuminuria. Has been trying to stay away from nephrotoxins hand stay well hydrated. Continues with losartan 25 b.i.d.. (3) Diabetes mellitus: Code(s): E11.9 - Type 2 diabetes mellitus without complications Category: Medical Qualifiers: Diabetes mellitus type: type 2 Diabetes mellitus video control engineer insulin use: with longterm use Diabetes mellitus complication status: with kidney complications Diabetes mellitus complication detail: with microalbuminuria Qualified Code(s): E11.29 - Type 2 diabetes mellitus with other diabetic kidney complication; R80.9 - Proteinuria, unspecified; Z79.4 - custodial (current) use of insulin Plan: Patient's type 2 diabetes not well controlled, today's A1c at 8.9 from 7.8. Will increase his Mounjauro dose to 15 mg weekly maximal dose. Also increase his Lantus dose to 48 units daily. Goal A1c is to be below 7.0 (4) Chronic heart failure with preserved ejection fraction (HFpEF): Code(s): I50.32 - Chronic diastolic (congestive) heart failure Category: Medical Plan: As above, patient could followed by [facility]. Seems to be well compensated. (5) HLD (hyperlipidemia): Code(s): E78.5 - Hyperlipidemia, unspecified Category: Medical Qualifiers: Hyperlipidemia type: mixed hyperlipidemia Qualified Code(s): E78.2 - Mixed hyperlipidemia Plan: Patient's lipid panel has been well controlled with current dose of statin therapy. Goal LDL is to remain optimally below 70. (6) Essential hypertension: Code(s): I10 - Essential (primary) hypertension Category: Medical Plan: As above patient's blood pressure acceptable today in office . He continues with amlodipine, carvedilol, furosemide, doxazosin.. Will continue to monitor his blood pressure with goal blood pressure to remain below 140/90 (7) Carotid artery bruit: Code(s): R09.89 - Other specified symptoms and signs involving the circulatory and respiratory systems Category: Medical Qualifiers: Laterality: bilateral Qualified Code(s): R09.89 - Other specified sy mptoms and signs involving the circulatory and respiratory systems Plan: Has followed up with [facility], underwent evaluation with CT angiogram and did not need endarterectomy. (8) Class 3 obesity: Code(s): E66.813 - Obesity, class 3 Category: Medical Plan: Patient does understand his BMI is over 40 and will continue working on being more physically active and adapting to better eating habits to reduce his weight. Orders: Orders Hemoglobin A1c Today E11.29 - Type 2 diabetes mellitus with other diabetic kidney complication, R80.9 - Proteinuria, unspecified, Z79.4 - chemical machine tender (current) use of insulin AMB Hemoglobin A1c Today E11.29 - Type 2 diabetes mellitus with other diabetic kidney complication, R80.9 - Proteinuria, unspecified, Z79.4 - custodial (current) use of insulin Comprehensive [place]. Panel Fast Today . - Type 2 diabetes mellitus with other diabetic kidney complication, R80.9 - Proteinuria, unspecified, Z79.4 - custodial (current) use of insulin Complete Blood Count no Diff Today . - Type 2 diabetes mellitus with other diabetic kidney complication, R80.9 - Proteinuria, unspecified, Z79.4 - chemical machine tender (current) use of insulin Medications: New blood-glucose meter (FreeStyle Lite Meter kit) As directed 1 ea 0RF . - Type 2 diabetes mellitus with other diabetic kidney complication, R80.9 - Proteinuria, unspecified, Z79.4 - chemical machine tender (current) use of insulin tirzepatide (Mounjaro) 15 mg (0.5 mL) subcut QWEEK 4 weeks 2 mL 3RF . - Type 2 diabetes mellitus with other diabetic kidney complication, R80.9 - Proteinuria, unspecified, Z79.4 - custodial (current) use of insulin Changed From insulin glargine 45 units (0.45 mL) subcut QPM 30 days 15 mL 3RF . - Type 2 diabetes mellitus with other diabetic kidney complication, R80.9 - Proteinuria, unspecified, Z79.4 - chemical machine tender (current) use of insulin To insulin glargine 48 units (0.48 mL) subcut QPM 30 days 15 mL 3RF . - Type 2 diabetes mellitus with other diabetic kidney complication, R80.9 - Proteinuria, unspecified, Z79.4 - custodial (current) use of insulin Refilled blood sugar diagnostic (FreeStyle Lite Strips) 1 strip miscellaneous TID 100 strips 3RF . - Type 2 diabetes mellitus with other diabetic kidney complication, R80.9 - Proteinuria, unspecified, Z79.4 - chemical machine tender (current) use of insulin blood-glucose meter (FreeStyle Lite Meter kit) As directed 1 ea 0RF E11.9 - Type 2 diabetes mellitus without complications On Hold tirzepatide Hold Comment: Doctor's Order 12.5 mg (0.5 mL) subcut QWEEK 4 weeks 2 mL 3RF E11. - Type 2 diabetes mellitus with other diabetic kidney complication, R80.9 - Proteinuria, unspecified, Z79.4 - chemical machine tender (current) use of insulin
[2024-08-01 08:46] VITALS: BP 110/60; PULSE 86; TEMP 36.2; O2SAT 98; BMI 40.2
--- OUTSIDE RECORDS SUMMARY | 2024-08-01 08:58 | XMS_ITS | Clinical Summary ---
Author Organization [facility] Facility Address [address] [place] [address] Care Team Providers Care Meter Tester Name Role Phone Ronnie Reynolds Primary Care Provider Allergies No known active allergies Medications amiodarone [...] Insurance COMPREHENSIVE BENEFITS COMPREHENSIVE BENEFITS Care Teams Meter Tester Relationship Specialty Start Date End Date Ronnie Reynolds PA [address], [address] [place] [address] PCP - General Physician Density Control Puncher 10/15/21
--- OUTSIDE RECORDS SUMMARY | 2024-08-01 08:58 | XMS_ITS | Encounter Summary ---
Author Organization [facility] Address [address] [facility] [address] [place] [address] Phone Care Team Providers Care Mirror Maker Name Role Phone Ronnie Reynolds Primary Care Provider [phone] Reason for Visit * Reason Comments Med Refill Encounter Details Date Type Department Care Team (Late st Contact Info) Description 12/20/2023 Refill [facility] [address] [place] [phone] London Oneill MD [address] [facility] [address] [place] [address] Social History Tobacco Use Types [...] on filedocumented in this encounter Care Teams Mirror Maker Relationship Specialty Start Date End Date Ronnie Reynolds PA [address] [facility], [address] [place] [address] PCP - General Physician Talent Associate 10/15/21 documented as of this encounter
== END 2024-08-01 09:23 | disposition home or self-care (01) ==
LOC: HO.HMCH 08:37
PROVIDERS: PCP Physician Assistant; Visit Provider Physician Assistant
DX: I25.708 Atherosclerosis of coronary artery bypass graft(s), unspecified, with other forms of angina pectoris (principal); N18.4 Chronic kidney disease, stage 4 (severe); E11.29 Type 2 diabetes mellitus with other diabetic kidney complication; R80.9 Proteinuria, unspecified; Z79.4 Long term (current) use of insulin; I50.32 Chronic diastolic (congestive) heart failure; E78.2 Mixed hyperlipidemia; I12.9 Hypertensive chronic kidney disease with stage 1 through stage 4 chronic kidney disease, or unspecified chronic kidney disease; R09.89 Other specified symptoms and signs involving the circulatory and respiratory systems; E66.813 Obesity, class 3

== ENCOUNTER → 2024-08-01 08:37 | Outpatient (BNVA) | payer OTHER, MEDICARE, SELFPAY | PROVIDERS: PCP Physician Assistant; Visit Provider Physician Assistant | DX: I25.708 Atherosclerosis of coronary artery bypass graft(s), unspecified, with other forms of angina pectoris (principal); E11.22 Type 2 diabetes mellitus with diabetic chronic kidney disease; I13.0 Hypertensive heart and chronic kidney disease with heart failure and stage 1 through stage 4 chronic kidney disease, or unspecified chronic kidney disease; N18.4 Chronic kidney disease, stage 4 (severe); R09.89 Other specified symptoms and signs involving the circulatory and respiratory systems; I50.32 Chronic diastolic (congestive) heart failure; E11.29 Type 2 diabetes mellitus with other diabetic kidney complication; R80.9 Proteinuria, unspecified; E78.2 Mixed hyperlipidemia; E66.813 Obesity, class 3; Z68.41 Body mass index [BMI] 40.0-44.9, adult; Z79.4 Long term (current) use of insulin; Z79.899 Other long term (current) drug therapy | CPT/HCPCS: 83036 ==

== ENCOUNTER → 2024-08-21 07:47 | Outpatient (REF) | payer OTHER, SELFPAY ==
--- NOTE | 2024-08-21 07:49 | CA_ITS ---
Transthoracic Echocardiogram Patient (Last, First, Middle): Hector Collazo A Gender: Male Date of : 1965 Age: 59 Procedure Date: 08/21/2024 Procedure Type: Transthoracic Echocardiogram Location: OP Height: 180.34 cm Weight: 129.28 kg BSA: 2.45 m2 Heart Rate: 81 bpm BP: 112 / 62 mmHg Stud Dairy Cattle Farmer: SB Referring MD: Susanna Bernard ROPE MAKING MACHINE OPERATORKarlie Symptoms: I25.708 - Atherosclerosis of coronary artery bypass graft(s), unspecifie... Study Quality: Fair/unable to obtain IV access ECG Rhythm: Sinus Conclusions: - The left ventricular systolic function is normal. The visually estimated ejection fraction is between 60-65%. - There is severely increased left ventricular wall thickness. - Akinetic apical septum. Basal inferior wall appears hypokinetic. Wall motion assessment suboptimal due to poor endocardial definition. - No obvious valvular pathology seen on this study. Findings Procedure Information The quality of the study was technically difficult. The study quality is limited by patients body habitus and lung artifact. Left Ventricle Normal left ventricular cavity size. There is severely increased left ventricular wall thickness. The left ventricular systolic function is normal. The visually estimated ejection fraction is between 60-65%. Diastolic function is normal for age. Akinetic apical septum. Basal inferior wall appears hypokinetic. Wall motion assessment suboptimal due to poor endocardial definition. Right Ventricle Normal right ventricular cavity size and systolic function. Atria Both atria are normal in size. Aortic Valve The aortic valve was not well visualized. There is no aortic valve stenosis. There is no aortic valve regurgitation. Mitral Valve The mitral valve appears normal. There is no mitral valve regurgitation. There is no mitral valve stenosis. Pulmonic Valve The pulmonic valve is likely normal. Tricuspid Valve There is trace tricuspid valve regurgitation. Tricuspid regurgitation envelope is inadequate for calculation of right ventricular systolic pressure. Great Vessels The asc aorta is normal in size. Venous The inferior vena cava is normal in size and collapses greater than 50% with inspiration. Pericardium/Pleural There is a trivial pericardial effusion. Prior Study Comparison No significant change compared to prior study dated: 09/18/2020. Recommendations, Care & Conclusions No obvious valvular pathology seen on this study. Measurements 2D Linear Measurements IVSd: 1.69 0.6-0.9/0.6-1.0 cm LVIDd: 4.98 3.9-5.3/4.2-5.9 cm LVIDd Index: 2.03 2.4-3.2/2.2-3.1 cm/m2 LVIDs: 3.02 2.0-3.6 cm LVPWd: 1.65 0.7-1.1 cm LA Diam: 4.70 2.7-3.8/3.0-4.0 cm LAIDs Index: 1.92 1.5-2.3 cm/m2 LV Mass: 470.52 67-162/88-224 g LV Mass Index: 192.05 43-95/49-115 g/m2 LVOT Diam: 2.30 3.0+(-)1.3 cm Mitral Valve MV Pk E: 1.05 MV PK A: 1.17 MV Decel Time: 163.00 E/A: 0.90 E'Lateral: 9.90 E'Medial: 7.29 E/E' Med: 14.40 E/E' Lat: 10.60 PHT: 48.00 MVA PHT: 4.58 Decel Kenedy: 6.43 Aortic Valve AoV Pk Aquiels: 1.72 AoV Mn Aquiles: 1.26 AoV VTI: 0.39 AoV Pk Grad: 12.00 Aov Mn Grad: 7.00 TRINY Cont.VTI: 2.56 LVOT LVOT Pk Aquiles: 0.99 LVOT Mn Aquiles: 0.79 LVOT VTI: 0.24 LVOT Pk Grad: 4.00 LVOT Mn Grad: 3.00 LVOT Diam: 2.30 LVOT Area: 4.15 Diastolic Function MV Pk E: 1.05 MV Pk A: 1.17 E/A: 0.90 E'Medial: 7.29 E/E' Med: 14.40 E' Laterial: 9.90 E/E' Lat: 10.60 Right Ventricle TAPSE (mm): 19.50 TVS' Aquiles: 12.60 Tricuspid Valve RA Press: 3.00 Great Vessels Aorta Sinus of Valsalva: 2.90 2.0-3.5 cm Ao Asc: 3.00 2.1-3.4 cm Pulmonary Valve PV Pk Aquiles: 1.08 Peak PV Grad: 5.00 Updated in Other Vendor System with Status of Final Robert De Leon MD electronically signed on 08/21/2024 10:51:12 AM with status of Final
--- OUTSIDE RECORDS SUMMARY | 2024-08-21 07:49 | XMS_ITS | Encounter Summary ---
Author Organization [facility] Address [address] [facility] [address] [place] [address] Phone Care Team Providers Care Pollution Control Chemist Name Role Phone Ronnie Reynolds Primary Care Provider [phone] Reason for Visit * Reason Comments Med Refill Encounter Details Date Type Department Care Team (Late st Contact Info) Description 12/20/2023 Refill [facility] [address] [facility] [place] [phone] London Oneill MD [address] [facility] [address] [place] [address] Social History Tobacco Use Types [...] on filedocumented in this encounter Care Teams Pollution Control Chemist Relationship Specialty Start Date End Date Ronnie Reynolds PA [address] [facility], [address] [place] [address] PCP - General Physician Sock Liner 10/15/21 documented as of this encounter
--- OUTSIDE RECORDS SUMMARY | 2024-08-21 07:49 | XMS_ITS | Clinical Summary ---
Author Organization [facility] Facility Address [address] [place] [id number] Care Team Providers Care Residential Aide Name Role Phone Ronnie Reynolds Primary Care Provider [phone] Allergies No known active allergies Medications amiodarone [...] Health Maintenance Due Date Last Done Comments Hepatitis B Vaccine (1 of 3 - 19+ 3-dose series) 03/02 Pneumococcal Vaccine: 50+ Years (1 of 2 - PCV) 984 Colorectal Cancer Screening: Annual FOBT 2014 Colorectal Cancer Screening: Colonoscopy 2014 Colorectal Cancer Screening: Sigmoidoscopy 2014 Diabetes: Hemoglobin A1C 10/22/2022 Diabetes: Ophthalmology Exam 10/22/2022 Diabetes: Pedal Pulse Checked 10/22/2022 Diabetes: Sensory Foot Exam 10/22/2022 Diabetes: Visual Foot Exam 10/22/2022 Influenza Vaccine (Season Ended) 2024 Insurance Comprehensive Benefits Comprehensive Benefits Care Teams Residential Aide Relationship Specialty Start Date End Date Ronnie Reynolds PA [address], [address] [place] [address] PCP - General Physician Dump Worker 10/15/21
== END ==
LOC: HO.CARD 07:47
PROVIDERS: PCP Physician Assistant; Visit Provider Nurse Practitioner Family
DX: R06.02 Shortness of breath (principal); I25.708 Atherosclerosis of coronary artery bypass graft(s), unspecified, with other forms of angina pectoris
CPT/HCPCS: 93306

== ENCOUNTER → 2024-08-21 07:49 | Outpatient (BNV) | payer OTHER, MEDICARE, SELFPAY | PROVIDERS: PCP Physician Assistant; Visit Provider Internal Medicine | DX: I31.39 Other pericardial effusion (noninflammatory) (principal) | CPT/HCPCS: 93306 ==

== ENCOUNTER 2024-09-19 07:46 | Outpatient (AMB) | payer OTHER, SELFPAY ==
--- OUTSIDE RECORDS SUMMARY | 2024-09-19 07:48 | XMS_ITS | Encounter Summary ---
Author Organization [facility] Address [address] [facility] [address] [place] [address] Phone Care Team Providers Care Tool Maker Name Role Phone Ronnie Reynolds Primary Care Provider [phone] Reason for Visit * Reason Comments Med Refill Encounter Details Date Type Department Care Team (Late st Contact Info) Description 12/20/2023 Refill [facility] [address] [facility] [place] [place] [phone] London Oneill MD [address] [facility] [address] [place] [address] Social History Tobacco Use Types [...] on filedocumented in this encounter Care Teams Tool Maker Relationship Specialty Start Date End Date Ronnie Reynolds PA [address] [facility], [address] [place] [address] PCP - General Physician Product Applications Engineer 10/15/21 documented as of this encounter
--- NOTE | 2024-09-19 08:13 | MHC.OFFVIS ---
Vital Signs 09/19/24 08:14 Height 5 ft 11 in Weight 279 lb 15.793 oz BMI 39.0 BP 128/82 Blood Pressure Location Lt brachial Position Sitting Pulse 82 Intake Visit Reasons: 1 yr s/p echo Intake Note: 1 year follow-up with ekg after echo feeling good Financial Operations Consultant Required: No Allergies No Known Allergies [No Known Allergies*] Allergy (Verified 08/01/24 09:08) Medication List - Last Reconciled 09/19/24 by Robert De Leon MD acetaminophen 650 mg (2 x 325 mg) PO Q6H PRN albuterol sulfate 90 mcg/actuation 1 inh inhalation QID PRN 30 days amlodipine 10 mg PO DAILY aspirin 81 mg PO DAILY 90 days atorvastatin 80 mg PO DAILY blood sugar diagnostic (FreeStyle Lite Strips) 1 strip miscellaneous TID blood-glucose meter (FreeStyle Lite Meter kit) As directed blood-glucose meter (FreeStyle Lite Meter kit) As directed blood-glucose sensor (Dexcom G7 Sensor device) As directed blood-glucose,pattern perforating machine operator,cont (Dexcom G7 Grommet Man) As directed carvedilol (Coreg) 25 mg PO BID compr.stocking,knee,long,x-lrg As directed doxazosin 4 mg PO DAILY 90 days furosemide 80 mg (2 x 40 mg) PO DAILY insulin glargine 48 units (0.48 mL) subcut QPM 30 days insulin lispro (Humalog KwikPen (U-100) Insulin) 16 units (0.16 mL) subcut TID 30 days lorazepam (Ativan) 1 mg PO BEDTIME PRN 30 days losartan 25 mg PO BID miscellaneous medical supply (Blood Pressure Cuff) As directed [NAVAGE device As directed] pen needle, diabetic (BD Ultra-Fine Mini Pen Needle) 1 ea subcut QID tirzepatide 12.5 mg (0.5 mL) subcut QWEEK 4 weeks tirzepatide (Mounjaro) 15 mg (0.5 mL) subcut QWEEK 4 weeks umeclidinium-vilanterol 62.5-25 mcg/actuation (Anoro Ellipta) 1 inh inhalation DAILY HPI Comments Details: Hector returns for follow-up regarding various issues including coronary artery disease, history of coronary artery bypass surgery, hypertension. Overall, he is doing quite well. Denies any symptoms like angina or shortness of breath or in fact anything cardiac sounding. Exercise The patient engages in cycling exercise, using stationary bike. He completes 15-minute sessions twice daily, in the morning and afternoon. He reports good tolerance to this activity with no exacerbation of symptoms such as chest pain or shortness of breath. The current exercise regimen seems to maintain his functional status without adverse effects. [facility] Medical History (Updated 09/19/24 @ 08:55 by Robert De Leon MD) NSTEMI (non-ST elevated myocardial infarction) Obesity (BMI 30-39.9) Pure hypercholesterolemia Sinusitis Anxiety Diabetes mellitus Chronic heart failure with preserved ejection fraction (HFpEF) HLD (hyperlipidemia) Carotid stenosis Essential hypertension Atherosclerotic cardiovascular disease Hypertension Surgical History S/P triple vessel bypass Status post coronary artery bypass graft (~01/2020) History of cardiac catheterization (~02/09/20) Family History Father No problems noted. Mother Cancer Sister Agoraphobia Hypothyroid Mental health disorder Social History Household Members: Spouse Housing: House Do you presently have visiting nurse or other home services: No Alcohol intake: never Patient Tobacco Use Status: Former Tobacco user Tobacco use type: Cigarette Years Smoked: started 17 years old, 1PPD. quit 2019 e-Cigarette/Vaping Use: Never Used Second Hand Smoke Exposure: Yes service: No Current occupational status: retired Cognitive needs: Yes (needs a cane ) Hearing needs: No Vision needs: Yes (has not seen an eye doctor for about ten years) Review of Systems Const Denies chills, Denies fatigue, Denies fever(s), Denies frequent falls, Denies weakness, Denies weight gain and Denies weight loss ENT Denies dizziness Card Denies chest pain, Denies leg edema, Denies lightheadedness, Denies palpitations, Denies dyspnea, Denies dyspnea on exertion, Denies orthopnea and Denies other (loss of consciousness) Resp Denies cough, Denies dyspnea and Denies dyspnea on exertion GI Denies hematochezia and Denies change in stool character Musc Denies abnormal gait, Denies muscle weakness, Denies numbness, Denies radiating pain into limb and Denies tingling Neuro Denies abnormal gait, Denies dizziness, Denies frequent falls, Denies numbness, Denies tingling and Denies weakness Endo Denies fatigue and Denies palpitations Physical Exam Vital Signs: Last Vital Signs Pulse 82 09/19/24 08:14 BP 128/82 09/19/24 08:14 BMI result Body Mass Index 39.0 Const General: comfortable and no acute distress Orientation/consciousness: patient oriented x3 HEENT Other: Unremarkable Head: Yes normal to inspection Neck Neck: Yes normal visual inspection Chest Chest palpation & inspection: normal inspection of the chest Resp Auscultation: clear to auscultation bilaterally Cardio Palpation: normal PMI Heart sounds: S1 normal heart sound present, S2 normal heart sound present, no gallops, no murmurs and no rubs GI Palpation (GI): Soft to palpation Back/Spine/Pelvis Other: unremarkable Skin General skin exam: no rashes or lesions noted Neuro General: patient oriented x3 Extrem General: Yes normal to inspection Psych Mental Status: mental status grossly normal Office Procedures EKG Details: EKG with underlying sinus rhythm at 82/Min; cannot exclude old anterior infarct; T inversions in the lateral leads, overall similar to prior. Borderline [place] prolongation to [address] [place]. [id number], Complete Assessment & Plan Assessment & Plan (1) Chronic heart failure with preserved ejection fraction (HFpEF): Code(s): I50.32 - Chronic diastolic (congestive) heart failure Category: Medical Plan: Stable on the current dose of diuretics. He also has significant renal dysfunction with a creatinine of 2.47. However, that has been mostly stable. In the most recent echocardiogram, LVEF is 60-65%. Wall motion abnormalities related to underlying coronary disease. (2) Atherosclerotic cardiovascular disease: Code(s): I25.10 - Atherosclerotic heart disease of [place] coronary artery without angina pectoris Category: Medical Plan: Doing well. No angina. Remains on aspirin and statins. Last LDL cholesterol 35 mg/dL. Slightly increased triglycerides mostly related to weight/diabetes. (3) Status post coronary artery bypass graft: Onset Date: ~01/2020 Code(s): Z95.1 - Presence of aortocoronary bypass graft Category: Surgical Plan: Stable. Fully recovered. (4) Essential hypertension: Code(s): I10 - Essential (primary) hypertension Category: Medical Plan: Stable. Today's blood pressure is well within normal limits. (5) CKD (chronic kidney disease) stage 4, GFR 15-29 ml/min: Code(s): N18.4 - Chronic kidney disease, stage 4 (severe) Category: Medical Plan: Stable creatinine in the 2.4 range. (6) Type 2 diabetes mellitus with unspecified complications: Code(s): E11.8 - Type 2 diabetes mellitus with unspecified complications Category: Medical Plan: Recent hemoglobin A1c is 8.9%. Poorly controlled. Last year, as much as 10%. Listed to be on Insulin, Tirzepatide. Can consider Jardiance or Farxiga. Message sent to PCP. Coding Level of Care Code Est Pt Level 4 (79379) Complex EM visit Add On G2211 Diagnoses Chronic heart failure with preserved ejection fraction (HFpEF) I50.32 Atherosclerotic cardiovascular disease I25.10 Status post coronary artery bypass graft Z95.1 Essential hypertension I10 CKD (chronic kidney disease) stage 4, GFR 15-29 ml/min N18.4 Type 2 diabetes mellitus with unspecified complications E11.8 CPT Codes EKG - CPT: 52947-[id number], Complete ([id number])
[2024-09-19 08:14] VITALS: BP 128/82; PULSE 82; BMI 39.0
== END 2024-09-19 08:40 | disposition home or self-care (01) ==
LOC: HO.HCS 07:47
PROVIDERS: PCP Physician Assistant; Visit Provider Internal Medicine
DX: I50.32 Chronic diastolic (congestive) heart failure (principal); I25.10 Atherosclerotic heart disease of native coronary artery without angina pectoris; Z95.1 Presence of aortocoronary bypass graft; I12.9 Hypertensive chronic kidney disease with stage 1 through stage 4 chronic kidney disease, or unspecified chronic kidney disease; N18.4 Chronic kidney disease, stage 4 (severe); E11.8 Type 2 diabetes mellitus with unspecified complications
CPT/HCPCS: 93010; 99214

== ENCOUNTER → 2024-09-19 07:46 | Outpatient (BNVA) | payer OTHER, SELFPAY | PROVIDERS: PCP Physician Assistant; Visit Provider Internal Medicine | DX: I11.0 Hypertensive heart disease with heart failure (principal); I50.32 Chronic diastolic (congestive) heart failure; I21.4 Non-ST elevation (NSTEMI) myocardial infarction; I25.10 Atherosclerotic heart disease of native coronary artery without angina pectoris; E11.8 Type 2 diabetes mellitus with unspecified complications; N18.4 Chronic kidney disease, stage 4 (severe); Z87.891 Personal history of nicotine dependence; Z77.22 Contact with and (suspected) exposure to environmental tobacco smoke (acute) (chronic); Z95.1 Presence of aortocoronary bypass graft | CPT/HCPCS: 93005 ==

== ENCOUNTER 2024-09-29 06:41 | Emergency (ER) | payer OTHER, SELFPAY ==
--- NOTE | ~2024-09-29 | CT_ITS ---
EXAMINATION: CT CERVICAL SPINE WITHOUT CONTRAST CLINICAL INFORMATION: Head trauma, neck pain. COMPARISON: None available. TECHNIQUE: Spiral CT imaging of the cervical spine performed in axial plane without contrast. Multiplanar reformatted images were constructed from the axial data set. This CT examination was performed using dose optimization techniques as appropriate, variously including the following: *Automated exposure control *Adjustment of mA and/or kV according to patient size (this includes techniques or standardized protocols for targeted exams where dose is matched to indication/reason for exam; i.e. extremities or head) *Use of iterative reconstruction technique FINDINGS: CORONAL ALIGNMENT: -Normal. SAGITTAL ALIGNMENT: -Mild reversal of the normal lordosis centered at C5. -No evidence of traumatic subluxation. C1-C2 AND CRANIOCERVICAL JUNCTION: -Intact and normally aligned. There are mild degenerative changes in the anterior atlantoaxial joint. VERTEBRAL BODIES AND FACETS: -Intact and normally aligned facet joints without subluxation. Mild degenerative facet changes bilaterally. -No fractures, compression deformities, or suspicious bone lesions. DISCS: -Moderate disc degeneration present C5-6, C6-7, and C7-T1. CENTRAL CANAL: -No evidence of high-grade central canal narrowing or large disc herniation allowing for modality limitations. PREVERTEBRAL AND PARAVERTEBRAL SOFT TISSUES: -No prevertebral or paravertebral soft tissue edema, swelling, or abnormal fluid collection. -Trace bilateral carotid bulb calcification. -Normal thyroid. -No abnormal soft tissue mass or abnormal lymphadenopathy. LUNG APICES: -Clear without definite pneumothorax. CT/CT cervical spine wo IV con IMPRESSION: 1. No CT evidence of acute cervical spine fracture or injury. 2. Mild to moderate degenerative spondylosis. Electronically signed by: Jean Plunkett MD 09/29/2024 08:20 AM EDT
--- NOTE | ~2024-09-29 | CT_ITS ---
EXAMINATION: CT HEAD WITHOUT IV CONTRAST HISTORY: fall head strike. TECHNIQUE: Unenhanced helical CT of the head was performed per standard departmental protocol. Coronal and sagittal reformats of the head were also evaluated. One or more of the following techniques was used for dose reduction: Automated exposure control, adjustment of the mA and/or kV according to patient size, use of iterative reconstruction technique. DLP: 833 mGy-cm COMPARISON: There are no prior studies available for comparison. FINDINGS: BRAIN: There is diffuse prominence of the ventricular system and cortical sulci, consistent with atrophy. There are old lacunar infarcts of the bilateral basal ganglia. Pimentel/white differentiation is otherwise normal.. There is no mass effect or midline shift. No intra- or extra-axial fluid collections are identified. SINUSES: There is a polyp versus mucous retention cyst in the left maxillary sinus. The mastoid air cells and middle ear cavities are well pneumatized. ORBITS: The visualized orbits are unremarkable. BONES/SOFT TISSUES: The extracranial soft tissues are unremarkable. The calvarium is intact. No suspicious lytic or sclerotic lesions. CT/CT head/brain wo IV con IMPRESSION: No acute intracranial abnormality. Electronically signed by: Kevin Richey MD 09/29/2024 08:21 AM EDT
[2024-09-29 06:44] VITALS: BP 109/65; PULSE 96; RESP 16; TEMP 36; O2SAT 98; BMI 39.0
--- NOTE | 2024-09-29 07:09 | ED_ITS ---
HPI - Fall General Chief Complaint: Fall Stated Complaint: fall w/ head strike Time Seen by Provider: 09/29/24 07:02 Source: patient and old records reviewed Mode of arrival: ambulatory Limitations: no limitations History of Present Illness ED Provider: JIMBO LANE Narrative: 59 yo male with PMH of CAD s/p CABG, COPD, obesity, DM, HLD, HTN who was showering and slipped on floor. Hit left side of his head. He denies any other injuries states he bruised upper thigh. He is only on baby 81mg aspirin. He had no LOC and got right up. He has no other concerns. No preceding symptoms states he slipped on shampoo. 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) Fall from: standing Fall witnessed: no Place fall occurred: home Loss of consciousness: none Symptoms prior to fall: none Context: tripped/slipped Location of injury: head and face Severity: mild Associated symptoms (after fall): denies Related Data Home Medications ?Medication ?Instructions ?Recorded ?Confirmed losartan 25 mg tablet 25 mg PO BID 07/20/23 09/19/24 Previous Rx's ?Medication ?Instructions ?Recorded acetaminophen 325 mg tablet 650 mg (2 x 325 mg) PO Q6H PRN 02/08/20 Pain, Mild (Pain Scale 1-3) #30 tabs miscellaneous medical supply #1 ea 12/09/20 (Blood Pressure Cuff) compr.stocking,knee,long,x-lrg #2 ea 01/21/21 pen needle, diabetic 31 gauge x 1 ea subcut QID #100 caps 05/14/2207/09 (BD Ultra-Fine Mini Pen Needle) blood-glucose,drying machine receiver,cont #1 ea 11/25/23 (Dexcom G7 Simulation Technician) doxazosin 4 mg tablet 4 mg PO DAILY 90 days #90 tabs 03/25/24 amlodipine 10 mg tablet 10 mg PO DAILY #90 tabs 04/10/24 NAVAGE device #1 ea 05/03/24 atorvastatin 80 mg tablet 80 mg PO DAILY #90 tabs 05/23/24 furosemide 40 mg tablet 80 mg (2 x 40 mg) PO DAILY #180 05/23/24 tabs carvedilol 25 mg tablet (Coreg) 25 mg PO BID #180 tabs 05/24/24 lorazepam 1 mg tablet (Ativan) 1 mg PO BEDTIME PRN anxiety 30 06/05/24 days #30 tabs tirzepatide 12.5 mg/0.5 mL 12.5 mg (0.5 mL) subcut QWEEK 4 07/24/24 subcutaneous pen injector weeks #2 mL insulin lispro 100 unit/mL 16 unit (0.16 mL) subcut TID 30 07/30/24 subcutaneous pen (Humalog KwikPen days #15 mL (U-100) Insulin) blood-glucose meter (FreeStyle #1 ea 08/01/24 Lite Meter kit) blood-glucose meter (FreeStyle #1 ea 08/01/24 Lite Meter kit) aspirin 81 mg chewable tablet 81 mg PO DAILY 90 days #90 tabs 08/22/24 insulin glargine 100 unit/mL (3 48 unit (0.48 mL) subcut QPM 30 08/26/24 mL) subcutaneous pen days #15 mL blood sugar diagnostic (FreeStyle 1 strip miscellaneous TID #100 08/27/24 Lite Strips) strips umeclidinium 62.5 mcg-vilanterol 1 inh inhalation DAILY #1 ea 09/08/24 25 mcg/actuation powdr for inhalation (Anoro Ellipta) empagliflozin 25 mg tablet 25 mg PO DAILY 90 days #90 tabs 09/20/24 (Jardiance) blood-glucose sensor (Dexcom G7 #1 ea 09/23/24 Sensor device) albuterol sulfate 90 mcg/actuation 1 inh inhalation QID PRN shortness 09/27/24 aerosol inhaler of breath or wheezing 30 days #8.5 grams tirzepatide 15 mg/0.5 mL 15 mg (0.5 mL) subcut QWEEK 4 09/27/24 subcutaneous pen injector weeks #2 mL (Mounjaro) Allergies Allergy/AdvReac Type Severity Reaction Status Date / Time No Known Allergies Allergy Verified 09/29/24 06:47 [No Known Allergies*] Review of Systems Review of Systems: Constitutional : No Fever, No Chills, Cardiovascular : No Chest Pain, No SOB Respiratory : No Dyspnea Gastrointestinal : No abdominal pain Musculoskeletal : No Joint Swelling Skin : No rash, positive skin laceration Neuro : No Weakness, No Numbness Psych : No SI/HI all other systems reviewed and are negative PMFSH Past Medical History Attestation statement: The following information was validated with the patient. Source: old records reviewed Medical History NSTEMI (non-ST elevated myocardial infarction) Obesity (BMI 30-39.9) Pure hypercholesterolemia Sinusitis Anxiety Diabetes mellitus Chronic heart failure with preserved ejection fraction (HFpEF) HLD (hyperlipidemia) Carotid stenosis Essential hypertension Atherosclerotic cardiovascular disease Hypertension Surgical History S/P triple vessel bypass Status post coronary artery bypass graft (~01/2020) History of cardiac catheterization (~02/09/20) Family History Family History Father No problems noted. Mother Cancer Sister Agoraphobia Hypothyroid Mental health disorder Social History Social History Household Members: Spouse Housing: House Do you presently have visiting nurse or other home services: No Alcohol intake: never Patient Tobacco Use Status: Former Tobacco user Tobacco use type: Cigarette Years Smoked: started 17 years old, 1PPD. quit 2019 e-Cigarette/Vaping Use: Never Used Second Hand Smoke Exposure: Yes Advance Directives: No Advance Directives Information Provided: Yes Do you have a plan to hurt others: No Plan service: No Current occupational status: retired Cognitive needs: Yes (needs a cane ) Hearing needs: No Vision needs: Yes (has not seen an eye doctor for about ten years) Physical Exam Vital Signs: Vital Signs: Last Vital Signs Temp 96.8 F 09/29/24 06:44 Pulse 96 09/29/24 06:44 Resp 16 09/29/24 06:44 BP 109/65 09/29/24 06:44 Pulse Ox 98 09/29/24 06:44 O2 Del Method Room Air 09/29/24 06:44 BMI result Body Mass Index 39.0 Appearance: Alert. Oriented X3. No acute distress. Eyes: Pupils equal, round and reactive to light. ENT: Pharynx normal. TMs normal, no ray or raccoon sign, preauricular bleeding controlled there is a 3cm already approximated there is no involvement of ext ear, there is another 1cm superficial linear laceration just anterior to the tragus as well Neck: Normal inspection. Neck supple. CVS: Normal heart rate and rhythm. Pulses normal. Respiratory: No respiratory distress. Breath sounds normal. Abdomen: Soft and nontender. Skin: Skin warm and dry. Normal skin color. Normal skin turgor. Extremities: No lower extremity edema. No calf ttp Neuro: Oriented X 3. No motor deficit. No sensory deficit. CN2-12 intact Medications Administered Discontinued Medications Generic Name Dose Route Start Last Admin Trade Name Wero PRN Reason Stop Dose Admin Lidocaine HCl 5 ml 09/29/24 07:07 09/29/24 07:11 Lidocaine Hcl 1 % Mpf 5 Ml Vial SUBCUT 09/29/24 07:08 5 ml ONCE ONE Administration Procedures Laceration Laceration 1: Site: face Side (If applicable): left Size (cm): 3 Description: linear Depth: simple, single layer Local Anesthetic: lidocaine 1% Amount of anesthesia used (mL): 2 Pre-repair: irrigated extensively and deep structures intact Skin layer closed with: other (prolene) Size (cm): 6-0 Number of sutures: 3 Laceration 2: Site: face Side (If applicable): left Size (cm): 1 Description: linear Depth: simple, single layer Local Anesthetic: lidocaine 1% Amount of anesthesia used (mL): 1 Pre-repair: wound explored, irrigated extensively and deep structures intact Skin layer closed with: other (prolene) Size (cm): 6-0 Number of sutures: 1 Technique: simple, interrupted Medical Decision Making Medical Decision Making MDM Narrative: 59 yo male with PMH of CAD s/p CABG, COPD, obesity, DM, HLD, HTN here s/p slip and fall in shower - no LOC has laceration to area anterior to the ear he is GCS 15 given injury and location will obtain CT head/cspine and repair the laceration Differential Diagnosis Differential Diagnoses: The differential diagnosis associated with the presentation includes head injury, laceration Admission/Observation Consideration of admission/observation: Escalation of care including admission/observation considered GCS 15 stable for DC Independent Interpretation I performed an independent interpretation of an: CT Scan (normal ) Radiology Impression Discussion of test interpretation with radiology: I have reviewed the radiologist's reading. External Record Review External record reviewed: Inpatient record and Outpatient record Discharge Plan Discharge Clinical Impression: Face lacerations Qualifiers: Encounter type: initial encounter Qualified Code(s): S01.81XA - Laceration without foreign body of other part of head, initial encounter Patient Disposition: Home, Self-Care Instructions: Laceration (ED) Additional Instructions: CT scans of head and neck are normal laceration - remove stitches in 7 days with your doctor monitor for redness, yellow drainage, swelling, fevers or any other concerns okay to shower but not okay to swim, ocean, wat[place] water. apply bacitracin to the stitches on the first two days. Prescriptions: No Action pen needle, diabetic [BD Ultra-Fine Mini Pen Needle] 31 gauge x 3/16 needle 1 ea subcut QID Qty: 100 3RF (DME) Dexcom G7 Simulation Technician Misc See Rx Instructions .Route Qty: 1 3RF Rx Instructions: As directed doxazosin 4 mg tablet 4 mg PO DAILY 90 Days Qty: 90 2RF amlodipine 10 mg tablet 10 mg PO DAILY Qty: 90 3RF furosemide 40 mg tablet 80 mg PO DAILY Qty: 180 3RF atorvastatin 80 mg tablet 80 mg PO DAILY Qty: 90 3RF carvedilol [Coreg] 25 mg tablet 25 mg PO BID Qty: 180 0RF Rx Instructions: must administer with a meal/food PLEASE CALL AND MAKE APPOINTMENT FOR FOLLOW UP TO CONTINUE TO GET MORE REFILLS. lorazepam [Ativan] 1 mg tablet 1 mg PO BEDTIME PRN (Reason: anxiety) 30 Days Qty: 30 3RF tirzepatide 12.5 mg/0.5 mL pen injector 12.5 mg subcut QWEEK 28 Days Qty: 2 3RF insulin lispro [Humalog KwikPen Insulin] 100 unit/mL insulin pen 16 unit subcut TID 30 Days Qty: 15 3RF aspirin 81 mg tablet,chewable 81 mg PO DAILY 90 Days Qty: 90 3RF insulin glargine 100 unit/mL (3 mL) insulin pen 48 unit subcut QPM 30 Days Qty: 15 1RF FreeStyle Lite Strips Strip 1 strip miscellaneous TID Qty: 100 3RF Anoro Ellipta 62.5-25 mcg/actuation blister with device 1 inh inhalation DAILY Qty: 1 0RF Jardiance 25 mg tablet 25 mg PO DAILY 90 Days Qty: 90 1RF (DME) Dexcom G7 Sensor Device See Rx Instructions .Route Qty: 1 6RF Rx Instructions: As directed albuterol sulfate 90 mcg/actuation HFA aerosol inhaler 1 inh inhalation QID PRN (Reason: shortness of breath or wheezing) 30 Days Qty: 8.5 2RF Mounjaro 15 mg/0.5 mL pen injector 15 mg subcut QWEEK 28 Days Qty: 2 1RF acetaminophen 325 mg Tablet 650 mg PO Q6H PRN (Reason: Pain, Mild (Pain Scale 1-3)) Qty: 30 0RF (DME) Blood Pressure Cuff Misc See Rx Instructions .ROUTE .MEDSUPPLY Qty: 1 0RF Rx Instructions: As directed (DME) compr.stocking,knee,long,x-lrg Misc See Rx Instructions .Route Qty: 2 0RF Rx Instructions: As directed losartan 25 mg tablet 25 mg PO BID (DME) NAVAGE device See Rx Instructions .Route .MEDSUPPLY Qty: 1 0RF Rx Instructions: As directed (DME) blood-glucose meter [FreeStyle Lite Meter] Kit See Rx Instructions .Route Qty: 1 0RF Rx Instructions: As directed (DME) blood-glucose meter [FreeStyle Lite Meter] Kit See Rx Instructions .Route Qty: 1 0RF Rx Instructions: As directed Print Language: Ukrainian
--- OUTSIDE RECORDS SUMMARY | 2024-09-29 07:10 | XMS_ITS | Encounter Summary ---
Author Organization [facility] Address [address] [facility] [address] [place] [address] Phone Care Team Providers Care Emergency Veterinarian Name Role Phone Ronnie Reynolds Primary Care Provider [phone] Reason for Visit * Reason Comments Med Refill Encounter Details Date Type Department Care Team (Late st Contact Info) Description 12/20/2023 Refill [facility] [address] [place] [id number] London Oneill MD [address] [facility] [address] [place] [address] Social History Tobacco Use Types [...] on filedocumented in this encounter Care Teams Emergency Veterinarian Relationship Specialty Start Date End Date Ronnie Reynolds PA [address] [facility], [address] [place] [address] PCP - General Physician Guide Foreign Tour 10/15/21 documented as of this encounter
[2024-09-29] MEDS: Lidocaine HCl 1 % MPF 5 ML VIAL SUBCUT (07:11)
--- NOTE | 2024-09-29 07:18 | PC.NURSE ---
provider to medicate in wound
[2024-09-29 08:44] VITALS: BP 110/68; PULSE 88; RESP 16; TEMP 36.2; O2SAT 98
== END 2024-09-29 08:45 | disposition home or self-care (01) ==
PROVIDERS: Emergency Provider Emergency Medicine; PCP Physician Assistant
DX: S01.81XA Laceration without foreign body of other part of head, initial encounter (principal); S70.12XA Contusion of left thigh, initial encounter; R51.9 Headache, unspecified; I25.10 Atherosclerotic heart disease of native coronary artery without angina pectoris; I10 Essential (primary) hypertension; X58.XXXA Exposure to other specified factors, initial encounter; E11.9 Type 2 diabetes mellitus without complications; W18.2XXA Fall in (into) shower or empty bathtub, initial encounter; Y93.E1 Activity, personal bathing and showering; Y92.002 Bathroom of unspecified non-institutional (private) residence as the place of occurrence of the external cause; Y99.8 Other external cause status; Z79.899 Other long term (current) drug therapy; Z79.84 Long term (current) use of oral hypoglycemic drugs; Z79.4 Long term (current) use of insulin; Z87.891 Personal history of nicotine dependence
CPT/HCPCS: 12052; 70450; 72125; 99282; 99284; J2003

== ENCOUNTER → 2024-09-29 07:07 | Outpatient (BNV) | payer OTHER, SELFPAY | PROVIDERS: Emergency Provider Emergency Medicine; PCP Physician Assistant; Visit Provider Radiology Diagnostic Radiology | DX: M47.812 Spondylosis without myelopathy or radiculopathy, cervical region (principal); G44.329 Chronic post-traumatic headache, not intractable | CPT/HCPCS: 70450; 72125 ==

== ENCOUNTER 2024-11-17 07:13 | Outpatient (REF) | payer OTHER, SELFPAY ==
--- OUTSIDE RECORDS SUMMARY | 2024-11-17 07:14 | XMS_ITS | Encounter Summary ---
Author Organization [facility] Address 100 [facility] [address] [place] [address] Phone Care Team Providers Care Portrait Photographer Name Role Phone Ronnie Reynolds Primary Care Provider [phone] Reason for Visit * Reason Comments Med Refill Encounter Details Date Type Department Care Team (Late st Contact Info) Description 12/20/2023 Refill [facility] [address] [place] [address] [facility] [phone] London Oneill MD [address] [facility] [address] [place] [address] Social History Tobacco Use Types [...] on filedocumented in this encounter Care Teams Portrait Photographer Relationship Specialty Start Date End Date Ronnie Reynolds PA 2 [facility], [address] [place] [address] PCP - General Physician Binding Printer 10/15/21 documented as of this encounter
[2024-11-17 07:56] LABS: Hematocrit 34.3 % (42.0-52.0); Hemoglobin 11.1 g/dl (14.0-18.0); Mean Corpuscular HGB Conc 32.4 g/dl (31.0-36.0); Mean Corpuscular Hemoglobin 27.5 pg (27.0-33.0); Mean Corpuscular Volume 84.9 fL (80.0-98.0); NRBC Abs Auto 0.000 X10*3/uL (0.0-0.012); NRBC Pct Auto 0.0 /100WBC (0.0-0.2); Platelet Count 194 X10*3/uL (160-400); Red Blood Count 4.04 X10*6/uL (4.60-5.80); White Blood Count 7.9 X10*3/uL (4.8-10.8)
[2024-11-17 08:02] LABS: Hemoglobin A1C 189.4500 umol/L; Total Hemoglobin (HGBA1C) 2931.0500 umol/L
[2024-11-17 08:27] LABS: Alanine Aminotransferase 41 U/L (0-40); Albumin Level 4.1 g/dL (3.5-5.0); Alkaline Phosphatase 128 U/L (39-117); Anion Gap 15 (12-20); Aspartate Amino Transferase 34 U/L (5-37); Blood Urea Nitrogen 57 mg/dL (9-16); Calcium 8.6 mg/dL (8.4-10.2); Carbon Dioxide 19 mmol/L (22-29); Chloride 110 mmol/L (96-108); Estimated Glomerular Filt Rate 25; Potassium 4.1 mmol/L (3.3-5.1); Sodium 140 mmol/L (135-145); Total Protein 6.9 g/dL (6.5-8.0)
== END 2024-11-17 07:14 | disposition home or self-care (01) ==
LOC: HO.LAB 07:13
PROVIDERS: PCP Physician Assistant; Visit Provider Physician Assistant
DX: E11.29 Type 2 diabetes mellitus with other diabetic kidney complication (principal); R80.9 Proteinuria, unspecified; Z79.4 Long term (current) use of insulin
CPT/HCPCS: 36415; 80053; 83036; 85027

== ENCOUNTER 2024-11-21 08:10 | Outpatient (AMB) | payer OTHER, SELFPAY ==
--- NOTE | 2024-11-21 08:14 | A.OFFPC_ITS ---
Vital Signs 11/21/24 08:15 Height 5 ft 11 in Weight 282 lb 8 oz BMI 39.4 BP 130/80 Blood Pressure Location Lt brachial Position Sitting Pulse 100 Pulse Source Pulse Oximeter Temp 97.1 F Temp Source Temporal Artery Scan Pulse Oximetry (%) 97 Oxygen Delivery Method Room Air Intake Visit Reasons: f/u DMII Intake Note: Patient is here to follow up on DMII. Employee Benefits Specialist Required: No Oral Surgery Physician: Not Required per policy Accompanied by: Self / Same As Patient Allergies No Known Allergies (No Known Allergies*) Allergy (Verified 11/21/24 08:25) Medication List - Last Reconciled 11/21/24 by Ronnie Reynolds PA-C acetaminophen 650 mg (2 x 325 mg) PO Q6H PRN albuterol sulfate 90 mcg/actuation 1 inh inhalation QID PRN 30 days amlodipine 10 mg PO DAILY aspirin 81 mg PO DAILY 90 days atorvastatin 80 mg PO DAILY blood sugar diagnostic (FreeStyle Lite Strips) 1 strip miscellaneous TID blood-glucose meter (FreeStyle Lite Meter kit) As directed blood-glucose meter (FreeStyle Lite Meter kit) As directed blood-glucose sensor (Dexcom G7 Sensor device) As directed blood-glucose,engraver optical frames,cont (Dexcom G7 English Professor) As directed carvedilol (Coreg) 25 mg PO BID compr.stocking,knee,long,x-lrg As directed doxazosin 4 mg PO DAILY 90 days empagliflozin (Jardiance) 25 mg PO DAILY 90 days furosemide 80 mg (2 x 40 mg) PO DAILY insulin glargine 48 units (0.48 mL) subcut QPM 30 days insulin lispro (Humalog KwikPen (U-100) Insulin) 16 units (0.16 mL) subcut TID 30 days lorazepam (Ativan) 1 mg PO BEDTIME PRN 30 days losartan 25 mg PO BID miscellaneous medical supply (Blood Pressure Cuff) As directed [NAVAGE device As directed] pen needle, diabetic (BD Ultra-Fine Mini Pen Needle) 1 ea subcut QID tirzepatide 12.5 mg (0.5 mL) subcut QWEEK 4 weeks Held on 08/01/24. Instructions: Doctor's Order tirzepatide (Mounjaro) 15 mg (0.5 mL) subcut QWEEK 4 weeks umeclidinium-vilanterol 62.5-25 mcg/actuation (Anoro Ellipta) 1 inh inhalation DAILY Tobacco use date assessed: 11/21/24 Dental Screening Dental Screen Date: 05/03/24 HPI f/u DMII HPI Details Patient is a 59 year male here today for a follow-up visit.? Patient has a past medical history significant for CKD stage 4, type 2 diabetes, obesity, congestive heart failure coronary artery disease, hyperlipidemia. . 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 .? He continues on Humalog? and Basaglar.? He reports he has recently started to be more physically active and working out.. Most recent A1c at 8.1 from 8.9. We have recently added Jardiance 25 mg for both his Congestive heart failure and diabetes control PLAN: He will increase his Lantus to 35 units at night for better glycemic c ontrol. .. Hypertension:? Reports blood pressures at home have been 130-145 systolic.? Today in office blood pressure is stable. He denies any chest discomfort for, palpitations or dizziness.? Does report shortness of breath on exertion ever since his hospital admission for open her surgery. .. Coronary artery disease:? Continues to follow [facility], gets echocardiogram annually. He is status post open heart surgery with coronary artery bypass, is followed by Cardiology. He does report having some shortness of breath and chest discomfort on exertion. .. Carotid stenosis: Has 80-99% carotid stenosis on the right side, he is followed by vascular [facility] .. Class 3 obesity: Patient's weight fairly stable. He reports being more physically active and working out a few days a week.. .. CKD-4-? most recent GFR at 24. 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 Creatinine has been stable. Continues to have a moderate microalbuminuria likely secondary to his multiple comorbidities Will continue to avoid nephrotoxins [facility] Medical History NSTEMI (non-ST elevated myocardial infarction) Obesity (BMI 30-39.9) Pure hypercholesterolemia Sinusitis Anxiety Diabetes mellitus Chronic heart failure with preserved ejection fraction (HFpEF) HLD (hyperlipidemia) Carotid stenosis Essential hypertension Atherosclerotic cardiovascular disease Hypertension Surgical History S/P triple vessel bypass Status post coronary artery bypass graft (~01/2020) History of cardiac catheterization (~02/09/20) Family History Father No problems noted. Mother Cancer Sister Agoraphobia Hypothyroid Mental health disorder Social History Household Members: Spouse Housing: House Do you presently have visiting nurse or other home services: No Alcohol intake: never Patient Tobacco Use Status: Former Tobacco user Tobacco use type: Cigarette Years Smoked: started 17 years old, 1PPD. quit 2019 e-Cigarette/Vaping Use: Never Used Second Hand Smoke Exposure: Yes service: No Current occupational status: retired Cognitive needs: Yes (needs a cane ) Hearing needs: No Vision needs: Yes (has not seen an eye doctor for about ten years) Questionnaire PHQ-9 Over the last 2 weeks, how often have you been bothered by any of the following problems? 1. Little interest or pleasure in doing things: not at all 2. Feeling down, depressed, or hopeless: not at all 3. Trouble falling or staying asleep, or sleeping too much: several days 4. Feeling tired or having little energy: several days 5. Poor appetite or overeating: not at all 6. Feeling bad about yourself - or that you are a failure or have let yourself or your family down: not at all 7. Trouble concentrating on things, such as reading the newspaper or watching television: not at all 8. Moving or speaking so slowly that other people could have noticed. Or the opposite - being so fidgety or restless that you have been moving around a lot more than usual: not at all 9. Thoughts that you would be better off or of hurting yourself in some way: not at all Total score: 2 Depression Screening Interpretation: Positive Depression Screening Follow-up: Existing condition Depression Screening Done: Yes 42574 - PHQ-9 Billing: Yes Source: Developed by Drs. Kevin Sanders, Nathalie Rowe, Tyrone Rivera and colleagues, with an educational hillary from [employer]. Thrive Questionnaire Date Thrive assessed: 11/21/24 I am a: Patient What is your living situation today?: I have a steady place to live Within the past 12 months, did the food you bought not last and you didn't have the money to get more?: I choose not to answer this question Within the past 12 months, did you worry whether your food would run out before you got money to buy more?: I choose not to answer this question Do you have trouble paying for medicines?: I choose not to answer this question Do you have trouble getting transportation to medical appointments?: No Do you have trouble paying your heating and electricity bill?: No Do you have trouble taking care of your child, family member or friend?: No Do you have trouble with day-to-day activities such as bathing, preparing meals, shopping, managing finances, etc.?: No Are you currently unemployed and looking for a job?: I choose not to answer this question Are you interested in more education?: I choose not to answer this question Please select the resources that you would like help with: None Currently or been in a relationship where the following occur: I choose not to answer THRIVE Score: 0 AUDIT C Alcohol Use Questionnaire (AUDIT-C) 1. How often do you have a drink containing alcohol?: Never Total Score: 0 PÉREZ-7 AMB Questionnaire PÉREZ-7 Date PÉREZ - 7 assessed: 05/03/24 Feeling nervous, anxious, or on edge: 0 = Not at all Not being able to stop or control worryin = Not at all Worrying too much about different things: 0 = Not at all Trouble relaxin = Not at all Being so restless that it is hard to sit still: 0 = Not at all Becoming easily annoyed or irritable: 0 = Not at all Feeling afraid as if something awful might happen: 0 = Not at all Total PÉREZ-7 score (0-4 normal; 5-9 mild; 10-14 moderate; 15-21 severe): 0 Source: Developed by Drs. Kevin Sanders, Nathalie Rowe, Tyrone Rivera and colleagues, with an educational hillary from [employer]. Review of Systems Const Denies headache(s) Eyes Denies loss of vision ENT Denies vertigo, Denies dizziness, Denies headache(s) and Denies sore throat Card Denies chest pain, Denies leg edema and Denies lightheadedness Resp Denies cough, Denies hemoptysis and Denies wheezing GI Denies abdominal pain, Denies melena, Denies constipation, Denies diarrhea and Denies vomiting Denies dysuria, Denies urinary frequency and Denies urinary urgency Musc Denies arthralgias, Denies joint swelling, Denies numbness and Denies tingling Neuro Denies Abnormal speech present, Denies behavioral changes, Denies vertigo, Denies dizziness, Denies headache(s), Denies loss of vision, Denies memory loss, Denies numbness and Denies tingling Psych Denies anxiety, Denies behavioral changes, Denies depression, Denies memory loss and Denies panic attacks Benito/Lymph Denies easy bleeding and Denies easy bruising Aller/Immun Denies wheezing Physical exam (Primary Care) Vital Signs: Last Vital Signs Temp 97.1 F 11/21/24 08:15 Pulse 100 11/21/24 08:15 BP 130/80 11/21/24 08:15 Pulse Ox 97 11/21/24 08:15 Oxygen Delivery Method Room Air 11/21/24 08:15 BMI result Body Mass Index 39.4 BMI Assessment/Plan discussion: High BMI High, discussed plan: lifestyle, weight reduction, dietary and physical activity Tobacco/Smoking Status: Tobacco use Status Tobacco use date assessed 11/21/24 11/21/24 08:19 Patient Tobacco Use Status Former Tobacco user 11/21/24 08:19 Tobacco use type Cigarette 11/21/24 08:19 e-Cigarette/Vaping Use Never Used 11/21/24 08:19 PHQ-9: PHQ-9 Score PHQ-9: Total score 2 11/21/24 08:19 Depression Screening Interpretation: Positive Depression Screening Follow-up: Existing condition Thrive Assessment: Date of Thrive Assessment Date Thrive assessed 11/21/24 11/21/24 08:19 Currently or been in a relationship where the following occur: I choose not to answer Const General: healthy appearing, no acute distress, alert and awake Nutritional Appearance: well nourished Orientation/consciousness: oriented to person, oriented to place and oriented to time HENMT Ears: TM's normal bilaterally General nose exam: Normal nasal mucous membranes and turbinates present Eyes Conjunctivae: conjunctivae normal Sclerae: sclerae normal Pupils: Equal, round and reactive pupils present Neck Neck: Yes no lymphadenopathy and Yes no JVD Thyroid: Thyroid normal Carotids: no bruits Resp Effort & Inspection: normal respiratory effort and not tachypneic Auscultation: no crackles, no rales, no rhonchi and no wheezes Cardio Rate: regular rate Rhythm: regular rhythm Heart sounds: no murmurs and normal S1 and S2 GI Palpation (GI): Soft to palpation, nontender, no hepatomegaly and no splenomegaly Auscultation: normal bowel sounds Skin General skin exam: no rashes or lesions noted and dry skin Neuro General: oriented to person, oriented to place and oriented to time Cranial nerves: Yes Equal, round and reactive pupils present Speech: No Abnormal speech present Gait exam (Neuro): Normal gait present Motor exam (neuro): no tremor noted Extrem Right upper extremity: full ROM Left upper extremity: full ROM Right lower extremity: full ROM; no edema Left lower extremity: full ROM; no edema Psych Mental Status: mental status grossly normal Speech and movement: Normal speech and movement present Affect: normal affect Attitude: cooperative Thought process: Normal thought process present Coding Level of Care Code Est Pt Level 4 (57637) Diagnoses Type 2 diabetes mellitus with microalbuminuria, with long-term current use of insulin E11.29; R80.9; Z79.4 Diabetes mellitus type: type 2 Diabetes mellitus termite exterminator helper insulin use: with fpc use Diabetes mellitus complication status: with kidney complications Diabetes mellitus complication detail: with microalbuminuria Coronary artery disease of bypass graft of [place] heart with stable angina pectoris I25.708 Coronary Disease-Associated Artery/Lesion type: bypass graft [place] vs. transplanted heart: [place] heart Associated angina: with stable angina CKD (chronic kidney disease) stage 4, GFR 15-29 ml/min N18.4 Chronic heart failure with preserved ejection fraction (HFpEF) I50.32 Mixed hyperlipidemia E78.2 Hyperlipidemia type: mixed hyperlipidemia Essential hypertension I10 Class 3 obesity E66.813 Additional Codes PHQ-9 - 63847 - PHQ-9 Billing: Yes ([id number]) Assessment & Plan Assessment & Plan (1) Diabetes mellitus: Code(s): E11.9 - Type 2 diabetes mellitus without complications Category: Medical Qualifiers: Diabetes mellitus type: type 2 Diabetes mellitus fpc insulin use: with termite exterminator helper use Diabetes mellitus complication status: with kidney complications Diabetes mellitus complication detail: with microalbuminuria Qualified Code(s): E11.29 - Type 2 diabetes mellitus with other diabetic kidney complication; R80.9 - Proteinuria, unspecified; Z79.4 - FCI (current) use of insulin Plan: Patient's type 2 diabetes not well controlled, most recent A1c 8.1 from 8.9 we have added Jardiance 25 mg and increased his Mounjaro 15 mg.. He continues with Lantus 30 units at night and preprandial insulin . Advised to increase his Lantus to 35 units before bed for better glycemic control He reports he continues to stay physically active Goal A1c is to be below 7.0 (2) CAD (coronary artery disease): Code(s): I25.10 - Atherosclerotic heart disease of [place] coronary artery without angina pectoris Category: Medical Qualifiers: Coronary Disease-Associated Artery/Lesion type: bypass graft [place] vs. transplanted heart: [place] heart Associated angina: with stable angina Qualified Code(s): I25.708 - Atherosclerosis of coronary artery bypass graft(s), unspecified, with other forms of angina pectoris Plan: Patient continues to follow [facility]. Most recent lipid panel showing excellent control of his total cholesterol and LDL. Has no overt signs of heart failure. (3) CKD (chronic kidney disease) stage 4, GFR 15-29 ml/min: Code(s): N18.4 - Chronic kidney disease, stage 4 (severe) Category: Medical Plan: Does follow Nephrology. Kidney function is stable, continues to have moderate microalbuminuria. Has been trying to stay away from nephrotoxins hand stay well hydrated. Continues with losartan 25 b.i.d.. (4) Chronic heart failure with preserved ejection fraction (HFpEF): Code(s): I50.32 - Chronic diastolic (congestive) heart failure Category: Medical Plan: As above, patient could followed by [facility]. Seems to be well compensated. (5) HLD (hyperlipidemia): Code(s): E78.5 - Hyperlipidemia, unspecified Category: Medical Qualifiers: Hyperlipidemia type: mixed hyperlipidemia Qualified Code(s): E78.2 - Mixed hyperlipidemia Plan: Patient's lipid panel has been well controlled with current dose of statin therapy. Goal LDL is to remain optimally below 70. (6) Essential hypertension: Code(s): I10 - Essential (primary) hypertension Category: Medical Plan: As above patient's blood pressure acceptable today in office . He continues with amlodipine, carvedilol, furosemide, doxazosin.. Will continue to monitor his blood pressure with goal blood pressure to remain below 140/90 (7) Class 3 obesity: Code(s): E66.813 - Obesity, class 3 Category: Medical Plan: Patient does understand his BMI is over 40 and will continue working on being more physically active and adapting to better eating habits to reduce his weight. Orders: Orders Comprehensive [place]. Panel Fast Today I25.708 - Atherosclerosis of coronary artery bypass graft(s), unspecified, with other forms of angina pectoris Lipid Panel Today E78.2 - Mixed hyperlipidemia Complete Blood Count no Diff Today I25.810 - Atherosclerosis of coronary artery bypass graft(s) without angina pectoris
[2024-11-21 08:15] VITALS: BP 130/80; PULSE 100; TEMP 36.2; O2SAT 97; BMI 39.4
--- OUTSIDE RECORDS SUMMARY | 2024-11-21 08:15 | XMS_ITS | Encounter Summary ---
Author Organization [facility] Address 100 [facility] [address] [place] [address] Phone Care Team Providers Care Smutter Name Role Phone Ronnie Reynolds Primary Care Provider [phone] Reason for Visit * Reason Comments Med Refill Encounter Details Date Type Department Care Team (Late st Contact Info) Description 12/20/2023 [facility]ill [facility] [address] [place] [address] [facility] [place] [phone] London Oneill MD [address] [facility] [address] [place] [address] Social History Tobacco Use Types [...] on filedocumented in this encounter Care Teams Smutter Relationship Specialty Start Date End Date Ronnie Reynolds PA 2 [facility], [address] [place] [address] PCP - General Physician Hotel Supplies Salesperson 10/15/21 documented as of this encounter
== END 2024-11-21 08:38 | disposition home or self-care (01) ==
LOC: HO.HMCH 08:11
PROVIDERS: PCP Physician Assistant; Visit Provider Physician Assistant
DX: I12.9 Hypertensive chronic kidney disease with stage 1 through stage 4 chronic kidney disease, or unspecified chronic kidney disease (principal); E11.29 Type 2 diabetes mellitus with other diabetic kidney complication; Z79.4 Long term (current) use of insulin; N18.4 Chronic kidney disease, stage 4 (severe); I50.32 Chronic diastolic (congestive) heart failure; E66.813 Obesity, class 3; Z68.39 Body mass index [BMI] 39.0-39.9, adult; R80.9 Proteinuria, unspecified; I25.708 Atherosclerosis of coronary artery bypass graft(s), unspecified, with other forms of angina pectoris; E78.2 Mixed hyperlipidemia

== ENCOUNTER → 2024-11-21 08:10 | Outpatient (BNVA) | payer OTHER, SELFPAY | PROVIDERS: PCP Physician Assistant; Visit Provider Physician Assistant | DX: E11.29 Type 2 diabetes mellitus with other diabetic kidney complication (principal); R80.9 Proteinuria, unspecified; I13.0 Hypertensive heart and chronic kidney disease with heart failure and stage 1 through stage 4 chronic kidney disease, or unspecified chronic kidney disease; I50.32 Chronic diastolic (congestive) heart failure; E11.22 Type 2 diabetes mellitus with diabetic chronic kidney disease; N18.4 Chronic kidney disease, stage 4 (severe); I25.708 Atherosclerosis of coronary artery bypass graft(s), unspecified, with other forms of angina pectoris; E78.2 Mixed hyperlipidemia; Z79.4 Long term (current) use of insulin; Z79.899 Other long term (current) drug therapy; Z13.31 Encounter for screening for depression | CPT/HCPCS: 96127 ==

== ENCOUNTER 2025-01-26 07:00 | Outpatient (REF) | payer OTHER, SELFPAY ==
[2025-01-26 07:40] LABS: Hematocrit 33.7 % (42.0-52.0); Hemoglobin 11.0 g/dl (14.0-18.0); Mean Corpuscular HGB Conc 32.6 g/dl (31.0-36.0); Mean Corpuscular Hemoglobin 27.6 pg (27.0-33.0); Mean Corpuscular Volume 84.7 fL (80.0-98.0); NRBC Abs Auto 0.000 X10*3/uL (0.0-0.012); NRBC Pct Auto 0.0 /100WBC (0.0-0.2); Platelet Count 212 X10*3/uL (160-400); Red Blood Count 3.98 X10*6/uL (4.60-5.80); White Blood Count 8.2 X10*3/uL (4.8-10.8)
[2025-01-26 08:03] LABS: Alanine Aminotransferase 32 U/L (0-40); Albumin Level 3.9 g/dL (3.5-5.0); Alkaline Phosphatase 144 U/L (39-117); Anion Gap 13 (12-20); Aspartate Amino Transferase 21 U/L (5-37); Blood Urea Nitrogen 41 mg/dL (9-16); Calcium 8.5 mg/dL (8.4-10.2); Carbon Dioxide 21 mmol/L (22-29); Chloride 109 mmol/L (96-108); Cholesterol 91 mg/dL (<200); Estimated Glomerular Filt Rate 28; HDL Cholesterol 28 mg/dL (>40); Potassium 4.0 mmol/L (3.3-5.1); Sodium 139 mmol/L (135-145); Total Protein 6.8 g/dL (6.5-8.0); Triglycerides 112 mg/dL (<150)
== END 2025-01-26 07:01 | disposition home or self-care (01) ==
LOC: HO.LAB 07:00
PROVIDERS: PCP Physician Assistant; Visit Provider Physician Assistant
DX: I25.708 Atherosclerosis of coronary artery bypass graft(s), unspecified, with other forms of angina pectoris (principal); E78.2 Mixed hyperlipidemia
CPT/HCPCS: 36415; 80053; 80061; 85027

== ENCOUNTER 2025-01-29 07:42 | Outpatient (AMB) | payer OTHER, SELFPAY ==
--- OUTSIDE RECORDS SUMMARY | 2025-01-29 07:45 | XMS_ITS | Encounter Summary ---
Author Organization [facility] Address [address] [facility] [address] [place] [address] Phone Care Team Providers Care Bottle Hop Name Role Phone Ronnie Reynolds Primary Care Provider [phone] Reason for Visit * Reason Comments Med Refill Encounter Details Date Type Department Care Team (Late Contact Info) Description 12/20/2023 Refill [facility] [address] [place] [address] [place] [phone] London Oneill MD [address] [facility] [address] [place] [address] Social History Tobacco Use Types [...] as of this encounter Plan of Treatment Upcoming Encounters Date Type Department Care Team (Late Contact Info) Description 02/05/2025 3:00 PM EDT Office Visit [facility] [address] [place] [address] [place] [address] London Oneill MD [address] [facility] [address] [place] [address] documented as of this encounter Visit Diagnoses Not on filedocumented in this encounter Care Teams Bottle Hop Relationship Specialty Start Date End Date Ronnie Reynolds PA [address], [address] [place] [address] PCP - General Physician Sock Lining Examiner 10/15/21 documented as of this encounter
--- OUTSIDE RECORDS SUMMARY | 2025-01-29 07:45 | XMS_ITS | Encounter Summary ---
Author Organization [facility] Address [address] [address] Phone Care Team Providers Care Propeller Engineer Name Role Phone Ronnie Reynolds Primary Care Provider [phone] Encounter Details Date Type Department Care Team (Late st Contact Info) Description 01/05/2025 Office Communication [facility] [address] [address] London Oneill MD [address] [address] Social History Tobacco Use Types Packs/Day [...] Telephone Encounter - London Oneill MD - 01/05/2025 4:45 PM EDT Needs appt with me in 4-6 weeks documented in this encounter Plan of Treatment Upcoming Encounters Date Type Department Care Team (Late st Contact Info) Description 02/05/2025 3:00 PM EDT [facility] Visit [facility] [address] [place] [address] London Oneill MD [address] [address] documented as of this encounter Visit Diagnoses Not on filedocumented in this encounter Care Teams Propeller Engineer Relationship Specialty Start Date End Date Ronnie Reynolds PA [address] [place] [address], [address] [place] [address] PCP - General Physician Network Intern 10/15/21 documented as of this encounter
--- OUTSIDE RECORDS SUMMARY | 2025-01-29 07:45 | XMS_ITS | Clinical Summary ---
Author Organization [facility] Facility Address [address] [place] [id number] Care Team Providers Care [facility] Name Role Phone Ronnie Reynolds Primary Care Provider [phone] Allergies No known active allergies Medications amiodarone [...] hours Active amLODIPine (NORVASC) 10 MG tablet 09/09/19 21 Active Aspirin Low Dose 81 MG chewable tablet CHEW 1 TABLET BY MOUTH EVERY DAY 08/01/19 21 Active carvedilol (COREG) 12.5 MG tablet Take 12.5 mg by mouth 2 (two) times a day with meals 09/04/19 21 Active Trulicity 0.75 MG/0.5ML solution pen-injector INJECT 0.5 ML SUBCUT EVERY WEEK 09/07/19 21 Active furosemide (LASIX) 40 MG tablet 09/09/19 21 Active gemfibrozil (LOPID) 600 MG tablet Take 600 mg by mouth 07/14/19 21 Active LORazepam (ATIVAN) 1 MG tablet 09/07/19 21 Active pravastatin (PRAVACHOL) 20 MG tablet Take 20 mg by mouth 1 (one) time each day 07/10/19 21 Active losartan (COZAAR) 25 MG tablet TAKE 2 TABLETS BY MOUTH 1 TIME EACH DAY. 60 tablet 01/06/20 25 Active losartan (COZAAR) 25 MG tablet TAKE 2 TABLETS BY MOUTH 1 TIME EACH DAY. 60 tablet 01/14/20 24 025 Discontinued Active Problems Problem Noted Date Diagnosed Date Stage 3b chronic kidney disease 01/28/2023 Type 2 diabetes mellitus wit h diabetic chronic kidney disease 01/28/2023 Renal osteodystrophy 01/28/2023 Essential hypertension 09/10/2020 Chronic kidney disease stage 3 09/10/2020 Encounters Date Type Department Care Team Description 01/05/2025 Office Communication [facility] [address] [place] [id number] London Oneill MD 01/05/2025 Refill [facility] [address] [place] [address] London Oneill MD from Last 3 Months Family History Medical History Relation Comments Dementia [...] 10/22/2022 1:30 PM EDT Plan of Treatment Upcoming Encounters Date Type Department Care Team (Late st Contact Info) Description 02/05/2025 3:00 PM EDT Office Visit [facility] [address] [place] [id number] London Oneill MD [address] [facility] [address] [place] [address] Health Maintenance Due Date Last Done Comments [...] Visual Foot Exam 10/22/2022 Influenza Vaccine (#1) 2024 Insurance Comprehensive Benefits Comprehensive Benefits Care Teams [employer] Relationship Specialty Start Date End Date Ronnie Reynolds PA [address] [facility], [address] [place] [address] PCP - General Physician [place] [facility] 10/15/21
[2025-01-29 07:57] VITALS: BP 142/80; PULSE 90; O2SAT 96; BMI 40.4
--- NOTE | 2025-01-29 07:57 | MHC.PC.OV ---
Vital Signs 01/29/25 07:57 Height 5 ft 11 in Weight 290 lb BMI 40.4 BP 142/80 H Blood Pressure Location Lt brachial Position Sitting Pulse 90 Pulse Source Pulse Oximeter Pulse Oximetry (%) 96 Oxygen Delivery Method Room Air Intake Visit Reasons: annual exam Allergies No Known Allergies (No Known Allergies*) Allergy (Verified 01/29/25 08:08) Medication List - Last Reconciled 01/29/25 by Ronnie Reynolds PA-C acetaminophen 650 mg (2 x 325 mg) PO Q6H PRN albuterol sulfate 90 mcg/actuation 1 inh inhalation QID PRN 30 days amlodipine 10 mg PO DAILY aspirin 81 mg PO DAILY 90 days atorvastatin 80 mg PO DAILY blood sugar diagnostic (FreeStyle Lite Strips) 1 strip miscellaneous TID blood-glucose meter (FreeStyle Lite Meter kit) As directed blood-glucose meter (FreeStyle Lite Meter kit) As directed blood-glucose sensor (Dexcom G7 Sensor device) As directed blood-glucose,load checker,cont (Dexcom G7 Accounts Payable Administrator) As directed carvedilol (Coreg) 25 mg PO BID compr.stocking,knee,long,x-lrg As directed doxazosin 4 mg PO DAILY 90 days empagliflozin (Jardiance) 25 mg PO DAILY 90 days furosemide 80 mg (2 x 40 mg) PO DAILY insulin glargine 48 units (0.48 mL) subcut QPM 30 days insulin lispro (Humalog KwikPen (U-100) Insulin) 16 units (0.16 mL) subcut TID 30 days lorazepam (Ativan) 1 mg PO BEDTIME PRN 30 days losartan 25 mg PO BID miscellaneous medical supply (Blood Pressure Cuff) As directed [NAVAGE device As directed] pen needle, diabetic (BD Ultra-Fine Mini Pen Needle) 1 ea subcut QID tirzepatide 12.5 mg (0.5 mL) subcut QWEEK 4 weeks Held on 08/01/24. Instructions: Doctor's Order tirzepatide (Mounjaro) 15 mg (0.5 mL) subcut QWEEK 4 weeks umeclidinium-vilanterol 62.5-25 mcg/actuation (Anoro Ellipta) 1 inh inhalation DAILY Tobacco use date assessed: 11/21/24 Dental Screening Dental Screen Date: 05/03/24 HPI annual exam HPI Details Patient is a 59 year male here today for an annual physical.? Patient has a past medical history significant for CKD stage 4, type 2 diabetes, obesity, congestive heart failure coronary artery disease, hyperlipidemia. .. Concern--> patient reports he has been a bit constipated as of late, noticed weight gain since last office visit. He reports send has been effective for him in the past . 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 .? He continues on Humalog? and Basaglar.? He reports he has recently started to be more physically active and working out.. Today's A1c at 8.2 from 8.1.. We have recently added Jardiance 25 mg for both his Congestive heart failure and diabetes control He will work extensively on diabetic diet .. Hypertension:? Reports blood pressures at home have been 130-145 systolic.? Today in office blood pressure slightly elevated. He denies any chest discomfort for, palpitations or dizziness.? Does report shortness of breath on exertion ever since his hospital admission for open her surgery. .. Coronary artery disease:? Continues to follow [facility], gets echocardiogram annually. He is status post open heart surgery with coronary artery bypass, is followed by Cardiology. He does report having some shortness of breath and chest discomfort on exertion. Recent LDL acceptable below 70 .. Carotid stenosis: Has 80-99% carotid stenosis on the right side, he is followed by vascular here in [place] .. Class 3 obesity: Patient's weight fairly stable. He reports being more physically active and working out a few days a week.. .. CKD-4-? most recent GFR at 27. 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 Creatinine has been stable (2.3-2.6). Continues to have a moderate microalbuminuria likely secondary to his multiple comorbidities Will continue to avoid nephrotoxins Colorectal cancer screening: Willing to do cologaurd Vaccines: Up-to-date with COVID vaccine, pneumonia vaccine, needs new tetanus vaccine, Needs flu vaccine Laboratory Tests 07/20/23 09/21/23 09/21/23 10:03 15:24 15:25 RBC 3.83 L Hgb 10.6 L Creatinine Estimated GFR Fasting Glucose 203 H Hgb A1c (Clinic) 8.9 H Hemoglobin A1c % NT-Pro-B Natriuret Pep Cholesterol 106 LDL Cholesterol, C alc 43 PSA Screen Urine Microalbumin 74.0 10/26/23 01/26/24 04/27/24 09:16 09:32 07:10 RBC 3.87 L Hgb 10.7 L Creatinine Estimated GFR Fasting Glucose 309 H Hgb A1c (Clinic) 9.6 H 10.0 H Hemoglobin A1c % NT-Pro-B Natriuret Pep Cholesterol LDL Cholesterol, C alc 49 PSA Screen Urine Microalbumin 05/03/24 06/19/24 07/31/24 08:01 08:48 07:10 RBC 3.96 L Hgb 10.7 L Creatinine Estimated GFR Fasting Glucose Hgb A1c (Clinic) 7.8 H Hemoglobin A1c % NT-Pro-B Natriuret Pep Cholesterol LDL Cholesterol, C alc PSA Screen Urine Microalbumin 214.0 07/31/24 08/01/24 11/17/24 07:14 08:44 07:23 RBC 4.19 L 4.04 L Hgb 11.3 L 11.1 L Creatinine 2.47 H 2.68 H Estimated GFR 25 Fasting Glucose 284 H 179 H Hgb A1c (Clinic) 8.9 H Hemoglobin A1c % 8.1 H NT-Pro-B Natriuret Pep 291 H Cholesterol LDL Cholesterol, C alc 35 PSA Screen 0.82 Urine Microalbumin 01/26/25 07:21 RBC 3.98 L Hgb 11.0 L Creatinine 2.39 H Estimated GFR 28 Fasting Glucose Hgb A1c (Clinic) Hemoglobin A1c % NT-Pro-B Natriuret Pep Cholesterol 91 LDL Cholesterol, C alc 41 PSA Screen Urine Microalbumin [facility] Medical History NSTEMI (non-ST elevated myocardial infarction) Obesity (BMI 30-39.9) Pure hypercholesterolemia Sinusitis Anxiety Diabetes mellitus Chronic heart failure with preserved ejection fraction (HFpEF) HLD (hyperlipidemia) Carotid stenosis Essential hypertension Atherosclerotic cardiovascular disease Hypertension Surgical History S/P triple vessel bypass Status post coronary artery bypass graft (~01/2020) History of cardiac catheterization (~02/09/20) Family History (Updated 01/29/25 @ 08:13 by Ronnie Reynolds PA-C) Father No problems noted. Mother Cancer Sister Agoraphobia Hypothyroid Mental health disorder Brother Throat cancer Social History Household Members: Spouse Housing: House Do you presently have visiting nurse or other home services: No Alcohol intake: never Patient Tobacco Use Status: Former Tobacco user Tobacco use type: Cigarette Years Smoked: started 17 years old, 1PPD. quit 2020 e-Cigarette/Vaping Use: Never Used Second Hand Smoke Exposure: Yes service: No Current occupational status: retired Cognitive needs: Yes (needs a cane ) Hearing needs: No Vision needs: Yes (has not seen an eye doctor for about ten years) Questionnaire PHQ-9 Over the last 2 weeks, how often have you been bothered by any of the following problems? 1. Little interest or pleasure in doing things: not at all 2. Feeling down, depressed, or hopeless: not at all 3. Trouble falling or staying asleep, or sleeping too much: not at all 4. Feeling tired or having little energy: not at all 5. Poor appetite or overeating: not at all 6. Feeling bad about yourself - or that you are a failure or have let yourself or your family down: not at all 7. Trouble concentrating on things, such as reading the newspaper or watching television: not at all 8. Moving or speaking so slowly that other people could have noticed. Or the opposite - being so fidgety or restless that you have been moving around a lot more than usual: not at all 9. Thoughts that you would be better off or of hurting yourself in some way: not at all Total score: 0 Depression Screening Interpretation: Positive Depression Screening Follow-up: Existing condition Depression Screening Done: Yes 45824 - PHQ-9 Billing: Yes Source: Developed by Drs. Kevin Sanders, Nathalie Rowe, Tyrone Rivera and colleagues, with an educational hillary from [employer]. Thrive Questionnaire Date Thrive assessed: 11/21/24 I am a: Patient What is your living situation today?: I have a steady place to live Within the past 12 months, did the food you bought not last and you didn't have the money to get more?: I choose not to answer this question Within the past 12 months, did you worry whether your food would run out before you got money to buy more?: I choose not to answer this question Do you have trouble paying for medicines?: I choose not to answer this question Do you have trouble getting transportation to medical appointments?: No Do you have trouble paying your heating and electricity bill?: No Do you have trouble taking care of your child, family member or friend?: No Do you have trouble with day-to-day activities such as bathing, preparing meals, shopping, managing finances, etc.?: No Are you currently unemployed and looking for a job?: I choose not to answer this question Are you interested in more education?: I choose not to answer this question Please select the resources that you would like help with: None Currently or been in a relationship where the following occur: I choose not to answer THRIVE Score: 0 PÉREZ-7 AMB Questionnaire PÉREZ-7 Date PÉREZ - 7 assessed: 01/29/25 Feeling nervous, anxious, or on edge: 0 = Not at all Not being able to stop or control worryin = Not at all Worrying too much about different things: 0 = Not at all Trouble relaxin = Not at all Being so restless that it is hard to sit still: 0 = Not at all Becoming easily annoyed or irritable: 0 = Not at all Feeling afraid as if something awful might happen: 0 = Not at all Total PÉREZ-7 score (0-4 normal; 5-9 mild; 10-14 moderate; 15-21 severe): 0 Source: Developed by Drs. Kevin Sanders, Nathalie Rowe, Tyrone Rivera and colleagues, with an educational hillary from [employer]. PÉREZ-7 Assessment Billing PÉREZ-7 Assessment Tool: PÉREZ-7 Assessment 50708 Review of Systems Const Denies body aches, Denies chills, Denies excessive sweating, Denies fatigue, Denies fever(s) and Denies headache(s) Eyes Denies blurry vision ENT Denies dysphagia, Denies vertigo, Denies dizziness, Denies headache(s), Denies hearing loss and Denies tinnitus Card Denies chest pain, Denies chest pain with activity, Denies syncope, Denies irregular heart rhythm and Denies dyspnea Resp Denies chest congestion, Denies cough, Denies hemoptysis, Denies dyspnea and Denies wheezing GI Denies abdominal pain, Denies melena, Denies hematochezia, Denies coffee ground emesis, Denies dysphagia, Denies diarrhea, Denies nausea and Denies vomiting Denies difficulty urinating, Denies dysuria, Denies urinary frequency, Denies urinary hesitancy and Denies urinary urgency Musc Denies arthralgias, Denies limited range of motion, Denies muscle cramps and Denies muscle weakness Skin/Breast Denies rash and Denies skin ulcer Neuro Denies Abnormal speech present, Denies confusion, Denies vertigo, Denies dizziness, Denies syncope, Denies headache(s), Denies memory loss and Denies seizure-like activity Psych Denies anxiety, Denies confusion, Denies depression, Denies memory loss, Denies panic attacks and Denies paranoia Endo Denies excessive sweating, Denies fatigue, Denies flushing, Denies polydipsia and Denies polyuria Aller/Immun Denies wheezing Physical exam (Primary Care) Vital Signs: Last Vital Signs Pulse 90 01/29/25 07:57 BP 142/80 H 01/29/25 07:57 Pulse Ox 96 01/29/25 07:57 Oxygen Delivery Method Room Air 01/29/25 07:57 BMI result Body Mass Index 40.4 BMI Assessment/Plan discussion: High BMI High, discussed plan: lifestyle, weight reduction, dietary and physical activity Tobacco/Smoking Status: Tobacco use Status Tobacco use date assessed 11/21/24 01/29/25 07:58 Patient Tobacco Use Status Former Tobacco user 01/29/25 07:58 Tobacco use type Cigarette 01/29/25 07:58 e-Cigarette/Vaping Use Never Used 01/29/25 07:58 PHQ-9: PHQ-9 Score PHQ-9: Total score 0 01/29/25 08:35 Depression Screening Interpretation: Positive Depression Screening Follow-up: Existing condition Thrive Assessment: Date of Thrive Assessment Date Thrive assessed 11/21/24 01/29/25 07:58 Currently or been in a relationship where the following occur: I choose not to answer Const Other: Obese General: cooperative, comfortable, no acute distress, alert and awake; No confusion Orientation/consciousness: oriented to person, oriented to place, patient oriented x3 and No confusion HENMT Head: Yes normocephalic Ears: external ears normal and TM's normal bilaterally Face and sinus: No sinus tenderness Mouth: Normal oral and palatal mucosa present and tongue normal Teeth and gingiva: dentition normal and gingiva normal Throat: Yes posterior oropharynx normal, Yes tonsils normal and Yes uvula midline Eyes Conjunctivae: conjunctivae normal Sclerae: sclerae normal Pupils: Equal, round and reactive pupils present EOM: EOMs intact bilaterally Direct Ophthalmoscopy: No no photophobia Neck Neck: Yes no lymphadenopathy, No tender and Yes no JVD Thyroid: Thyroid normal Carotids: no bruits Chest Chest palpation & inspection: no tenderness Resp Effort & Inspection: normal respiratory effort, no audible wheezes, not labored and no stridor Auscultation: no crackles, no rales, no rhonchi and no wheezes Cardio Jugular venous distension: no JVD Rate: regular rate, not bradycardic and not tachycardic Rhythm: regular rhythm Bruits: no carotid bruits Peripheral pulses: Peripheral pulses 2+ throughout GI Inspection: Yes normal to inspection, No abdominal wall ecchymosis and No visible herniation Palpation (GI): Soft to palpation, nontender, no guarding, not rigid and No hepatosplenomegaly present Auscultation: normoactive bowel sounds General: Yes no CVA tenderness Back/Spine/Pelvis Back: no CVA tenderness and No back tenderness Cervical Spine: cervical ROM normal Thoracic/Lumbar Spine: thoracic and lumbar spine normal to inspection, straight leg raise negative bilaterally, No thoraco-lumbar ROM limited and No lumbar spinal tenderness Skin Lesions: no lesions Rashes: no rashes Wounds: no wounds Neuro General: oriented to person, oriented to place, patient oriented x3, CN's II-XI intact bilaterally and No confusion Cranial nerves: Yes Equal, round and reactive pupils present and Yes Normal accommodation reflex present Cognition (Neuro): normal cognition Speech: No Abnormal speech present Gait exam (Neuro): Normal gait present Motor exam (neuro): 5/5 motor strength present throughout Extrem Right upper extremity: full ROM; no cyanosis Left upper extremity: full ROM; no cyanosis Right lower extremity: edema Left lower extremity: edema Psych Appearance: grossly normal Mental Status: mental status grossly normal Affect: normal affect Attitude: cooperative Thought process: Normal thought process present Results AMB Hemoglobin A1c AMB Hemoglobin A1c 8.2 % Last Edit by Zeina Whitt CMA on 01/29/25 08:29 Immunizations Boostrix Tdap 2.5 Lf unit-8 mcg-5 Lf/0.5 mL intramuscular syringe Performing Provider: Ronnie Reynolds PA-C [facility] [place] Administered by: Zeina Whitt CMA on 01/29/25 08:34 Dose Route Admin Location Dispensed Lot Number Expiration Date [employer]DC [employer] 0.5 mL IM Left Deltoid 0.5 mL [id number] 03/15/27 13020-937-87 [employer] Total Dispensed Waste 0.5 mL 0 % VIS Given Date VIS Provided VIS Publication Date 01/29/25 Single Vaccine 20 Eligibility Eligibility Date Funding Source Not [facility] Eligible 01/29/25 Private Results Reviewed Results Reviewed: Laboratory Last Values Hgb A1c (Clinic) 8.2 % (4.0-6.0) H 01/29/25 07:59 Coding Level of Care Code Est Pt Prev Care 40-64y(77381) Diagnoses Annual physical exam Z00.00 Type 2 diabetes mellitus with microalbuminuria, with long-term current use of insulin E11.29; R80.9; Z79.4 Diabetes mellitus complication detail: with microalbuminuria Diabetes mellitus complication status: with kidney complications Diabetes mellitus technician terminal and repeater insulin use: with technician terminal and repeater use Diabetes mellitus type: type 2 Coronary artery disease of bypass graft of [place] heart with stable angina pectoris I25.708 Associated angina: with stable angina Coronary Disease-Associated Artery/Lesion type: bypass graft [place] vs. transplanted heart: [place] heart CKD (chronic kidney disease) stage 4, GFR 15-29 ml/min N18.4 Chronic heart failure with preserved ejection fraction (HFpEF) I50.32 Mixed hyperlipidemia E78.2 Hyperlipidemia type: mixed hyperlipidemia Essential hypertension I10 Class 3 obesity E66.813 Lumbar spine pain M54.50 Constipation, unspecified constipation type K59.00 Constipation type: unspecified constipation type MDD (major depressive disorder), recurrent episode, moderate F33.1 Additional Codes PÉREZ-7 Assessment Billing - PÉREZ-7 Assessment Tool: PÉREZ-7 Assessment 74206 ([id number]) PHQ-9 - 66546 - PHQ-9 Billing: Yes ([id number]) Assessment & Plan Assessment & Plan (1) Annual physical exam: Code(s): Z00.00 - Encounter for general adult medical examination without abnormal findings Category: Medical Plan: As per HPI (2) Diabetes mellitus: Code(s): E11.9 - Type 2 diabetes mellitus without complications Category: Medical Qualifiers: Diabetes mellitus complication detail: with microalbuminuria Diabetes mellitus complication status: with kidney complications Diabetes mellitus technician terminal and repeater insulin use: with assisted use Diabetes mellitus type: type 2 Qualified Code(s): E11.29 - Type 2 diabetes mellitus with other diabetic kidney complication; R80.9 - Proteinuria, unspecified; Z79.4 - residential (current) use of insulin Plan: Patient's type 2 diabetes not well controlled, today's A1c at 8.2 . Patient continues on high doses of insulin and maximal dose of mounjaro.. He continues with Lantus 30 units at night and preprandial insulin . Goal A1c is to be below 7.0 (3) CAD (coronary artery disease): Code(s): I25.10 - Atherosclerotic heart disease of [place] coronary artery without angina pectoris Category: Medical Qualifiers: Associated angina: with stable angina Coronary Disease-Associated Artery/Lesion type: bypass graft [place] vs. transplanted heart: [place] heart Qualified Code(s): I25.708 - Atherosclerosis of coronary artery bypass graft(s), unspecified, with other forms of angina pectoris Plan: Patient continues to follow [facility]. Most recent lipid panel showing excellent control of his total cholesterol and LDL. Has no overt signs of heart failure. (4) CKD (chronic kidney disease) stage 4, GFR 15-29 ml/min: Code(s): N18.4 - Chronic kidney disease, stage 4 (severe) Category: Medical Plan: Does follow Nephrology. Kidney function is stable, continues to have moderate microalbuminuria. Has been trying to stay away from nephrotoxins hand stay well hydrated. Continues with losartan 25 b.i.d.. (5) Chronic heart failure with preserved ejection fraction (HFpEF): Code(s): I50.32 - Chronic diastolic (congestive) heart failure Category: Medical Plan: As above, patient could followed by [facility]. Seems to be well compensated. (6) HLD (hyperlipidemia): Code(s): E78.5 - Hyperlipidemia, unspecified Category: Medical Qualifiers: Hyperlipidemia type: mixed hyperlipidemia Qualified Code(s): E78.2 - Mixed hyperlipidemia Plan: Patient's lipid panel has been well controlled with current dose of statin therapy. Goal LDL is to remain optimally below 70. (7) Essential hypertension: Code(s): I10 - Essential (primary) hypertension Category: Medical Plan: As above patient's blood pressure slightly elevated today in office . He continues with amlodipine, carvedilol, furosemide, doxazosin.. Will continue to monitor his blood pressure with goal blood pressure to remain below 140/90 (8) Class 3 obesity: Code(s): E66.813 - Obesity, class 3 Category: Medical Plan: Patient does understand his BMI is over 40 and will continue working on being more physically active and adapting to better eating habits to reduce his weight. (9) Lumbar spine pain: Code(s): M54.50 - Low back pain, unspecified Category: Medical Plan: Patient has chronic lower lumbar spine pain secondary to a previous injury. Was previously on Flexeril to help him with his lower back pain. Will supply patient with Flexeril to use on an as needed basis. We did discuss the possibility of starting physical therapy and/or doing chiropractic for his chronic back pain. (10) Constipation: Code(s): K59.00 - Constipation, unspecified Category: Medical Qualifiers: Constipation type: unspecified constipation type Qualified Code(s): K59.00 - Constipation, unspecified Plan: Will supply patient with sent out to use for his constipation. He reports senna has been effective for him in the past (11) MDD (major depressive disorder), recurrent episode, moderate: Code(s): F33.1 - Major depressive disorder, recurrent, moderate Category: Medical Plan: Patient has a history of major depressive disorder, has been stable lately. Does use lorazepam for sleep at night on a as needed basis. He is not interested in speaking with a mental health therapist at this time. Orders: Orders AMB Hemoglobin A1c Today Z13.9 - Encounter for screening, unspecified TDaP Immunization Today K59.00 - Constipation, unspecified, Z23 - Encounter for immunization Referrals Cologuard Test Z12.11 - Encounter for screening for malignant neoplasm of colon Medications: New cyclobenzaprine 10 mg PO BEDTIME PRN 30 tabs 1RF muscle spasm 30 days M54.50 - Low back pain, unspecified sennosides (senna) 17.2 mg (2 x 8.6 mg) PO BEDTIME 60 tabs 1RF 30 days K59.00 - Constipation, unspecified Changed From umeclidinium-vilanterol 62.5-25 mcg/actuation (Anoro Ellipta) 1 inh inhalation DAILY 1 ea 0RF J44.9 - Chronic obstructive pulmonary disease, unspecified To umeclidinium-vilanterol 62.5-25 mcg/actuation (Anoro Ellipta) 1 inh inhalation DAILY 1 ea 3RF 30 days J44.9 - Chronic obstructive pulmonary disease, unspecified Refilled lorazepam (Ativan) 1 mg PO BEDTIME PRN 30 tabs 3RF anxiety 30 days F41.9 - Anxiety disorder, unspecified insulin glargine 48 units (0.48 mL) subcut QPM 15 mL 2RF 30 days E11.29 - Type 2 diabetes mellitus with other diabetic kidney complication, R80.9 - Proteinuria, unspecified, Z79.4 - residential (current) use of insulin albuterol sulfate 90 mcg/actuation 1 inh inhalation QID PRN 8.5 grams 2RF shortness of breath or wheezing 30 days R06.02 - Shortness of breath
== END 2025-01-29 08:40 | disposition home or self-care (01) ==
LOC: HO.HMCH 07:42
PROVIDERS: PCP Physician Assistant; Visit Provider Physician Assistant
DX: Z00.00 Encounter for general adult medical examination without abnormal findings (principal); I12.9 Hypertensive chronic kidney disease with stage 1 through stage 4 chronic kidney disease, or unspecified chronic kidney disease; E11.29 Type 2 diabetes mellitus with other diabetic kidney complication; Z79.4 Long term (current) use of insulin; N18.4 Chronic kidney disease, stage 4 (severe); I50.32 Chronic diastolic (congestive) heart failure; F33.1 Major depressive disorder, recurrent, moderate; E66.813 Obesity, class 3; R80.9 Proteinuria, unspecified; I25.708 Atherosclerosis of coronary artery bypass graft(s), unspecified, with other forms of angina pectoris; E78.2 Mixed hyperlipidemia; M54.50 Low back pain, unspecified; Z23 Encounter for immunization

== ENCOUNTER → 2025-01-29 07:42 | Outpatient (BNVA) | payer OTHER, SELFPAY | PROVIDERS: PCP Physician Assistant; Visit Provider Physician Assistant | DX: Z00.00 Encounter for general adult medical examination without abnormal findings (principal); E11.22 Type 2 diabetes mellitus with diabetic chronic kidney disease; E11.29 Type 2 diabetes mellitus with other diabetic kidney complication; I13.0 Hypertensive heart and chronic kidney disease with heart failure and stage 1 through stage 4 chronic kidney disease, or unspecified chronic kidney disease; N18.4 Chronic kidney disease, stage 4 (severe); I50.32 Chronic diastolic (congestive) heart failure; E78.5 Hyperlipidemia, unspecified; E66.813 Obesity, class 3; R80.9 Proteinuria, unspecified; I25.708 Atherosclerosis of coronary artery bypass graft(s), unspecified, with other forms of angina pectoris; E78.2 Mixed hyperlipidemia; M54.50 Low back pain, unspecified; K59.00 Constipation, unspecified; F33.1 Major depressive disorder, recurrent, moderate; J44.9 Chronic obstructive pulmonary disease, unspecified; F41.9 Anxiety disorder, unspecified; R06.02 Shortness of breath; Z23 Encounter for immunization; Z79.4 Long term (current) use of insulin | CPT/HCPCS: 83036; 90471; 90715; 96127 ==